=== PATIENT | female | born 1965 | race Caucasian/White ===

== ENCOUNTER 2020-09-01 14:50 | Outpatient (CLI) | payer BC, SELFPAY ==
--- NOTE | ~2020-09-01 | DEXA_ITS ---
Bone Density Report Name: Maria Fernanda Crawford Age: 54 Sex: Female Ethnicity: White Date of : 1965 Indication: postmenopausal; Referring Provider: Bushra Kern Study: Bone densitometry was performed. Exam Date: September 01, 2020 Accession number: [id number] Bone Density: Region BMD T-score Z-score Classification AP Spine (L1-L4) 0.914 -1.2 0.0 Osteopenia Femoral Neck (Left) 0.499 -3.2 -2.0 Osteoporosis Total Hip (Left) 0.649 -2.4 -1.6 Osteopenia Total Hip Bilateral Avg 0.658 -2.4 -1.6 Osteopenia Femoral Neck (Right) 0.531 -2.9 -1.7 Osteoporosis Total Hip (Right) 0.666 -2.3 -1.5 Osteopenia World Health Organization criteria for BMD impression classify patients as: Normal (T-score at or above -1.0), Osteopenia (T-score between -1.0 and -2.5), or Osteoporosis (T-score at or below -2.5). 10-year Fracture Risk: FRAX not reported because: Some T-score for Spine Total or Hip Total or Femoral Neck at or below -2.5 Clinical Information Provided by Patient: Has used the following medications: Vitamin D Patient maximum height was 65 Menopause Age: 48 No regular weight bearing exercise Onset of menses at age 12 Number of children 2 Impression: The patient has osteoporosis, based on the Left Femoral Neck T-score. Discussion: HIGH RISK OF FRACTURE. BONE DENSITY IS UNDESIRABLY LOW AT ONE OR MORE SKELETAL SITES, CONSISTENT WITH OSTEOPOROSIS. ALSO, BONE DENSITY IS LOWER THAN EXPECTED FOR AGE AND SEX AT ONE OR MORE SKELETAL SITES; RECOMMEND A DILIGENT SEARCH FOR SECONDARY CAUSES OF BONE LOSS. This patient's lowest T-score meets the World Health Organization's (WHO) criteria for osteoporosis at one or more sites (T-score -2.5 or below). In untreated patients, the risk of osteoporotic fracture increases approximately two-fold for each 1.0 SD decrease in T-score. Low bone density is not the only risk factor for fracture; also consider factors such as patient's age, frailty or poor health, risk of falling, risk of injury, previous osteoporotic fracture, family history of osteoporosis, cigarette smoking, low body weight, etc. Not everyone with low bone mineral density has osteoporosis; osteomalacia and other metabolic bone disorders should also be considered. Patients who have osteoporosis should be evaluated for specific diseases and conditions (secondary causes) that may cause or contribute to bone loss. The [place] [employer]ocrinologists (AACE) and National Osteoporosis Foundation (NOF) recommend pharmacologic intervention for all postmenopausal women whose T-score is in this range. Also, this patient's bone mineral density is below the range considered normal for healthy age-, sex-, and race-matched controls at least one site (Z-score -2.0 or below). This warrants careful evaluation for diseases and conditions th
== END 2020-09-01 14:51 | disposition home or self-care (01) ==
PROVIDERS: PCP Family Medicine; Visit Provider Family Medicine
DX: Z78.0 Asymptomatic menopausal state (principal); M81.0 Age-related osteoporosis without current pathological fracture; M85.852 Other specified disorders of bone density and structure, left thigh; M85.851 Other specified disorders of bone density and structure, right thigh
CPT/HCPCS: 77080

== ENCOUNTER 2020-12-04 09:16 | Outpatient (CLI) | payer BC, SELFPAY | END 2020-12-04 09:17 | disposition home or self-care (01) | LOC: ANHCOVIDVC 09:16 | PROVIDERS: PCP Family Medicine | DX: Z23 Encounter for immunization (principal) | CPT/HCPCS: 0001A; 91300 ==

== ENCOUNTER 2020-12-25 09:16 | Outpatient (CLI) | payer BC, SELFPAY | END 2020-12-25 09:17 | disposition home or self-care (01) | LOC: ANHCOVIDVC 09:17 | PROVIDERS: PCP Family Medicine | DX: Z23 Encounter for immunization (principal) | CPT/HCPCS: 0002A; 91300 ==

== ENCOUNTER 2021-02-22 15:42 | Outpatient (CLI) | payer BC, SELFPAY ==
--- NOTE | ~2021-02-22 | XR_ITS ---
EXAMINATION: XR knee LT 3V DATE: 02/22/2021 16:07 INDICATION: Left knee pain. TECHNIQUE: 3 views of left knee on 4 radiographs were obtained. COMPARISON: None. FINDINGS: Bone alignment is normal. No fracture. Joint spaces are well maintained. There is no knee j oint effusion. IMPRESSION: 1. Normal left knee. Reviewed, dictated and finalized at location A. IMPRESSION: 1. Normal left knee.
[2021-02-22 16:31] LABS: Basophils Percent Auto 0.3 % (0.2-1.2); Eosinophils Absolute Auto 0.1 K/mm3 (0-0.3); Eosinophils Percent Auto 2.9 % (0-4.4); Hematocrit 33.8 % (37.0-47.0); Hemoglobin 11.2 g/dL (12.0-15.0); Immature Granulocyte Absolute 0.01 K/mm3 (0.00-0.031); Immature Granulocyte Percent A 0.3 % (0-0.5); Lymphocytes Absolute Auto 0.49 K/mm3 (0.9-3.2); Lymphocytes Percent Auto 15.7 % (18.3-44.2); Mean Corpuscular HGB Conc 33.1 g/dl (32-36); Mean Corpuscular Hemoglobin 34.4 pg (26-34); Mean Corpuscular Volume 103.7 fl (80-100); Mean Platelet Volume 9.9 fl (7.4-10.4); Monocytes Absolute Auto 0.3 K/mm3 (0.1-0.6); Monocytes Percent Auto 10.2 % (2.6-8.5); Neutrophils Absolute Auto 2.2 K/mm3 (1.3-6.7); Neutrophils Percent Auto 70.6 % (45.5-73.1); Platelet Count Result 133 k/mm3 (150-375); Red Blood Count 3.26 M/mm3 (4.2-5.4); Red Cell Distribution Width 14.3 % (11.5-14.5); White Blood Count 3.1 K/mm3 (4.5-10.0)
[2021-02-22 16:39] LABS: Alanine Aminotransferase 29 U/L (4-35); Albumin Level 4.6 g/dL (3.5-5.1); Alkaline Phosphatase 122 U/L (38-126); Anion Gap 11 mmol/L (8-16); Aspartate Amino Transferase 61 U/L (14-36); Bilirubin,Total 0.4 mg/dL (0.2-1.3); Blood Urea Nitrogen 20 mg/dL (7-17); Calcium 10.3 mg/dL (8.4-10.2); Carbon Dioxide 23 mmol/L (22-30); Chloride 107 mmol/L (98-107); Estimated Glomerular Filt Rate 57; Glucose 99 mg/dL (65-105); Potassium 4.8 mmol/L (3.4-5.0); Sodium 141 mmol/L (137-145); Uric Acid 7.2 mg/dL (2.5-7.5)
== END 2021-02-22 15:43 | disposition home or self-care (01) ==
LOC: ANHIMG 15:44
PROVIDERS: PCP Family Medicine; Visit Provider Family Medicine
DX: Z00.00 Encounter for general adult medical examination without abnormal findings (principal); M25.562 Pain in left knee; M25.462 Effusion, left knee; D61.818 Other pancytopenia; I10 Essential (primary) hypertension
CPT/HCPCS: 36415; 73562; 80053; 84550; 85025

== ENCOUNTER 2021-03-09 08:23 | Outpatient (CLI) | payer BC, SELFPAY ==
--- NOTE | ~2021-03-09 | MR_ITS ---
EXAMINATION: MR knee LT wo con DATE: 03/09/2021 10:03 INDICATION: Left knee pain TECHNIQUE: Magnetic resonance imaging (MRI) of the left knee was performed without intravenous contra st. Sequences included coronal PD-weighted FSE, coronal PD-weighted FS FSE, sagittal T2-weighted FSE , sagittal PD-weighted FS FSE and axial PD weighted fat saturated FSE. COMPARISON: None. FINDINGS: Medial compartment: Medial meniscus is normal. There is some shallow chondral surface irregularity along the anterior blaire ghtbearing medial femoral condyle. Lateral compartment: Lateral meniscus is normal. Articular cartilage is normal. Patellofemoral compartment: Small region of deep chondral fissuring at the medial patellar facet with small focus of underlying s ubarticular cystic change. Remaining cartilage in the patellofemoral compartment appears normal. Ligaments and tendons: Anterior and posterior cruciate ligaments are normal. The medial collateral ligament and fibular tracie ateral ligament complex are normal. The extensor mechanism is normal. The visualized medial and later al hamstring tendons as well as the iliotibial band are normal. Fluid: Physiologic amount of fluid in the joint space. No loose osteochondral bodies identified. Osseous/other: There is marrow edema centered around a linear low signal intensity subarticular fracture line along the anterior margin of the medial tibial plateau. Bone marrow signal is otherwise normal with no othe r fractures, bone contusions or pathologic marrow replacing process. IMPRESSION: 1. Nondisplaced subarticular fracture line along the anterior aspect of the medial tibial plateau whi ch could be related to a discrete impaction injury or more gradually developing stress/insufficiency fracture. 2. Minimal osteoarthritis with small region of moderate grade chondromalacia along the anterior weigh tbearing medial femoral condyle and small focus of high-grade chondromalacia at the medial patellar f acet. Reviewed, dictated and finalized at location A. IMPRESSION: 1. Nondisplaced subarticular fracture line along the anterior aspect of the med ial tibial plateau which could be related to a discrete impaction injury or mor e gradually developing stress/insufficiency fracture. 2. Minimal osteoarthritis with small region of moderate grade chondromalacia al yuliana the anterior weightbearing medial femoral condyle and small focus of high-g rade chondromalacia at the medial patellar facet.
== END 2021-03-09 08:24 | disposition home or self-care (01) ==
PROVIDERS: PCP Family Medicine; Visit Provider Family Medicine
DX: M25.562 Pain in left knee (principal); M25.462 Effusion, left knee; S82.145A Nondisplaced bicondylar fracture of left tibia, initial encounter for closed fracture; M17.12 Unilateral primary osteoarthritis, left knee; M94.262 Chondromalacia, left knee
CPT/HCPCS: 73721

== ENCOUNTER 2021-03-23 08:22 | Outpatient (CLI) | payer BC, SELFPAY ==
--- NOTE | ~2021-03-23 | US_ITS ---
EXAMINATION: US abdomen complete DATE: 03/23/2021 09:25 INDICATION: Leukopenia TECHNIQUE: Multiple grayscale and Doppler ultrasound images of the abdomen were obtained. COMPARISON: MRI, 04/12/2019 FINDINGS: The head and body of the pancreas are normal. The pancreatic tail is obscured by bowel gas. The liver demonstrates increased echogenicity, heterogenous echotexture, and decreased through trans mission. No surface nodularity. Normal hepatopetal flow in the main portal vein. The gallbladder is n ormal with no abnormal wall thickening, pericholecystic fluid or stones. The normal common bile duct measures 4 mm. There was no sonographic [place] sign. The visualized portions of the aorta and inferio r vena cava are normal. The right kidney measures 9.2 x 5.2 x 5.7 cm. The left kidney measures 9.3 x 5.5 x 5.7 cm. The kidney s demonstrate normal parenchymal echogenicity. There is no hydronephrosis. The spleen is normal in ap pearance and measures 10.8 cm. IMPRESSION: 1. Diffuse hepatic steatosis. Reviewed, dictated and finalized at location A.
== END 2021-03-23 08:23 | disposition home or self-care (01) ==
LOC: ANHIMG 08:33
PROVIDERS: PCP Family Medicine; Visit Provider Internal Medicine Hematology & Oncology
DX: D72.819 Decreased white blood cell count, unspecified (principal); K76.0 Fatty (change of) liver, not elsewhere classified
CPT/HCPCS: 76700

== ENCOUNTER 2021-06-25 15:29 | Emergency (ER) | payer BC, SELFPAY ==
--- NOTE | ~2021-06-25 | CT_ITS ---
EXAMINATION: CT abdomen pelvis w con DATE: 06/25/2021 19:40 INDICATION: Nausea and vomiting for 3 days TECHNIQUE: Computed tomography (CT) of the abdomen and pelvis was performed with 100 cc Omnipaque 350 intravenous contrast. The dose-length product was 571.69 mGy-cm. Automated exposure control and iter ative reconstruction technique were employed. COMPARISON: CT dated 04/26/2019. FINDINGS: Lung bases are unremarkable. Heart size normal. No significant vascular abnormality. No lym phadenopathy. Fatty infiltration of the liver. Gallbladder is present. The spleen, pancreas, adrenal glands and kid neys are unremarkable. No hydronephrosis. Nonobstructive bowel gas pattern. Normal appendix. Colonic diverticula without evidence for diverticulitis. No free air or free fluid. No evidence for hernia. N o acute osseous abnormality. Mild osteoarthritis of the hips. IMPRESSION: 1. No acute abdominal abnormality. Reviewed, dictated and finalized at location A.
[2021-06-25 17:24] VITALS: BP 162/100; PULSE 114; RESP 18; TEMP 36.3; O2SAT 99
[2021-06-25 17:38] LABS: Basophils Percent Auto 0.2 % (0.2-1.2); Hemoglobin 12.4 g/dL (12.0-15.0); Immature Granulocyte Absolute 0.02 K/mm3 (0.00-0.031); Immature Granulocyte Percent A 0.3 % (0-0.5); Lymphocytes Absolute Auto 0.26 K/mm3 (0.9-3.2); Mean Corpuscular HGB Conc 33.5 g/dl (32-36); Mean Corpuscular Hemoglobin 34.3 pg (26-34); Mean Corpuscular Volume 102.5 fl (80-100); Mean Platelet Volume 10.2 fl (7.4-10.4); Monocytes Absolute Auto 0.3 K/mm3 (0.1-0.6); Monocytes Percent Auto 5.2 % (2.6-8.5); Neutrophils Absolute Auto 5.9 K/mm3 (1.3-6.7); Neutrophils Percent Auto 90.3 % (45.5-73.1); Platelet Count Result 93 k/mm3 (150-375); Red Blood Count 3.61 M/mm3 (4.2-5.4); Red Cell Distribution Width 13.9 % (11.5-14.5); White Blood Count 6.6 K/mm3 (4.5-10.0)
[2021-06-25 17:48] LABS: Alanine Aminotransferase 39 U/L (4-35); Albumin Level 5.3 g/dL (3.5-5.1); Alkaline Phosphatase 136 U/L (38-126); Anion Gap 15 mmol/L (8-16); Aspartate Amino Transferase 80 U/L (14-36); Bilirubin,Total 1.3 mg/dL (0.2-1.3); Blood Urea Nitrogen 23 mg/dL (7-17); Carbon Dioxide 22 mmol/L (22-30); Chloride 102 mmol/L (98-107); Estimated CRCL calculation 54 ml/min; Estimated Glomerular Filt Rate > 60; Glucose 145 mg/dL (65-110); Lipase 274 U/L (23-300); Potassium 4.5 mmol/L (3.4-5.0); Sodium 139 mmol/L (137-145)
--- NOTE | 2021-06-25 18:57 | ED.NAVMDI ---
HPI - Nausea/Vomiting/Diarrhea General Chief complaint: Nausea/Vomiting/Diarrhea Stated complaint: vomitingx 3 days Time Seen by Provider: 06/25/21 18:31 Source: patient Mode of arrival: ambulatory Limitations: no limitations History of Present Illness HPI Narrative: This is a 55 year old female that presents to the ER for nausea and vomiting present over the last couple of days. Associated with mid abdominal discomfort. Denies fever, diarrhea, hematochezia, or dysuria. Related Data Home Medications Medication Instructions Recorded Confirmed ascorbic acid (vitamin C) 500 mg 700 mg PO DAILY tablet 02/22/21 06/14/21 tablet,extended release cholecalciferol (vitamin D3) 50 50 mcg PO DAILY 02/22/21 06/14/21 mcg (2,000 unit) capsule olmesartan 20 mg tablet 10 mg PO DAILY tablet 06/14/21 06/14/21 sertraline 25 mg tablet 25 mg PO DAILY tablet 06/14/21 06/14/21 Allergies Allergy/AdvReac Type Severity Reaction Status Date / Time codeine Allergy Unknown Headache Verified 06/14/21 08:36 Penicillins Allergy Unknown Skin Verified 06/14/21 08:36 irritation Review of Systems Review of Systems: CONSTITUTIONAL: Denies fever GASTROINTESTINAL: Reports abdominal pain, nausea, vomiting. Denies diarrhea. GENITOURINARY: Denies dysuria All systems reviewed & are unremarkable except as noted in HPI and below PMFSH Past Medical History Medical History Anemia Arthritis Back injury Bronchitis Chills Dyslipidemia Environmental allergies Essential (primary) hypertension Fractures GERD without esophagitis High cholesterol History of pancreatitis 04/2019 - due to alcohol abuse Hypertension IBS (irritable bowel syndrome) Night sweats Osteoporosis Pancytopenia Pneumonia Vomiting Wears glasses Surgical History Surgical History H/O tubal ligation (~1995) S/P right rotator cuff repair (~2005) Family History Family History Father Diabetes mellitus Family history of kidney disease Mother Diabetes mellitus Family history of cardiovascular disease Cerebrovascular accident Social History Social History Smoking status: Never smoker Second hand tobacco smoke exposure: No Smoking end date: 08/28/13 Alcohol intake: former Substance use: never Substance use type: does not use Gender identity (if verbalized by the patient): Female Exam Narrative: GENERAL: Well-appearing, well-nourished, and in no acute distress. HEAD: Normocephalic, atraumatic. EYES: EOMI. CHEST: Clear to auscultation. No respiratory distress. No wheezes rales or rhonchi HEART: Regular rate and rhythm. No murmur heard. Normal peripheral pulses. ABDOMEN: Soft, nondistended, normal active bowel sounds. Mild tenderness to palpation throughout the abdomen, without guarding EXTREMITIES: Normal range of motion. No edema. SKIN: Warm, dry, no rash. NEURO: No focal deficits. Alert and oriented x3. PSYCH: Normal mood and affect Course Vital Signs Vital signs: Vital Signs Temperature 97.3 F L 06/25/21 17:24 Pulse Rate 114 H 06/25/21 17:24 Respiratory Rate 18 06/25/21 17:24 Blood Pressure 162/100 H 06/25/21 17:24 Pulse Oximetry 99 06/25/21 17:24 Temperature 97.3 F L 06/25/21 17:24 Pulse Rate 114 H 06/25/21 17:24 Respiratory Rate 18 06/25/21 17:24 Blood Pressure 162/100 H 06/25/21 17:24 Pulse Oximetry 99 06/25/21 17:24 MDM - Nausea/Vomiting/Diarrhea MDM Narrative Medical decision making narrative: Patient presents to the ER for nausea and vomiting present over the last coupe of days. She is afebrile and nontoxic appearing. Vitals are stable. CBC is without acute findings. Does show thrombocytopenia, which appears to be chronic for patient. Metabolic panel with mild transaminitis.
[2021-06-25] MEDS: SODIUM CHLORIDE 0.9% IV 1,000 ML 999 ML IV CONT ×2 (19:18→20:54)
[2021-06-25] MEDS: METOCLOPRAMIDE HCL INJ 10 MG/2 ML VIAL IV PUSH (19:20)
[2021-06-25] MEDS: diphenhydrAMINE HCl INJ 50 MG/ML VIAL 25 MG IV PUSH (19:21)
[2021-06-25 20:53] LABS: Add Urine Microscopic? YES; Appearance Urine Clear (Clear); Bacteria Urine Trace /hpf; Bilirubin Urine Negative (Negative); Blood Urine Negative (Negative); Color Urine Yellow (Yellow); Glucose Urine UA 1+ mg/dL (Negative); Ketones Urine 1+ mg/dL (Negative); Leukocyte Esterase Ur Negative LEU/UL (Negative); Mucus Urine Rare /lpf; Nitrate Urine Negative (Negative); Protein Urine 2+ mg/dL (Negative); Squamous Epithelial Cell Urine Few /hpf (Few); Urobilinogen Urine Negative mg/dL (<2.0); WBC Urine 0-3 /hpf
[2021-06-25 21:07] LABS: Specific Grav Ur 1.056 (1.001-1.035)
[2021-06-25] MEDS: ACETAMINOPHEN 325 MG TABLET 650 MG PO (22:01)
[2021-06-25 22:05] VITALS: BP 147/91; PULSE 100; RESP 16; O2SAT 97
== END 2021-06-25 22:52 | disposition home or self-care (01) ==
PROVIDERS: Emergency Provider Emergency Medicine; PCP Family Medicine
DX: R11.2 Nausea with vomiting, unspecified (principal); E78.5 Hyperlipidemia, unspecified; I10 Essential (primary) hypertension; K21.9 Gastro-esophageal reflux disease without esophagitis; K58.9 Irritable bowel syndrome, unspecified; M19.90 Unspecified osteoarthritis, unspecified site; M81.0 Age-related osteoporosis without current pathological fracture; Z87.01 Personal history of pneumonia (recurrent); Z86.2 Personal history of diseases of the blood and blood-forming organs and certain disorders involving the immune mechanism
CPT/HCPCS: 36415; 74177; 80053; 81001; 83690; 85025; 96361; 96374; 96375; 99284; A9270; J1200; J2765; J7030; Q9967

== ENCOUNTER 2021-12-12 10:51 | Inpatient (IN) | payer BC, SELFPAY ==
[2021-12-12] VITALS (11 sets, daily range): BP systolic 125–179; BP diastolic 72–112; PULSE 81–132; RESP 14–21; TEMP 36.4–37.1; O2SAT 92–100; BMI 24.5
--- NOTE | ~2021-12-12 | MR_ITS ---
EXAMINATION: MR brain/brain stem wo/w con DATE: 12/13/2021 11:14 INDICATION: Seizure. TECHNIQUE: Magnetic resonance imaging (MRI) of the brain and brainstem was performed without and with 13 mL MultiHance intravenous contrast. COMPARISON: Head CT 12/12/2021 FINDINGS: There is widespread increased T2-weighted signal intensity in the cerebrum and cerebellum a t the owens/white junction with a posterior predominance. There is increased T2-weighted signal intens ity in the sumi and left internal capsule. There is no intracranial hemorrhage or acute ischemic infa rct. There is no abnormal contrast enhancement. The orbits are normal. There are likely changes of oc ular lens replacement surgeries. The mastoid air cells are normal. IMPRESSION: 1. Widespread brain abnormalities, likely posterior reversible encephalopathy syndrome (PRES). Reviewed, dictated and finalized at location B. IMPRESSION: 1. Widespread brain abnormalities, likely posterior reversible encephalopathy s yndrome (PRES).
--- NOTE | ~2021-12-12 | CT_ITS ---
EXAMINATION: CT abdomen pelvis w con DATE: 12/12/2021 13:29 INDICATION: Abnormal liver function tests. TECHNIQUE: Computed tomography (CT) of the abdomen and pelvis was performed with 100 mL Omnipaque 350 intravenous contrast. Automated exposure control and iterative reconstruction technique were employe d. The dose-length product was 683.39 mGy-cm. COMPARISON: CT abdomen and pelvis 06/25/2021 FINDINGS: The visualized portions of the lung bases demonstrate mild atelectasis. No pleural effusion . The heart size is normal. No pericardial effusion. There is diffuse hepatic steatosis. The gallblad diogenes, spleen, pancreas, adrenal glands, and kidneys are normal. There is diverticulosis of the colon w ithout evidence of diverticulitis. There are no dilated loops of bowel. The appendix is normal. There are no pathologically enlarged lymph nodes. There is no free intraperitoneal fluid. There is thoraco lumbar spondylosis. There is a chronic compression fracture of T11. There is a burst fracture of T7 w ith 2/5 loss of height and retropulsion of bone 2 mm into central spinal canal, likely subacute. IMPRESSION: 1. Diffuse hepatic steatosis. Reviewed, dictated and finalized at location A.
--- NOTE | ~2021-12-12 | CT_ITS ---
EXAMINATION: CT brain wo con DATE: 12/12/2021 12:04 INDICATION: Seizure. TECHNIQUE: Computed tomography (CT) of the head was performed without intravenous contrast. The mA wa s adjusted according to patient size. Iterative reconstruction technique was employed. The dose-lengt h product was 983.67 mGy-cm. COMPARISON: Head CT 08/23/2019 FINDINGS: Motion artifact is noted. There is no intracranial hemorrhage, acute infarction, or abnorma l intracranial mass lesion. The ventricles are normal in size. The orbits are normal. There is mild m ucosal thickening in the ethmoid sinuses. The mastoid air cells are normal. IMPRESSION: 1. Normal brain. Reviewed, dictated and finalized at location A. IMPRESSION: 1. Normal brain.
--- NOTE | ~2021-12-12 | US_ITS ---
EXAMINATION: US abdomen limited DATE: 12/13/2021 09:08 INDICATION: Abnormal liver function tests. TECHNIQUE: Multiple grayscale and Doppler ultrasound images of the abdomen were obtained. COMPARISON: CT abdomen and pelvis 12/12/2021 FINDINGS: The visualized portions of the head and body of the pancreas are normal. There is diffuse h epatic steatosis. No liver surface nodularity. There is normal flow in main portal vein. The gallblad diogenes is normal in size. No gallstones or gallbladder wall thickening. There is no sonographic [place] s ign. The common duct is normal and measures 5 mm. IMPRESSION: 1. Diffuse hepatic steatosis. Reviewed, dictated and finalized at location B.
--- NOTE | ~2021-12-12 | MR_ITS ---
EXAMINATION: MR lumbar spine wo con DATE: 12/13/2021 15:17 INDICATION: Vertebral fracture. Back pain. TECHNIQUE: Magnetic resonance imaging (MRI) of the lumbar spine was performed without intravenous con trast. Sequences included sagittal T2-weighted FSE, sagittal T2-weighted FS FSE, sagittal T1-weighted FSE, and axial T2-weighted FSE. COMPARISON: CT abdomen and pelvis 12/12/2021 FINDINGS: Bone alignment is normal. There is a chronic compression fracture of T11 with 1/5 loss of h eight. Intervertebral disc heights are normal. The distal spinal cord signal intensity is normal. The conus medullaris is at L1. The following disc levels are specifically discussed: L1-L2: The disc does not extend beyond the endplate margin. There is mild right facet joint osteoarth ritis. There is no neural foraminal stenosis. There is no central canal stenosis. L2-L3: The disc is bulging with superimposed central extrusion with 9 mm inferior extension. There is mild bilateral facet joint osteoarthritis. There is mild left neural foraminal stenosis. There is mi ld central canal stenosis. L3-L4: The disc is bulging and has an annular fissure. There is mild bilateral facet joint osteoarthr itis. There is mild bilateral neural foraminal stenosis. There is mild central canal stenosis. L4-L5: The disc is mildly bulging. There is mild bilateral facet joint osteoarthritis. There is mild right neural foraminal stenosis. There is no central canal stenosis. L5-S1: The disc does not extend beyond the endplate margin. There is mild bilateral facet joint osteo arthritis. There is no neural foraminal stenosis. There is no central canal stenosis. IMPRESSION: 1. Mild lumbar spondylosis. Reviewed, dictated and finalized at location B. IMPRESSION: 1. Mild lumbar spondylosis.
--- NOTE | ~2021-12-12 | CT_ITS ---
EXAMINATION: CT cervical spine wo con DATE: 12/12/2021 12:04 INDICATION: Seizure. Transient alteration of awareness. TECHNIQUE: Computed tomography (CT) of the cervical spine was performed without intravenous contrast. Automated exposure control and iterative reconstruction technique were employed. The dose-length pro duct was 286.56 mGy-cm. COMPARISON: None FINDINGS: There is kyphosis of lower cervical spine. Vertebral body heights are normal. There is a be nign bone island in C6 spinous process. There is moderately decreased disc height at C4-C5 and C6-C7 and mildly decreased disc height at C5-C6. The following disc levels are specifically discussed: C2-C3: There is no uncovertebral joint osteoarthritis. There is mild right facet joint osteoarthritis . There is no neural foraminal stenosis. There is no central canal stenosis. C3-C4: There is mild right and moderate left uncovertebral joint osteoarthritis. There is mild right and severe left facet joint osteoarthritis. There is mild left neural foraminal stenosis. There is no central canal stenosis. C4-C5: There is severe bilateral uncovertebral joint osteoarthritis. There is mild right and severe l eft facet joint osteoarthritis. There is mild bilateral neural foraminal stenosis. There is mild cent ral canal stenosis. C5-C6: There is mild bilateral uncovertebral joint osteoarthritis. There is mild bilateral facet join t osteoarthritis. There is mild right neural foraminal stenosis. There is mild central canal stenosis . C6-C7: There is severe bilateral uncovertebral joint osteoarthritis. There is mild bilateral facet willy int osteoarthritis. There is mild bilateral neural foraminal stenosis. There is mild central canal st enosis. C7-T1: There is no uncovertebral joint osteoarthritis. There is moderate right and mild left facet willy int osteoarthritis. There is no neural foraminal stenosis. There is no central canal stenosis. IMPRESSION: 1. No fracture. 2. Moderate cervical spondylosis. Reviewed, dictated and finalized at location A.
--- NOTE | ~2021-12-12 | MR_ITS ---
EXAMINATION: MR thoracic spine wo con DATE: 12/13/2021 15:03 INDICATION: Vertebral fracture. Back pain. TECHNIQUE: Magnetic resonance imaging (MRI) of the thoracic spine was performed without intravenous c ontrast. Sagittal localizer T1-weighted FSE of the cervical spine was obtained. Thoracic spine sequen kashif included sagittal T2-weighted FSE, sagittal T1-weighted FSE, sagittal STIR FSE, and axial T2-weig hted FSE. COMPARISON: CT abdomen and pelvis 12/12/2021 FINDINGS: There is 10 degrees dextroscoliosis of thoracic spine. There are mild chronic compression f ractures of T4 and T11. There is a burst fracture of T6 with 2/5 loss of height, low signal fracture lines, and bone marrow edema. There is a burst fracture of T7 with 3/5 loss of height, low signal fra cture lines, bone marrow edema, and retropulsion of bone 2 mm into central spinal canal. Intervertebr al disc heights are normal. There is multilevel facet joint osteoarthritis, severe on the right from T2-T3 through T4-T5. On the right, there is mild neural foraminal stenosis from T2-T3 through T4-T5. The discs do not extend beyond the endplate margins. There is edema between the spinous processes at T5-T6, T6-T7, and T7-T8, consistent with sprains of the interspinous ligaments. There is mild central canal stenosis at T7. There is syringohydromyelia in thoracic spinal cord measuring up to [address] IMPRESSION: 1. Subacute burst fractures of T6 and T7. 2. Sprains of the interspinous ligaments from T5-T6 through T7-T8. 3. Mild thoracic spondylosis. 4. Thoracic dextroscoliosis. 5. 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 Reviewed, dictated and finalized at location B. IMPRESSION: 1. Subacute burst fractures of T6 and T7. 2. Sprains of the interspinous ligaments from T5-T6 through T7-T8. 3. Mild thoracic spondylosis. 4. Thoracic dextroscoliosis. 5. 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
--- NOTE | ~2021-12-12 | XR_ITS ---
EXAMINATION: XR chest 1V portable EXAM DATE: 12/13/2021 06:02 INDICATION: Aspiration. TECHNIQUE: Portable AP frontal chest x-ray was obtained. Comparison is made to prior examination from 04/03/2018. FINDINGS: The lungs are clear. There are no pleural effusions. Cardiac silhouette is prominent but magnified on this AP technique. There is no pneumothorax suspected. The bones and soft tissues are unremarkable. IMPRESSION: No acute cardiopulmonary findings. Reviewed, dictated and finalized at location A.
--- NOTE | 2021-12-12 11:02 | ECG_ITS ---
Measurements Intervals [place] Rate: 106 P: 60 TN: 133 QRS: 13 QRSD: 93 T: 65 QT: 359 QTc: 477 Interpretive Statements SINUS TACHYCARDIA NONSPECIFIC ST & T-WAVE ABNORMALITY ABNORMAL ECG NO PREVIOUS ECG AVAILABLE FOR COMPARISON Electronically Signed On 12-12-2021 11:25:04 CDT by Bennie Wade M.D.
--- NOTE | 2021-12-12 11:30 | PC.NURSE ---
per at bedside, pt has been under a lot of stress since her mom passed in May 2021. reports that he believes she drinks alcohol at night to help her sleep.
--- NOTE | 2021-12-12 11:32 | PC.NURSE ---
bedside report given to CONNOR Obrien. Camille RN
[2021-12-12] MEDS: SODIUM CHLORIDE 0.9% IV 1,000 ML 999 ML IV CONT ×2 (11:36→22:46)
[2021-12-12] MEDS: diazePAM INJ (*CRX) 10 MG/2 ML SYRINGE IV PUSH (11:36)
--- NOTE | 2021-12-12 11:38 | ED.SEIZURE ---
HPI - Seizure General Chief Complaint: Seizure Stated Complaint: seizure like needs Time Seen by Provider: 12/12/21 11:14 Source: patient, EMS and RN notes reviewed Mode of arrival: EMS Limitations: clinical condition History of Present Illness HPI Narrative: Patient is 56 years old white female came to the emergency room with her who is telling me that patient had seizure at 3 AM, morning, rigid all over, lasted for 20 to 25 seconds followed by confusion for 20 minutes. He denied that the patient have any history of seizure before. Another similar seizure happened at 6 AM and another 1 8:30 AM and another 1 in the ambulance prior to arrival to the emergency room and last 1 while I am examining the patient. Patient got stiff all over, tonic-clonic, foaming bloody sputum from the mouth lasted for 35 seconds. Patient had history of alcohol abuse over 2 months ago, is not sure if she is still drinking or not because he go to work and does not know what she is doing at home. Although she told him that she does not drink anymore. History of hypertension, hyperlipidemia, depression, does not smoke, uses marijuana occasionally. Related Data Home Medications Medication Instructions Recorded Confirmed ascorbic acid (vitamin C) 500 mg 700 mg PO DAILY tablet 02/22/21 10/04/21 tablet,extended release cholecalciferol (vitamin D3) 50 50 mcg PO DAILY 02/22/21 10/04/21 mcg (2,000 unit) capsule cholecalciferol (vitamin D3) 1,250 1,250 mcg PO WEEKLY cap 10/04/21 10/04/21 mcg (50,000 unit) capsule Allergies Allergy/AdvReac Type Severity Reaction Status Date / Time codeine Allergy Unknown Headache Verified 10/04/21 11:28 Penicillins Allergy Unknown Skin Verified 10/04/21 11:28 irritation Review of Systems Review of Systems: C ROS unobtainable: Yes unobtainable due to medical condition PMFSH Past Medical History Medical History Anemia Arthritis Back injury Bronchitis Chills Dyslipidemia Environmental allergies Essential (primary) hypertension Fractures GERD without esophagitis High cholesterol History of pancreatitis 04/2019 - due to alcohol abuse Hypertension IBS (irritable bowel syndrome) Night sweats Osteoporosis Pancytopenia Pneumonia Vomiting Wears glasses Surgical History Surgical History H/O tubal ligation (~1995) S/P right rotator cuff repair (~2005) Family History Family History Father Diabetes mellitus Family history of kidney disease Mother Diabetes mellitus Family history of cardiovascular disease Cerebrovascular accident Social History Social History Smoking status: Never smoker Second hand tobacco smoke exposure: No Smoking end date: 08/28/13 Alcohol intake: former Substance use: never Substance use type: does not use Gender identity (if verbalized by the patient): Female Exam Narrative: General appearance: Well-developed, well-nourished, confused, lethargic Skin: Normal color Head: Normocephalic, nontraumatic Eyes: Clear conjunctiva ENT: Oropharynx normal, ears normal, nose normal, positive tongue bite Neck: Supple, nontender Chest and respiratory: Airway patent, no respiratory distress, no accessory muscle use Heart: Tachycardia Abdomen: Soft, nontender, no organomegaly, quiet bowel sounds Vascular: Normal peripheral pulses, normal capillary refill. Musculoskeletal: Normal range of motion, nontender back Neurologic: Alert, confused Course Vital Signs Vital si
--- NOTE | 2021-12-12 11:41 | PC.NURSE ---
Patient taken to CT by senior quality control technician.
[2021-12-12 11:43] LABS: Basophils Percent Auto 0.3 % (0.2-1.2); Eosinophils Percent Auto 0.1 % (0-4.4); Hematocrit 43.7 % (37.0-47.0); Hemoglobin 14.5 g/dL (12.0-15.0); Immature Granulocyte Absolute 0.09 K/mm3 (0.00-0.031); Immature Granulocyte Percent A 1.2 % (0-0.5); Lymphocytes Percent Auto 5.1 % (18.3-44.2); Mean Corpuscular HGB Conc 33.2 g/dl (32-36); Mean Corpuscular Hemoglobin 37.1 pg (26-34); Mean Corpuscular Volume 111.8 fl (80-100); Mean Platelet Volume 10.3 fl (7.4-10.4); Monocytes Absolute Auto 0.8 K/mm3 (0.1-0.6); Monocytes Percent Auto 9.9 % (2.6-8.5); Neutrophils Absolute Auto 6.5 K/mm3 (1.3-6.7); Neutrophils Percent Auto 83.4 % (45.5-73.1); Nucleated Red Blood Cells Perc 0.5 % (0.0-0.2); Platelet Count Result 98 k/mm3 (150-375); Red Blood Count 3.91 M/mm3 (4.2-5.4); Red Cell Distribution Width 14.7 % (11.5-14.5); White Blood Count 7.8 K/mm3 (4.5-10.0)
[2021-12-12 11:55] LABS: INR 1.1; Partial Thromboplastin Time 25.9 SECONDS (22.3-36.8); Prothrombin Time 13.5 Seconds (11.1-14.7)
[2021-12-12 12:02] LABS: Alanine Aminotransferase 209 U/L (4-35); Albumin Level 5.8 g/dL (3.5-5.1); Alkaline Phosphatase 197 U/L (38-126); Anion Gap 31 mmol/L (8-16); Aspartate Amino Transferase 558 U/L (14-36); Bilirubin,Total 1.9 mg/dL (0.2-1.3); Blood Urea Nitrogen 11 mg/dL (7-17); Calcium 9.8 mg/dL (8.4-10.2); Carbon Dioxide 17 mmol/L (22-30); Chloride 90 mmol/L (98-107); Estimated CRCL calculation 54 ml/min; Estimated Glomerular Filt Rate > 60; Glucose 266 mg/dL (65-110); Lipase 438 U/L (23-300); Sodium 138 mmol/L (137-145)
[2021-12-12 12:06] LABS: Troponin I < 0.012 ng/mL (0.000-0.034)
[2021-12-12 12:14] LABS: Ethanol < 10 mg/dL (<10)
[2021-12-12] MEDS: levETIRAcetam 1000MG/NACL100ML 1,000 MG/100 ML BAG 400 MG IVPB (12:43)
[2021-12-12] MEDS: diazePAM INJ (*CRX) 10 MG/2 ML SYRINGE 5 MG IV PUSH (12:55)
[2021-12-12] MEDS: ONDANSETRON INJ 4 MG/2 ML VIAL IV PUSH ×2 (13:01→15:20)
[2021-12-12 13:14] LABS: Hemoglobin A1C 5.1 % (<5.7)
[2021-12-12] MEDS: SODIUM CHLORIDE 0.9% IV 1,000 ML 125 ML IV CONT ×2 (13:33→21:13)
[2021-12-12] MEDS: POTASSIUM CHLORIDE INJ 40 MEQ in SODIUM CHLORIDE 0.9% IV 500 ML 130 MEQ IVPB ×2 (13:33→23:32)
[2021-12-12 13:47] LABS: Amphetamine Screen Urine Negative (Negative); Barbiturate Screen Urine Negative (Negative); Benzodiazepines Screen Urine Positive (Negative); Cannabinoid Screen Urine Negative (Negative); Cocaine Screen Urine Negative (Negative); Methadone Screen Urine Negative (Negative); Opiate Screen Urine Negative (Negative); Phencyclidine Screen Urine Negative (Negative)
--- NOTE | 2021-12-12 15:32 | PC.NURSE ---
Patient report given to CONNOR De La Fuente. All questions answered at this time. ED certified veterinary technician to transport patient to her assigned inpatient room of 245.
--- NOTE | 2021-12-12 15:56 | ADMGEN ---
This patient, Maria Fernanda Crawford, was admitted to Medical Room 245-. Patient/family oriented to hospital policies and general routines including ID bracelet, bed and alarms, visiting hours, pain management, procedures, bathroom and other care routines, personal items, smoking policy, room service/diet, and visiting hours. Information on how to activate the Rapid Response Team has been discussed. Patient/Family are encouraged to report perceived risks to care and to ask questions if they do not understand what they are told or what they should do.
[2021-12-12 17:40] LABS: Troponin I 0.027 ng/mL (0.000-0.034)
--- NOTE | 2021-12-12 19:09 | PM.IMHP ---
H&P: HPI History of Present Illness Date/Time: 12/12/21 19:09 this is a 56-year-old female who presented to our emergency department with complaints seizure activity at 3:00 a.m.. Patient has a past medical history of anemia, arthritis, alcohol abuse back injury, bronchitis, dyslipidemia, hypertension, GERD, high cholesterol, hypertension, history of pancreatitis, irritable bowel syndrome and pancytopenia. A patient has occassional confusion and notes that she is here for N/v. she is a poor historian most information obtained from medical records. Vital signs 141/92, 97.8, 116, sodium 138, potassium 2.8, BUN 11, creatinine 0.90, glucose 266, hemoglobin A1c 5.1, total bili 1.9, AST 558, ALT 209, troponin the normal limits x2 lipase 438, toxicology positive for benzo, CT of the head and cervical spine no new findings CT of the abdomen hepatic steatosis. Patient being admitted for seizure activity, elevated liver enzymes hypokalemia. Patient's only complaint is she is having back pain. Denies any shortness of breath, visual disturbance, shortness of breath, chest pain or palpitation, nausea vomiting, dizziness or lightheadedness. Rapid response called on patient in 1900 due to seizure activity witnessed by nursing staff 1 mg Ativan given will start scheduled Ativan and Librium. Patient is back at baseline. Chief Complaint: Seizure activity Review of Systems Review of Systems: All systems reviewed & are unremarkable except as noted in HPI and below PMFSH Past Medical History Medical History Anemia Arthritis Back injury Bronchitis Chills Dyslipidemia Environmental allergies Essential (primary) hypertension Fractures GERD without esophagitis High cholesterol History of pancreatitis 04/2019 - due to alcohol abuse Hypertension IBS (irritable bowel syndrome) Night sweats Osteoporosis Pancytopenia Pneumonia Vomiting Wears glasses Surgical History Surgical History H/O tubal ligation (~1995) S/P right rotator cuff repair (~2005) Family History Family History Father Diabetes mellitus Family history of kidney disease Mother Diabetes mellitus Family history of cardiovascular disease Cerebrovascular accident Social History Social History Smoking packs per day: 1 Smoking cigarettes per day: 20.0 Years smoked: 15 Smoking pack-years: 15.00 Smoking status: Former smoker Second hand tobacco smoke exposure: No Alcohol intake: former Drinks per week: 3 Substance use: never Substance use type: does not use Other substance usage details: last drink 3 weeks ago Gender identity (if verbalized by the patient): Female Spiritual care concerns: No Meds Home Medications and Allergies Home Medications Medication Instructions Recorded Confirmed Type hydroxyzine HCl 25 mg tablet 25 mg PO QID PRN #120 tablet 06/15/20 12/12/21 Rx atorvastatin 40 mg tablet 40 mg PO QHS #90 tablet 01/27/21 12/12/21 Rx ascorbic acid (vitamin C) 500 mg 500 mg PO DAILY tablet 02/22/21 12/12/21 History tablet,extended release cholecalciferol (vitamin D3) 50 50 mcg PO DAILY 02/22/21 12/12/21 History mcg (2,000 unit) capsule sertraline 25 mg tablet 25 mg PO DAILY #90 tablet 09/13/21 12/12/21 Rx cholecalciferol (vitamin D3) 1,250 1,250 mcg PO WEEKLY cap 10/04/21 12/12/21 History mcg (50,000 unit) capsule metoprolol succinate 50 mg 50 mg PO DAILY #90 tablet 10/18/21 12/12/21 Rx tablet,extended release 24 hr Allergies Allergy/AdvReac Type Severity Reaction Status Date / Time codeine Allergy Unknown Headache Verified 12/12/21 16:37 Penicillins Allergy Unknown Skin Verified 12/12/21 16:37 irritation Vital Signs Vital Signs - 24 hr 12/12/21 10:53 12/12/21 12:16 12/12/21 13:01 Temperature 98.2 F
[2021-12-12 19:31] LABS: Glucose Point of Care 142 mg/dl (65-105)
[2021-12-12] MEDS: LORazepam INJ (*CRX) 2 MG/ML VIAL 1 MG IV PUSH (19:32)
[2021-12-12 20:21] LABS: Magnesium 1.8 mg/dL (1.6-2.3); Potassium 3.2 mmol/L (3.4-5.0)
[2021-12-12] MEDS: HYDROmorphone HCL INJ (*CRX) 1 MG/ML SYR IV PUSH (20:31)
[2021-12-12] MEDS: levETIRAcetam 250 MG TABLET PO (20:35)
--- NOTE | 2021-12-12 22:12 | PM.EVENT ---
Event Note Event Note Event Note: A rapid response had been called earlier in the evening because the patient was having seizure. At that time was under the impression that the patient had history of seizure disorder. Either find out the patient did not have a history of seizure disorder in actually with history of alcoholism. The patient is only oriented to self at the time of my evaluation but insists that she has not drank alcohol in 3 weeks. She has not had any recurrent seizures in several hours. Besides her disorientation she has no tremors, perceptible sweating or reports of anxiety or hallucinations. Nursing staff reported that her CIWA score at 8:00 p.m.. was 19. At the time of my evaluation at 10:00 p.m. was 4 for clouding of sensorium. I went and evaluated the patient and she is not in any distress. At this time I will increase the patient's Keppra to 500 mg b.i.d. for more appropriate adult dosing. I have requested nursing staff give patient 1 dose of IV thiamin 100 mg x 1 and continue acute 2 neuro checks until patient's sensorium improves. Will continue with Librium 25 mg q.6. If patient has recurrent seizures are significant worsening of her CIWA scores will transfer the patient to a floor with a higher level of care.
[2021-12-12 22:42] LABS: Anion Gap 13 mmol/L (8-16); Blood Urea Nitrogen 9 mg/dL (7-17); Calcium 8.4 mg/dL (8.4-10.2); Carbon Dioxide 25 mmol/L (22-30); Chloride 99 mmol/L (98-107); Estimated CRCL calculation 68 ml/min; Estimated Glomerular Filt Rate > 60; Glucose 144 mg/dL (65-110); Magnesium 1.8 mg/dL (1.6-2.3); Phosphorus 2.4 mg/dL (2.5-4.5); Sodium 137 mmol/L (137-145)
[2021-12-12] MEDS: THIAMINE HCL 200 MG/2 ML VIAL 100 MG IV PUSH (22:48)
--- NOTE | 2021-12-12 23:10 | PC.NURSE ---
Rapid response called at 1920 for seizure activity, pt recovered prior to ativan administration.
[2021-12-12 23:39] LABS: Appearance Urine Clear (Clear); Bilirubin Urine Negative (Negative); Blood Urine 3+ (Negative); Color Urine Yellow (Yellow); Glucose Urine UA Trace mg/dL (Negative); Ketones Urine 2+ mg/dL (Negative); Leukocyte Esterase Ur Negative LEU/UL (Negative); Nitrate Urine Negative (Negative); Protein Urine 3+ mg/dL (Negative); RBC Urine 21-50 /hpf (0-2); Specific Grav Ur 1.025 (1.001-1.035); Urobilinogen Urine 0.2 mg/dL (<2.0); WBC Urine 0-3 /hpf; pH Urine 6.5 (5.0-9.0)
[2021-12-12 23:52] LABS: Add Urine Microscopic? YES
[2021-12-13] VITALS (14 sets, daily range): BP systolic 102–157; BP diastolic 75–99; PULSE 62–96; RESP 14–22; TEMP 36.7–37; O2SAT 92–99
[2021-12-13 00:54] LABS: Glucose Point of Care 118 mg/dl (65-105)
[2021-12-13] MEDS: LORazepam INJ (*CRX) 2 MG/ML VIAL IV PUSH (00:57)
--- NOTE | 2021-12-13 01:34 | ADMGEN ---
This patient, Maria Fernanda Crawford, was admitted to Intensive Care Unit-3. Patient/family oriented to hospital policies and general routines including ID bracelet, bed and alarms, visiting hours, pain management, procedures, bathroom and other care routines, personal items, smoking policy, room service/diet, and visiting hours. Information on how to activate the Rapid Response Team has been discussed. Patient/Family are encouraged to report perceived risks to care and to ask questions if they do not understand what they are told or what they should do.
[2021-12-13] MEDS: dexmedeTOMIDine 400 MCG/100 ML 400 MCG/100 ML BAG IV CONT (02:26)
[2021-12-13 04:45] LABS: Basophils Percent Auto 0.5 % (0.2-1.2); Eosinophils Percent Auto 0.2 % (0-4.4); Hematocrit 36.8 % (37.0-47.0); Hemoglobin 12.6 g/dL (12.0-15.0); Immature Granulocyte Absolute 0.02 K/mm3 (0.00-0.031); Immature Granulocyte Percent A 0.5 % (0-0.5); Lymphocytes Absolute Auto 0.28 K/mm3 (0.9-3.2); Lymphocytes Percent Auto 6.9 % (18.3-44.2); Mean Corpuscular HGB Conc 34.2 g/dl (32-36); Mean Corpuscular Hemoglobin 37.1 pg (26-34); Mean Corpuscular Volume 108.2 fl (80-100); Mean Platelet Volume 11.7 fl (7.4-10.4); Monocytes Absolute Auto 0.8 K/mm3 (0.1-0.6); Monocytes Percent Auto 18.7 % (2.6-8.5); Neutrophils Percent Auto 73.2 % (45.5-73.1); Platelet Count Result 37 k/mm3 (150-375); White Blood Count 4.1 K/mm3 (4.5-10.0)
[2021-12-13 05:00] LABS: Alanine Aminotransferase 149 U/L (4-35); Albumin Level 3.8 g/dL (3.5-5.1); Alkaline Phosphatase 101 U/L (38-126); Anion Gap 11 mmol/L (8-16); Aspartate Amino Transferase 287 U/L (14-36); Bilirubin,Total 1.4 mg/dL (0.2-1.3); Blood Urea Nitrogen 9 mg/dL (7-17); Calcium 7.4 mg/dL (8.4-10.2); Carbon Dioxide 21 mmol/L (22-30); Chloride 103 mmol/L (98-107); Estimated CRCL calculation 78 ml/min; Estimated Glomerular Filt Rate > 60; Glucose 113 mg/dL (65-110); Potassium 3.6 mmol/L (3.4-5.0); Sodium 135 mmol/L (137-145)
[2021-12-13] MEDS: levETIRAcetam 500MG/NACL 100ML 500 MG/100 ML BAG 400 MG IVPB ×2 (08:00→20:53)
[2021-12-13] MEDS: PANTOPRAZOLE SODIUM IV 40 MG VIAL IV PUSH (08:02)
[2021-12-13] MEDS: POTASSIUM CHLORIDE 20 MEQ PACKET (FOR LIQUID) 40 MEQ PO (08:04)
[2021-12-13] MEDS: THIAMINE HCL 200 MG/2 ML VIAL 100 MG IV PUSH (08:05)
[2021-12-13] MEDS: SERTRALINE HCL 25 MG TABLET PO (08:05)
[2021-12-13] MEDS: FOLIC ACID 1 MG/0.2 ML INJ IV PUSH (09:16)
--- NOTE | 2021-12-13 10:20 | WPDNEURCNPN ---
Assessment and Plan Additional Plan Obtain the EEG and further recommendation accordingly particularly at this time the Keppra can be increased [id number] q.12 hours after the EEG is obtained. Consult date: 12/13/21 HPI: Maria Fernanda Crawford is a 56 year old female has been admitted to the hospital through the emergency room for the complaints of seizure-like activity around 3:00 a.m. patient does have ongoing history of multiple medical problems which include arthritis, alcohol abuse, back injury, bronchitis, dyslipidemia, hypertension, GERD, hypercholesterolemia, hypertension, pancreatitis history, irritable bowel syndrome, and pancytopenia, reportedly she was a poor historian at the time of initial evaluation her routine lab studies were normal except AST was 558 ALT to 0 9 lipase 438 and toxicology screen was positive for benzodiazepine cervical spine CT scan was negative CT of the abdomen revealed hepatic steatosis he was mainly admitted to the hospital for the complaints of seizure, she has ongoing history of being former smoker 15 years smoked and 3 drinks per week but never substance abuse outpatient medications included sertraline 25 mg daily hydroxyzine 25 mg q.i.d. p.r.n. in addition to other medications routine labs normal Review of Systems Review of Systems: All systems reviewed & are unremarkable except as noted in HPI and below PMFSH Past Medical History Medical History Anemia Arthritis Back injury Bronchitis Chills Dyslipidemia Environmental allergies Essential (primary) hypertension Fractures GERD without esophagitis High cholesterol History of pancreatitis 04/2019 - due to alcohol abuse Hypertension IBS (irritable bowel syndrome) Night sweats Osteoporosis Pancytopenia Pneumonia Vomiting Wears glasses Surgical History Surgical History H/O tubal ligation (~1995) S/P right rotator cuff repair (~2005) Family History Family History Father Diabetes mellitus Family history of kidney disease Mother Diabetes mellitus Family history of cardiovascular disease Cerebrovascular accident Social History Social History Smoking packs per day: 1 Smoking cigarettes per day: 20.0 Years smoked: 15 Smoking pack-years: 15.00 Smoking status: Former smoker Second hand tobacco smoke exposure: No Alcohol intake: former Drinks per week: 3 Substance use: never Substance use type: does not use Other substance usage details: last drink 3 weeks ago Gender identity (if verbalized by the patient): Female Spiritual care concerns: No Meds Home Medications and Allergies Home Medications Medication Instructions Recorded Confirmed Type hydroxyzine HCl 25 mg tablet 25 mg PO QID PRN #120 tablet 06/15/20 12/12/21 Rx atorvastatin 40 mg tablet 40 mg PO QHS #90 tablet 01/27/21 12/12/21 Rx ascorbic acid (vitamin C) 500 mg 500 mg PO DAILY tablet 02/22/21 12/12/21 History tablet,extended release cholecalciferol (vitamin D3) 50 50 mcg PO DAILY 02/22/21 12/12/21 History mcg (2,000 unit) capsule sertraline 25 mg tablet 25 mg PO DAILY #90 tablet 09/13/21 12/12/21 Rx cholecalciferol (vitamin D3) 1,250 1,250 mcg PO WEEKLY cap 10/04/21 12/12/21 History mcg (50,000 unit) capsule metoprolol succinate 50 mg 50 mg PO DAILY #90 tablet 10/18/21 12/12/21 Rx tablet,extended release 24 hr Allergies Allergy/AdvReac Type Severity Reaction Status Date / Time Penicillins Allergy Unknown Skin Verified 12/12/21 16:37 irritation codeine AdvReac Unknown Headache Verified 12/13/21 08:24 Vital Signs Vital Signs - 24 hr 12/12/21 10:53 12/12/21 12:16 12/12/21 13:01 Temperature 36.8 C Pulse Rate 100 123 H 126 H Pulse Rate [Bilateral Pedal (Dorsalis Pedis) Palpation] Pulse Rate [Monitor] Respirator
--- NOTE | 2021-12-13 10:45 | WPDCNINT ---
Assessment and Plan Assessment and plan (1) Seizure: Code(s): R56.9 - Unspecified convulsions Status: Acute Assessment and Plan: I suspect seizures are secondary to alcohol withdrawal Neurology consult EEG is ordered MRI has been done and report is pain Patient is afebrile, AO x2, shows no signs of meningismus or nuchal rigidity Check TSH Seizure precaution Continue Keppra P.r.n. Ativan (2) Alcohol abuse: Code(s): F10.10 - Alcohol abuse, uncomplicated Status: Acute Assessment and Plan: Patient has history of alcohol abuse. She claims that she has decrease the intake. The alcohol intake that she claims is not consistent with the the findings of hepatic steatosis, pancytopenia. Continue thiamine and folic acid Monitor for alcohol withdrawal I have pause the Precedex infusion Continue p.r.n. Ativan for potential withdrawal (3) GERD without esophagitis: Code(s): K21.9 - Gastro-esophageal reflux disease without esophagitis Status: Acute Assessment and Plan: PPI (4) Pancytopenia: Code(s): D61.818 - Other pancytopenia Status: Acute Assessment and Plan: On review of her chart patient's pancytopenia has been chronic. Even in 2019 when she was admitted with pancreatitis, her hematology numbers were similar Hold Lovenox Consult hematology Check anemia panel (5) Hepatic steatosis: Code(s): K76.0 - Fatty (change of) liver, not elsewhere classified Status: Acute Assessment and Plan: Likely secondary to alcoholic liver disease Monitor LFTs Check ammonia Right upper quadrant ultrasound ordered (6) Elevated liver enzymes: Code(s): R74.8 - Abnormal levels of other serum enzymes Status: Acute Assessment and Plan: See above (7) Depression: Code(s): F32.A - Depression, unspecified Status: Acute Assessment and Plan: Continue sertraline (8) Pancreatitis: Code(s): K85.90 - Acute pancreatitis without necrosis or infection, unspecified Status: Acute Assessment and Plan: Elevated lipase likely secondary to alcohol abuse Ultrasound CT does not show any gallstones or other possible etiology Patient now denies any nausea vomiting abdominal pain. No tenderness on abdominal exam Start clear liquid diet advanced as tolerated Monitor lipase level Check triglyceride levels Additional Plan DVT prophylaxis -SCDs Stress ulcer prophylaxis -PPI Nutrition -start clear liquid diet and advance as tolerated as patient is now asymptomatic Code Status - Full Code Patient's updated at bedside Manager Wound Consult Note Consult date: 12/13/21 HPI: Maria Fernanda Crawford is a 56 year old female with history of hypertension, dyslipidemia, anxiety, hepatic steatosis, pancytopenia, osteoporosis, arthritis, alcohol abuse, GERD, pancreatitis and hepatic steatosis who presented yesterday to ER with chief complaint of seizure. History was provided by patient's at that time. Was found to have elevated liver enzymes and lipase level. CT head was negative She had a seizure-like activity as witnessed by nursing staff on the floor. She was also suspected of having alcohol withdrawal and was transferred to ICU and was started on Precedex infusion. She also had episode of vomiting This morning when I spoke to the patient she denies any complaints. She is not sure why she in the hospital. Not aware of any episodes of seizures she does admit she has had seizures a year ago. She is currently not on any AEDs. She claims she only drinks once or twice a week and 1-2 drinks at a time. She does admit to drinking more in the past. 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 At this time, patient denies fever, chest pain, shortness of breath, cough, nausea vomiting, abdominal pain, diarrhea, headache or constipation. She states she is thirsty and would like to drink water. I
[2021-12-13 12:37] LABS: Basophils Percent Auto 0.2 % (0.2-1.2); Eosinophils Percent Auto 0.2 % (0-4.4); Hemoglobin 11.7 g/dL (12.0-15.0); Immature Granulocyte Absolute 0.03 K/mm3 (0.00-0.031); Immature Granulocyte Percent A 0.7 % (0-0.5); Immature Platelet Fraction Pct 5.8 % (0.9-11.2); Immature Reticulocyte Fraction 13.2 % (3.0-15.9); Lymphocytes Absolute Auto 0.26 K/mm3 (0.9-3.2); Mean Corpuscular HGB Conc 32.5 g/dl (32-36); Mean Corpuscular Hemoglobin 36.9 pg (26-34); Mean Corpuscular Volume 113.6 fl (80-100); Mean Platelet Volume 10.4 fl (7.4-10.4); Monocytes Absolute Auto 0.6 K/mm3 (0.1-0.6); Monocytes Percent Auto 14.2 % (2.6-8.5); Neutrophils Absolute Auto 3.4 K/mm3 (1.3-6.7); Neutrophils Percent Auto 78.7 % (45.5-73.1); Platelet Count Result 72 k/mm3 (150-375); Red Blood Count 3.17 M/mm3 (4.2-5.4); Red Cell Distribution Width 15.1 % (11.5-14.5); Reticulocyte Hemoglobin Conten 41.6 pg (28.2-35.7); Reticulocyte Percent 2.65 % (0.7-4.3); Reticulocytes Absolute 0.08 B/L (32.2-175.7); White Blood Count 4.3 K/mm3 (4.5-10.0)
[2021-12-13 12:40] LABS: Ammonia < 9 umol/L (9-30)
[2021-12-13 12:42] LABS: Rheumatoid Factor < 8.6 IU/ML (<12)
[2021-12-13 12:47] LABS: Iron 47 ug/dL (37-170)
[2021-12-13 12:56] LABS: CRP 4.4 mg/dL (<1.0); Lactate Dehydrogenase 1229 U/L (313-618); Triglycerides 51 mg/dL (<150)
[2021-12-13 12:57] LABS: Percent Iron Saturation 23 % (20-50)
--- NOTE | 2021-12-13 13:08 | PM.EVENT ---
Event Note Event Note Event Note: Patient's MRI review and shows findings consistent with PRES. Patient does not have any typical risk factors like being on immunosuppression, uncontrolled high blood pressure, end-stage renal disease. I went back and spoke to her and she is AO x3 now. No signs of nuchal rigidity or meningismus. Has normal speech and is able to carry conversation. Patient has no rash or purpura on exam This can explain patient's seizure. Ordered JESSENIA rheumatoid factor ESR CRP. EEG is pending. Will discuss with neurology regarding further testing. Continue Keppra She now states that she has not had any alcohol in last 1 week. She does admit to drinking at work while she was working but she has not been working for last 3 weeks. She states her back pain has been going on for months. She does have history of osteoporosis but does not take Fosamax. She is tender on her spine in thoracic area. She denies any loss of bowel or bladder control. Her muscle strength and sensation to touch is intact both feet. CT of abdomen pelvis showed thoracolumbar spondylosis with chronic fracture of T11 and burst fracture of T7 and retropulsion of bone 2 mm into central spinal canal. Will order p.r.nLudivina Caceres for pain and T/L spine MRI
[2021-12-13 13:15] LABS: Erythrocyte Sedimentation Rate 87 mm/hr (0-20)
[2021-12-13] MEDS: HYDROcodone/acetaminophen (*CRX) 10-325 MG TABLET 1 TAB PO ×3 (13:31→23:51)
[2021-12-13 14:06] LABS: Folic Acid 19.8 ng/mL (2.76->20)
[2021-12-13] MEDS: SODIUM CHLORIDE 0.9% IV 1,000 ML 125 ML IV CONT (16:56)
--- NOTE | 2021-12-13 16:56 | PM.IMPN ---
Progress Note: A&P Assessment and Plan (1) Seizure: Code(s): R56.9 - Unspecified convulsions Status: Acute (2) Alcohol abuse: Code(s): F10.10 - Alcohol abuse, uncomplicated Status: Acute (3) Thrombocytopenia: Code(s): D69.6 - Thrombocytopenia, unspecified Status: Acute (4) Pancytopenia: Code(s): D61.818 - Other pancytopenia Status: Acute (5) Elevated liver enzymes: Code(s): R74.8 - Abnormal levels of other serum enzymes Status: Acute Additional Plan 56-year-old female who presented to our emergency department with complaints seizure activity (1) Seizure: MRI and EEG dine Appreciate Neurology help c/w Keppra Placed on seizure precaution (2) Elevated liver enzymes: secondary to alcohol abuse Total bili 1.9, AST 558, ALT 209, alkaline phosphatase 197 will trend (3) GERD without esophagitis: Started pantoprazole (4) Thrombocytopenia: Secondary to alcohol abuse Will trend CBC in a.m. (5) Essential (primary) hypertension: Continue metoprolol 50 mg Will add hydralazine with parameters (6) Alcohol abuse: Started thiamin and folic acid Implemented CIWA Started p.r.n. Ativan with scheduled Librium On seizure precaution Referral to the care coordination 7)Code:Full 8)DVT ppx:SCD 9)Dispo:pending improvement Time Spent With Patient Time with patient: 15 - 25 minutes Subjective Date/time seen: 12/13/21 16:56 no acute events overnight, off precedex drip Review of Systems Review of Systems: All systems reviewed & are unremarkable except as noted in HPI and below Constitutional: Constitutional: Reports no additional constitutional complaints Eyes: Eyes: Reports no additional eye complaints ENT: Reports system reviewed and no additional complaints, except as documented Cardiovascular: Cardiovascular: Reports no additional cardiovascular complaints Respiratory: Respiratory: Reports no additional respiratory complaints Gastrointestinal: Gastrointestinal: Reports no additional gastrointestinal complaints Neurologic: Reports system reviewed and no additional complaints, except as documented Exam Narrative: General: Pleasant, no obvious distress noted, confusion HEENT: PERRLA, Mucous Membranes Moist and [place], Nares Patent, Sclera Clear Neck: JVD, Supple Pulmonary: Clear to Auscultation, Normal Air Movement Cardiovascular: No Murmurs, Gallops, or Rubs, Regular Rhythm, tachycardia Abdominal: Abdomen Soft, Non-Distended, Normal Bowel Sounds Extremities: Normal Pulses Integumentary: No Abnormalities Objective Data Vital Signs Vital Signs: Vital Signs - 24 hr 12/12/21 20:00 12/12/21 20:02 12/12/21 22:08 Temperature 98.7 F Pulse Rate 120 H 84 92 Pulse Rate [Bilateral Pedal (Dorsalis Pedis) Palpation] Pulse Rate [Monitor] 122 H Respiratory Rate 14 Blood Pressure 125/72 Pulse Oximetry 100 92 12/12/21 23:22 12/13/21 00:00 12/13/21 00:30 Temperature 97.6 F 98.6 F Pulse Rate 81 77 83 Pulse Rate [Bilateral Pedal (Dorsalis Pedis) Palpation] 84 Pulse Rate [Monitor] 84 Respiratory Rate 16 18 Blood Pressure 141/74 H 151/95 H Pulse Oximetry 96 93 12/13/21 00:43 12/13/21 02:00 12/13/21 02:26 Temperature Pulse Rate 83 96 96 Pulse Rate [Bilateral Pedal (Dorsalis Pedis) Palpation] Pulse Rate [Monitor] Respiratory Rate 16 22 H Blood Pressure 151/95 H 157/99 H Pulse Oximetry 93 12/13/21 04:00 12/13/21 06:00 12/13/21 08:00 Temperature 98.5 F 98.2 F Pulse Rate 70 66 64 Pulse Rate [Bilateral Pedal (Dorsalis Pedis) Palpation] Pulse Rate [Monitor] 70 64 Respiratory Rate 16 16 16 Blood Pressure 106/77 111/83 123/78 Pulse Oximetry 96 95 94 12/13/21 10:00 12/13/21 12:00 12/13/21 14:00 Temperature 98.5 F Pulse Rate 69 62 65 Pulse Rate [Bilateral Pedal (Dorsalis Pedis) Palpation] Pulse Rate [Monitor] 76 Respiratory Rate 18 14 18 Blood Pressure 102/75 121/78 128/84 Pul
--- NOTE | 2021-12-13 17:25 | PC.NURSE ---
This patient, Maria Fernanda Crawford, was transferred to [[facility] ] on 12/13/21 at 1638. Personal belongings sent with patient. Report given to [Haritha ]. Appropriate documentation sent with patient.
--- NOTE | 2021-12-13 19:21 | PC.NURSE ---
This patient, Maria Fernanda Crawford, was received from [[facility] ] on 12/13/21 at 1638. Patient/family oriented to unit policies and routines Patient in bed resting comfortably at this time with no complaints. Will continue to monitor patient.
[2021-12-14] VITALS (9 sets, daily range): BP systolic 119–137; BP diastolic 41–79; PULSE 75–100; RESP 14–16; TEMP 36.4–36.6; O2SAT 94–97
[2021-12-14] MEDS: SODIUM CHLORIDE 0.9% IV 1,000 ML 125 ML IV CONT ×3 (02:31→20:09)
[2021-12-14 05:38] LABS: Hematocrit 31.8 % (37.0-47.0); Hemoglobin 10.6 g/dL (12.0-15.0); Mean Corpuscular HGB Conc 33.3 g/dl (32-36); Mean Corpuscular Hemoglobin 37.2 pg (26-34); Mean Corpuscular Volume 111.6 fl (80-100); Mean Platelet Volume 10.3 fl (7.4-10.4); Platelet Count Result 60 k/mm3 (150-375); Red Blood Count 2.85 M/mm3 (4.2-5.4); Red Cell Distribution Width 14.6 % (11.5-14.5); White Blood Count 4.2 K/mm3 (4.5-10.0)
[2021-12-14 05:55] LABS: Alanine Aminotransferase 113 U/L (4-35); Albumin Level 3.2 g/dL (3.5-5.1); Alkaline Phosphatase 89 U/L (38-126); Anion Gap 6 mmol/L (8-16); Aspartate Amino Transferase 200 U/L (14-36); Blood Urea Nitrogen 13 mg/dL (7-17); Calcium 7.5 mg/dL (8.4-10.2); Carbon Dioxide 26 mmol/L (22-30); Chloride 99 mmol/L (98-107); Estimated CRCL calculation 91 ml/min; Estimated Glomerular Filt Rate > 60; Glucose 103 mg/dL (65-110); Lipase 358 U/L (23-300); Magnesium 1.3 mg/dL (1.6-2.3); Potassium 2.9 mmol/L (3.4-5.0); Sodium 131 mmol/L (137-145)
[2021-12-14 06:49] LABS: Potassium 2.8 mmol/L (3.4-5.0)
[2021-12-14] MEDS: HYDROcodone/acetaminophen (*CRX) 10-325 MG TABLET 1 TAB PO ×2 (07:36→11:46)
[2021-12-14] MEDS: levETIRAcetam 500MG/NACL 100ML 500 MG/100 ML BAG 400 MG IVPB ×2 (08:30→20:09)
[2021-12-14] MEDS: FOLIC ACID 1 MG/0.2 ML INJ IV PUSH (08:30)
[2021-12-14] MEDS: POTASSIUM CHLORIDE 20 MEQ PACKET (FOR LIQUID) 40 MEQ PO (08:31)
[2021-12-14] MEDS: THIAMINE HCL 200 MG/2 ML VIAL 100 MG IV PUSH (08:31)
[2021-12-14] MEDS: SERTRALINE HCL 25 MG TABLET PO (08:31)
[2021-12-14] MEDS: PANTOPRAZOLE SODIUM IV 40 MG VIAL IV PUSH (08:31)
--- NOTE | 2021-12-14 08:57 | PM.IMPN ---
Progress Note: A&P Assessment and Plan (1) Seizure: Code(s): R56.9 - Unspecified convulsions Status: Acute Assessment and Plan: I suspect seizures are secondary to alcohol withdrawal Neurology has been consult EEG is ordered MRI read as pres syndrome -continue supportive care and maintain appropriate blood pressure and monitor. Seizure precaution Continue Keppra P.r.n. Ativan (2) Alcohol abuse: Code(s): F10.10 - Alcohol abuse, uncomplicated Status: Acute Assessment and Plan: Patient has history of alcohol abuse. She claims that she has decrease the intake. The alcohol intake that she claims is not consistent with the the findings of hepatic steatosis, pancytopenia. That being said prior to recently she had significant alcohol intake which is likely the culprit. Monitor for withdrawal. (3) Thrombocytopenia: Code(s): D69.6 - Thrombocytopenia, unspecified Status: Acute (4) Pancytopenia: Code(s): D61.818 - Other pancytopenia Status: Acute Assessment and Plan: On review of her chart patient's pancytopenia has been chronic. Hematology consult. (5) Elevated liver enzymes: Code(s): R74.8 - Abnormal levels of other serum enzymes Status: Acute Assessment and Plan: See above (6) Essential (primary) hypertension: Code(s): I10 - Essential (primary) hypertension Status: Acute Assessment and Plan: Monitor Subjective Date/time seen: 12/14/21 08:57 Still complaining of some back pain. also complaining of some mild abdominal pain. Exam Narrative: General: Pleasant, no obvious distress noted, confusion HEENT: PERRLA, Mucous Membranes Moist and [employer], Nares Patent, Sclera Clear Neck: JVD, Supple Pulmonary: Clear to Auscultation, Normal Air Movement Cardiovascular: No Murmurs, Gallops, or Rubs, Regular Rhythm, tachycardia Abdominal: Abdomen Soft, Non-Distended, Normal Bowel Sounds Extremities: Normal Pulses Integumentary: No Abnormalities Objective Data Vital Signs Vital Signs: Vital Signs - 24 hr 12/13/21 10:00 12/13/21 12:00 12/13/21 14:00 Temperature 98.5 F Pulse Rate 69 62 65 Pulse Rate [Monitor] 76 Respiratory Rate 18 14 18 Blood Pressure 102/75 121/78 128/84 Pulse Oximetry 95 92 92 12/13/21 16:00 12/13/21 20:00 12/13/21 20:44 Temperature 98.0 F 98.3 F Pulse Rate 73 76 77 Pulse Rate [Monitor] 76 Respiratory Rate 19 16 Blood Pressure 121/84 114/78 Pulse Oximetry 94 99 12/14/21 00:00 12/14/21 04:00 12/14/21 05:44 Temperature 97.8 F Pulse Rate 78 79 75 Pulse Rate [Monitor] Respiratory Rate 16 Blood Pressure 127/79 Pulse Oximetry 97 Intake/Output Intake/Output: Intake & Output 12/11/21 12/12/21 12/13/21 12/14/21 23:59 23:59 23:59 23:59 Intake Total 2600 1810 1760 Output Total 80 775 550 Balance 2520 1035 1210 Meds/Results Medications: Active Medications Generic Name Dose Route Start Last Admin Trade Name Freq PRN Reason Stop Dose Admin Hydrocodone Bitart/Acetaminophen 1 tab 12/13/21 13:15 Hydrocodone/Acetaminophen (*Crx) 5-325 Mg Tablet PO Q4H PRN Pain Rated 4-6 Hydrocodone Bitart/Acetaminophen 1 tab 12/13/21 13:15 12/14/21 07:36 Hydrocodone/Acetaminophen (*Crx) 10-325 Mg Tablet PO 1 tab Q4H PRN Administration Pain Rated 7-10 Folic Acid 1 mg 12/13/21 09:00 12/14/21 08:30 Folic Acid 1 Mg/0.2 Ml Inj IV PUSH 1 mg QAM PARISH Administration Hydralazine HCl 10 mg 12/13/21 02:13 Hydralazine Hcl 20 Mg/Ml Vial IV PUSH Q4H PRN Blood Pressure - High Sodium Chloride 1,000 mls @ 125 mls/hr 12/12/21 12:30 12/14/21 08:40 Normal Saline Iv IV CONT Not Given .Q8H PARISH Levetiracetam 500 mg in 100 mls @ 400 mls/hr 12/13/21 09:00 12/14/21 08:30 Keppra Iv IVPB 400 mls/hr Q12HR PARISH Administration Lorazepam 2 mg 12/13/21 14:38 Lorazepam Inj (*Crx) 2 Mg/Ml Vial IV PUSH Q1H PRN
--- NOTE | 2021-12-14 09:27 | WPDNEUROLOGY ---
Neurology EEG Report General Information Date of Study: 12/13/21 TEST eeg DIAGNOSIS seizures CONDITION OF RECORDING drowsy and sleep EEG NUMBER [id number]
--- NOTE | 2021-12-14 09:38 | PM.CNOR ---
Assessment and Plan Assessment and plan (1) Compression fracture of thoracic spine, non-traumatic: Qualifiers: Encounter type: initial encounter Thoracic vertebra fracture level: T6 Qualified Code(s): M48.54XA - Collapsed vertebra, not elsewhere classified, thoracic region, initial encounter for fracture Code(s): M48.54XA - Collapsed vertebra, not elsewhere classified, thoracic region, initial encounter for fracture Status: Acute Assessment and Plan: New patient evaluation for chief complaint thoracic compression fracture. Patient admitted for seizure disorder. Workup including MRI of the cervical thoracic and lumbar spine shows subacute fracture of the T6 and T7 with some kyphosis and scoliosis. Cervical and lumbar spine show degenerative changes only. Patient without pain along the spine. No neurologic findings lower extremities. Condition reviewed with patient. May be subsequent to bone density problem. Discussed option for bracing. Patient declined. Discussed plan to start activity if cleared by Primary Service and Neurology to get out of bed. Activity as tolerated. Most likely would benefit from PT /OT. Full weight as tolerated lower extremities from orthopedic standpoint. Will need to monitor. If develops back pain or any neurologic deficit would recommend spine surgery evaluation. Otherwise may continue to observe for symptoms. Should have spine radiographs for follow-up next 1 to 2 months. History of Present Illness HPI Consult date: 12/14/21 Requesting physician: Johanny Green MD Consult reason: fracture (Thoracic compression fracture) Chief complaint: Seizure/elevated liver enzyme/hypokalemia Narrative: 56-year-old woman admitted through the emergency room for seizure activity 2 days ago. Upon workup was found to have compression fractures of the thoracic spine noted on MRI. Initially reported several months of back pain with no injury as noted in the chart. This morning does not remember any injury or having much in the way of any back problems. She does have some flank soreness after her seizure activity and falls 2 days ago. Denies any midline back pain at this time. Denies radiating pain to the legs. Denies numbness or tingling. patient known to orthopedic office for previous left knee pain. Review of Systems Constitutional: Constitutional: Denies fever(s) Eyes: Eyes: Denies blurry vision ENT: Reports Normal hearing present Cardiovascular: Cardiovascular: Denies chest pain and Denies dyspnea Respiratory: Respiratory: Denies dyspnea and Denies wheezing Gastrointestinal: Gastrointestinal: Denies abdominal pain Genitourinary: Genitourinary: Denies urinary urgency Musculoskeletal: Musculoskeletal: Reports as per HPI and Denies numbness Integumentary/Breasts: Skin/Breast: Denies changing lesions and Denies sores Neurologic: Reports Normal hearing present, Denies behavioral changes, Denies numbness, Reports convulsions and Reports seizure-like activity ( Two days ago) Psychiatric: Psychiatric: Denies behavioral changes and Denies hallucinations Endocrine: Endocrine: Denies heat intolerance Hematologic/Lymphatic: Hematologic/Lymphatic: Denies easy bleeding Allergic/Immunologic: Allergic/Immunologic: Denies wheezing PMFSH Past Medical History Medical History (Updated 12/14/21 @ 10:25 by Giovanny Agudelo MD) Anemia Arthritis Back injury Bronchitis Chills Compression fracture of thoracic spine, non-traumatic Dyslipidemia Environmental allergies Essential (primary) hypertension Fractures GERD without esophagitis High cholesterol History of pancreatitis 04/2019 - due to alcohol abuse Hypertension IBS (irritable bowel syndrome) Night sweats Osteoporosis Pancytopenia Pneumonia Vomiting Wears glasses Surgical History Surgical History H/O tubal ligation (~1995) S/P right rotator cuff repair (~200
--- NOTE | 2021-12-14 09:42 | P.NEURO_ITS ---
Neurology EEG Report General Information Date of Study: 12/13/21 TEST eeg DIAGNOSIS seizures CONDITION OF RECORDING awake and drowsy and sleep EEG NUMBER [id number] CLINICAL HISTORY patient's reported the patient had 3 seizures yesterday morning she became stiff unresponsive and bit her tongue history of excessive alcohol use. EEG DESCRIPTION Basic resting occipital frequency consists of low to medium voltage 11 to 13 hertz per 2nd alpha admixed with low-voltage 15 to 18 hertz per 2nd beta. Low- voltage beta activity seen diffusely admixed with waxing and waning posterior alpha rhythm. Bilateral symmetrical sleep activity seen during sleep with intermittent EKG artifact. Non paroxysmal. Nonfocal. Nonlateralizing. IMPRESSION No significant abnormalities noted.
[2021-12-14 09:53] LABS: Hematocrit 30.8 % (37.0-47.0); Hemoglobin 10.3 g/dL (12.0-15.0); Immature Platelet Fraction Pct 6.4 % (0.9-11.2); Mean Corpuscular HGB Conc 33.4 g/dl (32-36); Mean Corpuscular Hemoglobin 36.8 pg (26-34); Platelet Count Result 77 k/mm3 (150-375); Red Cell Distribution Width 14.6 % (11.5-14.5); White Blood Count 5.2 K/mm3 (4.5-10.0)
[2021-12-14 09:58] LABS: Alanine Aminotransferase 111 U/L (4-35); Albumin Level 3.3 g/dL (3.5-5.1); Alkaline Phosphatase 95 U/L (38-126); Anion Gap 3 mmol/L (8-16); Aspartate Amino Transferase 188 U/L (14-36); Blood Urea Nitrogen 13 mg/dL (7-17); Calcium 7.8 mg/dL (8.4-10.2); Carbon Dioxide 26 mmol/L (22-30); Chloride 99 mmol/L (98-107); Estimated CRCL calculation 91 ml/min; Estimated Glomerular Filt Rate > 60; Glucose 149 mg/dL (65-110); Lipase 337 U/L (23-300); Potassium 3.2 mmol/L (3.4-5.0); Sodium 128 mmol/L (137-145)
[2021-12-14] MEDS: MAGNESIUM SULF 2 GM/WATER 50ML 2 GM/50 ML BAG IVPB (10:51)
--- NOTE | 2021-12-14 11:32 | WPDNEUROPN ---
Subjective Date/time seen: 12/14/21 11:32 56 years old admitted to the hospital through the emergency room with history of multiple medical problems including arthritis alcohol abuse back injury bronchitis dyslipidemia hypertension GERD Hypercholesteremia pancreatic Dewitt history irritable bowel syndrome and pancytopenia evaluation up until now documented 1. Mild lumbar spondylosis without any major disc herniation but only mild central canal stenosis at the level of L3-4 L2-3 obviously at this stage for no surgical intervention 2. Burst fracture of T6 and T7 of subacute in nature along with sprains of the interspinous ligament and mild thoracic spondylosis and dextroscoliosis but in addition 1mm diameters syringomyelia of thoracic spinal cord 3. 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 Hepatic steatosis on ultrasound of abdomen 5. Anemia, with MCV of 1 1 0 6. Hyponatremia hypokalemia which needs to be recheck 7. Protein urea Samantha 8. Positive benzodiazepine toxic screen number 9 negative rheumatoid factor. Her EEG is normal. Patient is being treated for the seizure as well as supplements with thiamine and folic acid. Objective Data Vital Signs Vital Signs: Vital Signs - 24 hr 12/13/21 12:00 12/13/21 14:00 12/13/21 16:00 Temperature 36.9 C 36.7 C Pulse Rate 62 65 73 Pulse Rate [Monitor] 76 76 Respiratory Rate 14 18 19 Blood Pressure 121/78 128/84 121/84 Pulse Oximetry 92 92 94 12/13/21 20:00 12/13/21 20:44 12/14/21 00:00 Temperature 36.8 C Pulse Rate 76 77 78 Pulse Rate [Monitor] Respiratory Rate 16 Blood Pressure 114/78 Pulse Oximetry 99 12/14/21 04:00 12/14/21 05:44 12/14/21 08:00 Temperature 36.6 C Pulse Rate 79 75 90 Pulse Rate [Monitor] Respiratory Rate 16 Blood Pressure 127/79 Pulse Oximetry 97 Intake/Output Intake/Output: Intake & Output 12/11/21 12/12/21 12/13/21 12/14/21 23:59 23:59 23:59 23:59 Intake Total 2600 1810 2860 Output Total 80 775 550 Balance 2520 1035 2310 Meds/Results Medications: Active Medications Generic Name Dose Route Start Last Admin Trade Name Freq PRN Reason Stop Dose Admin Hydrocodone Bitart/Acetaminophen 1 tab 12/13/21 13:15 Hydrocodone/Acetaminophen (*Crx) 5-325 Mg Tablet PO Q4H PRN Pain Rated 4-6 Hydrocodone Bitart/Acetaminophen 1 tab 12/13/21 13:15 12/14/21 07:36 Hydrocodone/Acetaminophen (*Crx) 10-325 Mg Tablet PO 1 tab Q4H PRN Administration Pain Rated 7-10 Folic Acid 1 mg 12/13/21 09:00 12/14/21 08:30 Folic Acid 1 Mg/0.2 Ml Inj IV PUSH 1 mg QAM PARISH Administration Hydralazine HCl 10 mg 12/13/21 02:13 Hydralazine Hcl 20 Mg/Ml Vial IV PUSH Q4H PRN Blood Pressure - High Sodium Chloride 1,000 mls @ 125 mls/hr 12/12/21 12:30 12/14/21 10:50 Normal Saline Iv IV CONT 125 mls/hr .Q8H PARISH Administration Levetiracetam 500 mg in 100 mls @ 400 mls/hr 12/13/21 09:00 12/14/21 08:45 Keppra Iv IVPB Infused Q12HR PARISH Infusion Magnesium Sulfate 2 gm in 50 mls @ 50 mls/hr 12/14/21 11:00 12/14/21 10:51 Magnesium Sulf 2 Gm/Water 50ml IVPB 12/14/21 11:59 50 mls/hr ONCE ONE Administration Lorazepam 2 mg 12/13/21 14:38 Lorazepam Inj (*Crx) 2 Mg/Ml Vial IV PUSH Q1H PRN Seizure Activity Ondansetron HCl 4 mg 12/12/21 12:26 12/12/21 13:01 Ondansetron Inj 4 Mg/2 Ml Vial IV PUSH 4 mg Q4H PRN Administration Nausea Pantoprazole Sodium 40 mg 12/13/21 09:00 12/14/21 08:31 Pantoprazole Sodium Iv 40 Mg Vial IV PUSH 40 mg QAM PARISH Administration Potassium Chloride 40 meq 12/13/21 09:00 12/14/21 08:31 Potassium Chloride 20 Meq Packet (For Liquid) PO 40 meq DAILY PARISH Administration Sertraline HCl 25 mg 12/13/21 09:00 12/14/21 08:31 Sertraline Hcl 25 Mg Tablet PO 25 mg DAILY PARISH Administration Thiamine HCl 100 mg 12/13/21 09:00 12/14/21 08:31 Thiamine Hcl 200 Mg/2 Ml Via
--- NOTE | 2021-12-14 12:42 | PDONCCN ---
HPI - Date of Consult Date/Time: 12/14/21 12:42 Requesting Physician: Neil Maurer MD Primary Care Provider: Aurora Kern MD - Consult Narrative Reason for consult: Pancytopenia Narrative: Maria Fernanda Crawford is a 56 year old female with history of pancytopenia and has been seen last summer for same reason came into hospital with seizure activity notice at 3:00 a.m. the morning at home. Patient has a history of hypertension, hyperlipidemia and alcohol abuse. She also has a history of irritable bowel syndrome and pancreatitis. Labs showed WBC count [place] 4.1 [place] [address] and hemoglobin of 12.6. According the patient she now brings occasionally. She has a history of heavy drinking in the past. She denies any bleeding and bruising. Her platelet count has been slowly improving now up to 77,000. She was started on Keppra for seizure. CT abdomen and pelvis showed diffuse hepatic steatosis with normal spleen size. Brain MRI showed widespread abnormalities. Review of Systems - Review of Systems All systems reviewed & are unremarkable except as noted in HPI and bel - Neurologic Reports system reviewed and no additional complaints, except as documented, Reports hearing normal, Reports convulsions, Reports seizure-like activity ( Two days ago), Denies behavioral changes, Denies confusion, Denies numbness, Denies sensory deficit [facility] Medical History: Medical History (Last Updated 12/14/21 @ 10:25 by Giovanny Agudelo MD) Anemia Arthritis Back injury Bronchitis Chills Compression fracture of thoracic spine, non-traumatic Dyslipidemia Environmental allergies Essential (primary) hypertension Fractures GERD without esophagitis High cholesterol History of pancreatitis 04/2019 - due to alcohol abuse Hypertension IBS (irritable bowel syndrome) Night sweats Osteoporosis Pancytopenia Pneumonia Vomiting Wears glasses Surgical History: Surgical History (Last Reviewed 12/14/21 @ 10:20 by Giovanny Agudelo MD) H/O tubal ligation Onset Date: ~1995 S/P right rotator cuff repair Onset Date: ~2005 Family History: Family History (Last Reviewed 12/14/21 @ 10:20 by Giovanny Agudelo MD) Father Diabetes mellitus Family history of kidney disease Mother Diabetes mellitus Family history of cardiovascular disease Cerebrovascular accident - Social History Social History: Social History (Last Reviewed 12/14/21 @ 10:20 by Giovanny Agudelo MD) Gender Identity: Gender identity (if verbalized by the patient): Female Alcohol Use: Alcohol intake: former Drinks per week: 3 Substance Use: Substance use: never Substance use type: does not use Other substance usage details: last drink 3 weeks ago Others: Spiritual care concerns: No Smoking Status: Smoking status: Former smoker Second hand tobacco smoke exposure: No Smoking Pack-years: Smoking packs per day: 1 Smoking cigarettes per day: 20.0 Years smoked: 15 Smoking pack-years: 15.00 Meds Home Medications Medication Instructions Recorded Confirmed Type hydroxyzine HCl 25 mg tablet 25 mg PO QID PRN #120 tablet 06/15/20 12/12/21 Rx atorvastatin 40 mg tablet 40 mg PO QHS #90 tablet 01/27/21 12/12/21 Rx ascorbic acid (vitamin C) 500 mg 500 mg PO DAILY tablet 02/22/21 12/12/21 History tablet,extended release cholecalciferol (vitamin D3) 50 50 mcg PO DAILY 02/22/21 12/12/21 History mcg (2,000 unit) capsule sertraline 25 mg tablet 25 mg PO DAILY #90 tablet 09/13/21 12/12/21 Rx cholecalciferol (vitamin D3) 1,250 1,250 mcg PO WEEKLY cap 10/04/21 12/12/21 History mcg (50,000 unit) capsule metoprolol succinate 50 mg 50 mg PO DAILY #90 tablet 10/18/21 12/12/21 Rx tablet,extended release 24 hr Allergies Allergy/AdvReac Type Severity Reaction Status Date / Time Penicillins Allergy Unknown Skin Verified 12/12/21 16:37 irritation codeine AdvR
[2021-12-14] MEDS: HYDROcodone/acetaminophen (*CRX) 5-325 MG TABLET 1 TAB PO ×2 (16:46→20:54)
[2021-12-15] VITALS (10 sets, daily range): BP systolic 137–160; BP diastolic 41–88; PULSE 75–105; RESP 14–18; TEMP 36.4–36.9; O2SAT 94–96
[2021-12-15] MEDS: HYDROcodone/acetaminophen (*CRX) 10-325 MG TABLET 1 TAB PO ×5 (03:01→20:54)
[2021-12-15] MEDS: SODIUM CHLORIDE 0.9% IV 1,000 ML 125 ML IV CONT ×2 (04:22→12:43)
[2021-12-15 04:52] LABS: Hematocrit 29.8 % (37.0-47.0); Hemoglobin 10.1 g/dL (12.0-15.0); Immature Platelet Fraction Pct 5.4 % (0.9-11.2); Mean Corpuscular HGB Conc 33.9 g/dl (32-36); Mean Corpuscular Hemoglobin 37.3 pg (26-34); Mean Platelet Volume 10.5 fl (7.4-10.4); Platelet Count Result 79 k/mm3 (150-375); Red Blood Count 2.71 M/mm3 (4.2-5.4); Red Cell Distribution Width 14.5 % (11.5-14.5); White Blood Count 3.2 K/mm3 (4.5-10.0)
[2021-12-15 05:03] LABS: Potassium 3.1 mmol/L (3.4-5.0)
[2021-12-15 05:07] LABS: Alanine Aminotransferase 96 U/L (4-35); Alkaline Phosphatase 93 U/L (38-126); Anion Gap 3 mmol/L (8-16); Aspartate Amino Transferase 154 U/L (14-36); Bilirubin,Total 0.7 mg/dL (0.2-1.3); Blood Urea Nitrogen 7 mg/dL (7-17); Calcium 7.9 mg/dL (8.4-10.2); Carbon Dioxide 28 mmol/L (22-30); Chloride 103 mmol/L (98-107); Estimated CRCL calculation 107 ml/min; Estimated Glomerular Filt Rate > 60; Glucose 119 mg/dL (65-110); Lipase 263 U/L (23-300); Magnesium 1.4 mg/dL (1.6-2.3); Phosphorus 1.6 mg/dL (2.5-4.5); Sodium 134 mmol/L (137-145)
[2021-12-15] MEDS: POTASSIUM CHLORIDE 20 MEQ PACKET (FOR LIQUID) 40 MEQ PO (08:41)
[2021-12-15] MEDS: SERTRALINE HCL 25 MG TABLET PO (08:41)
[2021-12-15] MEDS: PANTOPRAZOLE SODIUM IV 40 MG VIAL IV PUSH (08:41)
[2021-12-15] MEDS: THIAMINE HCL 200 MG/2 ML VIAL 100 MG IV PUSH (08:42)
[2021-12-15] MEDS: levETIRAcetam 500MG/NACL 100ML 500 MG/100 ML BAG 400 MG IVPB ×2 (08:45→20:02)
[2021-12-15] MEDS: FOLIC ACID 1 MG/0.2 ML INJ IV PUSH (08:45)
--- NOTE | 2021-12-15 09:08 | PM.IMPN ---
Progress Note: A&P Assessment and Plan (1) Seizure: Code(s): R56.9 - Unspecified convulsions Status: Acute Assessment and Plan: Probably related seizures are secondary to alcohol withdrawal Neurology has been consult EEG is ordered MRI read as pres syndrome -continue supportive care and maintain appropriate blood pressure and monitor. Seizure precaution Continue Keppra P.r.n. Ativan (2) Alcohol abuse: Code(s): F10.10 - Alcohol abuse, uncomplicated Status: Acute Assessment and Plan: Patient has history of alcohol abuse. She claims that she has decrease the intake. The alcohol intake that she claims is not consistent with the the findings of hepatic steatosis, pancytopenia. That being said prior to recently she had significant alcohol intake which is likely the culprit. Monitor for withdrawal. (3) Thrombocytopenia: Code(s): D69.6 - Thrombocytopenia, unspecified Status: Acute Assessment and Plan: Most likely related to alcohol abuse follow-up with Heme-Onc as outpatient (4) Pancytopenia: Code(s): D61.818 - Other pancytopenia Status: Acute Assessment and Plan: On review of her chart patient's pancytopenia has been chronic. Hematology consult. (5) Elevated liver enzymes: Code(s): R74.8 - Abnormal levels of other serum enzymes Status: Acute Assessment and Plan: Probably related to chronic alcoholic (6) Essential (primary) hypertension: Code(s): I10 - Essential (primary) hypertension Status: Acute Assessment and Plan: Monitor (7) Electrolyte imbalance: Code(s): E87.8 - Other disorders of electrolyte and fluid balance, not elsewhere classified Status: Acute Assessment and Plan: Acute hypokalemia hypomagnesemia hypocalcemia replace Additional Plan GERD without esophagitis: Started pantoprazole Subjective Date/time seen: 12/15/21 09:08 Interval history: Patient presented to the hospital with confusional state and seizure was found to have abnormal LFT abnormal lipase critical care neurology was consulted patient was found to have seizure secondary to alcohol withdrawal abnormal LFT probably related to fatty liver alcohol disease and acute pancreatitis Patient feels better today Patient denies fever headache chest pain shortness of breath I am seeing the patient for abdominal pain has improved Exam Narrative: Alert Chest no wheeze crackles Abdomen generalized tenderness no rebound no guarding CVS S1 + S2 Lower extremity edema Objective Data Vital Signs Vital Signs: Vital Signs - 24 hr 12/14/21 12:00 12/14/21 14:12 12/14/21 16:00 Temperature 97.6 F Pulse Rate 100 75 100 Pulse Rate [Bilateral Pedal (Dorsalis Pedis) Palpation] Pulse Rate [Monitor] 76 100 Respiratory Rate 14 Blood Pressure 119/79 Pulse Oximetry 97 12/14/21 19:40 12/14/21 20:00 12/15/21 00:00 Temperature 97.8 F Pulse Rate 89 82 90 Pulse Rate [Bilateral Pedal (Dorsalis Pedis) Palpation] 84 84 Pulse Rate [Monitor] 100 100 Respiratory Rate 16 16 Blood Pressure 137/41 L 137/41 L 137/41 L Pulse Oximetry 94 94 12/15/21 03:18 12/15/21 03:40 12/15/21 04:00 Temperature 98.1 F Pulse Rate 83 80 Pulse Rate [Bilateral Pedal (Dorsalis Pedis) Palpation] 84 Pulse Rate [Monitor] 100 Respiratory Rate 18 Blood Pressure 137/41 L 160/84 H Pulse Oximetry 96 Intake/Output Intake/Output: Intake & Output 12/12/21 12/13/21 12/14/21 12/15/21 23:59 23:59 23:59 23:59 Intake Total 2600 1810 5230 2140 Output Total 80 775 2075 2900 Balance 2520 1035 3156 -526 Meds/Results Medications: Active Medications Generic Name Dose Route Start Last Admin Trade Name Freq PRN Reason Stop Dose Admin Hydrocodone Bitart/Acetaminophen 1 tab 12/13/21 13:15 12/14/21 20:54 Hydrocodone/Acetaminophen (*Crx) 5-325 Mg Tablet PO 1 tab Q4H PRN Administration Pain Rated 4-6
--- NOTE | 2021-12-15 10:20 | PCOTNOTE ---
Spoke with Dr. Salazar, patient is to be seen and cleared for out of bed activity prior to OT evaluation. Will follow.
[2021-12-15] MEDS: MAGNESIUM SULF 2 GM/WATER 50ML 2 GM/50 ML BAG IVPB (10:45)
--- NOTE | 2021-12-15 11:29 | PCOTNOTE ---
Per Dr. Salazar, patient will need a back brace for all out of bed activities at this time. Will complete OT evaluation when patient has back brace. Will follow, RN aware.
--- NOTE | 2021-12-15 11:38 | PM.PNORT ---
Progress Note: A&P Assessment and Plan (1) Compression fracture of thoracic spine, non-traumatic: Qualifiers: Encounter type: subsequent encounter Thoracic vertebra fracture level: T6 Fracture healing: with routine healing Qualified Code(s): M48.54XD - Collapsed vertebra, not elsewhere classified, thoracic region, subsequent encounter for fracture with routine healing Code(s): M48.54XA - Collapsed vertebra, not elsewhere classified, thoracic region, initial encounter for fracture Status: Acute Assessment and Plan: thoracic lumbar sacral orthosis ordered. To be used when up to add spinal support to thoracic spine and pain control. May remove while in bed and resting. Subjective Subjective Date/Time Seen: 12/15/21 11:38 Objective Data Vital Signs Vital Signs: Vital Signs - 24 hr 12/14/21 12:00 12/14/21 14:12 12/14/21 16:00 Temperature 97.6 F Pulse Rate 100 75 100 Pulse Rate [Bilateral Pedal (Dorsalis Pedis) Palpation] Pulse Rate [Monitor] 76 100 Respiratory Rate 14 Blood Pressure 119/79 Pulse Oximetry 97 12/14/21 19:40 12/14/21 20:00 12/15/21 00:00 Temperature 97.8 F Pulse Rate 89 82 90 Pulse Rate [Bilateral Pedal (Dorsalis Pedis) Palpation] 84 84 Pulse Rate [Monitor] 100 100 Respiratory Rate 16 16 Blood Pressure 137/41 L 137/41 L 137/41 L Pulse Oximetry 94 94 12/15/21 03:18 12/15/21 03:40 12/15/21 04:00 Temperature 98.1 F Pulse Rate 83 80 Pulse Rate [Bilateral Pedal (Dorsalis Pedis) Palpation] 84 Pulse Rate [Monitor] 100 Respiratory Rate 18 Blood Pressure 137/41 L 160/84 H Pulse Oximetry 96 12/15/21 08:00 Temperature Pulse Rate 88 Pulse Rate [Bilateral Pedal (Dorsalis Pedis) Palpation] Pulse Rate [Monitor] Respiratory Rate Blood Pressure Pulse Oximetry Intake/Output Intake/Output: Intake & Output 12/12/21 12/13/21 12/14/21 12/15/21 23:59 23:59 23:59 23:59 Intake Total 2600 1810 5230 2360 Output Total 80 775 2075 2900 Balance 2520 1035 1465 -685 Meds/Results Medications: Active Medications Generic Name Dose Route Start Last Admin Trade Name Freq PRN Reason Stop Dose Admin Hydrocodone Bitart/Acetaminophen 1 tab 12/13/21 13:15 12/14/21 20:54 Hydrocodone/Acetaminophen (*Crx) 5-325 Mg Tablet PO 1 tab Q4H PRN Administration Pain Rated 4-6 Hydrocodone Bitart/Acetaminophen 1 tab 12/13/21 13:15 12/15/21 08:45 Hydrocodone/Acetaminophen (*Crx) 10-325 Mg Tablet PO 1 tab Q4H PRN Administration Pain Rated 7-10 Calcium Citrate 1 tablet 12/15/21 13:00 Calcium Citrate 315 Mg/Vitamin D 250 Units Tab PO 12/17/21 09:01 TID PARISH Folic Acid 1 mg 12/13/21 09:00 12/15/21 08:45 Folic Acid 1 Mg/0.2 Ml Inj IV PUSH 1 mg QAM PARISH Administration Hydralazine HCl 10 mg 12/13/21 02:13 Hydralazine Hcl 20 Mg/Ml Vial IV PUSH Q4H PRN Blood Pressure - High Sodium Chloride 1,000 mls @ 125 mls/hr 12/12/21 12:30 12/15/21 04:22 Normal Saline Iv IV CONT 125 mls/hr .Q8H PARISH Administration Levetiracetam 500 mg in 100 mls @ 400 mls/hr 12/13/21 09:00 12/15/21 09:00 Keppra Iv IVPB Infused Q12HR PARISH Infusion Lorazepam 2 mg 12/13/21 14:38 Lorazepam Inj (*Crx) 2 Mg/Ml Vial IV PUSH Q1H PRN Seizure Activity Ondansetron HCl 4 mg 12/12/21 12:26 12/12/21 13:01 Ondansetron Inj 4 Mg/2 Ml Vial IV PUSH 4 mg Q4H PRN Administration Nausea Pantoprazole Sodium 40 mg 12/13/21 09:00 12/15/21 08:41 Pantoprazole Sodium Iv 40 Mg Vial IV PUSH 40 mg QAM PARISH Administration Potassium Chloride 40 meq 12/13/21 09:00 12/15/21 08:41 Potassium Chloride 20 Meq Packet (For Liquid) PO 40 meq DAILY PARISH Administration Potassium Chloride 40 meq 12/15/21 13:00 Potassium Chloride 20 Meq Tablet PO 12/15/21 17:01 Q4HR PARISH Sertraline HCl 25 mg 12/13/21 09:00 12/15/21 08:41 Sertraline Hcl 25 Mg Tablet PO 25 mg DAILY PARISH
--- NOTE | 2021-12-15 11:54 | PCPTNOTE ---
Per Dr. Salazar, patient will need a back brace for all out of bed activities at this time. Will complete PT evaluation when patient has back brace. Will follow, RN aware.
--- NOTE | 2021-12-15 12:18 | WPDNEUROPN ---
Progress Note: A&P Additional Plan 1. Thoracic brace 2. Physical therapy as tolerated 3. Other treatment continuous Time Spent With Patient Time with patient: 15 - 25 minutes Subjective Date/time seen: 12/15/21 12:18 56 years old admitted to the hospital through the emergency room with history of multiple medical problems including arthritis, alcohol abuse, back injury, bronchitis, dyslipidemia, hypertension, GERD, hypercholesterolemia, and pancreatitis by history. Patient has been found to have burst fracture of T6 and T7 of subacute in nature along with sprains of the interspinous ligament and mild thoracic spondylosis and dextroscoliosis as well in addition to 1mm diameter syringomyelia thoracic spinal cord she can be put on the and thoracic brace started on the physical therapy slowly her repeat neurological examination today reveals her to have normal mental status normal speech cranial examination is normal motor examination in the upper extremities revealed no evidence of drift to 1 side or other side motor exam is in lower extremities is normal as well and deep tendon reflexes are 1 to2+ at the knees and ankle plantars are definitely downgoing there is no evidence of gross sensory or cerebellar deficit otherwise Objective Data Vital Signs Vital Signs: Vital Signs - 24 hr 12/14/21 14:12 12/14/21 16:00 12/14/21 19:40 Temperature 36.4 C 36.6 C Pulse Rate 75 100 89 Pulse Rate [Bilateral Pedal (Dorsalis Pedis) Palpation] Pulse Rate [Monitor] 100 Respiratory Rate 14 16 Blood Pressure 119/79 137/41 L Pulse Oximetry 97 94 12/14/21 20:00 12/15/21 00:00 12/15/21 03:18 Temperature Pulse Rate 82 90 Pulse Rate [Bilateral Pedal (Dorsalis Pedis) Palpation] 84 84 84 Pulse Rate [Monitor] 100 100 100 Respiratory Rate 16 Blood Pressure 137/41 L 137/41 L 137/41 L Pulse Oximetry 94 12/15/21 03:40 12/15/21 04:00 12/15/21 08:00 Temperature 36.7 C Pulse Rate 83 80 88 Pulse Rate [Bilateral Pedal (Dorsalis Pedis) Palpation] Pulse Rate [Monitor] Respiratory Rate 18 Blood Pressure 160/84 H Pulse Oximetry 96 Intake/Output Intake/Output: Intake & Output 12/12/21 12/13/21 12/14/21 12/15/21 23:59 23:59 23:59 23:59 Intake Total 2600 1810 5230 2360 Output Total 80 515 2075 2900 Balance 2520 1035 6851 -627 Meds/Results Medications: Active Medications Generic Name Dose Route Start Last Admin Trade Name Freq PRN Reason Stop Dose Admin Hydrocodone Bitart/Acetaminophen 1 tab 12/13/21 13:15 12/14/21 20:54 Hydrocodone/Acetaminophen (*Crx) 5-325 Mg Tablet PO 1 tab Q4H PRN Administration Pain Rated 4-6 Hydrocodone Bitart/Acetaminophen 1 tab 12/13/21 13:15 12/15/21 08:45 Hydrocodone/Acetaminophen (*Crx) 10-325 Mg Tablet PO 1 tab Q4H PRN Administration Pain Rated 7-10 Calcium Citrate 1 tablet 12/15/21 13:00 Calcium Citrate 315 Mg/Vitamin D 250 Units Tab PO 12/17/21 09:01 TID PARISH Folic Acid 1 mg 12/13/21 09:00 12/15/21 08:45 Folic Acid 1 Mg/0.2 Ml Inj IV PUSH 1 mg QAM PARISH Administration Hydralazine HCl 10 mg 12/13/21 02:13 Hydralazine Hcl 20 Mg/Ml Vial IV PUSH Q4H PRN Blood Pressure - High Sodium Chloride 1,000 mls @ 125 mls/hr 12/12/21 12:30 12/15/21 04:22 Normal Saline Iv IV CONT 125 mls/hr .Q8H PARISH Administration Levetiracetam 500 mg in 100 mls @ 400 mls/hr 12/13/21 09:00 12/15/21 09:00 Keppra Iv IVPB Infused Q12HR PARISH Infusion Lorazepam 2 mg 12/13/21 14:38 Lorazepam Inj (*Crx) 2 Mg/Ml Vial IV PUSH Q1H PRN Seizure Activity Ondansetron HCl 4 mg 12/12/21 12:26 12/12/21 13:01 Ondansetron Inj 4 Mg/2 Ml Vial IV PUSH 4 mg Q4H PRN Administration Nausea Pantoprazole Sodium 40 mg 12/13/21 09:00 12/15/21 08:41 Pantoprazole Sodium Iv 40 Mg Vial IV PUSH 40 mg QAM PARISH Administration Potassium Chloride 40 meq 12/13/21 09:00 12/15/21 08:41 Potassium Chloride 20 Meq Pa
[2021-12-15] MEDS: POTASSIUM CHLORIDE 20 MEQ TABLET 40 MEQ PO ×2 (12:38→16:55)
[2021-12-16] VITALS (11 sets, daily range): BP systolic 128–156; BP diastolic 74–91; PULSE 68–91; RESP 14–20; TEMP 36.4–36.6; O2SAT 95–98
[2021-12-16] MEDS: HYDROcodone/acetaminophen (*CRX) 10-325 MG TABLET 1 TAB PO ×3 (02:11→18:05)
[2021-12-16 05:35] LABS: Hematocrit 33.3 % (37.0-47.0); Immature Platelet Fraction Pct 5.7 % (0.9-11.2); Mean Corpuscular Hemoglobin 36.8 pg (26-34); Mean Corpuscular Volume 111.4 fl (80-100); Mean Platelet Volume 10.3 fl (7.4-10.4); Platelet Count Result 106 k/mm3 (150-375); Red Blood Count 2.99 M/mm3 (4.2-5.4); Red Cell Distribution Width 14.6 % (11.5-14.5); White Blood Count 3.8 K/mm3 (4.5-10.0)
[2021-12-16 05:52] LABS: Alanine Aminotransferase 98 U/L (4-35); Albumin Level 3.5 g/dL (3.5-5.1); Alkaline Phosphatase 105 U/L (38-126); Anion Gap 4 mmol/L (8-16); Aspartate Amino Transferase 143 U/L (14-36); Bilirubin,Total 0.8 mg/dL (0.2-1.3); Blood Urea Nitrogen 7 mg/dL (7-17); Calcium 9.3 mg/dL (8.4-10.2); Carbon Dioxide 32 mmol/L (22-30); Chloride 99 mmol/L (98-107); Estimated CRCL calculation 88 ml/min; Estimated Glomerular Filt Rate > 60; Glucose 103 mg/dL (65-110); Magnesium 1.6 mg/dL (1.6-2.3); Potassium 3.7 mmol/L (3.4-5.0); Sodium 135 mmol/L (137-145)
[2021-12-16 05:53] LABS: Lipase 263 U/L (23-300)
[2021-12-16] MEDS: PANTOPRAZOLE SODIUM IV 40 MG VIAL IV PUSH (08:23)
[2021-12-16] MEDS: levETIRAcetam 500MG/NACL 100ML 500 MG/100 ML BAG 400 MG IVPB (08:24)
[2021-12-16] MEDS: POTASSIUM CHLORIDE 20 MEQ PACKET (FOR LIQUID) 40 MEQ PO (08:26)
[2021-12-16] MEDS: SERTRALINE HCL 25 MG TABLET PO (08:26)
--- NOTE | 2021-12-16 08:44 | ECG_ITS ---
Measurements Intervals [place] Rate: 64 P: 24 DC: 128 QRS: 1 QRSD: 85 T: 13 QT: 403 QTc: 418 Interpretive Statements SINUS RHYTHM NORMAL ECG COMPARED TO ECG 12/12/2021 11:01:34 ST ABNORMALITIES NO LONGER APPRECIATED AND HEART RATE HAS DECREASED Electronically Signed On 12-16-2021 16:54:02 CDT by Beny Waite M.D.
--- NOTE | 2021-12-16 08:52 | PM.IMPN ---
Progress Note: A&P Assessment and Plan (1) Seizure: Code(s): R56.9 - Unspecified convulsions Status: Acute Assessment and Plan: Probably related seizures are secondary to alcohol withdrawal Neurology has been consult EEG MRI read as press syndrome -continue supportive care and maintain appropriate blood pressure and monitor. Seizure precaution Continue Keppra P.r.n. Ativan (2) Alcohol abuse: Code(s): F10.10 - Alcohol abuse, uncomplicated Status: Acute Assessment and Plan: Patient has history of alcohol abuse. She claims that she has decrease the intake. The alcohol intake that she claims is not consistent with the the findings of hepatic steatosis, pancytopenia. That being said prior to recently she had significant alcohol intake which is likely the culprit. Monitor for withdrawal. Started Librium Anticipate discharge once withdrawal symptom improved in 1-2 days (3) Thrombocytopenia: Code(s): D69.6 - Thrombocytopenia, unspecified Status: Acute Assessment and Plan: Most likely related to alcohol abuse follow-up with Heme-Onc as outpatient (4) Pancytopenia: Code(s): D61.818 - Other pancytopenia Status: Acute Assessment and Plan: On review of her chart patient's pancytopenia has been chronic. Hematology consult. Follow-up as outpatient (5) Elevated liver enzymes: Code(s): R74.8 - Abnormal levels of other serum enzymes Status: Acute Assessment and Plan: Probably related to chronic alcoholic counseling (6) Essential (primary) hypertension: Code(s): I10 - Essential (primary) hypertension Status: Acute Assessment and Plan: Monitor (7) Electrolyte imbalance: Code(s): E87.8 - Other disorders of electrolyte and fluid balance, not elsewhere classified Status: Acute Assessment and Plan: Acute hypokalemia hypomagnesemia hypocalcemia replace (8) Compression fracture of thoracic spine, non-traumatic: Qualifiers: Encounter type: subsequent encounter Thoracic vertebra fracture level: T6 Fracture healing: with routine healing Qualified Code(s): M48.54XD - Collapsed vertebra, not elsewhere classified, thoracic region, subsequent encounter for fracture with routine healing Code(s): M48.54XA - Collapsed vertebra, not elsewhere classified, thoracic region, initial encounter for fracture Status: Acute Assessment and Plan: Orthopedic consult Spine support was ordered per Orthopedic to be used with activity can be taken off when patient is in bed (9) Syringomyelia: Code(s): G95.0 - Syringomyelia and syringobulbia Status: Acute Assessment and Plan: Follow-up with neurology as outpatient (10) Acute chest pain: Code(s): R07.9 - Chest pain, unspecified Status: Acute Assessment and Plan: Patient has acute chest pain to the left side worsening with movement will get ECG and troponin to complete workup most likely musculoskeletal will give Flexeril Subjective Date/time seen: 12/16/21 08:52 Interval history: Patient presented to the hospital with confusional state and seizure was found to have abnormal LFT abnormal lipase critical care neurology was consulted patient was found to have seizure secondary to alcohol withdrawal abnormal LFT probably related to fatty liver alcohol disease and acute pancreatitis Patient feels better today withdrawal symptom has improved Discussed with the nurse Started oral Librium Orthopedic surgery recommendation appreciated regarding spine fracture Patient denies fever headache chest pain shortness of breath I am seeing the patient for abdominal pain has improved Exam Narrative: Alert Chest no wheeze crackles Abdomen generalized tenderness no rebound no guarding CVS S1 + S2 Lower extremity edema Objective Data Vital Signs Vital Signs: Vital Signs - 24 hr 12/15/21 12:00 12/15/21 14:10 12/15/21 1
[2021-12-16] MEDS: CYCLOBENZAPRINE HCL 5 MG TABLET PO ×2 (09:08→21:47)
--- NOTE | 2021-12-16 09:23 | PM.PNORT ---
Progress Note: A&P Assessment and Plan (1) Compression fracture of thoracic spine, non-traumatic: Qualifiers: Encounter type: subsequent encounter Thoracic vertebra fracture level: T6 Fracture healing: with routine healing Qualified Code(s): M48.54XD - Collapsed vertebra, not elsewhere classified, thoracic region, subsequent encounter for fracture with routine healing Code(s): M48.54XA - Collapsed vertebra, not elsewhere classified, thoracic region, initial encounter for fracture Status: Acute Assessment and Plan: TLSO with ambulation for spinal support to thoracic spine and pain control. May remove while in bed and resting. Pain control. Will arrange outpatient follow up. Subjective Subjective Date/Time Seen: 12/16/21 09:23 Interval history: Tolerated brace well with PT/OT yesterday. No new concerns. Pain controlled. Review of Systems Constitutional: Constitutional: Denies fever(s) Eyes: Eyes: Denies blurry vision ENT: Reports Normal hearing present Cardiovascular: Cardiovascular: Denies chest pain and Denies dyspnea Respiratory: Respiratory: Denies dyspnea and Denies wheezing Gastrointestinal: Gastrointestinal: Denies abdominal pain Genitourinary: Genitourinary: Denies urinary urgency Musculoskeletal: Musculoskeletal: Reports as per HPI and Denies numbness Integumentary/Breasts: Skin/Breast: Denies changing lesions and Denies sores Neurologic: Reports Normal hearing present, Denies behavioral changes, Denies numbness, Reports convulsions and Reports seizure-like activity ( Two days ago) Psychiatric: Psychiatric: Denies behavioral changes and Denies hallucinations Endocrine: Endocrine: Denies heat intolerance Hematologic/Lymphatic: Hematologic/Lymphatic: Denies easy bleeding Allergic/Immunologic: Allergic/Immunologic: Denies wheezing Exam Const: General: healthy appearing; No in distress or confusion Orientation/consciousness: oriented to person, oriented to place, oriented to time and No confusion HENMT: Head: normal to inspection, normocephalic and atraumatic Eyes: Conjunctivae: conjunctivae normal Sclera: sclerae normal Neck: Neck: supple and nontender Resp: Effort & Inspection: normal respiratory effort and no audible wheezes Cardio: Rate: regular rate Rhythm: regular rhythm Back/Spine/Pelvis: Back: No back tenderness Cervical Spine: No pain with cervical ROM, No cervical spasm, No Cervical spine tenderness and No step off deformity Thoracic/Lumbar Spine: thoracic and lumbar spine normal to inspection, kyphosis, No paraspinal muscle tenderness, No thoracic spinal tenderness, No lumbar spinal tenderness and No straight leg raise positive Pelvis: no pain with anterior-posterior compression Skin: General skin exam: no rashes or lesions noted Neuro: General: oriented to person, oriented to place, oriented to time and No confusion Motor exam (neuro): 5/5 motor strength present throughout Sensory Exam: normal sensation; No Sensory deficit (Neuro) Plantar Reflex Responses: downgoing: bilateral Extrem: Right upper extremity: normal to inspection Left upper extremity: normal to inspection Left lower extremity: hip/thigh Details: no tenderness and no swelling, knee Details: tenderness ( medial joint line), swelling ( moderate medial joint line and anterior) Location: of the pre-patellar area, abnormal ROM ( active knee extension -10 degrees, flexion 100?. Passive -5 to 110?) Details: pain with passive ROM Details: with extension and with flexion, Len's Test Details: negative laterally and positive medially and crepitus ( patellofemoral and knee joint with active motion) Location: at the knee and foot Details: vascular exam Details: dorsalis pedis pulse present and normal capillary refill, tendon exam active flexion normal and active extension normal and motor-sensory exam light-touch normal Psych: Affect: normal affect Objective Data Vital Signs Vital Sig
[2021-12-16 09:33] LABS: Troponin I < 0.012 ng/mL (0.000-0.034)
[2021-12-16] MEDS: FOLIC ACID 1 MG/0.2 ML INJ IV PUSH (11:01)
[2021-12-16] MEDS: THIAMINE HCL 200 MG/2 ML VIAL 100 MG IV PUSH (11:01)
[2021-12-16] MEDS: HYDROcodone/acetaminophen (*CRX) 5-325 MG TABLET 1 TAB PO (11:13)
[2021-12-16 12:00] LABS: Troponin I < 0.012 ng/mL (0.000-0.034)
[2021-12-16] MEDS: chlordiazePOXIDE (*CRX) 5 MG CAPSULE 15 MG PO ×2 (13:46→21:47)
--- NOTE | 2021-12-16 13:57 | PC.NURSE ---
On 12/16/21, the student, [Krunal Brantley, Shannen Curiel], provided care and completed [facility] documentation on this patient. I have reviewed the student's documentation and agree with the findings.
[2021-12-16 15:09] LABS: Troponin I < 0.012 ng/mL (0.000-0.034)
[2021-12-16 21:29] LABS: Haptoglobin 40 mg/dL (43-212)
[2021-12-16] MEDS: levETIRAcetam 500 MG TABLET PO (21:47)
[2021-12-17] VITALS (9 sets, daily range): BP systolic 110–143; BP diastolic 75–84; PULSE 67–115; RESP 16–20; TEMP 36.3–36.7; O2SAT 95–97
[2021-12-17 05:53] LABS: Hematocrit 34.3 % (37.0-47.0); Hemoglobin 11.4 g/dL (12.0-15.0); Immature Platelet Fraction Pct 6.4 % (0.9-11.2); Mean Corpuscular HGB Conc 33.2 g/dl (32-36); Mean Corpuscular Hemoglobin 36.8 pg (26-34); Mean Corpuscular Volume 110.6 fl (80-100); Mean Platelet Volume 10.3 fl (7.4-10.4); Platelet Count Result 130 k/mm3 (150-375); Red Cell Distribution Width 14.8 % (11.5-14.5); White Blood Count 3.9 K/mm3 (4.5-10.0)
[2021-12-17] MEDS: CYCLOBENZAPRINE HCL 5 MG TABLET PO ×3 (06:05→21:17)
[2021-12-17 06:06] LABS: Alanine Aminotransferase 88 U/L (4-35); Albumin Level 3.5 g/dL (3.5-5.1); Alkaline Phosphatase 106 U/L (38-126); Anion Gap -1 mmol/L (8-16); Aspartate Amino Transferase 116 U/L (14-36); Bilirubin,Total 0.6 mg/dL (0.2-1.3); Blood Urea Nitrogen 12 mg/dL (7-17); Calcium 10.2 mg/dL (8.4-10.2); Carbon Dioxide 36 mmol/L (22-30); Chloride 98 mmol/L (98-107); Estimated CRCL calculation 77 ml/min; Estimated Glomerular Filt Rate > 60; Glucose 112 mg/dL (65-110); Magnesium 1.4 mg/dL (1.6-2.3); Phosphorus 2.7 mg/dL (2.5-4.5); Potassium 4.7 mmol/L (3.4-5.0); Sodium 133 mmol/L (137-145)
[2021-12-17] MEDS: chlordiazePOXIDE (*CRX) 5 MG CAPSULE 15 MG PO ×3 (06:06→21:17)
[2021-12-17] MEDS: SERTRALINE HCL 25 MG TABLET PO (08:10)
[2021-12-17] MEDS: PANTOPRAZOLE SODIUM IV 40 MG VIAL IV PUSH (08:10)
[2021-12-17] MEDS: POTASSIUM CHLORIDE 20 MEQ PACKET (FOR LIQUID) 40 MEQ PO (08:10)
[2021-12-17] MEDS: levETIRAcetam 500 MG TABLET PO ×2 (08:10→21:17)
[2021-12-17] MEDS: THIAMINE HCL 200 MG/2 ML VIAL 100 MG IV PUSH (08:10)
[2021-12-17] MEDS: FOLIC ACID 1 MG/0.2 ML INJ IV PUSH (08:22)
[2021-12-17] MEDS: HYDROcodone/acetaminophen (*CRX) 10-325 MG TABLET 1 TAB PO ×4 (08:24→23:32)
--- NOTE | 2021-12-17 10:30 | WPDNEUROPN ---
Progress Note: A&P Additional Plan seizures with normal EEG 2 compression fracture of thoracic spine with brace and physical therapy. Treatment continues Subjective Date/time seen: 12/17/21 10:30 56 years old admitted through the emergency room for multiple medical problems including arthritis, alcohol abuse, back, bronchitis, dyslipidemia, hypertension, I per cholesterolemia, GERD, and history of pancreatitis in the past during the hospitalization she has been found to have burst fracture of T6 and T7 of subacute in nature along with sprains of the interspinous ligaments and mild thoracic spondylosis and dextroscoliosis in addition to 1mm diameter syringomyelia of thoracic spinal cord, she was started on the back brace, physical therapy, has already been seen by orthopedic physician Dr. [place]ton and has been using TLS old for ambulation or spinal support to thoracic spine and pain control, remains awake alert cooperative in no obvious acute distress with no change in the neurological finding and treatment is being continued as such Review of Systems Review of Systems: All systems reviewed & are unremarkable except as noted in HPI and below Objective Data Vital Signs Vital Signs: Vital Signs - 24 hr 12/16/21 12:00 12/16/21 12:30 12/16/21 16:00 Temperature 36.6 C Pulse Rate 89 91 86 Pulse Rate [Bilateral Pedal (Dorsalis Pedis) Palpation] Pulse Rate [Monitor] Respiratory Rate 14 Blood Pressure 128/74 Pulse Oximetry 97 12/16/21 20:00 12/16/21 20:21 12/16/21 21:02 Temperature 36.6 C Pulse Rate 84 74 Pulse Rate [Bilateral Pedal (Dorsalis Pedis) Palpation] Pulse Rate [Monitor] Respiratory Rate 20 Blood Pressure 132/87 Pulse Oximetry 95 96 12/17/21 00:00 12/17/21 04:00 12/17/21 04:24 Temperature 36.7 C Pulse Rate 81 67 70 Pulse Rate [Bilateral Pedal (Dorsalis Pedis) Palpation] 80 Pulse Rate [Monitor] 81 81 Respiratory Rate 20 Blood Pressure 131/76 Pulse Oximetry 95 12/17/21 08:00 Temperature Pulse Rate 68 Pulse Rate [Bilateral Pedal (Dorsalis Pedis) Palpation] Pulse Rate [Monitor] Respiratory Rate Blood Pressure Pulse Oximetry Intake/Output Intake/Output: Intake & Output 12/14/21 12/15/21 12/16/21 12/17/21 23:59 23:59 23:59 23:59 Intake Total 1683 2970 1300 340 Output Total 1160 8976 6942 Balance 1673 -295 -7013 684 Meds/Results Medications: Active Medications Generic Name Dose Route Start Last Admin Trade Name Freq PRN Reason Stop Dose Admin Hydrocodone Bitart/Acetaminophen 1 tab 12/13/21 13:15 12/16/21 11:13 Hydrocodone/Acetaminophen (*Crx) 5-325 Mg Tablet PO 1 tab Q4H PRN Administration Pain Rated 4-6 Hydrocodone Bitart/Acetaminophen 1 tab 12/13/21 13:15 12/17/21 08:24 Hydrocodone/Acetaminophen (*Crx) 10-325 Mg Tablet PO 1 tab Q4H PRN Administration Pain Rated 7-10 Chlordiazepoxide HCl 15 mg 12/16/21 14:00 12/17/21 06:06 Chlordiazepoxide (*Crx) 5 Mg Capsule PO 15 mg Q8HR PARISH Administration Cyclobenzaprine HCl 5 mg 12/16/21 14:00 12/17/21 06:05 Cyclobenzaprine Hcl 5 Mg Tablet PO 5 mg Q8HR APRISH Administration Folic Acid 1 mg 12/13/21 09:00 12/17/21 08:22 Folic Acid 1 Mg/0.2 Ml Inj IV PUSH 1 mg QAM PARISH Administration Hydralazine HCl 10 mg 12/13/21 02:13 Hydralazine Hcl 20 Mg/Ml Vial IV PUSH Q4H PRN Blood Pressure - High Levetiracetam 500 mg 12/16/21 21:00 12/17/21 08:10 Levetiracetam 500 Mg Tablet PO 500 mg Q12HR PARISH Administration Lorazepam 2 mg 12/13/21 14:38 Lorazepam Inj (*Crx) 2 Mg/Ml Vial IV PUSH Q1H PRN Seizure Activity Ondansetron HCl 4 mg 12/12/21 12:26 12/12/21 13:01 Ondansetron Inj 4 Mg/2 Ml Vial IV PUSH 4 mg Q4H PRN Administration Nausea Pantoprazole Sodium 40 mg 12/13/21 09:00 12/17/21 08:10 Pantoprazole Sodium Iv 40 Mg Vial IV PUSH 40 mg QAM PARISH Administration Potassium Chloride 40 meq
--- NOTE | 2021-12-17 16:06 | PM.IMPN ---
Progress Note: A&P Assessment and Plan (1) Seizure: Code(s): R56.9 - Unspecified convulsions Status: Acute Assessment and Plan: Probably related seizures are secondary to alcohol withdrawal Neurology has been consult EEG MRI read as press syndrome -continue supportive care and maintain appropriate blood pressure and monitor. Seizure precaution Continue Keppra P.r.n. Ativan 12/17/2021 interval history: today patient states the pain is controlled while sleeping however with any movement pain gets worse she does use her brace which does help, is able to ambulate and able to do her ADLs, Wll add gabapentin 100mg TID this may help with pain, patient remains clinically stable will continue PT OT patient will benefit consulting spine surgeon for possible kyphoplasty, will continue to monitor may discharge the patient on Monday (2) Alcohol abuse: Code(s): F10.10 - Alcohol abuse, uncomplicated Status: Acute Assessment and Plan: Patient has history of alcohol abuse. She claims that she has decrease the intake. The alcohol intake that she claims is not consistent with the the findings of hepatic steatosis, pancytopenia. That being said prior to recently she had significant alcohol intake which is likely the culprit. Monitor for withdrawal. Started Librium Anticipate discharge once withdrawal symptom improved in 1-2 days (3) Thrombocytopenia: Code(s): D69.6 - Thrombocytopenia, unspecified Status: Acute Assessment and Plan: Most likely related to alcohol abuse follow-up with Heme-Onc as outpatient (4) Pancytopenia: Code(s): D61.818 - Other pancytopenia Status: Acute Assessment and Plan: On review of her chart patient's pancytopenia has been chronic. Hematology consult. Follow-up as outpatient (5) Elevated liver enzymes: Code(s): R74.8 - Abnormal levels of other serum enzymes Status: Acute Assessment and Plan: Probably related to chronic alcoholic counseling (6) Essential (primary) hypertension: Code(s): I10 - Essential (primary) hypertension Status: Acute Assessment and Plan: Monitor (7) Electrolyte imbalance: Code(s): E87.8 - Other disorders of electrolyte and fluid balance, not elsewhere classified Status: Acute Assessment and Plan: Acute hypokalemia hypomagnesemia hypocalcemia replace (8) Compression fracture of thoracic spine, non-traumatic: Qualifiers: Encounter type: subsequent encounter Fracture healing: with routine healing Thoracic vertebra fracture level: T6 Qualified Code(s): M48.54XD - Collapsed vertebra, not elsewhere classified, thoracic region, subsequent encounter for fracture with routine healing Code(s): M48.54XA - Collapsed vertebra, not elsewhere classified, thoracic region, initial encounter for fracture Status: Acute Assessment and Plan: Orthopedic consult Spine support was ordered per Orthopedic to be used with activity can be taken off when patient is in bed (9) Syringomyelia: Code(s): G95.0 - Syringomyelia and syringobulbia Status: Acute Assessment and Plan: Follow-up with neurology as outpatient (10) Acute chest pain: Code(s): R07.9 - Chest pain, unspecified Status: Acute Assessment and Plan: Patient has acute chest pain to the left side worsening with movement will get ECG and troponin to complete workup most likely musculoskeletal will give Flexeril Additional Plan GERD without esophagitis: Started pantoprazole Subjective Date/time seen: 12/17/21 16:06 12/17/2021 interval history: today patient states the pain is controlled while sleeping however with any movement pain gets worse she does use her brace which does help, is able to ambulate and able to do her ADLs, Wll add gabapentin 100mg TID this may help with pain, patient remains clinically stable will continue PT OT patient arthur
[2021-12-17] MEDS: GABAPENTIN 100 MG CAPSULE PO (16:38)
[2021-12-17] MEDS: polyethylene glycoL 3350 17 GM POWD.PACK PO (16:39)
[2021-12-17] MEDS: DOCUSATE SODIUM 100 MG CAPSULE PO (21:17)
[2021-12-18] VITALS (11 sets, daily range): BP systolic 105–112; BP diastolic 70–74; PULSE 80–96; RESP 12–16; TEMP 36.1–36.6; O2SAT 93–96
[2021-12-18] MEDS: chlordiazePOXIDE (*CRX) 5 MG CAPSULE 15 MG PO ×3 (05:58→20:16)
[2021-12-18] MEDS: CYCLOBENZAPRINE HCL 5 MG TABLET PO ×3 (05:58→20:12)
[2021-12-18] MEDS: HYDROcodone/acetaminophen (*CRX) 5-325 MG TABLET 1 TAB PO ×2 (06:43→20:16)
[2021-12-18 07:32] LABS: Alanine Aminotransferase 83 U/L (4-35); Albumin Level 3.8 g/dL (3.5-5.1); Alkaline Phosphatase 113 U/L (38-126); Anion Gap 4 mmol/L (8-16); Aspartate Amino Transferase 97 U/L (14-36); Bilirubin,Total 0.6 mg/dL (0.2-1.3); Blood Urea Nitrogen 20 mg/dL (7-17); Calcium 10.2 mg/dL (8.4-10.2); Carbon Dioxide 34 mmol/L (22-30); Chloride 96 mmol/L (98-107); Estimated CRCL calculation 69 ml/min; Estimated Glomerular Filt Rate > 60; Glucose 111 mg/dL (65-110); Magnesium 1.4 mg/dL (1.6-2.3); Potassium 4.3 mmol/L (3.4-5.0); Sodium 134 mmol/L (137-145)
[2021-12-18 07:42] LABS: Hematocrit 36.3 % (37.0-47.0); Hemoglobin 11.7 g/dL (12.0-15.0); Mean Corpuscular HGB Conc 32.2 g/dl (32-36); Mean Corpuscular Hemoglobin 36.8 pg (26-34); Mean Corpuscular Volume 114.2 fl (80-100); Mean Platelet Volume 10.7 fl (7.4-10.4); Platelet Count Result 160 k/mm3 (150-375); Red Blood Count 3.18 M/mm3 (4.2-5.4); Red Cell Distribution Width 14.9 % (11.5-14.5); White Blood Count 3.5 K/mm3 (4.5-10.0)
[2021-12-18] MEDS: MAGNESIUM SULF 4 GM/WATER100ML 4 GM/100 ML BAG IVPB (08:38)
[2021-12-18] MEDS: POTASSIUM CHLORIDE 20 MEQ PACKET (FOR LIQUID) 40 MEQ PO (08:38)
[2021-12-18] MEDS: polyethylene glycoL 3350 17 GM POWD.PACK PO (08:38)
[2021-12-18] MEDS: levETIRAcetam 500 MG TABLET PO ×2 (08:39→20:11)
[2021-12-18] MEDS: DOCUSATE SODIUM 100 MG CAPSULE PO ×2 (08:39→20:11)
[2021-12-18] MEDS: GABAPENTIN 100 MG CAPSULE PO ×3 (08:39→16:40)
[2021-12-18] MEDS: THIAMINE HCL 200 MG/2 ML VIAL 100 MG IV PUSH (08:39)
[2021-12-18] MEDS: SERTRALINE HCL 25 MG TABLET PO (08:39)
[2021-12-18] MEDS: PANTOPRAZOLE SODIUM IV 40 MG VIAL IV PUSH (08:39)
[2021-12-18] MEDS: FOLIC ACID 1 MG/0.2 ML INJ IV PUSH (08:59)
[2021-12-18] MEDS: DIPHENHYDRAMINE 1%/ZINC 0.1% CREAM 30 GM TUBE 1 APPLIC TOPICAL (11:26)
--- NOTE | 2021-12-18 12:07 | WPDNEUROPN ---
Progress Note: A&P Additional Plan discussed with her to continue the management as such and has to be careful at home as well her is a good support treatment continued as such Subjective Date/time seen: 12/18/21 12:07 1. Seizure disorder with no recurrence in the hospital 2. Compression fracture of thoracic spine Yohana traumatic in nature receiving the physical therapy with support 3. Syringomyelia Review of Systems Review of Systems: All systems reviewed & are unremarkable except as noted in HPI and below Exam Narrative: continues to be awake alert cooperative in no obvious acute distress, his speech nor dysphasic no dysarthric not dysphonic, able to ambulate with the physical therapy complains of no significant pain and discomfort, the cranial nerve examination is normal, motor examination of the upper and lower extremities revealed no motor deficit, deep tendon reflexes in upper and lower extremities are symmetrical and 1 to2+ and also unchanged from the previous evaluations, and plantar responses are downgoing, there is no evidence of cerebellar deficit, heart regular lungs clear abdomen is soft Objective Data Vital Signs Vital Signs: Vital Signs - 24 hr 12/17/21 14:32 12/17/21 16:00 12/17/21 20:00 Temperature 36.3 C L Pulse Rate 78 88 111 H Pulse Rate [Bilateral Pedal (Dorsalis Pedis) Palpation] Pulse Rate [Monitor] Respiratory Rate 16 Blood Pressure 143/84 H Pulse Oximetry 96 12/17/21 20:03 12/18/21 00:00 12/18/21 02:53 Temperature 36.3 C L Pulse Rate 115 H 85 Pulse Rate [Bilateral Pedal (Dorsalis Pedis) Palpation] Pulse Rate [Monitor] Respiratory Rate 18 Blood Pressure 110/75 Pulse Oximetry 97 96 12/18/21 03:59 12/18/21 04:00 12/18/21 08:00 Temperature 36.1 C L Pulse Rate 90 89 80 Pulse Rate [Bilateral Pedal (Dorsalis Pedis) Palpation] Pulse Rate [Monitor] Respiratory Rate 16 Blood Pressure 112/71 Pulse Oximetry 94 12/18/21 08:45 Temperature Pulse Rate Pulse Rate [Bilateral Pedal (Dorsalis Pedis) Palpation] 84 Pulse Rate [Monitor] 80 Respiratory Rate Blood Pressure Pulse Oximetry Intake/Output Intake/Output: Intake & Output 12/15/21 12/16/21 12/17/21 12/18/21 23:59 23:59 23:59 23:59 Intake Total 5770 1300 1410 630 Output Total 6674 3000 Balance -880 -1700 1410 630 Meds/Results Medications: Active Medications Generic Name Dose Route Start Last Admin Trade Name Freq PRN Reason Stop Dose Admin Hydrocodone Bitart/Acetaminophen 1 tab 12/13/21 13:15 12/18/21 06:43 Hydrocodone/Acetaminophen (*Crx) 5-325 Mg Tablet PO 1 tab Q4H PRN Administration Pain Rated 4-6 Hydrocodone Bitart/Acetaminophen 1 tab 12/13/21 13:15 12/17/21 23:32 Hydrocodone/Acetaminophen (*Crx) 10-325 Mg Tablet PO 1 tab Q4H PRN Administration Pain Rated 7-10 Chlordiazepoxide HCl 15 mg 12/16/21 14:00 12/18/21 05:58 Chlordiazepoxide (*Crx) 5 Mg Capsule PO 15 mg Q8HR PARISH Administration Cyclobenzaprine HCl 5 mg 12/16/21 14:00 12/18/21 05:58 Cyclobenzaprine Hcl 5 Mg Tablet PO 5 mg Q8HR PARISH Administration Docusate Sodium 100 mg 12/17/21 21:00 12/18/21 08:39 Docusate Sodium 100 Mg Capsule PO 100 mg Q12HR PARISH Administration Folic Acid 1 mg 12/13/21 09:00 12/18/21 08:59 Folic Acid 1 Mg/0.2 Ml Inj IV PUSH 1 mg QAM PARISH Administration Gabapentin 100 mg 12/17/21 17:00 12/18/21 08:39 Gabapentin 100 Mg Capsule PO 100 mg TID PARISH Administration Hydralazine HCl 10 mg 12/13/21 02:13 Hydralazine Hcl 20 Mg/Ml Vial IV PUSH Q4H PRN Blood Pressure - High Levetiracetam 500 mg 12/16/21 21:00 12/18/21 08:39 Levetiracetam 500 Mg Tablet PO 500 mg Q12HR PARISH Administration Lorazepam 2 mg 12/13/21 14:38 Lorazepam Inj (*Crx) 2 Mg/Ml Vial IV PUSH Q1H PRN Seizure Activity Ondansetron HCl 4 mg 12/12/21 12:26 12/12/21 13:01 Ondansetron Inj 4 Mg/2 Ml
[2021-12-18 12:53] LABS: Magnesium 2.9 mg/dL (1.6-2.3)
--- NOTE | 2021-12-18 15:23 | PM.IMPN ---
Progress Note: A&P Assessment and Plan (1) Seizure: Code(s): R56.9 - Unspecified convulsions Status: Acute Assessment and Plan: Probably related seizures are secondary to alcohol withdrawal Neurology has been consult EEG MRI read as press syndrome -continue supportive care and maintain appropriate blood pressure and monitor. Seizure precaution Continue Keppra P.r.n. Ativan 12/17/2021 interval history: today patient states the pain is controlled while sleeping however with any movement pain gets worse she does use her brace which does help, is able to ambulate and able to do her ADLs, Wll add gabapentin 100mg TID this may help with pain, patient remains clinically stable will continue PT OT patient will benefit consulting spine surgeon for possible kyphoplasty, will continue to monitor may discharge the patient on Monday. 12/18/2021 interval history: today patient states the pain is controlled while sleeping however with any movement pain gets worse she does use her brace which does help, is able to ambulate and able to do her ADLs, added gabapentin 100mg TID today patient states is some improvement in her pain, patient with history of alcohol abuse on CIIL protocol low-dose Librium, patient magnesium is low will supplement and monitor, patient remains clinically stable will continue PT OT patient will benefit consulting spine surgeon for possible kyphoplasty, will continue to monitor may discharge the patient on Monday (2) Alcohol abuse: Code(s): F10.10 - Alcohol abuse, uncomplicated Status: Acute Assessment and Plan: Patient has history of alcohol abuse. She claims that she has decrease the intake. The alcohol intake that she claims is not consistent with the the findings of hepatic steatosis, pancytopenia. That being said prior to recently she had significant alcohol intake which is likely the culprit. Monitor for withdrawal. Started Librium Anticipate discharge once withdrawal symptom improved in 1-2 days (3) Thrombocytopenia: Code(s): D69.6 - Thrombocytopenia, unspecified Status: Acute Assessment and Plan: Most likely related to alcohol abuse follow-up with Heme-Onc as outpatient (4) Pancytopenia: Code(s): D61.818 - Other pancytopenia Status: Acute Assessment and Plan: On review of her chart patient's pancytopenia has been chronic. Hematology consult. Follow-up as outpatient (5) Elevated liver enzymes: Code(s): R74.8 - Abnormal levels of other serum enzymes Status: Acute Assessment and Plan: Probably related to chronic alcoholic counseling (6) Essential (primary) hypertension: Code(s): I10 - Essential (primary) hypertension Status: Acute Assessment and Plan: Monitor (7) Electrolyte imbalance: Code(s): E87.8 - Other disorders of electrolyte and fluid balance, not elsewhere classified Status: Acute Assessment and Plan: Acute hypokalemia hypomagnesemia hypocalcemia replace (8) Compression fracture of thoracic spine, non-traumatic: Qualifiers: Encounter type: subsequent encounter Thoracic vertebra fracture level: T6 Fracture healing: with routine healing Qualified Code(s): M48.54XD - Collapsed vertebra, not elsewhere classified, thoracic region, subsequent encounter for fracture with routine healing Code(s): M48.54XA - Collapsed vertebra, not elsewhere classified, thoracic region, initial encounter for fracture Status: Acute Assessment and Plan: Orthopedic consult Spine support was ordered per Orthopedic to be used with activity can be taken off when patient is in bed (9) Syringomyelia: Code(s): G95.0 - Syringomyelia and syringobulbia Status: Acute Assessment and Plan: Follow-up with neurology as outpatient (10) Acute chest pain: Code(s): R07.9 - Chest pain, unspecified Status: Acute Assessment and Plan: Mary
[2021-12-18] MEDS: HYDROcodone/acetaminophen (*CRX) 10-325 MG TABLET 1 TAB PO (16:40)
[2021-12-19] VITALS (10 sets, daily range): BP systolic 98–122; BP diastolic 69–89; PULSE 81–107; RESP 14–18; TEMP 36.7–37.1; O2SAT 91–97
[2021-12-19] MEDS: HYDROcodone/acetaminophen (*CRX) 10-325 MG TABLET 1 TAB PO ×3 (00:49→17:19)
[2021-12-19] MEDS: CYCLOBENZAPRINE HCL 5 MG TABLET PO ×3 (06:31→20:33)
[2021-12-19] MEDS: chlordiazePOXIDE (*CRX) 5 MG CAPSULE 15 MG PO ×3 (06:31→20:31)
[2021-12-19] MEDS: levETIRAcetam 500 MG TABLET PO ×2 (08:34→20:32)
[2021-12-19] MEDS: POTASSIUM CHLORIDE 20 MEQ PACKET (FOR LIQUID) 40 MEQ PO (08:35)
[2021-12-19] MEDS: GABAPENTIN 100 MG CAPSULE PO ×3 (08:35→16:56)
[2021-12-19] MEDS: THIAMINE HCL 200 MG/2 ML VIAL 100 MG IV PUSH (08:35)
[2021-12-19] MEDS: SERTRALINE HCL 25 MG TABLET PO (08:35)
[2021-12-19] MEDS: PANTOPRAZOLE SODIUM IV 40 MG VIAL IV PUSH (08:36)
[2021-12-19] MEDS: polyethylene glycoL 3350 17 GM POWD.PACK PO (08:36)
[2021-12-19] MEDS: DOCUSATE SODIUM 100 MG CAPSULE PO ×2 (08:36→20:31)
[2021-12-19] MEDS: FOLIC ACID 1 MG/0.2 ML INJ IV PUSH (08:40)
[2021-12-19] MEDS: DIPHENHYDRAMINE 1%/ZINC 0.1% CREAM 30 GM TUBE 1 APPLIC TOPICAL (08:50)
[2021-12-19 09:58] LABS: Hematocrit 31.8 % (37.0-47.0); Hemoglobin 10.5 g/dL (12.0-15.0); Mean Corpuscular Hemoglobin 36.8 pg (26-34); Mean Corpuscular Volume 111.6 fl (80-100); Platelet Count Result 160 k/mm3 (150-375); Red Blood Count 2.85 M/mm3 (4.2-5.4); Red Cell Distribution Width 14.6 % (11.5-14.5)
[2021-12-19 10:09] LABS: Anion Gap 3 mmol/L (8-16); Blood Urea Nitrogen 23 mg/dL (7-17); Calcium 9.2 mg/dL (8.4-10.2); Carbon Dioxide 31 mmol/L (22-30); Chloride 97 mmol/L (98-107); Estimated CRCL calculation 63 ml/min; Estimated Glomerular Filt Rate > 60; Glucose 92 mg/dL (65-110); Magnesium 1.8 mg/dL (1.6-2.3); Potassium 4.5 mmol/L (3.4-5.0); Sodium 131 mmol/L (137-145)
--- NOTE | 2021-12-19 16:45 | PM.IMPN ---
Progress Note: A&P Assessment and Plan (1) Seizure: Code(s): R56.9 - Unspecified convulsions Status: Acute Assessment and Plan: Probably related seizures are secondary to alcohol withdrawal Neurology has been consult EEG MRI read as press syndrome -continue supportive care and maintain appropriate blood pressure and monitor. Seizure precaution Continue Keppra P.r.n. Ativan 12/17/2021 interval history: today patient states the pain is controlled while sleeping however with any movement pain gets worse she does use her brace which does help, is able to ambulate and able to do her ADLs, Wll add gabapentin 100mg TID this may help with pain, patient remains clinically stable will continue PT OT patient will benefit consulting spine surgeon for possible kyphoplasty, will continue to monitor may discharge the patient on Monday. 12/18/2021 interval history: today patient states the pain is controlled while sleeping however with any movement pain gets worse she does use her brace which does help, is able to ambulate and able to do her ADLs, added gabapentin 100mg TID today patient states is some improvement in her pain, patient with history of alcohol abuse on [facility] protocol low-dose Librium, patient magnesium is low will supplement and monitor, patient remains clinically stable will continue PT OT patient will benefit consulting spine surgeon for possible kyphoplasty, will continue to monitor may discharge the patient on Monday. 12/19/2021 interval history: today patient states the pain is controlled while sleeping and currently sitting in the chair and able to tolerate, however with any movement pain gets worse she does use her brace which does help, is able to ambulate and able to do her ADLs, on 12/18 added gabapentin 100mg TID today patient states is some improvement in her pain, patient with history of alcohol abuse on CIIL protocol low-dose Librium, patient magnesium is low will supplement and monitor, patient remains clinically stable will continue PT OT patient will benefit consulting spine surgeon for possible kyphoplasty, will continue to monitor may discharge the patient on Monday (2) Alcohol abuse: Code(s): F10.10 - Alcohol abuse, uncomplicated Status: Acute Assessment and Plan: Patient has history of alcohol abuse. She claims that she has decrease the intake. The alcohol intake that she claims is not consistent with the the findings of hepatic steatosis, pancytopenia. That being said prior to recently she had significant alcohol intake which is likely the culprit. Monitor for withdrawal. Started Librium Anticipate discharge once withdrawal symptom improved in 1-2 days (3) Thrombocytopenia: Code(s): D69.6 - Thrombocytopenia, unspecified Status: Acute Assessment and Plan: Most likely related to alcohol abuse follow-up with Heme-Onc as outpatient (4) Pancytopenia: Code(s): D61.818 - Other pancytopenia Status: Acute Assessment and Plan: On review of her chart patient's pancytopenia has been chronic. Hematology consult. Follow-up as outpatient (5) Elevated liver enzymes: Code(s): R74.8 - Abnormal levels of other serum enzymes Status: Acute Assessment and Plan: Probably related to chronic alcoholic counseling (6) Essential (primary) hypertension: Code(s): I10 - Essential (primary) hypertension Status: Acute Assessment and Plan: Monitor (7) Electrolyte imbalance: Code(s): E87.8 - Other disorders of electrolyte and fluid balance, not elsewhere classified Status: Acute Assessment and Plan: Acute hypokalemia hypomagnesemia hypocalcemia replace (8) Compression fracture of thoracic spine, non-traumatic: Qualifiers: Encounter type: subsequent encounter Thoracic vertebra fracture level: T6 Fracture healing: with routine healing Qualified Code(s): M48.54XD - Collapsed vertebra, not el
[2021-12-19] MEDS: HYDROcodone/acetaminophen (*CRX) 5-325 MG TABLET 1 TAB PO (22:24)
[2021-12-20] VITALS: PULSE 84
[2021-12-20] MEDS: HYDROcodone/acetaminophen (*CRX) 5-325 MG TABLET 1 TAB PO (02:30)
[2021-12-20 04:00] VITALS: PULSE 99
[2021-12-20 04:21] VITALS: BP 100/74; PULSE 73; RESP 16; TEMP 35.7; O2SAT 94
[2021-12-20] MEDS: chlordiazePOXIDE (*CRX) 5 MG CAPSULE 15 MG PO (05:53)
[2021-12-20] MEDS: CYCLOBENZAPRINE HCL 5 MG TABLET PO (05:57)
[2021-12-20 06:02] LABS: Anion Gap 7 mmol/L (8-16); Blood Urea Nitrogen 21 mg/dL (7-17); Calcium 9.1 mg/dL (8.4-10.2); Carbon Dioxide 27 mmol/L (22-30); Chloride 98 mmol/L (98-107); Estimated CRCL calculation 80 ml/min; Estimated Glomerular Filt Rate > 60; Glucose 107 mg/dL (65-110); Magnesium 1.6 mg/dL (1.6-2.3); Potassium 3.8 mmol/L (3.4-5.0); Sodium 132 mmol/L (137-145)
[2021-12-20 08:00] VITALS: PULSE 93
[2021-12-20] MEDS: HYDROcodone/acetaminophen (*CRX) 10-325 MG TABLET 1 TAB PO (08:29)
[2021-12-20] MEDS: THIAMINE HCL 200 MG/2 ML VIAL 100 MG IV PUSH (08:30)
[2021-12-20] MEDS: SERTRALINE HCL 25 MG TABLET PO (08:30)
[2021-12-20] MEDS: levETIRAcetam 500 MG TABLET PO (08:30)
[2021-12-20] MEDS: GABAPENTIN 100 MG CAPSULE PO (08:30)
[2021-12-20] MEDS: DOCUSATE SODIUM 100 MG CAPSULE PO (08:30)
[2021-12-20] MEDS: POTASSIUM CHLORIDE 20 MEQ PACKET (FOR LIQUID) 40 MEQ PO (08:31)
[2021-12-20] MEDS: polyethylene glycoL 3350 17 GM POWD.PACK PO (08:31)
[2021-12-20] MEDS: PANTOPRAZOLE SODIUM IV 40 MG VIAL IV PUSH (08:31)
[2021-12-20] MEDS: MAGNESIUM OXIDE 400 MG TABLET PO (08:40)
[2021-12-20] MEDS: FOLIC ACID 1 MG/0.2 ML INJ IV PUSH (08:40)
--- NOTE | 2021-12-20 10:36 | PM.DS ---
DS: Admitting Diagnosis Discharge Date 12/20/2021 Admitting Diagnosis Seizure-like activity DS: Discharge Diagnosis Discharge Diagnosis (1) Seizure: Code(s): R56.9 - Unspecified convulsions Status: Acute Assessment and Plan: Probably related seizures are secondary to alcohol withdrawal Neurology has been consult EEG MRI read as press syndrome -continue supportive care and maintain appropriate blood pressure and monitor. Seizure precaution Continue Keppra P.r.n. Ativan 12/17/2021 interval history: today patient states the pain is controlled while sleeping however with any movement pain gets worse she does use her brace which does help, is able to ambulate and able to do her ADLs, Wll add gabapentin 100mg TID this may help with pain, patient remains clinically stable will continue PT OT patient will benefit consulting spine surgeon for possible kyphoplasty, will continue to monitor may discharge the patient on Monday. 12/18/2021 interval history: today patient states the pain is controlled while sleeping however with any movement pain gets worse she does use her brace which does help, is able to ambulate and able to do her ADLs, added gabapentin 100mg TID today patient states is some improvement in her pain, patient with history of alcohol abuse on CIMT protocol low-dose Librium, patient magnesium is low will supplement and monitor, patient remains clinically stable will continue PT OT patient will benefit consulting spine surgeon for possible kyphoplasty, will continue to monitor may discharge the patient on Monday. 12/19/2021 interval history: today patient states the pain is controlled while sleeping and currently sitting in the chair and able to tolerate, however with any movement pain gets worse she does use her brace which does help, is able to ambulate and able to do her ADLs, on 12/18 added gabapentin 100mg TID today patient states is some improvement in her pain, patient with history of alcohol abuse on CIWA protocol low-dose Librium, patient magnesium is low will supplement and monitor, patient remains clinically stable will continue PT OT patient will benefit consulting spine surgeon for possible kyphoplasty, will continue to monitor may discharge the patient on Monday (2) Alcohol abuse: Code(s): F10.10 - Alcohol abuse, uncomplicated Status: Acute Assessment and Plan: Patient has history of alcohol abuse. She claims that she has decrease the intake. The alcohol intake that she claims is not consistent with the the findings of hepatic steatosis, pancytopenia. That being said prior to recently she had significant alcohol intake which is likely the culprit. Monitor for withdrawal. Started Librium Anticipate discharge once withdrawal symptom improved in 1-2 days (3) Thrombocytopenia: Code(s): D69.6 - Thrombocytopenia, unspecified Status: Acute Assessment and Plan: Most likely related to alcohol abuse follow-up with Heme-Onc as outpatient (4) Pancytopenia: Code(s): D61.818 - Other pancytopenia Status: Acute Assessment and Plan: On review of her chart patient's pancytopenia has been chronic. Hematology consult. Follow-up as outpatient (5) Elevated liver enzymes: Code(s): R74.8 - Abnormal levels of other serum enzymes Status: Acute Assessment and Plan: Probably related to chronic alcoholic counseling (6) Essential (primary) hypertension: Code(s): I10 - Essential (primary) hypertension Status: Acute Assessment and Plan: Monitor (7) Electrolyte imbalance: Code(s): E87.8 - Other disorders of electrolyte and fluid balance, not elsewhere classified Status: Acute Assessment and Plan: Acute hypokalemia hypomagnesemia hypocalcemia replace (8) Compression fracture of thoracic spine, non-traumatic: Qualifiers: Encounter type: subsequent encounter Thoracic vertebra fracture lev
--- NOTE | 2021-12-20 11:27 | PCNWS ---
Weekly nutritional screen. Patient is tolerating current diet with adequate intake. No weight loss reported. No nutritional needs at this time.
--- NOTE | 2021-12-20 11:40 | PCCCNOTE ---
On 12/20/21, the student, [Arleen Law ], provided care and completed [facility] documentation on this patient. I have reviewed the student's documentation and agree with the findings.
--- NOTE | 2021-12-20 12:08 | PCNSR ---
On 12/20/21, the student,Denise Prasad, provided care and completed [facility] documentation on this patient. I have reviewed the student's documentation and agree with the findings.
== END 2021-12-20 11:28 | disposition home or self-care (01) | DRG 896 ==
LOC: ANHED 12:38 → ANH2MED 15:01 → ANHICU 12-13 00:06 → ANH2MED 12-13 16:38
PROVIDERS: Chiropractor; Internal Medicine; Nurse Practitioner; Admitting Provider Family Medicine; Emergency Provider Emergency Medicine; PCP Family Medicine; Visit Provider Family Medicine
DX: F10.139 Alcohol abuse with withdrawal, unspecified (principal); I67.83 Posterior reversible encephalopathy syndrome; K85.20 Alcohol induced acute pancreatitis without necrosis or infection; D61.818 Other pancytopenia; G95.0 Syringomyelia and syringobulbia; D69.6 Thrombocytopenia, unspecified; R56.9 Unspecified convulsions; I10 Essential (primary) hypertension; K76.0 Fatty (change of) liver, not elsewhere classified; E87.8 Other disorders of electrolyte and fluid balance, not elsewhere classified; R74.8 Abnormal levels of other serum enzymes; K70.9 Alcoholic liver disease, unspecified; E87.6 Hypokalemia; K21.9 Gastro-esophageal reflux disease without esophagitis; E78.5 Hyperlipidemia, unspecified; F41.9 Anxiety disorder, unspecified; M81.0 Age-related osteoporosis without current pathological fracture; R11.10 Vomiting, unspecified; Z83.3 Family history of diabetes mellitus; Z87.891 Personal history of nicotine dependence; Z82.3 Family history of stroke; M48.54XD Collapsed vertebra, not elsewhere classified, thoracic region, subsequent encounter for fracture with routine healing; R07.89 Other chest pain; Z79.899 Other long term (current) drug therapy
CPT/HCPCS: 36415; 70450; 70553; 71045; 72125; 72146; 72148; 74177; 76705; 80048; 80053; 80307; 81001; 82140; 82607; 82728; 82746; 82948; 83010; 83036; 83540; 83550; 83605; 83615; 83690; 83735; 84100; 84132; 84443; 84478; 84484; 85025; 85027; 85046; 85055; 85610; 85652; 85730; 86140; 86430; 88304; 93005; 95816; 96374; 97110; 97116; 97161; 97165; 97530; 97535; 99285; A9270; A9577; C9113; J1170; J1650; J1953; J2060; J2405; J3360; J3411; J3475; J3480; J7030; J7040; Q9967

== ENCOUNTER 2022-02-14 13:31 | Outpatient (CLI) | payer BC, SELFPAY ==
[2022-02-14 14:20] LABS: Basophils Percent Auto 0.6 % (0.2-1.2); Eosinophils Absolute Auto 0.3 K/mm3 (0-0.3); Eosinophils Percent Auto 5.5 % (0-4.4); Hematocrit 31.7 % (37.0-47.0); Hemoglobin 10.3 g/dL (12.0-15.0); Immature Granulocyte Absolute 0.01 K/mm3 (0.00-0.031); Immature Granulocyte Percent A 0.2 % (0-0.5); Lymphocytes Absolute Auto 1.29 K/mm3 (0.9-3.2); Lymphocytes Percent Auto 26.3 % (18.3-44.2); Mean Corpuscular HGB Conc 32.5 g/dl (32-36); Mean Corpuscular Hemoglobin 33.4 pg (26-34); Mean Corpuscular Volume 102.9 fl (80-100); Mean Platelet Volume 9.9 fl (7.4-10.4); Monocytes Absolute Auto 0.6 K/mm3 (0.1-0.6); Monocytes Percent Auto 11.4 % (2.6-8.5); Neutrophils Absolute Auto 2.7 K/mm3 (1.3-6.7); Platelet Count Result 212 k/mm3 (150-375); Red Blood Count 3.08 M/mm3 (4.2-5.4); Red Cell Distribution Width 13.1 % (11.5-14.5); White Blood Count 4.9 K/mm3 (4.5-10.0)
[2022-02-14 14:31] LABS: Alanine Aminotransferase 16 U/L (6-35); Albumin Level 4.4 g/dL (3.5-5.1); Alkaline Phosphatase 95 U/L (38-126); Anion Gap 6 mmol/L (8-16); Aspartate Amino Transferase 27 U/L (14-36); Bilirubin,Total 0.3 mg/dL (0.2-1.3); Blood Urea Nitrogen 13 mg/dL (7-17); Calcium 9.7 mg/dL (8.4-10.2); Carbon Dioxide 26 mmol/L (22-30); Chloride 107 mmol/L (98-107); Estimated Glomerular Filt Rate 57; Glucose 132 mg/dL (65-110); Potassium 3.5 mmol/L (3.4-5.0); Sodium 139 mmol/L (137-145)
[2022-02-14 14:41] LABS: Iron 70 ug/dL (37-170)
[2022-02-14 14:51] LABS: Percent Iron Saturation 21 % (20-50)
[2022-02-14 15:36] LABS: Folic Acid 14.2 ng/mL (2.76->20)
== END 2022-02-14 13:32 | disposition home or self-care (01) ==
PROVIDERS: PCP Family Medicine; Visit Provider Internal Medicine Hematology & Oncology
DX: D64.9 Anemia, unspecified (principal)
CPT/HCPCS: 36415; 80053; 82607; 82728; 82746; 83540; 83550; 85025

== ENCOUNTER 2022-06-27 09:55 | Outpatient (CLI) | payer BC, SELFPAY ==
[2022-06-27 19:14] LABS: Vitamin D 25 Hydroxy 47.1 ng/mL
[2022-06-27 19:26] LABS: Alanine Aminotransferase 30 U/L (6-35); Albumin Level 4.7 g/dL (3.5-5.1); Alkaline Phosphatase 75 U/L (38-126); Anion Gap 15 mmol/L (8-16); Aspartate Amino Transferase 31 U/L (14-36); Bilirubin,Total 0.6 mg/dL (0.2-1.3); Blood Urea Nitrogen 18 mg/dL (7-17); Calcium 9.4 mg/dL (8.4-10.2); Carbon Dioxide 25 mmol/L (22-30); Chloride 102 mmol/L (98-107); Cholesterol 223 mg/dL (0-200); Estimated Glomerular Filt Rate 57; Glucose 101 mg/dL (65-110); HDL Direct 106 mg/dL; Potassium 4.4 mmol/L (3.4-5.0); Sodium 142 mmol/L (137-145); Triglycerides 69 mg/dL (<150)
[2022-06-27 19:37] LABS: LDL Cholesterol Direct 70 mg/dL
== END 2022-06-27 09:56 | disposition home or self-care (01) ==
LOC: ANHGOSHLAB 09:58
PROVIDERS: PCP Family Medicine; Visit Provider Family Medicine
DX: E55.9 Vitamin D deficiency, unspecified (principal); E78.5 Hyperlipidemia, unspecified; F41.9 Anxiety disorder, unspecified; I10 Essential (primary) hypertension; D69.6 Thrombocytopenia, unspecified
CPT/HCPCS: 36415; 80053; 80061; 82306; 84443

== ENCOUNTER 2022-08-16 12:47 | Outpatient (CLI) | payer BC, SELFPAY ==
[2022-08-16 17:42] LABS: Basophils Percent Auto 0.7 % (0.2-1.2); Eosinophils Absolute Auto 0.1 K/mm3 (0-0.3); Eosinophils Percent Auto 2.6 % (0-4.4); Hematocrit 34.4 % (37.0-47.0); Hemoglobin 11.2 g/dL (12.0-15.0); Immature Granulocyte Absolute 0.01 K/mm3 (0.00-0.031); Immature Granulocyte Percent A 0.2 % (0-0.5); Lymphocytes Absolute Auto 1.31 K/mm3 (0.9-3.2); Lymphocytes Percent Auto 30.5 % (18.3-44.2); Mean Corpuscular HGB Conc 32.6 g/dl (32-36); Mean Corpuscular Hemoglobin 31.4 pg (26-34); Mean Corpuscular Volume 96.4 fl (80-100); Mean Platelet Volume 10.2 fl (7.4-10.4); Monocytes Absolute Auto 0.6 K/mm3 (0.1-0.6); Neutrophils Absolute Auto 2.2 K/mm3 (1.3-6.7); Platelet Count Result 197 k/mm3 (150-375); Red Blood Count 3.57 M/mm3 (4.2-5.4); Red Cell Distribution Width 12.9 % (11.5-14.5); White Blood Count 4.3 K/mm3 (4.5-10.0)
[2022-08-16 18:27] LABS: Alanine Aminotransferase 25 U/L (6-35); Albumin Level 4.5 g/dL (3.5-5.1); Alkaline Phosphatase 64 U/L (38-126); Anion Gap 6 mmol/L (8-16); Aspartate Amino Transferase 51 U/L (14-36); Bilirubin,Total 0.5 mg/dL (0.2-1.3); Blood Urea Nitrogen 18 mg/dL (7-17); Calcium 9.3 mg/dL (8.4-10.2); Carbon Dioxide 29 mmol/L (22-30); Chloride 104 mmol/L (98-107); Estimated Glomerular Filt Rate 57; Glucose 89 mg/dL (65-110); Sodium 139 mmol/L (137-145)
[2022-08-16 20:36] LABS: Iron 83 ug/dL (37-170)
[2022-08-16 21:01] LABS: Percent Iron Saturation 23 % (20-50)
[2022-08-16 21:56] LABS: Folic Acid 4.3 ng/mL (2.76->20)
== END 2022-08-16 12:48 | disposition home or self-care (01) ==
LOC: ANHGOSHLAB 12:49
PROVIDERS: PCP Family Medicine; Referring Provider Internal Medicine Hematology & Oncology; Visit Provider Family Medicine
DX: D64.9 Anemia, unspecified (principal); I10 Essential (primary) hypertension; Z79.899 Other long term (current) drug therapy
CPT/HCPCS: 36415; 80053; 82607; 82728; 82746; 83540; 83550; 85025

== ENCOUNTER 2022-08-22 09:33 | Outpatient (CLI) | payer BC, SELFPAY ==
--- NOTE | ~2022-08-22 | MR_ITS ---
MRI of the cervical spine Clinical History: Neck pain Technique: Axial T2-weighted and gradient images, and sagittal T1-weighted, T2-weighted, and T2 fat-s at images were acquired. Findings: No fracture identified. Probable minimal grade 1 anterolisthesis of C4 over C5. No focal laura ne marrow signal abnormality seen. At C2-C3, there is no disc bulge or herniation. No spinal canal stenosis or neural foraminal narrowin g. At C3-C4, there is no disc bulge or herniation. No spinal canal stenosis or neural foraminal narrowin g. At C4-C5, there is no disc bulge or herniation. No spinal canal stenosis or neural foraminal narrowin g. At C5-C6, there is mild disc osteophyte complex which minimally compresses the thecal sac. No daria s ilda cord compression. No definite neural foraminal narrowing. At C6-C7, there is mild disc osteophyte complex, which minimally flattens the ventral cord on the rig ht side. Bilateral neural foramina are preserved. No abnormal signal seen in the spinal cord. Paravertebral soft tissues are unremarkable. Impression: Disc osteophyte complex at C6-C7, which minimally flattens the right side of the ventral cord. Small disc osteophyte complex at C5-C6, without daria cord compression. Reviewed, dictated and finalized at [facility]. [facility] PROFESSIONAL Impression: Disc osteophyte complex at C6-C7, which minimally flattens the right side of th e ventral cord. Small disc osteophyte complex at C5-C6, without daria cord compression.
== END 2022-08-22 09:34 | disposition home or self-care (01) ==
PROVIDERS: PCP Family Medicine; Visit Provider Neurological Surgery
DX: M54.2 Cervicalgia (principal)
CPT/HCPCS: 72141

== ENCOUNTER 2022-08-27 09:32 | Outpatient (CLI) | payer BC, SELFPAY ==
--- NOTE | ~2022-08-27 | MM_ITS ---
EXAMINATION: MM screening saman BI w angela HISTORY: Screening mammogram TECHNIQUE: Craniocaudal and mediolateral oblique 3-D tomosynthesis images were obtained and synthetic 2-D images were generated. CAD analysis was submitted and interpreted. COMPARISON: 05/30/2019 bilateral screening mammogram BREAST PARENCHYMAL COMPOSITION: The breasts are heterogeneously dense, which may obscure small masses . FINDINGS: There is no evidence of suspicious mass, calcification, or architectural distortion to sugg est malignancy in either breast. There has been no suspicious interval change. IMPRESSION: 1. No mammographic evidence of malignancy. 2. Recommend routine screening mammography in one year. BI-RADS Category 1: Negative Reviewed, dictated and finalized at location A. [employer]
== END 2022-08-27 09:33 | disposition home or self-care (01) ==
PROVIDERS: PCP Family Medicine; Visit Provider Family Medicine
DX: Z12.31 Encounter for screening mammogram for malignant neoplasm of breast (principal)
CPT/HCPCS: 77063; 77067

== ENCOUNTER 2022-11-07 12:49 | Outpatient (CLI) | payer BC, SELFPAY | END 2022-11-07 12:50 | disposition home or self-care (01) | LOC: ANHAUDASC 12:51 | PROVIDERS: PCP Family Medicine; Visit Provider Otolaryngology | DX: H91.22 Sudden idiopathic hearing loss, left ear (principal) | CPT/HCPCS: 92557; 92567 ==

== ENCOUNTER 2022-12-14 10:03 | Outpatient (CLI) | payer BC, SELFPAY | END 2022-12-14 10:04 | disposition home or self-care (01) | LOC: ANHAUDIO 10:04 | PROVIDERS: PCP Family Medicine; Visit Provider Otolaryngology | DX: H91.22 Sudden idiopathic hearing loss, left ear (principal) | CPT/HCPCS: 92557; 92567 ==

== ENCOUNTER 2023-03-17 09:45 | Outpatient (CLI) | payer BC, SELFPAY ==
[2023-03-17 18:46] LABS: Basophils Percent Auto 0.8 % (0.2-1.2); Eosinophils Absolute Auto 0.1 K/mm3 (0-0.3); Eosinophils Percent Auto 2.2 % (0-4.4); Hematocrit 36.1 % (37.0-47.0); Hemoglobin 11.6 g/dL (12.0-15.0); Immature Granulocyte Absolute 0.01 K/mm3 (0.00-0.031); Immature Granulocyte Percent A 0.3 % (0-0.5); Lymphocytes Absolute Auto 1.01 K/mm3 (0.9-3.2); Lymphocytes Percent Auto 27.4 % (18.3-44.2); Mean Corpuscular HGB Conc 32.1 g/dl (32-36); Mean Corpuscular Volume 102.6 fl (80-100); Mean Platelet Volume 10.5 fl (7.4-10.4); Monocytes Absolute Auto 0.6 K/mm3 (0.1-0.6); Monocytes Percent Auto 15.7 % (2.6-8.5); Neutrophils Percent Auto 53.6 % (45.5-73.1); Platelet Count Result 176 k/mm3 (150-375); Red Blood Count 3.52 M/mm3 (4.2-5.4); Red Cell Distribution Width 13.4 % (11.5-14.5); White Blood Count 3.7 K/mm3 (4.5-10.0)
[2023-03-17 20:01] LABS: Iron 91 ug/dL (37-170)
[2023-03-17 20:10] LABS: Percent Iron Saturation 26 % (20-50)
[2023-03-17 20:38] LABS: Alanine Aminotransferase 24 U/L (6-35); Albumin Level 4.4 g/dL (3.5-5.1); Alkaline Phosphatase 65 U/L (38-126); Anion Gap 5 mmol/L (8-16); Aspartate Amino Transferase 32 U/L (14-36); Bilirubin,Total 0.4 mg/dL (0.2-1.3); Blood Urea Nitrogen 18 mg/dL (7-17); Calcium 9.7 mg/dL (8.4-10.2); Carbon Dioxide 30 mmol/L (22-30); Chloride 102 mmol/L (98-107); Estimated Glomerular Filt Rate 57; Glucose 89 mg/dL (65-110); Sodium 137 mmol/L (137-145)
[2023-03-17 21:42] LABS: Folic Acid 15.4 ng/mL (2.76->20)
== END 2023-03-17 09:46 | disposition home or self-care (01) ==
PROVIDERS: PCP Family Medicine; Visit Provider Internal Medicine Hematology & Oncology
DX: D61.818 Other pancytopenia (principal); I10 Essential (primary) hypertension; K76.0 Fatty (change of) liver, not elsewhere classified; E78.5 Hyperlipidemia, unspecified
CPT/HCPCS: 36415; 80053; 82607; 82728; 82746; 83540; 83550; 85025

== ENCOUNTER 2023-04-26 13:40 | Outpatient (CLI) | payer BC, SELFPAY ==
--- NOTE | ~2023-04-26 | DEXA_ITS ---
Bone Density Report Name: CHARITY LOZANO Age: 57 Sex: Female Ethnicity: White Date of : 1965 Indication: osteopenia; monitoring treatment; parental hip fracture; prior fracture; postmenopausal Referring Provider: RADHA REYNOLDS Study: Bone densitometry was performed. Exam Date: April 26, 2023 Accession number: [id number] Bone Density: Region BMD T-score Z-score Classification AP Spine(L1-L4) 0.968 -0.7 0.7 Normal Femoral Neck (Left) 0.492 -3.2 -2.0 Osteoporosis Total Hip (Left) 0.679 -2.2 -1.2 Osteopenia Femoral Neck (Right) 0.528 -2.9 -1.6 Osteoporosis Total Hip (Right) 0.683 -2.1 -1.2 Osteopenia Total Hip Mean 0.681 -2.2 -1.2 Osteopenia World Health Organization criteria for BMD impression classify patients as: Normal (T-score at or above -1.0), Osteopenia (T-score between -1.0 and -2.5), or Osteoporosis (T-score at or below -2.5). 10-year Fracture Risk: FRAX not reported because: Some T-score for Spine Total or Hip Total or Femoral Neck at or below -2.5 Prior hip or vertebral fracture Treated for osteoporosis Previous Exams: Region Exam Age BMD T-score BMD Change BMD Change Date g/cm2 vs Baseline vs Previous AP Spine (L1-L4) 04/26/2023 57 0.968 -0.7 0.054 (5.9%)* 0.054 (5.9%)* 09/01/2020 54 0.914 -1.2 Total Hip(Left) 04/26/2023 57 0.679 -2.2 0.030 (4.6%)* 0.030 (4.6%)* 09/01/2020 54 0.649 -2.4 Total Hip(Right) 04/26/2023 57 0.683 -2.1 0.016 (2.5%) 0.016 (2.5%) 09/01/2020 54 0.666 -2.3 *Denotes significance at 95% confidence level, LSC for AP Spine = 0.022 g/cm2, LSC for Total Hip = 0.027 g/cm2 Clinical Information Provided by Patient: Have had a previous hip or vertebral fracture Has had a low trauma fracture Parent has had a hip fracture Is being treated for osteoporosis Has used the following medications: Prolia (i.e. denosumab), Calcium Patient maximum height was 65 Menopause Age: 48 Does not regularly consume dairy products Onset of menses at age 13 Number of children 2 Impression: The patient has established osteoporosis, based on the Left Femoral Neck T-score and the existence of a prior fracture. The patient has risk factors, including: parental hip fracture, previous fracture. No significant bone loss was observed. Discussion: PATIENT UNDER TREATMENT WITH NO SIGNIFICANT BMD LOSS SINCE LAST EXAM. In an untreated patient, BMD typically declines with age. A lack of dec
== END 2023-04-26 13:41 | disposition home or self-care (01) ==
LOC: ANHIMG 13:42
PROVIDERS: PCP Family Medicine; Visit Provider Family Medicine
DX: M81.0 Age-related osteoporosis without current pathological fracture (principal); Z78.0 Asymptomatic menopausal state
CPT/HCPCS: 77080

== ENCOUNTER 2023-05-17 15:32 | Inpatient (IN) | payer BC, SELFPAY ==
--- NOTE | ~2023-05-17 | US_ITS ---
US abdomen limited DATE: 05/17/2023 18:47 INDICATION: Abdominal pain, nausea TECHNIQUE: Real-time imaging of liver, pancreas, gallbladder COMPARISON: December 13, 2021 Limited abdominal ultrasound examination FINDINGS: No gallstones or gallbladder wall thickening or pericholecystic fluid collection. Negative sonographic Olmstead's sign. The common bile duct measures 3.3 mm, normal. No hepatic space-occupying mass lesion. Normal hepatopedal portal venous flow direction. There is hep atic steatosis. No pancreatic mass lesion is detected. No pancreatic duct dilatation. IMPRESSION: Hepatic steatosis Negative gallbladder Reviewed, dictated and finalized at [facility]. Reviewed, dictated and finalized at [facility].
--- NOTE | ~2023-05-17 | CT_ITS ---
EXAMINATION: CT abdomen pelvis w con DATE: 05/17/2023 19:59 INDICATION: Epigastric abdominal pain and vomiting for 4 days. Elevated serum lipase. TECHNIQUE: Computed tomography (CT) of the abdomen and pelvis was performed with 100 CC Omnipaque 350 intravenous contrast. Automated exposure control and iterative reconstruction technique were employe d. Exam dose: 421.21 mGy-cm total exam DLP. COMPARISON: 05/17/2023 Limited abdominal ultrasound examination 12/12/2021 CT abdomen pelvis FINDINGS: The lung bases are clear of infiltrate or consolidation. Normal heart size. No pericardial or pleural effusion. There is prominent diffuse hepatic steatosis. No hepatic, splenic space-occupying mass lesion or sple nomegaly. No bile duct or pancreatic duct dilatation. The gallbladder wall thickening or pericholecys tic fluid or fat stranding. No pancreatic mass lesion, calcification or pancreatic duct dilatation. No peripancreatic fat strandi ng or fluid or thickening of the pararenal fascia. Normal morphology of the adrenal glands. No renal mass lesion or urinary tract calculus or hydroureteronephrosis is detected. The urinary blad diogenes, uterus and adnexal areas are unremarkable. Normal appendix. No bowel obstruction, bowel wall thickening, pneumatosis or intraperitoneal free air . Mild diverticulosis of left colon; no CT evidence of diverticulitis. Chronic loss of height and mild anterior wedging of T11. No suspicious osteolytic or osteoblastic lesions. IMPRESSION: Normal appendix Diverticulosis of left colon; no CT evidence of diverticulitis Hepatic steatosis No CT evidence of pancreatitis; negative CT examination does not exclude acute uncomplicated pancreat itis. Reviewed, dictated and finalized at [facility]. Reviewed, dictated and finalized at [facility]. IMPRESSION: Normal appendix Diverticulosis of left colon; no CT evidence of diverticulitis Hepatic steatosis No CT evidence of pancreatitis; negative CT examination does not exclude acute uncomplicated pancreatitis.
[2023-05-17 16:29] VITALS: BP 134/96; PULSE 130; RESP 18; TEMP 36.4; O2SAT 98
[2023-05-17 17:03] LABS: Basophils Percent Auto 0.3 % (0.2-1.2); Eosinophils Percent Auto 0.3 % (0-4.4); Hematocrit 39.6 % (37.0-47.0); Hemoglobin 13.6 g/dL (12.0-15.0); Immature Granulocyte Absolute 0.01 K/mm3 (0.00-0.031); Immature Granulocyte Percent A 0.3 % (0-0.5); Immature Platelet Fraction Pct 3.9 % (0.9-11.2); Lymphocytes Absolute Auto 0.27 K/mm3 (0.9-3.2); Lymphocytes Percent Auto 8.2 % (18.3-44.2); Mean Corpuscular HGB Conc 34.3 g/dl (32-36); Mean Corpuscular Hemoglobin 33.6 pg (26-34); Mean Corpuscular Volume 97.8 fl (80-100); Mean Platelet Volume 9.9 fl (7.4-10.4); Monocytes Absolute Auto 0.4 K/mm3 (0.1-0.6); Monocytes Percent Auto 11.2 % (2.6-8.5); Neutrophils Absolute Auto 2.6 K/mm3 (1.3-6.7); Neutrophils Percent Auto 79.7 % (45.5-73.1); Nucleated Red Blood Cells Perc 0.6 % (0.0-0.2); Platelet Count Result 110 k/mm3 (150-375); Red Blood Count 4.05 M/mm3 (4.2-5.4); Red Cell Distribution Width 14.7 % (11.5-14.5); White Blood Count 3.3 K/mm3 (4.5-10.0)
[2023-05-17 17:12] LABS: Alanine Aminotransferase 158 U/L (6-35); Albumin Level 4.9 g/dL (3.5-5.1); Alkaline Phosphatase 131 U/L (38-126); Anion Gap 14 mmol/L (8-16); Aspartate Amino Transferase 413 U/L (14-36); Bilirubin,Total 2.6 mg/dL (0.2-1.3); Blood Urea Nitrogen 16 mg/dL (7-17); Calcium 9.5 mg/dL (8.4-10.2); Carbon Dioxide 27 mmol/L (22-30); Chloride 91 mmol/L (98-107); Estimated CRCL calculation 59 ml/min; Estimated Glomerular Filt Rate > 60; Glucose 104 mg/dL (65-110); Lipase 1028 U/L (23-300); Potassium 3.6 mmol/L (3.4-5.0); Sodium 132 mmol/L (137-145)
--- NOTE | 2023-05-17 17:58 | ED.NAVMDI ---
HPI - Nausea/Vomiting/Diarrhea General Chief complaint: Nausea/Vomiting/Diarrhea <Linnette Molina PA-C - Last Filed: 05/17/23 22:51> Stated complaint: vomiting x 4 days <Linnette Molina PA-C - Last Filed: 05/17/23 22:51> Time Seen by Provider: 05/17/23 17:51 <Linnette Molina PA-C - Last Filed: 05/17/23 22:51> Source: patient <Linnette Molina PA-C - Last Filed: 05/17/23 22:51> Mode of arrival: ambulatory <BELLA Serrato Last Filed: 05/17/23 22:51> Limitations: no limitations <Linnette Molina PA-C - Last Filed: 05/17/23 22:51> History of Present Illness HPI Narrative: This is a 57 year old female that presents to the ER for nausea and vomiting. Ongoing over the last 5 days. Reports associated mid abdominal pain. Reports history of alcohol abuse, but reports she has been trying to cut down. Reports her last week was over a week ago. Denies fevers, diarrhea, or dysuria. <Linnette Molina PA-C - Last Filed: 05/17/23 22:51> Related Data Home medications: Home Medications Medication Instructions Recorded Confirmed ascorbic acid (vitamin C) 500 mg 500 mg PO DAILY 02/22/21 05/17/23 tablet,extended release cholecalciferol (vitamin D3) 50 50 mcg PO DAILY 02/22/21 05/17/23 mcg (2,000 unit) capsule calcium 100 mg capsule 100 mg PO DAILY 05/17/23 05/17/23 ferrous sulfate 325 mg (65 mg 325 mg PO DAILY 05/17/23 05/17/23 iron) tablet sertraline 25 mg tablet 25 mg PO QAM 05/17/23 05/17/23 vitamin B complex 1 tablet PO DAILY 05/17/23 05/17/23 <Linnette Molina PA-C - Last Filed: 05/17/23 22:51> Allergies/Adverse reactions: Allergies Allergy/AdvReac Type Severity Reaction Status Date / Time Penicillins Allergy Unknown Skin Verified 04/04/23 09:38 irritation prednisone Allergy Rash Verified 04/04/23 09:38 codeine AdvReac Unknown Headache Verified 04/04/23 09:38 <Linnette Molina PA-C - Last Filed: 05/17/23 22:51> Review of Systems Review of Systems: CONSTITUTIONAL: Denies fever GASTROINTESTINAL: Reports abdominal pain, nausea, vomiting. Denies diarrhea. GENITOURINARY: Denies dysuria <Linnette Molina PA-C - Last Filed: 05/17/23 22:51> All systems reviewed & are unremarkable except as noted in HPI and below <Linnette Molina PA-C - Last Filed: 05/17/23 22:51> [facility] Past Medical History Medical History: Medical History Anemia Back injury Compression fracture of thoracic spine, non-traumatic (~11/2021) Dyslipidemia Environmental allergies Essential (primary) hypertension GERD without esophagitis History of pancreatitis (~04/2019) 04/2019 - due to alcohol abuse IBS (irritable bowel syndrome) Night sweats Osteoporosis Pancytopenia Pneumonia Seizure (~11/2021) due to alcohol abuse Subacromial impingement of right shoulder Vertigo Vitamin D deficiency Vomiting Wears glasses <Linnette Molina PA-C - Last Filed: 05/17/23 22:51> Surgical History Surgical History: Surgical History H/O tubal ligation (~1995) History of cataract surgery S/P right rotator cuff repair (~2005) Left shoulder 2014 Dr. Clark Right shoulder 2007 Dr. Clark <Linnette Molina PA-C - Last Filed: 05/17/23 22:51> Family History Family History: Family History (Updated 05/17/23 @ 22:26 by Rhiannon Quiñones RN) Father Family history of kidney disease Diabetes mellitus Hypertension Mother Family history of cardiovascular disease Diabetes mellitus Cerebrovascular accident HLD (hyperlipidemia) Hypertension Neuropathy Other Heart disease Sloan cell cancer <Linnette Molina PA-C - Last Filed: 05/17/23 22:51> Social History Social History: Social History Social History: Caffeine-mild Smoking packs per day: 0.5 Smoking cigarettes per day: 10.0 Years smoke
[2023-05-17] MEDS: SODIUM CHLORIDE 0.9% IV 1,000 ML 999 ML IV CONT ×2 (18:06→21:09)
[2023-05-17] MEDS: ONDANSETRON INJ 4 MG/2 ML VIAL IV PUSH (18:06)
[2023-05-17 18:07] VITALS: BP 171/100; PULSE 74; RESP 15; O2SAT 96
[2023-05-17] MEDS: PANTOPRAZOLE SODIUM IV 40 MG VIAL IV PUSH (18:07)
[2023-05-17 18:13] LABS: Ethanol < 10 mg/dL (<10)
[2023-05-17 19:04] VITALS: BP 140/94; PULSE 75; RESP 18; O2SAT 98
[2023-05-17 19:51] LABS: Appearance Urine Clear (Clear); Bacteria Urine 1+ /hpf; Bilirubin Urine Negative (Negative); Blood Urine 1+ (Negative); Color Urine Yellow (Yellow); Glucose Urine UA Negative (Negative); Ketones Urine 2+ mg/dL (Negative); Leukocyte Esterase Ur Negative LEU/UL (Negative); Nitrate Urine Negative (Negative); Non Pathogenic Casts 0-2; Protein Urine 2+ mg/dL (Negative); Specific Grav Ur 1.013 (1.001-1.035); Squamous Epithelial Cell Urine None seen /hpf (Few); WBC Urine 0-5 /hpf
[2023-05-17 19:56] LABS: Add Urine Microscopic? YES
[2023-05-17] MEDS: diphenhydrAMINE HCl INJ 50 MG/ML VIAL 25 MG IV PUSH (21:09)
[2023-05-17] MEDS: METOCLOPRAMIDE HCL INJ 10 MG/2 ML VIAL IV PUSH (21:09)
[2023-05-17 21:25] LABS: INR 1.1; Prothrombin Time 14.4 Seconds (11.1-14.7)
[2023-05-17 21:26] LABS: Partial Thromboplastin Time 24.8 SECONDS (22.3-36.8)
[2023-05-17 21:48] VITALS: BP 146/86; PULSE 86; RESP 16; O2SAT 98
[2023-05-17] MEDS: SODIUM CHLORIDE 0.9% IV 1,000 ML 125 ML IV CONT (22:10)
[2023-05-17 22:20] VITALS: BP 142/83; PULSE 72; RESP 14; TEMP 35.9; O2SAT 97
--- NOTE | 2023-05-17 22:24 | ADMGEN ---
This patient, Maria Fernanda Crawford, was admitted to Medical Room 344-01. Patient/family oriented to hospital policies and general routines including ID bracelet, bed and alarms, visiting hours, pain management, procedures, bathroom and other care routines, personal items, smoking policy, room service/diet, and visiting hours. Information on how to activate the Rapid Response Team has been discussed. Patient/Family are encouraged to report perceived risks to care and to ask questions if they do not understand what they are told or what they should do.
--- NOTE | 2023-05-17 23:10 | PM.IMHP ---
H&P: HPI History of Present Illness Date/Time: 05/17/23 23:10 Chief Complaint: Patient brought to the ER for evaluation by her with complaints of nausea and vomiting Narrative: Our patient is a very pleasant 57 years old white female with history of chronic alcohol abuse who is complaining of nausea and vomiting for 5 days which is getting progressively worse. She is also complaining of mid abdominal pain radiating to her back. Patient was brought to the ER for evaluation, workup was done which showed findings consistent with acute pancreatitis. She is being admitted for medical management and optimization. Review of Systems Review of Systems: complains of nausea and vomiting and abdominal pain. denies any chest pain, palpitation, fever rigor chills or loss of consciousness PMFSH Past Medical History Medical History Anemia Back injury Compression fracture of thoracic spine, non-traumatic (~11/2021) Dyslipidemia Environmental allergies Essential (primary) hypertension GERD without esophagitis History of pancreatitis (~04/2019) 04/2019 - due to alcohol abuse IBS (irritable bowel syndrome) Night sweats Osteoporosis Pancytopenia Pneumonia Seizure (~11/2021) due to alcohol abuse Subacromial impingement of right shoulder Vertigo Vitamin D deficiency Vomiting Wears glasses Surgical History Surgical History H/O tubal ligation (~1995) History of cataract surgery S/P right rotator cuff repair (~2005) Left shoulder 2014 Dr. Clark Right shoulder 2007 Dr. Clark Family History Family History Father Family history of kidney disease Diabetes mellitus Hypertension Mother Family history of cardiovascular disease Diabetes mellitus Cerebrovascular accident HLD (hyperlipidemia) Hypertension Neuropathy Other Heart disease Sloan cell cancer Social History Social History Social History: Caffeine-mild Smoking packs per day: 0.5 Smoking cigarettes per day: 10.0 Years smoked: 15 Smoking pack-years: 7.50 Smoking status: Former smoker Tobacco type: cigarettes Second hand tobacco smoke exposure: No Additional smoking assessment comments: Quit smoking 09/2003 Alcohol intake: current Drinks per week: 2 Substance use: never Substance use type: does not use Other substance usage details: last drink 3 weeks ago Lack of Transportation: No Lack of Food: Never True Current Housing: I Have Housing Concerned About Future Housing: No Difficulty Paying Gas/Electric Bills: No Difficulty Paying for Meds: No Currently Unemployed: No Education: Don't Know Difficulty w/ Childcare or Family Care: No Living arrangements: with family Occupation/Education: unemployed Additional occupation/education comments: [employer] at [employer] Gender identity (if verbalized by the patient): Female Spiritual care concerns: No Meds Home Medications and Allergies Home Medications Medication Instructions Recorded Confirmed Type ascorbic acid (vitamin C) 500 mg 500 mg PO DAILY 02/22/21 05/17/23 History tablet,extended release cholecalciferol (vitamin D3) 50 50 mcg PO DAILY 02/22/21 05/17/23 History mcg (2,000 unit) capsule hydroxyzine HCl 25 mg tablet 25 mg PO QID PRN itching #120 tabs 02/10/22 05/17/23 Rx cyclobenzaprine 10 mg tablet 10 mg PO TID PRN muscle spasm #30 01/09/23 05/17/23 Rx tabs atorvastatin 40 mg tablet 40 mg PO QHS #90 tabs 03/09/23 05/17/23 Rx metoprolol succinate 25 mg 25 mg PO DAILY #90 tabs 03/09/23 05/17/23 Rx tablet,extended release 24 hr pantoprazole 20 mg tablet,delayed 20 mg PO QAM #90 tabs 03/09/23 05/17/23 Rx release denosumab 60 mg/mL subcutaneous 60 mg subcut [id number] #1 mL 04/10/23 05/17/23 Rx syringe (Prolia) calcium 100 m
[2023-05-18] VITALS (7 sets, daily range): BP systolic 133–155; BP diastolic 79–92; PULSE 63–85; RESP 12–18; TEMP 35.9–37; O2SAT 96–99; BMI 24.1
[2023-05-18] MEDS: MORPHINE SULFATE (*CRX) 2 MG/ML INJ IV PUSH (02:33)
[2023-05-18 05:55] LABS: Basophils Percent Auto 0.4 % (0.2-1.2); Eosinophils Absolute Auto 0.1 K/mm3 (0-0.3); Hematocrit 33.8 % (37.0-47.0); Hemoglobin 11.5 g/dL (12.0-15.0); Immature Granulocyte Absolute 0.01 K/mm3 (0.00-0.031); Immature Granulocyte Percent A 0.4 % (0-0.5); Immature Platelet Fraction Pct 3.8 % (0.9-11.2); Lymphocytes Absolute Auto 0.45 K/mm3 (0.9-3.2); Lymphocytes Percent Auto 17.8 % (18.3-44.2); Mean Corpuscular Hemoglobin 33.8 pg (26-34); Mean Corpuscular Volume 99.4 fl (80-100); Monocytes Absolute Auto 0.4 K/mm3 (0.1-0.6); Monocytes Percent Auto 14.6 % (2.6-8.5); Neutrophils Absolute Auto 1.6 K/mm3 (1.3-6.7); Neutrophils Percent Auto 64.8 % (45.5-73.1); Platelet Count Result 84 k/mm3 (150-375); Red Cell Distribution Width 15.1 % (11.5-14.5); White Blood Count 2.5 K/mm3 (4.5-10.0)
[2023-05-18 06:20] LABS: Alanine Aminotransferase 123 U/L (6-35); Alkaline Phosphatase 99 U/L (38-126); Anion Gap 11 mmol/L (8-16); Aspartate Amino Transferase 284 U/L (14-36); Bilirubin,Total 1.6 mg/dL (0.2-1.3); Blood Urea Nitrogen 10 mg/dL (7-17); Calcium 7.9 mg/dL (8.4-10.2); Carbon Dioxide 27 mmol/L (22-30); Chloride 95 mmol/L (98-107); Estimated CRCL calculation 59 ml/min; Estimated Glomerular Filt Rate > 60; Glucose 82 mg/dL (65-110); Lipase 1081 U/L (23-300); Magnesium 1.4 mg/dL (1.6-2.3); Potassium 2.9 mmol/L (3.4-5.0); Sodium 133 mmol/L (137-145)
[2023-05-18] MEDS: SODIUM CHLORIDE 0.9% IV 1,000 ML 125 ML IV CONT ×2 (06:41→18:47)
[2023-05-18] MEDS: FERROUS SULFATE 325 MG TABLET DR BY MOUTH (09:01)
[2023-05-18] MEDS: PANTOPRAZOLE SOD SESQUIHYDRATE 20 MG TAB PO (09:01)
[2023-05-18] MEDS: CHOLECALCIFEROL 1,000 UNITS TABLET 2000 UNITS PO (09:01)
[2023-05-18] MEDS: VITAMIN B COMPLEX CAPSULE 1 CAP PO (09:01)
[2023-05-18] MEDS: ASCORBIC ACID 500 MG TABLET PO (09:01)
[2023-05-18] MEDS: METOPROLOL SUCCINATE EXT REL 25 MG TABCR PO (09:01)
[2023-05-18] MEDS: ACETAMINOPHEN 325 MG TABLET 650 MG PO ×2 (09:03→19:55)
[2023-05-18] MEDS: CALCIUM CARBONATE (OSCAL) 250 MG TABLET PO (09:04)
[2023-05-18] MEDS: SERTRALINE HCL 25 MG TABLET PO (09:05)
--- NOTE | 2023-05-18 10:39 | PM.IMPN ---
Progress Note: A&P Assessment and Plan (1) Acute pancreatitis: Qualifiers: Acute pancreatitis complication: no infection or necrosis Pancreatitis type: unspecified pancreatitis type Qualified Code(s): K85.90 - Acute pancreatitis without necrosis or infection, unspecified Code(s): K85.90 - Acute pancreatitis without necrosis or infection, unspecified Status: Acute Assessment and Plan: improving with NPO status and IV fluids. Will initiate clear liquid diet advanced as tolerated. Target discharge tomorrow. (2) Alcohol abuse: Code(s): F10.10 - Alcohol abuse, uncomplicated Status: Acute Assessment and Plan: see 1. (3) GERD without esophagitis: Code(s): K21.9 - Gastro-esophageal reflux disease without esophagitis Status: Acute Assessment and Plan: Continue PPI (4) Essential (primary) hypertension: Code(s): I10 - Essential (primary) hypertension Status: Acute Assessment and Plan: stable, blood pressure reviewed on 05/18 Plan advanced diet as tolerated continue IV fluids for now Time Spent With Patient Time with patient: 25 - 35 minutes Subjective Date/time seen: 05/18/23 10:39 Interval history: Patient reports that she is feeling better. She notes that she is alcoholic and gets worse when she drinks vodka. She has had pancreatitis in the past. She felt this was a minor episode. She denies withdrawal symptoms and is able to go a few days without alcohol without experiencing withdrawal. patient reports mild headache that is improving with Tylenol, she denies any nausea vomiting or abdominal pain at this time. Review of Systems Review of Systems: All systems reviewed & are unremarkable except as noted in HPI and below Exam Narrative: General physical exam: patient lying in bed during my examination, appears tired and fatigued, communicating well Head/eyes: Atraumatic, EOMI, PERRLA ENT: Moist mucous membranes, nasal passages clear Neck: Supple, full range of motion, trachea midline CVS: S1 + S2, regular rate and rhythm, no murmurs Respiratory: Bilaterally clear to auscultation, symmetric chest expansion, no distress Abdomen: Soft, nontender nondistended, bowel sounds positive, no organomegaly Extremities: No clubbing, no cyanosis, no edema, no calf tenderness Musculoskeletal: Moves all, adequate range of motion, no muscle spasms Skin: Warm, dry, no jaundice, no cyanosis Neurological: Awake, alert, oriented x 3, cranial nerves II-XII intact, no focal neurological deficits Psychiatric: Normal mood, normal affect Objective Data Vital Signs Vital Signs: Vital Signs - 24 hr 05/17/23 16:29 05/17/23 18:07 05/17/23 19:04 Temperature 36.4 C L Pulse Rate 130 H 74 75 Respiratory Rate 18 15 18 Blood Pressure 134/96 H 171/100 H 140/94 H Pulse Oximetry 98 96 98 Oxygen Delivery Room Air 05/17/23 21:48 05/17/23 22:20 05/18/23 00:00 Temperature 35.9 C L 35.9 C L Pulse Rate 86 72 67 Respiratory Rate 16 14 12 Blood Pressure 146/86 H 142/83 H 135/79 Pulse Oximetry 98 97 98 Oxygen Delivery 05/18/23 00:00 05/18/23 04:00 05/18/23 04:00 Temperature 36.2 C L Pulse Rate 85 70 64 Respiratory Rate 16 Blood Pressure 137/85 Pulse Oximetry 96 Oxygen Delivery 05/18/23 09:01 Temperature Pulse Rate 65 Respiratory Rate Blood Pressure Pulse Oximetry Oxygen Delivery Intake/Output Intake/Output: Intake & Output 05/15/23 05/16/23 05/17/23 05/18/23 23:59 23:59 23:59 23:59 Intake Total 1000 1000 Output Total 300 Balance 1000 700 Meds/Results Medications: Active Medications Generic Name Dose Route Start Last Admin Trade Name Freq PRN Reason Stop Dose Admin Acetaminophen 650 mg 05/18/23 02:19 05/18/23 09:03 Acetaminophen 325 Mg Tablet PO 650 mg Q4H PRN Administration Mild Pain (1-3) or Fever Al Hydrox/Mg Hydrox/Simethicone 30 ml 05/18/23 02:19
[2023-05-18 13:10] LABS: Lipase 1138 U/L (23-300)
[2023-05-18] MEDS: ATORVASTATIN 40 MG TABLET PO (19:57)
[2023-05-19] VITALS (9 sets, daily range): BP systolic 130–141; BP diastolic 77–89; PULSE 57–84; RESP 16–18; TEMP 36.2–37.2; O2SAT 94–99
[2023-05-19] MEDS: SODIUM CHLORIDE 0.9% IV 1,000 ML 125 ML IV CONT ×2 (02:39→17:00)
[2023-05-19 06:18] LABS: Basophils Percent Auto 0.3 % (0.2-1.2); Eosinophils Absolute Auto 0.1 K/mm3 (0-0.3); Eosinophils Percent Auto 3.2 % (0-4.4); Hematocrit 32.3 % (37.0-47.0); Hemoglobin 11.2 g/dL (12.0-15.0); Immature Granulocyte Absolute 0.02 K/mm3 (0.00-0.031); Immature Granulocyte Percent A 0.6 % (0-0.5); Immature Platelet Fraction Pct 4.5 % (0.9-11.2); Lymphocytes Absolute Auto 0.61 K/mm3 (0.9-3.2); Lymphocytes Percent Auto 19.4 % (18.3-44.2); Mean Corpuscular HGB Conc 34.7 g/dl (32-36); Mean Corpuscular Hemoglobin 34.1 pg (26-34); Mean Corpuscular Volume 98.5 fl (80-100); Mean Platelet Volume 9.8 fl (7.4-10.4); Monocytes Absolute Auto 0.4 K/mm3 (0.1-0.6); Monocytes Percent Auto 13.7 % (2.6-8.5); Neutrophils Percent Auto 62.8 % (45.5-73.1); Platelet Count Result 80 k/mm3 (150-375); Red Blood Count 3.28 M/mm3 (4.2-5.4); Red Cell Distribution Width 14.6 % (11.5-14.5); White Blood Count 3.1 K/mm3 (4.5-10.0)
[2023-05-19 06:29] LABS: Alanine Aminotransferase 97 U/L (6-35); Albumin Level 3.7 g/dL (3.5-5.1); Alkaline Phosphatase 91 U/L (38-126); Anion Gap 8 mmol/L (8-16); Aspartate Amino Transferase 190 U/L (14-36); Bilirubin,Total 1.4 mg/dL (0.2-1.3); Blood Urea Nitrogen 9 mg/dL (7-17); Carbon Dioxide 26 mmol/L (22-30); Chloride 98 mmol/L (98-107); Estimated CRCL calculation 67 ml/min; Estimated Glomerular Filt Rate > 60; Glucose 82 mg/dL (65-110); Potassium 2.6 mmol/L (3.4-5.0); Sodium 132 mmol/L (137-145)
[2023-05-19] MEDS: POTASSIUM CHLORIDE INJ 40 MEQ in SODIUM CHLORIDE 0.9% IV 500 ML 130 MEQ IVPB (06:49)
[2023-05-19] MEDS: ASCORBIC ACID 500 MG TABLET PO (08:46)
[2023-05-19] MEDS: CALCIUM CARBONATE (OSCAL) 250 MG TABLET PO (08:46)
[2023-05-19] MEDS: FERROUS SULFATE 325 MG TABLET DR BY MOUTH (08:46)
[2023-05-19] MEDS: CHOLECALCIFEROL 1,000 UNITS TABLET 2000 UNITS PO (08:46)
[2023-05-19] MEDS: METOPROLOL SUCCINATE EXT REL 25 MG TABCR PO (08:46)
[2023-05-19] MEDS: PANTOPRAZOLE SOD SESQUIHYDRATE 20 MG TAB PO (08:46)
[2023-05-19] MEDS: SERTRALINE HCL 25 MG TABLET PO (08:46)
[2023-05-19] MEDS: VITAMIN B COMPLEX CAPSULE 1 CAP PO (08:46)
[2023-05-19 11:12] LABS: Lipase 1389 U/L (23-300)
[2023-05-19] MEDS: MAGNESIUM SULF 4 GM/WATER100ML 4 GM/100 ML BAG IVPB (11:56)
--- NOTE | 2023-05-19 12:00 | PM.IMPN ---
Progress Note: A&P Assessment and Plan (1) Acute pancreatitis: Qualifiers: Acute pancreatitis complication: no infection or necrosis Pancreatitis type: unspecified pancreatitis type Qualified Code(s): K85.90 - Acute pancreatitis without necrosis or infection, unspecified Code(s): K85.90 - Acute pancreatitis without necrosis or infection, unspecified Status: Acute Assessment and Plan: Lipase is trending up currently 1389 was 1081 upon arrival advance diet as tolerated (2) Alcohol abuse: Code(s): F10.10 - Alcohol abuse, uncomplicated Status: Acute Assessment and Plan: see 1. (3) GERD without esophagitis: Code(s): K21.9 - Gastro-esophageal reflux disease without esophagitis Status: Acute Assessment and Plan: Continue PPI (4) Essential (primary) hypertension: Code(s): I10 - Essential (primary) hypertension Status: Acute Assessment and Plan: stable, blood pressure reviewed on 05/18 BP is currently 138/86 Plan advanced diet as tolerated continue IV fluids for now Time Spent With Patient Time: 48 minutes Time with patient: Greater than 35 minutes Subjective Date/time seen: 05/19/23 1200 Interval history: Patient seems to be doing better today. She did have some mild pain and cramping however no chest pain shortness a breath or vomiting. She did have some nausea. Potassium was 2.6 again today. Will replace accordingly. If potassium is stable patient is stable taking p.o. intake she should be able to discharge tomorrow Review of Systems Review of Systems: All systems reviewed & are unremarkable except as noted in HPI and below Exam Narrative: General: well-nourished, well-appearing 57-year-old female, sitting up in bed, comfortable, NARD Neuro: awake, alert and oriented x4, speech clear, no focal neuro deficits noted HEENMT: normocephalic, atraumatic, EOMI, sclerae anicteric, moist oral mucosa Respiratory: Clear to auscultation bilaterally without crackles, rhonchi or wheezes, nonlabored breathing Cardio: regular rate, regular rhythm with S1-S2 Abdomen: nondistended, normoactive bowel sounds, soft, nontender to palpation Extremities: no edema, erythema, or tenderness to palpation, DP pulses 2+ bilaterally Skin: no rashes or lesions, warm and dry Psych: appropriate mood and affect, judgment and insight intact Objective Data Vital Signs Vital Signs: Vital Signs - 24 hr 05/18/23 16:00 05/18/23 16:00 05/18/23 20:00 Temperature 98.2 F 98.6 F Pulse Rate 70 73 63 Respiratory Rate 18 16 Blood Pressure 145/79 H 155/92 H Pulse Oximetry 98 99 Oxygen Delivery 05/18/23 20:00 05/18/23 20:00 05/19/23 00:00 Temperature Pulse Rate 63 65 62 Respiratory Rate 16 Blood Pressure Pulse Oximetry 99 Oxygen Delivery Room Air 05/19/23 00:00 05/19/23 04:54 05/19/23 04:00 Temperature 97.9 F 98.4 F Pulse Rate 84 73 57 L Respiratory Rate 18 16 Blood Pressure 141/89 H 132/81 Pulse Oximetry 97 97 Oxygen Delivery 05/19/23 08:00 05/19/23 08:46 05/19/23 08:46 Temperature 97.7 F Pulse Rate 60 60 Respiratory Rate 18 Blood Pressure 132/77 Pulse Oximetry 98 Oxygen Delivery Room Air 05/19/23 08:00 05/19/23 12:00 05/19/23 12:00 Temperature 97.1 F L Pulse Rate 68 70 69 Respiratory Rate 18 Blood Pressure 138/86 Pulse Oximetry 99 Oxygen Delivery Intake/Output Intake/Output: Intake & Output 05/16/23 05/17/23 05/18/23 05/19/23 23:59 23:59 23:59 23:59 Intake Total 1000 2600 2300 Output Total 300 1100 Balance 1000 2300 1200 Meds/Results Medications: Active Medications Generic Name Dose Route Start Last Admin Trade Name Jen PRN Reason Stop Dose Admin Acetaminophen 650 mg 05/18/23 02:19 05/18/23 19:55 Acetaminophen 325 Mg Tablet PO 650 mg Q4H PRN Administration Mild Pain (1-3) or Fever Al Hy
[2023-05-19] MEDS: POTASSIUM CHLORIDE 20 MEQ PACKET (FOR LIQUID) 80 MEQ PO (12:41)
[2023-05-19] MEDS: ATORVASTATIN 40 MG TABLET PO (20:04)
[2023-05-20] VITALS: BP 117/78; PULSE 59; PULSE 65; RESP 18; TEMP 36.6; O2SAT 95
[2023-05-20] MEDS: SODIUM CHLORIDE 0.9% IV 1,000 ML 125 ML IV CONT ×2 (01:02→09:15)
[2023-05-20 04:00] VITALS: PULSE 55
[2023-05-20 04:50] VITALS: BP 148/79; PULSE 80; RESP 18; TEMP 36.6; O2SAT 94
[2023-05-20 05:17] LABS: Alanine Aminotransferase 79 U/L (6-35); Albumin Level 3.5 g/dL (3.5-5.1); Alkaline Phosphatase 83 U/L (38-126); Anion Gap 4 mmol/L (8-16); Aspartate Amino Transferase 118 U/L (14-36); Blood Urea Nitrogen 9 mg/dL (7-17); Calcium 7.9 mg/dL (8.4-10.2); Carbon Dioxide 25 mmol/L (22-30); Chloride 105 mmol/L (98-107); Estimated CRCL calculation 67 ml/min; Estimated Glomerular Filt Rate > 60; Glucose 98 mg/dL (65-110); Potassium 3.4 mmol/L (3.4-5.0); Sodium 134 mmol/L (137-145)
[2023-05-20 05:20] LABS: Basophils Percent Auto 0.4 % (0.2-1.2); Eosinophils Absolute Auto 0.1 K/mm3 (0-0.3); Eosinophils Percent Auto 2.9 % (0-4.4); Hematocrit 32.1 % (37.0-47.0); Hemoglobin 10.9 g/dL (12.0-15.0); Immature Granulocyte Absolute 0.01 K/mm3 (0.00-0.031); Immature Granulocyte Percent A 0.4 % (0-0.5); Immature Platelet Fraction Pct 4.3 % (0.9-11.2); Lymphocytes Absolute Auto 0.64 K/mm3 (0.9-3.2); Lymphocytes Percent Auto 26.3 % (18.3-44.2); Mean Corpuscular Hemoglobin 34.3 pg (26-34); Mean Corpuscular Volume 100.9 fl (80-100); Monocytes Absolute Auto 0.4 K/mm3 (0.1-0.6); Monocytes Percent Auto 15.6 % (2.6-8.5); Neutrophils Absolute Auto 1.3 K/mm3 (1.3-6.7); Neutrophils Percent Auto 54.4 % (45.5-73.1); Platelet Count Result 74 k/mm3 (150-375); Red Blood Count 3.18 M/mm3 (4.2-5.4); Red Cell Distribution Width 15.2 % (11.5-14.5); White Blood Count 2.4 K/mm3 (4.5-10.0)
[2023-05-20 07:54] VITALS: BP 138/86; PULSE 69
[2023-05-20] MEDS: SERTRALINE HCL 25 MG TABLET PO (07:54)
[2023-05-20] MEDS: PANTOPRAZOLE SOD SESQUIHYDRATE 20 MG TAB PO (07:54)
[2023-05-20] MEDS: ASCORBIC ACID 500 MG TABLET PO (07:54)
[2023-05-20] MEDS: CHOLECALCIFEROL 1,000 UNITS TABLET 2000 UNITS PO (07:54)
[2023-05-20] MEDS: METOPROLOL SUCCINATE EXT REL 25 MG TABCR PO (07:54)
[2023-05-20] MEDS: CALCIUM CARBONATE (OSCAL) 250 MG TABLET PO (07:54)
[2023-05-20] MEDS: VITAMIN B COMPLEX CAPSULE 1 CAP PO (07:54)
[2023-05-20] MEDS: FERROUS SULFATE 325 MG TABLET DR BY MOUTH (07:54)
[2023-05-20 08:00] VITALS: PULSE 55
--- NOTE | 2023-05-20 09:40 | PM.DS ---
DS: Admitting Diagnosis Discharge Date 05/20/2023 Admitting Diagnosis Acute Pancreatitis Alcohol abuse Essential hypertension DS: Discharge Diagnosis Discharge Diagnosis (1) Acute pancreatitis: Qualifiers: Acute pancreatitis complication: no infection or necrosis Pancreatitis type: unspecified pancreatitis type Qualified Code(s): K85.90 - Acute pancreatitis without necrosis or infection, unspecified Code(s): K85.90 - Acute pancreatitis without necrosis or infection, unspecified Status: Acute Assessment and Plan: Lipase is trending up currently 1389 was 1081 upon arrival advance diet as tolerated (2) Alcohol abuse: Code(s): F10.10 - Alcohol abuse, uncomplicated Status: Acute Assessment and Plan: see 1. (3) Essential hypertension: Code(s): I10 - Essential (primary) hypertension Status: Acute Plan advanced diet as tolerated continue IV fluids for now DS: Summary Hospital Course Reason for hospitalization: Abdominal pain Hospital Course: 57 years old white female with history of chronic alcohol abuse who is complaining of nausea and vomiting? for 5 days which is getting progressively worse. ? She is also complaining of mid abdominal pain radiating to her back.? Patient was brought to the ER for evaluation, workup was done which showed findings consistent with acute pancreatitis. She is being admitted for medical management and optimization. Patient was given fluids and medications. Patient improved with treatment. Today Patient is feeling better. Discharge home in stable condition. Repeat cbc and cmp out patient next week. Status at Discharge Cognitive/behavioral status at discharge: Stable Time Spent with Patient Time attestation: Total time spent providing and/or coordinating discharge services: Exam Narrative: General: well-nourished, well-appearing 57-year-old female, sitting up in bed, comfortable, NARD Neuro: awake, alert and oriented x4, speech clear, no focal neuro deficits noted HEENMT: normocephalic, atraumatic, EOMI, sclerae anicteric, moist oral mucosa Respiratory: Clear to auscultation bilaterally without crackles, rhonchi or wheezes, nonlabored breathing Cardio: regular rate, regular rhythm with S1-S2 Abdomen: nondistended, normoactive bowel sounds, soft, nontender to palpation Extremities: no edema, erythema, or tenderness to palpation, DP pulses 2+ bilaterally Skin: no rashes or lesions, warm and dry Psych: appropriate mood and affect, judgment and insight intact DS: Data Data Completed and Pending Labs on day of discharge: Labs from last 24 hours 05/20/23 05/19/23 04:56 06:03 WBC 2.4 L RBC 3.18 L Hgb 10.9 L Hct 32.1 L MCV 100.9 H MCH 34.3 H MCHC 34.0 RDW 15.2 H Plt Count 74 L MPV 10.0 Immature Gran % (Auto) 0.4 Neut % (Auto) 54.4 Lymph % (Auto) 26.3 [place] % (Auto) 15.6 H Eos % (Auto) 2.9 Baso % (Auto) 0.4 Lymph # (Auto) 0.64 L [place] # (Auto) 0.4 Eos # (Auto) 0.1 Baso # (Auto) 0.0 Abs Immat Gran (auto) 0.01 Absolute Neuts (auto) 1.3 Absolute Nucleated RBC 0.0 Nucleated RBC % 0.0 % Immature Plt Fraction 4.3 Sodium 134 L Potassium 3.4 Chloride 105 Carbon Dioxide 25 Anion Gap 4 L BUN 9 Creatinine 0.70 Estim Creat Clear Calc 67 Estimated GFR > 60 Glucose 98 Calcium 7.9 L Total Bilirubin 1.0 AST 118 H ALT 79 H Alkaline Phosphatase 83 Total Protein 6.0 L Albumin 3.5 Lipase 1389 H Discharge Plan Discharge Attending physician on discharge: Liborio Blount Consulting providers: Linnette Molina Discharging Clinician: Liborio Blount Patient Disposition: Home, Self-Care Activity: as tolerated Diet: as tolerated Patient Instructions: Antibiotic Form Stand Alone Forms: General Discharge Information Follow-up/Referrals: Bushra Kern MD [Primary Care Provider] - Discharg
[2023-05-20] MEDS: POTASSIUM CHLORIDE 20 MEQ PACKET (FOR LIQUID) 40 MEQ PO (10:21)
== END 2023-05-20 10:55 | disposition home or self-care (01) | DRG 440 ==
LOC: ANHED 18:11 → ANH3MED 21:48
PROVIDERS: Emergency Medicine; Nurse Practitioner; Admitting Provider Family Medicine; Emergency Provider Physician Assistant; PCP Family Medicine; Visit Provider Internal Medicine
DX: K85.90 Acute pancreatitis without necrosis or infection, unspecified (principal); F10.10 Alcohol abuse, uncomplicated; D64.9 Anemia, unspecified; E78.5 Hyperlipidemia, unspecified; F41.9 Anxiety disorder, unspecified; I10 Essential (primary) hypertension; K21.9 Gastro-esophageal reflux disease without esophagitis; K58.9 Irritable bowel syndrome, unspecified; K76.0 Fatty (change of) liver, not elsewhere classified; M81.0 Age-related osteoporosis without current pathological fracture; E55.9 Vitamin D deficiency, unspecified; Z98.49 Cataract extraction status, unspecified eye; Z87.891 Personal history of nicotine dependence
CPT/HCPCS: 36415; 74177; 76705; 80053; 80307; 81001; 83690; 83735; 84100; 85025; 85055; 85610; 85730; 96361; 96365; 96366; 96367; 96374; 96375; 99285; A9270; C9113; G0378; J1200; J2270; J2405; J2765; J3475; J3480; J7030; J7040; Q9967

== ENCOUNTER 2023-06-27 09:13 | Outpatient (CLI) | payer BC, SELFPAY ==
[2023-06-27 19:02] LABS: LDL Cholesterol Direct 93 mg/dL
[2023-06-27 19:14] LABS: Alanine Aminotransferase 19 U/L (6-35); Albumin Level 4.8 g/dL (3.5-5.1); Alkaline Phosphatase 85 U/L (38-126); Anion Gap 7 mmol/L (8-16); Aspartate Amino Transferase 32 U/L (14-36); Bilirubin,Total 0.7 mg/dL (0.2-1.3); Blood Urea Nitrogen 16 mg/dL (7-17); Calcium 10.1 mg/dL (8.4-10.2); Carbon Dioxide 28 mmol/L (22-30); Chloride 103 mmol/L (98-107); Cholesterol 271 mg/dL (0-200); Estimated Glomerular Filt Rate > 60; Glucose 103 mg/dL (65-110); Sodium 138 mmol/L (137-145); Triglycerides 86 mg/dL (<150)
[2023-06-27 22:20] LABS: HDL Direct 156 mg/dL
== END 2023-06-27 09:14 | disposition home or self-care (01) ==
LOC: ANHGOSHLAB 09:14
PROVIDERS: PCP Family Medicine; Visit Provider Family Medicine
DX: E55.9 Vitamin D deficiency, unspecified (principal); Z91.09 Other allergy status, other than to drugs and biological substances; K76.0 Fatty (change of) liver, not elsewhere classified; H91.22 Sudden idiopathic hearing loss, left ear; F41.9 Anxiety disorder, unspecified; E78.5 Hyperlipidemia, unspecified; I10 Essential (primary) hypertension
CPT/HCPCS: 36415; 80053; 80061; 82306; 84443

== ENCOUNTER 2023-07-25 18:27 | Emergency (ER) | payer BC, SELFPAY ==
[2023-07-25 18:26] VITALS: BP 141/95; PULSE 100; RESP 16; O2SAT 100
[2023-07-25 18:58] VITALS: BP 131/71; PULSE 94; RESP 16; O2SAT 100
--- NOTE | 2023-07-25 19:28 | ED.NAVMDI ---
HPI - Nausea/Vomiting/Diarrhea General Chief complaint: Nausea/Vomiting/Diarrhea Stated complaint: vomiting Time Seen by Provider: 07/25/23 19:20 History of Present Illness HPI Narrative: Pt presents with vomiting and nausea. Pt has vomited numerous times today and now is having muscle cramps and dry heaves. Pt has had some loose stools. Pt denies abdominal pain or fever. Related Data Home Medications Medication Instructions Recorded Confirmed ascorbic acid (vitamin C) 500 mg 500 mg PO DAILY 02/22/21 07/18/23 tablet,extended release cholecalciferol (vitamin D3) 50 50 mcg PO DAILY 02/22/21 07/18/23 mcg (2,000 unit) capsule calcium 100 mg capsule 100 mg PO DAILY 05/17/23 07/18/23 ferrous sulfate 325 mg (65 mg 325 mg PO DAILY 05/17/23 07/18/23 iron) tablet vitamin B complex 1 tablet PO DAILY 05/17/23 07/18/23 cetirizine 10 mg tablet (Zyrtec) 10 mg PO DAILY PRN 06/27/23 07/18/23 Allergies Allergy/AdvReac Type Severity Reaction Status Date / Time Penicillins Allergy Unknown Skin Verified 07/18/23 09:40 irritation prednisone Allergy Rash Verified 07/18/23 09:40 codeine AdvReac Unknown Headache Verified 07/18/23 09:40 Review of Systems Review of Systems: All systems reviewed & are unremarkable except as noted in HPI and below PMFSH Past Medical History Medical History Alcohol abuse Anemia Compression fracture of thoracic spine, non-traumatic (~11/2021) Dyslipidemia Environmental allergies Essential (primary) hypertension GERD without esophagitis History of pancreatitis (~04/2019) 04/2023, 04/2019 - due to alcohol abuse IBS (irritable bowel syndrome) Night sweats Osteoporosis Pancytopenia Pneumonia Seizure (~11/2021) due to alcohol abuse Subacromial impingement of right shoulder Thoracic compression fracture (~11/2021) Vitamin D deficiency Wears glasses Surgical History Surgical History H/O tubal ligation (~1995) History of cataract surgery S/P right rotator cuff repair (~2005) Left shoulder 2014 Dr. Eduardo Right shoulder 2007 Dr. Clark Family History Family History Father Family history of kidney disease Diabetes mellitus Hypertension Mother Family history of cardiovascular disease Diabetes mellitus Cerebrovascular accident HLD (hyperlipidemia) Hypertension Neuropathy Other Heart disease Sloan cell cancer Social History Social History Social History: Caffeine-mild Smoking packs per day: 0.5 Smoking cigarettes per day: 10.0 Years smoked: 15 Smoking pack-years: 7.50 Smoking status: Former smoker Tobacco type: cigarettes Second hand tobacco smoke exposure: No Smoking end date: 09/28/13 Additional smoking assessment comments: Quit smoking 09/2003 Alcohol intake: current Drinks per week: 2 Substance use: never Substance use type: does not use Other substance usage details: last drink 3 weeks ago Lack of Transportation: No Lack of Food: Never True Current Housing: I Have Housing Concerned About Future Housing: No Difficulty Paying Gas/Electric Bills: No Difficulty Paying for Meds: No Currently Unemployed: No Education: Don't Know Difficulty w/ Childcare or Family Care: No Living arrangements: with family Occupation/Education: unemployed 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
[2023-07-25] MEDS: SODIUM CHLORIDE 0.9% IV 1,000 ML 999 ML IV CONT (19:40)
[2023-07-25] MEDS: PROCHLORPERAZINE EDISYLATE 10 MG/2 ML VIAL IV PUSH (19:40)
[2023-07-25 19:50] LABS: Basophils Percent Auto 0.3 % (0.2-1.2); Hematocrit 42.5 % (37.0-47.0); Hemoglobin 13.9 g/dL (12.0-15.0); Immature Granulocyte Absolute 0.05 K/mm3 (0.00-0.031); Immature Granulocyte Percent A 0.5 % (0-0.5); Lymphocytes Absolute Auto 0.54 K/mm3 (0.9-3.2); Lymphocytes Percent Auto 4.9 % (18.3-44.2); Mean Corpuscular HGB Conc 32.7 g/dl (32-36); Mean Corpuscular Hemoglobin 33.5 pg (26-34); Mean Corpuscular Volume 102.4 fl (80-100); Mean Platelet Volume 9.9 fl (7.4-10.4); Monocytes Percent Auto 8.7 % (2.6-8.5); Neutrophils Absolute Auto 9.4 K/mm3 (1.3-6.7); Neutrophils Percent Auto 85.6 % (45.5-73.1); Nucleated Red Blood Cells Perc 0.3 % (0.0-0.2); Platelet Count Result 157 k/mm3 (150-375); Red Blood Count 4.15 M/mm3 (4.2-5.4); White Blood Count 10.9 K/mm3 (4.5-10.0)
[2023-07-25 20:03] LABS: Alanine Aminotransferase 33 U/L (6-35); Albumin Level 5.4 g/dL (3.5-5.1); Alkaline Phosphatase 130 U/L (38-126); Anion Gap 21 mmol/L (8-16); Aspartate Amino Transferase 52 U/L (14-36); Blood Urea Nitrogen 24 mg/dL (7-17); Calcium 9.6 mg/dL (8.4-10.2); Carbon Dioxide 20 mmol/L (22-30); Chloride 96 mmol/L (98-107); Estimated CRCL calculation 59 ml/min; Estimated Glomerular Filt Rate > 60; Glucose 209 mg/dL (65-110); Lipase 141 U/L (23-300); Potassium 3.9 mmol/L (3.4-5.0); Sodium 137 mmol/L (137-145)
[2023-07-25 20:17] LABS: Platelet Estimate Adequate (Adequate)
[2023-07-25 20:18] LABS: Anisocytosis 1+ (NORMAL); Basophilic Stippling 1+ (NORMAL); Schistocytes Rare (NORMAL)
[2023-07-25 20:45] LABS: Appearance Urine Cloudy (Clear); Bacteria Urine None Seen /hpf; Bilirubin Urine Negative (Negative); Blood Urine 2+ (Negative); Color Urine Yellow (Yellow); Glucose Urine UA 2+ mg/dL (Negative); Ketones Urine 4+ mg/dL (Negative); Leukocyte Esterase Ur Negative LEU/UL (Negative); Nitrate Urine Negative (Negative); Protein Urine 4+ mg/dL (Negative); RBC Urine 0-2 /hpf (0-2); Specific Grav Ur 1.029 (1.001-1.035); Squamous Epithelial Cell Urine Occasional /hpf (Few); Urobilinogen Urine 0.2 mg/dL (<2.0); WBC Urine 0-5 /hpf
[2023-07-25 20:46] LABS: Add Urine Microscopic? YES
[2023-07-25 21:43] LABS: Alveolar/Arterial O2 Gradient 29.9 mmHg; Base Excess ABG -3.8 mEq/l (+/-2.0); Fractional Inspired Oxygen 21 %; HCO3 ABG 19.3 mEq/l (22.0-26.0); Oxygen Content ABG 17.1 %vol (16.0-22.0); Oxygen Saturation ABG 96.8 % (95.0-100.0); Oxyhemoglobin 94.8 % THb (90.0-100.0); PCO2 ABG 29.3 mmHg (35.0-45.0); PO2 ABG 84.7 mmHg (80.0-100.0); PO2 FiO2 Ratio Arterial Blood 4.03 %; Total Hemoglobin 12.8 g/dL (12.0-18.0); pH ABG 7.436 (7.350-7.450)
[2023-07-25 21:44] LABS: Modified Allen's Test Pass; Site Drawn RIGHT RADIAL
[2023-07-25 21:56] VITALS: BP 148/85; PULSE 89; RESP 17; O2SAT 95
[2023-07-25 21:59] LABS: Beta-Hydroxybutyrate/Acetoacetate 2.41 mmol/L (0.02-0.27)
== END 2023-07-25 22:12 | disposition home or self-care (01) ==
PROVIDERS: Emergency Provider Emergency Medicine; PCP Family Medicine
DX: K52.9 Noninfective gastroenteritis and colitis, unspecified (principal); R94.5 Abnormal results of liver function studies; D64.9 Anemia, unspecified; I10 Essential (primary) hypertension; K21.9 Gastro-esophageal reflux disease without esophagitis
CPT/HCPCS: 36415; 36600; 80053; 81001; 82010; 82805; 83690; 85025; 96361; 96374; 99284; J0780; J7030

== ENCOUNTER → 2023-09-21 13:42 | Outpatient (CLI) | payer OTHER, SELFPAY ==
--- NOTE | ~2023-09-21 | XR_ITS ---
EXAMINATION: XR ribs LT 2V w CXR 2V DATE: 09/21/2023 14:11 INDICATION: Cough, unspecified. Left chest pain. TECHNIQUE: Frontal and lateral views of the chest and 2 views on 3 radiographs of the left ribs were obtained. COMPARISON: Chest single view 12/13/2021, thoracic spine radiographs 02/15/2022 FINDINGS: CHEST TWO VIEWS: There is no pneumonia, pleural effusion, or pneumothorax. The heart size is normal. There are multiple chronic vertebral body fractures. LEFT RIBS: There is no rib fracture. IMPRESSION: 1. No rib fracture. Reviewed, dictated and finalized at [facility]. MIC ETCHING PROCESSOR IMPRESSION: 1. No rib fracture.
== END ==
PROVIDERS: PCP Family Medicine; Visit Provider Family Medicine
DX: R07.89 Other chest pain (principal); R05.9 Cough, unspecified
CPT/HCPCS: 71046; 71100

== ENCOUNTER 2023-12-23 15:01 | Observation (INO) | payer OTHER, SELFPAY ==
[2023-12-23] VITALS (32 sets, daily range): BP systolic 97–189; BP diastolic 57–169; PULSE 79–115; RESP 14–31; TEMP 36.2–36.3; O2SAT 93–100; BMI 25.2
--- NOTE | ~2023-12-23 | CT_ITS ---
EXAMINATION: CT abdomen pelvis w con DATE: 12/23/2023 16:08 INDICATION: abdominal pain, history of pancreatitis TECHNIQUE: Computed tomography (CT) of the abdomen and pelvis was performed with 100 mL Omnipaque-350 intravenous contrast. Automated exposure control and iterative reconstruction technique were employe d. The dose-length product was 522.71 mGy-cm. COMPARISON: 05/17/2023. FINDINGS: Lower thorax: Mild coronary artery calcification. Liver: Diffuse fatty infiltration. Biliary/Gallbladder: Gallbladder is normal. No bile duct dilation. Pancreas: Mild atrophy. Spleen: Normal. Adrenals:No mass. Kidneys: No suspicious mass, obstructing stone, or hydronephrosis. GI tract: No small or large bowel dilation. Normal appendix. Diverticulosis without diverticulitis. M ild diffuse colonic wall edema. Mesentery/Peritoneum: No ascites, mass, or free air. Retroperitoneum: No mass. Pelvis: Pelvic organs are within normal limits. Soft Tissues: Soft tissues and body wall unremarkable. Bones: No acute osseous finding. IMPRESSION: Hepatic steatosis. Mild diffuse colonic wall edema may represent colitis in the appropriate clinical context. Reviewed, dictated and finalized at location K. IMPRESSION: Hepatic steatosis. Mild diffuse colonic wall edema may represent colitis in the appropriate clinic al context.
--- NOTE | 2023-12-23 15:14 | ECG_ITS ---
SEE SCANNED COPY FOR CONFIRMED REPORT MTDD
--- NOTE | 2023-12-23 15:14 | ED.ALCOHOL ---
HPI - Alcohol General Chief Complaint: Alcohol Stated Complaint: N/V Time Seen by Provider: 12/23/23 15:09 Source: patient, family and EMS Mode of arrival: EMS Limitations: no limitations History of Present Illness HPI narrative: patient is 4 years old white female came from home by ambulance complaining of vomiting at least 8 times since rib builder with lower abdominal pain bilaterally. Patient drinks alcohol daily, usually start in the morning, could not drink today because of the vomiting, last drink was last night, patient reported been bingeing over the last few weeks. Denies any history of abdominal surgery Related Data Home Medications Medication Instructions Recorded Confirmed ascorbic acid (vitamin C) 500 mg 500 mg PO DAILY 02/22/21 09/21/23 tablet,extended release cholecalciferol (vitamin D3) 50 50 mcg PO DAILY 02/22/21 09/21/23 mcg (2,000 unit) capsule calcium 100 mg capsule 100 mg PO DAILY 05/17/23 09/21/23 ferrous sulfate 325 mg (65 mg 325 mg PO DAILY 05/17/23 09/21/23 iron) tablet vitamin B complex 1 tablet PO DAILY 05/17/23 09/21/23 cetirizine 10 mg tablet (Zyrtec) 10 mg PO DAILY PRN 06/27/23 09/21/23 Allergies Allergy/AdvReac Type Severity Reaction Status Date / Time Penicillins Allergy Unknown Skin Verified 12/23/23 15:33 irritation prednisone Allergy Rash Verified 12/23/23 15:33 codeine AdvReac Unknown Headache Verified 12/23/23 15:33 PMFSH Past Medical History Medical History Alcohol abuse Anemia Compression fracture of thoracic spine, non-traumatic (~11/2021) Dyslipidemia Environmental allergies Essential (primary) hypertension GERD without esophagitis History of pancreatitis (~04/2019) 04/2023, 04/2019 - due to alcohol abuse IBS (irritable bowel syndrome) Night sweats Osteoporosis Pancytopenia Pneumonia Seizure (~11/2021) due to alcohol abuse Subacromial impingement of right shoulder Thoracic compression fracture (~11/2021) Vitamin D deficiency Wears glasses Surgical History Surgical History H/O tubal ligation (~1995) History of cataract surgery S/P right rotator cuff repair (~2005) Left shoulder 2015 Dr. Clark Right shoulder 2008 Dr. Clark Family History Family History Father Family history of kidney disease Diabetes mellitus Hypertension Mother Family history of cardiovascular disease Diabetes mellitus Cerebrovascular accident HLD (hyperlipidemia) Hypertension Neuropathy Other Heart disease Sloan cell cancer Social History Social History Social History: Caffeine-mild Smoking packs per day: 0.5 Smoking cigarettes per day: 10.0 Years smoked: 15 Smoking pack-years: 7.50 Smoking status: Former smoker Tobacco type: cigarettes Second hand tobacco smoke exposure: No Smoking end date: 09/28/13 Additional smoking assessment comments: Quit smoking 09/2003 Alcohol intake: current Drinks per week: 2 Substance use: never Substance use type: does not use Other substance usage details: last drink 3 weeks ago Lack of Transportation: No Lack of Food: Never True Current Housing: I Have Housing Concerned About Future Housing: No Difficulty Paying Gas/Electric Bills: No Difficulty Paying for Meds: No Currently Unemployed: No Education: Don't Know Difficulty w/ Childcare or Family Care: No Living arrangements: with family Occupation/Education: unemployed Additional occupation/education comments: [employer] Gender identity (if verbalized by the patient): Female Spiritual care concerns: No Course Vital Signs Vital signs: Vital Signs Respiratory Rate 24 H 12/23/23 15:06 Blood Pressure 169/109 H 12/23/23 15:06 Pulse Oximetry 97 12/23/23 15:06 Oxygen
[2023-12-23] MEDS: SODIUM CHLORIDE 0.9% IV 2,000 ML 999 ML IV CONT (15:26)
[2023-12-23] MEDS: ONDANSETRON INJ 4 MG/2 ML VIAL 8 MG IV PUSH (15:29)
[2023-12-23 15:32] LABS: Basophils Percent Auto 0.4 % (0.2-1.2); Hemoglobin 13.7 g/dL (12.0-15.0); Immature Granulocyte Absolute 0.01 K/mm3 (0.00-0.031); Immature Granulocyte Percent A 0.4 % (0-0.5); Immature Platelet Fraction Pct 3.2 % (0.9-11.2); Lymphocytes Absolute Auto 0.27 K/mm3 (0.9-3.2); Lymphocytes Percent Auto 12.1 % (18.3-44.2); Mean Corpuscular HGB Conc 34.3 g/dl (32-36); Mean Corpuscular Hemoglobin 33.7 pg (26-34); Mean Corpuscular Volume 98.3 fl (80-100); Mean Platelet Volume 9.5 fl (7.4-10.4); Monocytes Absolute Auto 0.2 K/mm3 (0.1-0.6); Monocytes Percent Auto 7.6 % (2.6-8.5); Neutrophils Absolute Auto 1.8 K/mm3 (1.3-6.7); Neutrophils Percent Auto 79.5 % (45.5-73.1); Platelet Count Result 98 k/mm3 (150-375); Red Blood Count 4.07 M/mm3 (4.2-5.4); Red Cell Distribution Width 15.5 % (11.5-14.5); White Blood Count 2.2 K/mm3 (4.5-10.0)
[2023-12-23 15:39] LABS: Alanine Aminotransferase 57 U/L (6-35); Albumin Level 5.2 g/dL (3.5-5.1); Alkaline Phosphatase 93 U/L (38-126); Anion Gap 17 mmol/L (4-12); Aspartate Amino Transferase 116 U/L (14-36); Bilirubin,Total 1.7 mg/dL (0.2-1.3); Blood Urea Nitrogen 4 mg/dL (7-17); Calcium 9.2 mg/dL (8.4-10.2); Carbon Dioxide 19 mmol/L (22-30); Chloride 100 mmol/L (98-107); Estimated CRCL calculation 76 ml/min; Estimated Glomerular Filt Rate > 60; Glucose 159 mg/dL (65-110); Lipase 141 U/L (23-300); Potassium 3.4 mmol/L (3.4-5.0); Sodium 136 mmol/L (137-145)
[2023-12-23 15:40] LABS: Ethanol < 10 mg/dL (<10)
[2023-12-23 15:46] LABS: INR 0.9; Prothrombin Time 12.6 Seconds (11.1-14.7)
[2023-12-23 15:51] LABS: Platelet Estimate Decreased (Adequate); Schistocytes None Seen
--- NOTE | 2023-12-23 16:57 | PC.NURSE ---
ED staff called from [place] that patient was seizing. EDP Dr. David ramos for orders, made aware. MD Dr. Hernandez VORB for 2mg ativan IVP stat. Dr. Hernandez at bedside. 2mg ativan pushed IV 1658. Pt suctioned, placed on non-rebreather [address] Gomez made aware.
[2023-12-23] MEDS: LORazepam INJ (*CRX) 2 MG/ML VIAL IV PUSH (17:03)
[2023-12-23 17:20] LABS: Appearance Urine Clear (Clear); Bacteria Urine None Seen /hpf; Bilirubin Urine Negative (Negative); Blood Urine Negative (Negative); Color Urine Yellow (Yellow); Glucose Urine UA Trace mg/dL (Negative); Ketones Urine Trace mg/dL (Negative); Leukocyte Esterase Ur Negative LEU/UL (Negative); Nitrate Urine Negative (Negative); Non Pathogenic Casts 0-2; Protein Urine 1+ mg/dL (Negative); RBC Urine 0-2 /hpf (0-2); Specific Grav Ur 1.017 (1.001-1.035); Squamous Epithelial Cell Urine None Seen /hpf (Few); Urobilinogen Urine 0.2 mg/dL (<2.0); WBC Urine 0-5 /hpf (0-3); pH Urine 7.5 (5.0-9.0)
[2023-12-23 17:25] LABS: Add Urine Microscopic? YES
--- NOTE | 2023-12-23 18:25 | PC.NURSE ---
Called pharm at this time for medication missing.
--- NOTE | 2023-12-23 18:32 | PM.IMHP ---
H&P: HPI History of Present Illness Date/Time: 12/23/23 20:15 Chief Complaint: Abdominal pain, vomiting, weakness. Narrative: This is a 58-year-old female with history of alcohol abuse, alcohol withdrawal seizures, pancreatitis, hypertension, hyperlipidemia, gastroesophageal reflux disease, and anemia who presented to the emergency department via EMS for evaluation of abdominal pain, vomiting, and weakness. The patient provides the following history. She woke up this morning feeling on well with diffuse, cramping abdominal pain associated with nausea, at least 8 episodes of non bilious and nonbloody emesis, and several episodes of diarrhea. She has become increasingly weak throughout the day and she came in for evaluation. While in the emergency department she had approximately 1 minute long seizure and with further questioning she mentions that she has a history of alcohol abuse including withdrawal seizures and that her last drink was sometime yesterday. On exam she has a good size bruise on her abdomen and she tells me that she tripped over her dog's bed last night and fell forward onto the ground; she denies syncope and seizure as a cause of that fall. She received 2 mg IV lorazepam in the ED and she has been without withdrawal symptoms since that time. At the time my evaluation her main complaint is that of ongoing abdominal cramping and diarrhea. She denies recent travel, sick contacts, and antibiotic use. She has not noticed any blood or mucus in the stool. She also denies hallucinations, fever, chills, sweats, cold and flu symptoms, chest pain, pleuritic pain, cough, hematemesis, and dysuria. In the ED: Her blood pressures have been elevated since arrival and she is tachycardic following a brief alcohol withdrawal seizure. Labs were significant for a WBC count of 2.2, hemoglobin 13.7, platelet 98, sodium 136, carbon dioxide 19, BUN 4, creatinine 0.60, glucose 159, total bilirubin 1.7, AST 116, ALT 57, alkaline phosphatase 93, albumin 5.2, total protein 8.0, lipase 141. CT of the abdomen and pelvis showed mild diffuse colonic wall edema which may represent colitis and hepatic steatosis. In addition to Ativan she was also given a banana bag and IV thiamine and she is being admitted in this setting. Review of Systems Review of Systems: 12 systems were reviewed and are negative except for as per HPI. [facility] Past Medical History Medical History (Updated 12/23/23 @ 18:42 by Tara Araujo PA-C) Alcohol abuse Anemia Compression fracture of thoracic spine, non-traumatic (11/2021) Dyslipidemia Environmental allergies Essential (primary) hypertension GERD without esophagitis History of pancreatitis 04/2023, 04/2019 - due to alcohol abuse Osteoporosis Pancytopenia Pneumonia Seizure (11/2021) due to alcohol abuse Thoracic compression fracture (11/2021) Vitamin D deficiency Wears glasses Surgical History Surgical History (Updated 12/23/23 @ 18:36 by Tara Araujo PA-C) History of cataract surgery History of repair of rotator cuff Left shoulder 2015 Right shoulder 2018 History of tubal ligation (1995) Family History Family History Father Family history of kidney disease Diabetes mellitus Hypertension Mother Family history of cardiovascular disease Diabetes mellitus Cerebrovascular accident HLD (hyperlipidemia) Hypertension Neuropathy Other Heart disease [place] cell cancer Social History Social History (Updated 12/23/23 @ 22:57 by Tara Araujo PA-C) Social History: Surrogate medical decision maker: Sukhi Crawford, spouse. Code status: Full code. Smoking packs per day: 0.5 Smoking cigarettes per day: 10.0 Years smoked: 15 Smoking pack-years: 7.50 Smoking status: Former smoker Tobacco type: cigarettes Second hand tobacco smoke exposure: No Smoking end date: 09/28/13 Additional smoking assessment comments: Quit
--- NOTE | 2023-12-23 21:21 | ADMGEN ---
This patient, Maria Fernanda Crawford, was admitted to IMU Room 206-02. Patient/family oriented to hospital policies and general routines including ID bracelet, bed and alarms, visiting hours, pain management, procedures, bathroom and other care routines, personal items, smoking policy, room service/diet, and visiting hours. Information on how to activate the Rapid Response Team has been discussed. Patient/Family are encouraged to report perceived risks to care and to ask questions if they do not understand what they are told or what they should do.
[2023-12-23] MEDS: chlordiazePOXIDE (*CRX) 25 MG CAPSULE PO (22:10)
[2023-12-23] MEDS: ATORVASTATIN 40 MG TABLET PO (23:24)
[2023-12-23] MEDS: metroNIDAZOLE 500 MG/ISO 100ML 500 MG/100 ML BAG 100 MG IVPB (23:38)
[2023-12-24] VITALS (12 sets, daily range): BP systolic 119–145; BP diastolic 75–81; PULSE 69–97; RESP 15–18; TEMP 36.5–37.1; O2SAT 96–99
[2023-12-24 00:28] LABS: Glucose Point of Care 100 mg/dl (65-105)
[2023-12-24 05:03] LABS: Hematocrit 33.5 % (37.0-47.0); Hemoglobin 11.3 g/dL (12.0-15.0); Immature Platelet Fraction Pct 3.9 % (0.9-11.2); Mean Corpuscular HGB Conc 33.7 g/dl (32-36); Mean Corpuscular Hemoglobin 33.5 pg (26-34); Mean Corpuscular Volume 99.4 fl (80-100); Mean Platelet Volume 9.7 fl (7.4-10.4); Platelet Count Result 71 k/mm3 (150-375); Red Blood Count 3.37 M/mm3 (4.2-5.4); Red Cell Distribution Width 15.8 % (11.5-14.5)
[2023-12-24] MEDS: metroNIDAZOLE 500 MG/ISO 100ML 500 MG/100 ML BAG 100 MG IVPB ×3 (05:03→21:18)
[2023-12-24] MEDS: chlordiazePOXIDE (*CRX) 25 MG CAPSULE PO ×3 (05:04→21:18)
[2023-12-24 05:08] LABS: Prothrombin Time 13.8 Seconds (11.1-14.7)
[2023-12-24 05:16] LABS: Alanine Aminotransferase 50 U/L (6-35); Albumin Level 4.3 g/dL (3.5-5.1); Alkaline Phosphatase 73 U/L (38-126); Anion Gap 9 mmol/L (4-12); Aspartate Amino Transferase 81 U/L (14-36); Bilirubin,Total 1.2 mg/dL (0.2-1.3); Blood Urea Nitrogen 5 mg/dL (7-17); Calcium 7.7 mg/dL (8.4-10.2); Carbon Dioxide 24 mmol/L (22-30); Chloride 99 mmol/L (98-107); Estimated CRCL calculation 76 ml/min; Estimated Glomerular Filt Rate > 60; Glucose 88 mg/dL (65-110); Magnesium 1.5 mg/dL (1.6-2.3); Potassium 2.7 mmol/L (3.4-5.0); Sodium 132 mmol/L (137-145)
[2023-12-24] MEDS: POTASSIUM CHLORIDE 20 MEQ PACKET (FOR LIQUID) 40 MEQ PO ×2 (05:45→17:55)
[2023-12-24] MEDS: POTASSIUM CHLORIDE INJ 40 MEQ in SODIUM CHLORIDE 0.9% IV 500 ML 125 MEQ IVPB (05:45)
[2023-12-24] MEDS: MAGNESIUM SULF 4 GM/WATER100ML 4 GM/100 ML BAG IVPB (05:49)
[2023-12-24] MEDS: ASCORBIC ACID 500 MG TABLET PO (08:38)
[2023-12-24] MEDS: THIAMINE HCL 200 MG/2 ML VIAL 100 MG IV PUSH (08:38)
[2023-12-24] MEDS: SERTRALINE HCL 50 MG TABLET PO (08:38)
[2023-12-24] MEDS: ACETAMINOPHEN 325 MG TABLET 650 MG PO (08:38)
[2023-12-24] MEDS: THERAPEUTIC MULTIVITAMINS/MINERALS TAB (*BKC) 1 TABLET PO (08:38)
[2023-12-24] MEDS: METOPROLOL SUCCINATE EXT REL 25 MG TABCR PO (08:38)
[2023-12-24] MEDS: PANTOPRAZOLE SODIUM IV 40 MG VIAL IV PUSH (08:38)
[2023-12-24] MEDS: FERROUS SULFATE 325 MG TABLET DR PO (08:38)
[2023-12-24] MEDS: VITAMIN B COMPLEX CAPSULE 1 CAP PO (08:38)
[2023-12-24] MEDS: FOLIC ACID 1 MG/0.2 ML INJ IV PUSH (08:39)
[2023-12-24 09:37] LABS: Toxigenic C. Diff NEGATIVE (NEGATIVE)
--- NOTE | 2023-12-24 11:42 | PM.IMPN ---
Progress Note: A&P Assessment and Plan (1) Alcohol withdrawal seizure: Code(s): F10.939 - Alcohol use, unspecified with withdrawal, unspecified; R56.9 - Unspecified convulsions Status: Acute Assessment and Plan: The patient presented to the emergency department for evaluation of abdominal pain, vomiting, and weakness and had an alcohol withdrawal seizure in the ED. She was started on scheduled Librium. Continue seizure and fall precautions. Increase activity. (2) Alcohol abuse: Code(s): F10.10 - Alcohol abuse, uncomplicated Status: Acute Assessment and Plan: Patient has a history of alcoholism and had an alcohol withdrawal seizure in the ED Thiamine and folate have been started. She is on schedule Librium. She was educated about the benefits of abstaining from alcohol use Care coordination to provide information regarding alcohol rehab (3) Colitis: Code(s): K52.9 - Noninfective gastroenteritis and colitis, unspecified Status: Acute Assessment and Plan: The patient presented with abdominal pain, vomiting, and weakness CT of the abdomen and pelvis shows mild diffuse colonic wall edema consider colitis. She was started on Rocephin and Flagyl. Will monitor clinically. Advance diet as tolerated (4) Pancytopenia: Code(s): D61.818 - Other pancytopenia Status: Acute Assessment and Plan: The patient has chronic pancytopenia for which she is followed by Dr. Ortiz. CT scan shows normal spleen. Levels are low probably related to toxic effects of alcohol. Follow. (5) Transaminitis: Code(s): R74.01 - Elevation of levels of liver transaminase levels Status: Acute Assessment and Plan: AST and ALT are chronically elevated. Probably higher this admission due to alcohol abuse. Levels are trending downward. Lipitor was continued but she is tolerating Continue to follow (6) Essential (primary) hypertension: Code(s): I10 - Essential (primary) hypertension Status: Acute Assessment and Plan: Patient's blood pressure was reviewed on 12/23 Blood pressure remains well controlled. Will continue to follow Plan DVT prophylaxis -SCDs Code status -full Subjective Date/time seen: 12/24/23 11:42 Interval history: 58yo female with alcohol abuse, alcohol withdrawal seizures, pancreatitis, hypertension, hyperlipidemia, gastroesophageal reflux disease, and anemia who presented to the emergency department via EMS for evaluation of abdominal pain, vomiting, and weakness.? Patient states that she came to emergency room because she could not move her legs was having nausea, vomiting, abdominal pain and possibly seizures. No back pain. She is able to move her legs in the bed. Abdominal pain is better. Exam Narrative: AF 98.7 123/75 69 18 99% ra Gen - NARD Chest -bibasilar crackles. CV - RRR S1/S2. Telemetry showing no significant dysrhythmias Abd - Soft, NT/ND, Positive BS Ext - No pedal edema. Normal range of motion at the hips knees and ankles. 2+ DP pulses bilaterally. Neuro - Alert and oriented. Nonfocal exam. No focal weakness in the lower extremities Psych - Nml mood and affect Skin - Warm and dry Objective Data Vital Signs Vital Signs: Vital Signs - 24 hr 12/23/23 15:06 12/23/23 15:06 12/23/23 15:07 Temperature Pulse Rate 87 Pulse Rate [Monitor] Respiratory Rate 24 H 14 Blood Pressure 169/109 H 169/109 H Pulse Oximetry 97 99 99 Oxygen Delivery Room Air Oxygen Flow Rate 12/23/23 15:16 12/23/23 15:17 12/23/23 15:31 Temperature 97.4 F L Pulse Rate 93 89 80 Pulse Rate [Monitor] Respiratory Rate 22 H 20 19 Blood Pressure 154/105 H 163/97 H Pulse Oximetry 100 100 98 Oxygen Delivery Oxygen Flow Rate 12/23/23 15:32 12/23/23 15:46 12/23/23 17:10 Temperature Pulse Rate 90 79 Pulse Rate [Monitor] Respiratory Rate 25 H 21 H B
[2023-12-24 11:56] LABS: Glucose Point of Care 160 mg/dl (65-105)
[2023-12-24 13:16] LABS: Anion Gap 10 mmol/L (4-12); Blood Urea Nitrogen 4 mg/dL (7-17); Calcium 8.3 mg/dL (8.4-10.2); Carbon Dioxide 21 mmol/L (22-30); Chloride 102 mmol/L (98-107); Estimated CRCL calculation 76 ml/min; Estimated Glomerular Filt Rate > 60; Glucose 139 mg/dL (65-110); Magnesium 2.5 mg/dL (1.6-2.3); Potassium 3.2 mmol/L (3.4-5.0); Sodium 133 mmol/L (137-145)
[2023-12-24] MEDS: ATORVASTATIN 40 MG TABLET PO (21:18)
[2023-12-25] VITALS: BP 121/73; PULSE 90; RESP 17; TEMP 36.6; O2SAT 94
[2023-12-25 01:26] LABS: Glucose Point of Care 93 mg/dl (65-105)
[2023-12-25 04:00] VITALS: BP 133/83; PULSE 71; PULSE 88; RESP 17; TEMP 36.6; O2SAT 99
[2023-12-25] MEDS: metroNIDAZOLE 500 MG/ISO 100ML 500 MG/100 ML BAG 100 MG IVPB (05:44)
[2023-12-25] MEDS: chlordiazePOXIDE (*CRX) 25 MG CAPSULE PO (05:44)
[2023-12-25 06:52] LABS: Basophils Percent Auto 0.5 % (0.2-1.2); Eosinophils Absolute Auto 0.1 K/mm3 (0-0.3); Eosinophils Percent Auto 2.8 % (0-4.4); Hematocrit 33.3 % (37.0-47.0); Immature Platelet Fraction Pct 5.6 % (0.9-11.2); Lymphocytes Absolute Auto 0.43 K/mm3 (0.9-3.2); Mean Corpuscular Hemoglobin 33.8 pg (26-34); Mean Corpuscular Volume 102.5 fl (80-100); Mean Platelet Volume 9.9 fl (7.4-10.4); Monocytes Absolute Auto 0.2 K/mm3 (0.1-0.6); Monocytes Percent Auto 11.2 % (2.6-8.5); Neutrophils Absolute Auto 1.4 K/mm3 (1.3-6.7); Neutrophils Percent Auto 65.5 % (45.5-73.1); Platelet Count Result 73 k/mm3 (150-375); Red Blood Count 3.25 M/mm3 (4.2-5.4); Red Cell Distribution Width 15.9 % (11.5-14.5); White Blood Count 2.2 K/mm3 (4.5-10.0)
[2023-12-25 07:03] LABS: Alanine Aminotransferase 36 U/L (6-35); Alkaline Phosphatase 75 U/L (38-126); Anion Gap 5 mmol/L (4-12); Aspartate Amino Transferase 59 U/L (14-36); Blood Urea Nitrogen 4 mg/dL (7-17); Calcium 8.2 mg/dL (8.4-10.2); Carbon Dioxide 25 mmol/L (22-30); Chloride 105 mmol/L (98-107); Estimated CRCL calculation 66 ml/min; Estimated Glomerular Filt Rate > 60; Glucose 101 mg/dL (65-110); Magnesium 1.9 mg/dL (1.6-2.3); Phosphorus 1.6 mg/dL (2.5-4.5); Potassium 3.4 mmol/L (3.4-5.0); Sodium 135 mmol/L (137-145)
[2023-12-25] MEDS: ASCORBIC ACID 500 MG TABLET PO (08:59)
[2023-12-25] MEDS: CIPROFLOXACIN 500 MG TAB PO (08:59)
[2023-12-25] MEDS: MAGNESIUM SULF 1 GM/D5W 100 ML 1 GM/100 ML BAG IVPB (08:59)
[2023-12-25] MEDS: FERROUS SULFATE 325 MG TABLET DR PO (08:59)
[2023-12-25] MEDS: THERAPEUTIC MULTIVITAMINS/MINERALS TAB (*BKC) 1 TABLET PO (08:59)
[2023-12-25] MEDS: THIAMINE HCL 100 MG TABLET PO (08:59)
[2023-12-25] MEDS: POTASSIUM/PHOSPHORUS/SODIUM 1.5 GM PACKET 1 PACKET PO ×2 (09:00→12:29)
[2023-12-25] MEDS: METOPROLOL SUCCINATE EXT REL 25 MG TABCR PO (09:00)
[2023-12-25] MEDS: PANTOPRAZOLE 40 MG TABLET PO (09:00)
[2023-12-25] MEDS: POTASSIUM CHLORIDE 20 MEQ PACKET (FOR LIQUID) 40 MEQ PO (09:00)
[2023-12-25] MEDS: VITAMIN B COMPLEX CAPSULE 1 CAP PO (09:00)
[2023-12-25] MEDS: SERTRALINE HCL 50 MG TABLET PO (09:00)
[2023-12-25 11:56] LABS: Glucose Point of Care 107 mg/dl (65-105)
[2023-12-25] MEDS: FOLIC ACID 1 MG/0.2 ML INJ IV PUSH (12:30)
--- NOTE | 2023-12-25 12:30 | PM.DS ---
DS: Admitting Diagnosis Discharge Date 12/25/23 Admitting Diagnosis Abdominal pain, vomiting, weakness DS: Discharge Diagnosis Discharge Diagnosis (1) Alcohol withdrawal seizure: Code(s): F10.939 - Alcohol use, unspecified with withdrawal, unspecified; R56.9 - Unspecified convulsions Status: Acute (2) Alcohol abuse: Code(s): F10.10 - Alcohol abuse, uncomplicated Status: Acute (3) Colitis: Code(s): K52.9 - Noninfective gastroenteritis and colitis, unspecified Status: Acute (4) Pancytopenia: Code(s): D61.818 - Other pancytopenia Status: Acute (5) Transaminitis: Code(s): R74.01 - Elevation of levels of liver transaminase levels Status: Acute (6) Essential (primary) hypertension: Code(s): I10 - Essential (primary) hypertension Status: Acute DS: Summary Hospital Course Reason for hospitalization: 58yo female with alcohol abuse, alcohol withdrawal seizures, pancreatitis, hypertension, hyperlipidemia, gastroesophageal reflux disease, and anemia who presented to the emergency department via EMS for evaluation of abdominal pain, vomiting, and weakness.? Please see H&P for details. Hospital Course: The patient presented to the emergency department for evaluation of abdominal pain, vomiting, and weakness and had an alcohol withdrawal seizure while in the ED. Alcohol level<10. She was started on scheduled Librium. Seizure and fall precautions. Patient has a history of alcoholism and was started on thiamine and folate. She was educated about the benefits of abstaining from alcohol use. Care coordination provided information regarding alcohol rehab. The patient presented with abdominal pain, vomiting, and weakness. CT of the abdomen and pelvis shows mild diffuse colonic wall edema consider colitis. WBC was 2200 (ANC 1760). She was started on Rocephin and Flagyl. WBC remained stable. She does have chronic pancytopenia for which she is followed by Dr. Ortiz. CT scan shows normal spleen.? Platelet count was low but stable. EKG normal. Stool culture pending. CDiff PCR negative. UA not consistent with UTI. Lipase normal. AST and ALT are chronically elevated.? Probably higher this admission due to alcohol abuse.? Levels were trending downward on repeat. She was having diarrhea but eating normally. She feels well and feels ready and eager for discharge. She overall did well and was able to be discharged home on 4/29/24. Status at Discharge Cognitive/behavioral status at discharge: stable Time Spent with Patient Time attestation: Total time spent providing and/or coordinating discharge services: 36 minutes Time spent: Greater than 30 minutes Exam Narrative: AF 97.8 133/83 88 17 99% ra Gen - NARD Chest - CTA bilaterally. nml RR CV - RRR S1/S2 Abd - Soft, NT/ND, Positive BS Ext - No pedal edema. Neuro - Alert and appropriate Psych - Nml mood and affect Skin - Warm and dry DS: Data Data Completed and Pending Labs on day of discharge: Labs from last 24 hours 12/25/23 12/25/23 12/25/23 11:49 06:22 01:22 WBC 2.2 L RBC 3.25 L Hgb 11.0 L Hct 33.3 L MCV 102.5 H MCH 33.8 MCHC 33.0 RDW 15.9 H Plt Count 73 L MPV 9.9 Immature Gran % (Auto) 0.0 Neut % (Auto) 65.5 Lymph % (Auto) 20.0 [place] % (Auto) 11.2 H Eos % (Auto) 2.8 Baso % (Auto) 0.5 Lymph # (Auto) 0.43 L [place] # (Auto) 0.2 Eos # (Auto) 0.1 Baso # (Auto) 0.0 Abs Immat Gran (auto) 0.00 Absolute Neuts (auto) 1.4 Absolute Nucleated RBC 0.000 Nucleated RBC % 0.0 % Immature Plt Fraction 5.6 Sodium 135 L Potassium 3.4 Chloride 105 Carbon Dioxide 25 Anion Gap 5 BUN 4 L Creatinine 0.70 Estim Creat Clear Calc 66 Estimated GFR > 60 Glucose 101 POC Capillary Glucose 107 H 93 Calcium 8.2 L Phosphorus 1.6 L Magnesium 1.9 Total Bilirubin 1.0 AST 59 H ALT
--- NOTE | 2023-12-27 08:56 | PC.NURSE ---
Stool cx, Giardia and Crypto are all negatie. Dr. Davi oseguera.
== END 2023-12-25 13:50 | disposition home or self-care (01) ==
LOC: ANHED 17:42 → ANHIMU 18:21 → ANH3MEDSUR 12-24 18:18
PROVIDERS: Internal Medicine; Physician Assistant; Admitting Provider Internal Medicine; Emergency Provider Emergency Medicine; PCP Family Medicine; Visit Provider Internal Medicine
DX: K52.9 Noninfective gastroenteritis and colitis, unspecified (principal); F10.139 Alcohol abuse with withdrawal, unspecified; G40.89 Other seizures; D61.818 Other pancytopenia; R74.01 Elevation of levels of liver transaminase levels; D64.9 Anemia, unspecified; E55.9 Vitamin D deficiency, unspecified; M81.0 Age-related osteoporosis without current pathological fracture; K21.9 Gastro-esophageal reflux disease without esophagitis; I10 Essential (primary) hypertension; E78.5 Hyperlipidemia, unspecified; Z87.891 Personal history of nicotine dependence; Z79.899 Other long term (current) drug therapy
CPT/HCPCS: 36415; 74177; 80048; 80053; 80307; 81001; 82948; 83690; 83735; 84100; 85025; 85027; 85055; 85610; 87045; 87269; 87272; 87427; 87449; 87493; 93005; 96361; 96365; 96366; 96367; 96374; 96375; 96376; 99285; A9270; C9113; G0378; J0696; J1836; J2060; J2405; J3411; J3475; J3480; J7030; J7040; Q9967

== ENCOUNTER 2023-12-29 08:48 | Outpatient (CLI) | payer OTHER, SELFPAY ==
[2023-12-29 20:15] LABS: Hematocrit 37.9 % (37.0-47.0); Hemoglobin 12.1 g/dL (12.0-15.0); Mean Corpuscular HGB Conc 31.9 g/dl (32-36); Mean Corpuscular Hemoglobin 34.1 pg (26-34); Mean Corpuscular Volume 106.8 fl (80-100); Mean Platelet Volume 10.7 fl (7.4-10.4); Platelet Count Result 124 k/mm3 (150-375); Red Blood Count 3.55 M/mm3 (4.2-5.4); Red Cell Distribution Width 16.3 % (11.5-14.5); White Blood Count 2.5 K/mm3 (4.5-10.0)
[2023-12-29 20:36] LABS: LDL Cholesterol Direct 52 mg/dL
[2023-12-29 20:38] LABS: Alanine Aminotransferase 72 U/L (6-35); Albumin Level 4.4 g/dL (3.5-5.1); Alkaline Phosphatase 57 U/L (38-126); Anion Gap 8 mmol/L (4-12); Aspartate Amino Transferase 131 U/L (14-36); Bilirubin,Total 0.7 mg/dL (0.2-1.3); Blood Urea Nitrogen 9 mg/dL (7-17); Calcium 10.1 mg/dL (8.4-10.2); Carbon Dioxide 25 mmol/L (22-30); Chloride 104 mmol/L (98-107); Cholesterol 245 mg/dL (0-200); Estimated Glomerular Filt Rate 57; Glucose 98 mg/dL (65-110); Potassium 3.9 mmol/L (3.4-5.0); Sodium 137 mmol/L (137-145); Triglycerides 52 mg/dL (<150)
[2023-12-29 20:42] LABS: Vitamin D 25 Hydroxy 67.3 ng/mL
[2023-12-29 21:45] LABS: HDL Direct 163 mg/dL
== END 2023-12-29 08:49 | disposition home or self-care (01) ==
LOC: ANHGOSHLAB 08:49
PROVIDERS: PCP Family Medicine; Visit Provider Nurse Practitioner
DX: Z00.00 Encounter for general adult medical examination without abnormal findings (principal); E55.9 Vitamin D deficiency, unspecified
CPT/HCPCS: 36415; 80053; 80061; 82306; 84443; 85027

== ENCOUNTER 2024-01-18 13:25 | Outpatient (CLI) | payer OTHER, SELFPAY ==
--- NOTE | ~2024-01-18 | MM_ITS ---
EXAMINATION: MM screening saman BI w angela HISTORY: Screening TECHNIQUE: Craniocaudal and mediolateral oblique 3-D tomosynthesis images were obtained and synthetic 2-D images were generated. CAD analysis was submitted and interpreted. COMPARISON: Comparison to multiple prior studies sequentially, with oldest reviewed study dated 10/2018. BREAST PARENCHYMAL COMPOSITION: Not dense: There are scattered areas of fibroglandular density. FINDINGS: There is no evidence of suspicious mass, calcification, or architectural distortion to sugg est malignancy in either breast. There has been no suspicious interval change. IMPRESSION: 1. No mammographic evidence of malignancy. 2. Recommend routine screening mammography in one year. BI-RADS Category 1: Negative Reviewed, dictated and finalized at location A.
== END 2024-01-18 13:26 | disposition home or self-care (01) ==
PROVIDERS: PCP Family Medicine; Visit Provider Family Medicine
DX: Z12.31 Encounter for screening mammogram for malignant neoplasm of breast (principal)
CPT/HCPCS: 77063; 77067; 96372; J0897

== ENCOUNTER 2024-04-05 16:47 | Observation (INO) | payer OTHER, SELFPAY ==
[2024-04-05] VITALS (27 sets, daily range): BP systolic 113–142; BP diastolic 75–102; PULSE 71–103; RESP 11–34; TEMP 37.1–37.2; O2SAT 97–100; BMI 25.8
--- NOTE | ~2024-04-05 | US_ITS ---
EXAMINATION: US abdomen limited DATE: 04/07/2024 09:54 INDICATION: Abnormal liver function tests. TECHNIQUE: Multiple grayscale and Doppler ultrasound images of the abdomen were obtained. COMPARISON: CT abdomen and pelvis 12/23/2023 FINDINGS: The visualized portions of the head and body of the pancreas are normal. There is diffuse h epatic steatosis. There is normal flow in main portal vein. The gallbladder is normal in size. No gal lstones or gallbladder wall thickening. There is no sonographic Olmstead's sign. The common duct is nor mal and measures 3 mm. IMPRESSION: 1. Diffuse hepatic steatosis. Reviewed, dictated and finalized at location E.
--- NOTE | ~2024-04-05 | XR_ITS ---
XR chest 1V portable Ordering provider: Dutch Andino MD History: 58 years Female with . chest pain . Comparison: September 21, 2023 FINDINGS: MEDIASTINUM: The cardiac silhouette is not enlarged. LUNGS: No infiltrates, effusions or pneumothorax. OTHER: No free air under the diaphragm. Degenerative spine with mild dextroscoliosis. IMPRESSION: No acute cardiopulmonary pathology. Reviewed, dictated and finalized at location A.
--- NOTE | 2024-04-05 16:53 | ECG_ITS ---
Test Date: 2024-04-05 17:09:24 Measurements Intervals [place] Rate: 77 P: 34 CA: 120 QRS: 22 QRSD: 90 T: 42 QT: 534 QTc: 606 Interpretive Statements SINUS RHYTHM PROLONGED QT INTERVAL No previous ECG available for comparison Electronically Signed On 04-07-2024 13:20:38 CDT by Gianfranco Rodrigues M.D.
--- NOTE | 2024-04-05 17:19 | PC.NURSE ---
pt reports drinking a pint or more a day
[2024-04-05 17:23] LABS: Basophils Percent Auto 0.2 % (0.2-1.2); Hematocrit 37.1 % (37.0-47.0); Hemoglobin 13.3 g/dL (12.0-15.0); Immature Granulocyte Absolute 0.02 K/mm3 (0.00-0.031); Immature Granulocyte Percent A 0.5 % (0-0.5); Lymphocytes Absolute Auto 0.36 K/mm3 (0.9-3.2); Lymphocytes Percent Auto 8.5 % (18.3-44.2); Mean Corpuscular HGB Conc 35.8 g/dl (32-36); Mean Corpuscular Hemoglobin 32.9 pg (26-34); Mean Corpuscular Volume 91.8 fl (80-100); Mean Platelet Volume 9.4 fl (7.4-10.4); Monocytes Absolute Auto 0.3 K/mm3 (0.1-0.6); Monocytes Percent Auto 7.3 % (2.6-8.5); Neutrophils Absolute Auto 3.5 K/mm3 (1.3-6.7); Neutrophils Percent Auto 83.5 % (45.5-73.1); Platelet Count Result 112 k/mm3 (150-375); Red Blood Count 4.04 M/mm3 (4.2-5.4); Red Cell Distribution Width 12.9 % (11.5-14.5); White Blood Count 4.2 K/mm3 (4.5-10.0)
[2024-04-05 17:36] LABS: Partial Thromboplastin Time 23.3 Seconds (22.3-36.8)
[2024-04-05] MEDS: THIAMINE HCL 200 MG/2 ML VIAL 300 MG IV PUSH (17:42)
[2024-04-05] MEDS: DEXTROSE 5%/LACTATED RINGERS 1,000 ML 1000 ML IV CONT (17:42)
[2024-04-05 17:43] LABS: Alanine Aminotransferase 93 U/L (6-35); Albumin Level 4.9 g/dL (3.5-5.1); Alkaline Phosphatase 103 U/L (38-126); Anion Gap 22 mmol/L (4-12); Aspartate Amino Transferase 195 U/L (14-36); Bilirubin,Total 1.6 mg/dL (0.2-1.3); Blood Urea Nitrogen 12 mg/dL (7-17); Calcium 7.8 mg/dL (8.4-10.2); Carbon Dioxide 20 mmol/L (22-30); Chloride 87 mmol/L (98-107); Estimated CRCL calculation 66 ml/min; Estimated Glomerular Filt Rate > 60; Glucose 132 mg/dL (65-110); Lipase 208 U/L (23-300); Magnesium 1.6 mg/dL (1.6-2.3); Potassium 2.9 mmol/L (3.4-5.0); Sodium 129 mmol/L (137-145)
[2024-04-05 17:54] LABS: Troponin I 0.014 ng/mL (0.000-0.034)
[2024-04-05] MEDS: THERAPEUTIC MULTIVITAMINS/MINERALS TAB (*BKC) 1 TABLET PO (18:12)
[2024-04-05] MEDS: PHENobarbitaL sodium (*CRX) 130 MG/ML VIAL 650 MG IV PUSH (18:12)
[2024-04-05] MEDS: FOLIC ACID 0.4 MG TABLET PO (18:12)
[2024-04-05] MEDS: MAGNESIUM SULF 4 GM/WATER100ML 4 GM/100 ML BAG IVPB (18:34)
[2024-04-05 19:09] LABS: Ethanol < 10 mg/dL (<10)
[2024-04-05] MEDS: POTASSIUM CHLORIDE 20 MEQ PACKET (FOR LIQUID) 40 MEQ PO (19:40)
[2024-04-05] MEDS: POTASSIUM CHLORIDE INJ 40 MEQ in SODIUM CHLORIDE 0.9% IV 500 ML 130 MEQ IVPB (19:40)
--- NOTE | 2024-04-05 20:26 | ED.CHESTPAIN ---
HPI - Chest Pain General Chief Complaint: Chest Pain Stated Complaint: left side CP, ETOH withdrawal Time Seen by Provider: 04/05/24 17:00 History of Present Illness HPI narrative: This is a 58-year-old female with a past medical history significant for alcohol abuse. She has had alcohol withdrawal in the past. She states that she is about 24 hours out from her last alcoholic intake. She feels like she is having diffuse tremors in both arms and legs as well as anxiety, nauseousness with retching sensation. She is exhibiting some chest discomfort as 5/10 intensity and in the center of her chest more so on the left side. Pain does not radiate anywhere. Pain is not constant sensation not associated with a difficulty breathing, headache, back pain, abdominal pain. She states she has had pain like this whenever she gets into withdrawals. She states that she has previously gone through recovery program but is not presently enrolled or seeking attention to that. She states she has had some decreased p.o. intake from the nauseousness. Denies any fever, chills. No injuries or trauma. Related Data Home Medications Medication Instructions Recorded Confirmed ascorbic acid (vitamin C) 500 mg 500 mg PO DAILY 02/22/21 04/05/24 tablet,extended release calcium 100 mg capsule 100 mg PO DAILY 05/17/23 04/05/24 ferrous sulfate 325 mg (65 mg 325 mg PO DAILY 05/17/23 04/05/24 iron) tablet vitamin B complex 1 tablet PO DAILY 05/17/23 04/05/24 cetirizine 10 mg tablet (Zyrtec) 10 mg PO PRN PRN Allergy Symptoms 06/27/23 04/05/24 Allergies Allergy/AdvReac Type Severity Reaction Status Date / Time Penicillins Allergy Unknown Skin Verified 04/05/24 17:18 irritation prednisone Allergy Rash Verified 04/05/24 17:18 bacitracin AdvReac Mild Swelling Verified 04/05/24 17:18 [From Neosporin ([id number])] neomycin AdvReac Mild Swelling Verified 04/05/24 17:18 [From Neosporin ([id number])] polymyxin B AdvReac Mild Swelling Verified 04/05/24 17:18 [From Neosporin ([id number])] codeine AdvReac Unknown Headache Verified 04/05/24 17:18 Review of Systems Review of Systems: As reviewed above in the HPI [facility] Past Medical History Medical History Alcohol abuse Anemia Compression fracture of thoracic spine, non-traumatic (11/2021) Dyslipidemia Environmental allergies Essential (primary) hypertension GERD without esophagitis History of pancreatitis 04/2023, 04/2019 - due to alcohol abuse Osteoporosis Pancytopenia Pneumonia Seizure (11/2021) due to alcohol abuse Thoracic compression fracture (11/2021) Vitamin D deficiency Wears glasses Surgical History Surgical History History of cataract surgery History of repair of rotator cuff Left shoulder 2014 Right shoulder 2018 History of tubal ligation (1995) Family History Family History Father Family history of kidney disease Diabetes mellitus Hypertension Mother Family history of cardiovascular disease Diabetes mellitus Cerebrovascular accident HLD (hyperlipidemia) Hypertension Neuropathy Other Heart disease [place] cell cancer Social History Social History Social History: Surrogate medical decision maker: Sukhi Crawford, spouse. Code status: Full code. Smoking packs per day: 1 Smoking cigarettes per day: 20.0 Years smoked: 15 Smoking pack-years: 15.00 Smoking status: Former smoker Tobacco type: cigarettes Second hand tobacco smoke exposure: No Smoking end date: 08/28/13 Additional smoking assessment comments: Quit smoking 09/2003 Alcohol intake: current Drinks per week: 56 Alcohol use details: Patient reports that she currently drinks 5 alcoholic bevera
[2024-04-05 20:31] LABS: Anion Gap 12 mmol/L (4-12); Blood Urea Nitrogen 10 mg/dL (7-17); Calcium 7.5 mg/dL (8.4-10.2); Carbon Dioxide 29 mmol/L (22-30); Chloride 87 mmol/L (98-107); Estimated CRCL calculation 76 ml/min; Estimated Glomerular Filt Rate > 60; Glucose 182 mg/dL (65-110); Potassium 2.8 mmol/L (3.4-5.0); Sodium 128 mmol/L (137-145)
[2024-04-05 20:41] LABS: Troponin I 0.018 ng/mL (0.000-0.034)
--- NOTE | 2024-04-05 20:58 | PM.IMHP ---
H&P: HPI History of Present Illness Date/Time: 04/05/24 20:58 Chief Complaint: n/v Narrative: This is a 58-year-old female with past medical history significant for alcohol dependence, presents to the emergency room with nausea vomiting and tremors. Patient has been drinking a pt of vodka daily. Denies any fevers, rigors, chills, cough, sputum production. Preliminary workup was significant for sodium 128 potassium 2.8 chloride 80. Patient has been placed in observation. XR chest 1V portable Ordering provider: Dutch Andino MD History: 58 years Female with . chest pain . Comparison: September 21, 2023 FINDINGS: MEDIASTINUM: The cardiac silhouette is not enlarged. LUNGS: No infiltrates, effusions or pneumothorax. OTHER: No free air under the diaphragm. Degenerative spine with mild dextroscoliosis. IMPRESSION: No acute cardiopulmonary pathology.XR chest 1V portable Review of Systems Review of Systems: n/v/tremors PMFSH Past Medical History Medical History Alcohol abuse Anemia Compression fracture of thoracic spine, non-traumatic (11/2021) Dyslipidemia Environmental allergies Essential (primary) hypertension GERD without esophagitis History of pancreatitis 04/2023, 04/2019 - due to alcohol abuse Osteoporosis Pancytopenia Pneumonia Seizure (11/2021) due to alcohol abuse Thoracic compression fracture (11/2021) Vitamin D deficiency Wears glasses Surgical History Surgical History History of cataract surgery History of repair of rotator cuff Left shoulder 2014 Right shoulder 2018 History of tubal ligation (1995) Family History Family History Father Family history of kidney disease Diabetes mellitus Hypertension Mother Family history of cardiovascular disease Diabetes mellitus Cerebrovascular accident HLD (hyperlipidemia) Hypertension Neuropathy Other Heart disease Lovejoy cell cancer Social History Social History Social History: Surrogate medical decision maker: Sukhi Ty, spouse. Code status: Full code. Smoking packs per day: 1 Smoking cigarettes per day: 20.0 Years smoked: 15 Smoking pack-years: 15.00 Smoking status: Former smoker Tobacco type: cigarettes Second hand tobacco smoke exposure: No Smoking end date: 08/28/13 Additional smoking assessment comments: Quit smoking 09/2003 Alcohol intake: current Drinks per week: 56 Alcohol use details: Patient reports that she currently drinks 5 alcoholic beverages a day. Substance use: current Substance use type: marijuana Other substance usage details: last drink 3 weeks ago Do You Feel Safe in your Home?: Yes Lack of Transportation: No Lack of Food: Never True Current Housing: I Have Housing Concerned About Future Housing: No Difficulty Paying Gas/Electric Bills: No Difficulty Paying for Meds: No Currently Unemployed: No Education: Associate Degree Difficulty w/ Childcare or Family Care: No Living arrangements: with family Occupation/Education: unemployed Spiritual care concerns: No Meds Home Medications and Allergies Home Medications Medication Instructions Recorded Confirmed Type ascorbic acid (vitamin C) 500 mg 500 mg PO DAILY 02/22/21 04/05/24 History tablet,extended release denosumab 60 mg/mL subcutaneous 60 mg subcut [id number] #1 mL 04/10/23 04/05/24 Rx syringe (Prolia) calcium 100 mg capsule 100 mg PO DAILY 05/17/23 04/05/24 History ferrous sulfate 325 mg (65 mg 325 mg PO DAILY 05/17/23 04/05/24 History iron) tablet vitamin B complex 1 tablet PO DAILY 05/17/23 04/05/24 History cetirizine 10 mg tablet (Zyrtec) 10 mg PO PRN PRN Allergy Symptoms 06/27/23 04/05/24 History
[2024-04-05] MEDS: ONDANSETRON INJ 4 MG/2 ML VIAL IV PUSH (22:12)
--- NOTE | 2024-04-05 22:38 | ADMGEN ---
This patient, Maria Fernanda Crawford, was admitted to [facility] Surg Room 304-02. Patient/family oriented to hospital policies and general routines including ID bracelet, bed and alarms, visiting hours, pain management, procedures, bathroom and other care routines, personal items, smoking policy, room service/diet, and visiting hours. Information on how to activate the Rapid Response Team has been discussed. Patient/Family are encouraged to report perceived risks to care and to ask questions if they do not understand what they are told or what they should do.
[2024-04-05 23:45] LABS: Troponin I 0.018 ng/mL (0.000-0.034)
[2024-04-06] VITALS (10 sets, daily range): BP systolic 93–146; BP diastolic 60–81; PULSE 67–90; RESP 14–20; TEMP 36.1–37.1; O2SAT 95–100
[2024-04-06 00:10] LABS: Glucose Point of Care 101 mg/dl (65-105)
[2024-04-06 06:21] LABS: Basophils Percent Auto 0.3 % (0.2-1.2); Eosinophils Absolute Auto 0.1 K/mm3 (0-0.3); Eosinophils Percent Auto 2.3 % (0-4.4); Hematocrit 35.8 % (37.0-47.0); Hemoglobin 12.1 g/dL (12.0-15.0); Immature Granulocyte Absolute 0.01 K/mm3 (0.00-0.031); Immature Granulocyte Percent A 0.3 % (0-0.5); Immature Platelet Fraction Pct 4.3 % (0.9-11.2); Lymphocytes Absolute Auto 0.44 K/mm3 (0.9-3.2); Lymphocytes Percent Auto 14.3 % (18.3-44.2); Mean Corpuscular HGB Conc 33.8 g/dl (32-36); Mean Corpuscular Hemoglobin 31.8 pg (26-34); Mean Corpuscular Volume 94.2 fl (80-100); Mean Platelet Volume 9.8 fl (7.4-10.4); Monocytes Absolute Auto 0.3 K/mm3 (0.1-0.6); Monocytes Percent Auto 9.1 % (2.6-8.5); Neutrophils Absolute Auto 2.3 K/mm3 (1.3-6.7); Neutrophils Percent Auto 73.7 % (45.5-73.1); Platelet Count Result 85 k/mm3 (150-375); Red Cell Distribution Width 13.1 % (11.5-14.5); White Blood Count 3.1 K/mm3 (4.5-10.0)
[2024-04-06 06:28] LABS: Anion Gap 11 mmol/L (4-12); Blood Urea Nitrogen 8 mg/dL (7-17); Carbon Dioxide 29 mmol/L (22-30); Chloride 89 mmol/L (98-107); Estimated CRCL calculation 66 ml/min; Estimated Glomerular Filt Rate > 60; Glucose 107 mg/dL (65-110); Magnesium 2.3 mg/dL (1.6-2.3); Phosphorus 1.2 mg/dL (2.5-4.5); Potassium 3.2 mmol/L (3.4-5.0); Sodium 129 mmol/L (137-145)
[2024-04-06 06:30] LABS: INR 1.1
[2024-04-06] MEDS: chlordiazePOXIDE (*CRX) 25 MG CAPSULE 50 MG PO ×4 (06:54→23:39)
[2024-04-06] MEDS: TRIMETHOBENZAMIDE HCL 200 MG/2 ML VIAL IM (06:54)
[2024-04-06] MEDS: DEXTROSE 5%/0.45% SOD CHL 1,000 ML 125 ML IV CONT ×2 (06:55→20:14)
[2024-04-06] MEDS: METOPROLOL SUCCINATE EXT REL 25 MG TABCR PO (08:12)
[2024-04-06] MEDS: PANTOPRAZOLE SOD SESQUIHYDRATE 20 MG TAB PO (08:12)
[2024-04-06] MEDS: FERROUS SULFATE 325 MG TABLET DR BY MOUTH (08:12)
[2024-04-06] MEDS: POTASSIUM CHLORIDE 20 MEQ ER TABLET 40 MEQ PO (08:12)
[2024-04-06] MEDS: POTASSIUM PHOS,M-BASIC-D-BASIC 20 MMOL in SODIUM CHLORIDE 0.9% IV 250 ML 64.17 MMOL IVPB (08:22)
[2024-04-06] MEDS: THIAMINE HCL INJ 300 MG in SODIUM CHLORIDE 0.9% IV 100 ML 206 MG IVPB (09:24)
[2024-04-06 10:09] LABS: Bilirubin,Total 1.3 mg/dL (0.2-1.3)
--- NOTE | 2024-04-06 10:55 | P.PNIM_ITS ---
Progress Note: A&P Assessment and Plan (1) Alcohol withdrawal: Code(s): F10.939 - Alcohol use, unspecified with withdrawal, unspecified Status: Acute Assessment and Plan: 04/06/24: * Patient received phenobarbital while in the ED * Continue CIWA protocol * Continue neuro checks * Continue thiamine and folic acid * Continue nausea control (2) Acute hypokalemia: Code(s): E87.6 - Hypokalemia Status: Acute Assessment and Plan: 04/06/24: * Likely secondary to alcoholism and dehydration from nausea and vomiting * Potassium initially 2.8 now to 3.2 * Phosphorus 1.2 * 20 mmol of K-Phos given * 40 mEq of potassium given * Continue to trend (3) Hyponatremia: Code(s): E87.1 - Hypo-osmolality and hyponatremia Status: Acute Assessment and Plan: 04/06/24: * Likely secondary to alcohol abuse and dehydration * Sodium 129 * Continue to trend (4) Hepatic steatosis: Code(s): K76.0 - Fatty (change of) liver, not elsewhere classified Status: Acute Assessment and Plan: 04/06/24: * Likely due to alcohol abuse * Initial bilirubin 1.6, now down to 1.3 * AST 195, ALT 93 * Will obtain hepatitis panel and ultrasound of abdomen limited (5) Transaminitis: Code(s): R74.01 - Elevation of levels of liver transaminase levels Status: Acute Assessment and Plan: see above (6) Pancytopenia: Code(s): D61.818 - Other pancytopenia Status: Acute Assessment and Plan: 04/06/24: * White blood cell count 3.1, RBC 3.8, platelet count 85 * Likely secondary to alcoholism with alcoholic liver disease * Hepatitis panel and ultrasound of abdomen, limited ordered for today * Will check folate levels, lactate dehydrogenase, TSH pending pending * Vitamin B12 996 * Liver enzymes show an AST of 195, ALT 93 initially * Total bili 1.6 now down to 1.3 (7) GERD without esophagitis: Code(s): K21.9 - Gastro-esophageal reflux disease without esophagitis Status: Acute Assessment and Plan: 04/06/24: * Will start Protonix Time Spent With Patient Time with patient: 25 - 35 minutes Subjective Date/time seen: 04/06/24 10:55 Interval history: Interval history: This is a 58-year-old female who presented to the [facility] 04/05/2024 with complaints of left-sided chest pain and alcohol withdrawal. She stated that her last alcohol intake was 24 hours prior to admission. Workup in the hospital included a chest x-ray which was negative. Initial labs showed a white blood cell count of 4.2, RBC 4.04, platelet count 112, sodium 129, potassium 2.9, chloride 87, bicarb 20, total bili 1.6, AST 195, ALT 93, troponin 0.014> 0.018, lipase 208, vitamin B12 996. Patient was given 4 g of Mag, IV fluids, phenobarbital, folic acid, potassium while in the ED. 04/06/24: Patient states that she has went through alcohol withdrawal before and has had seizures in the past. She denies any hallucinations, or tremors. Patient denies any fever, chills, diarrhea, abdominal pain, chest pain, shortness a breath. She reports mild headache and 1 episode of nausea and vomiting this morning. Review of Systems Review of Systems: All systems reviewed & are unremarkable except as noted in HPI and below Constitutional: Constitutional: Reports as per HPI and Reports no additional constitutional complaints Eyes: Eyes: Reports as per HPI and Reports no additional eye complaints ENT: Reports system reviewed and no additional complaints, except as documented and Repor
--- NOTE | 2024-04-06 10:55 | PM.IMPN ---
Progress Note: A&P Assessment and Plan (1) Alcohol withdrawal: Code(s): F10.939 - Alcohol use, unspecified with withdrawal, unspecified Status: Acute Assessment and Plan: 04/06/24: Patient received phenobarbital while in the ED Continue CIWA protocol Continue neuro checks Continue thiamine and folic acid Continue nausea control (2) Acute hypokalemia: Code(s): E87.6 - Hypokalemia Status: Acute Assessment and Plan: 04/06/24: Likely secondary to alcoholism and dehydration from nausea and vomiting Potassium initially 2.8 now to 3.2 Phosphorus 1.2 20 mmol of K-Phos given 40 mEq of potassium given Continue to trend (3) Hyponatremia: Code(s): E87.1 - Hypo-osmolality and hyponatremia Status: Acute Assessment and Plan: 04/06/24: Likely secondary to alcohol abuse and dehydration Sodium 129 Continue to trend (4) Hepatic steatosis: Code(s): K76.0 - Fatty (change of) liver, not elsewhere classified Status: Acute Assessment and Plan: 04/06/24: Likely due to alcohol abuse Initial bilirubin 1.6, now down to 1.3 AST 195, ALT 93 Will obtain hepatitis panel and ultrasound of abdomen limited (5) Transaminitis: Code(s): R74.01 - Elevation of levels of liver transaminase levels Status: Acute Assessment and Plan: see above (6) Pancytopenia: Code(s): D61.818 - Other pancytopenia Status: Acute Assessment and Plan: 04/06/24: White blood cell count 3.1, RBC 3.8, platelet count 85 Likely secondary to alcoholism with alcoholic liver disease Hepatitis panel and ultrasound of abdomen, limited ordered for today Will check folate levels, lactate dehydrogenase, TSH pending pending Vitamin B12 996 Liver enzymes show an AST of 195, ALT 93 initially Total bili 1.6 now down to 1.3 (7) GERD without esophagitis: Code(s): K21.9 - Gastro-esophageal reflux disease without esophagitis Status: Acute Assessment and Plan: 04/06/24: Will start Protonix Time Spent With Patient Time with patient: 25 - 35 minutes Subjective Date/time seen: 04/06/24 10:55 Interval history: Interval history: This is a 58-year-old female who presented to the Heart 04/05/2024 with complaints of left-sided chest pain and alcohol withdrawal. She stated that her last alcohol intake was 24 hours prior to admission. Workup in the hospital included a chest x-ray which was negative. Initial labs showed a white blood cell count of 4.2, RBC 4.04, platelet count 112, sodium 129, potassium 2.9, chloride 87, bicarb 20, total bili 1.6, AST 195, ALT 93, troponin 0.014> 0.018, lipase 208, vitamin B12 996. Patient was given 4 g of Mag, IV fluids, phenobarbital, folic acid, potassium while in the ED. 04/06/24: Patient states that she has went through alcohol withdrawal before and has had seizures in the past. She denies any hallucinations, or tremors. Patient denies any fever, chills, diarrhea, abdominal pain, chest pain, shortness a breath. She reports mild headache and 1 episode of nausea and vomiting this morning. Review of Systems Review of Systems: All systems reviewed & are unremarkable except as noted in HPI and below Constitutional: Constitutional: Reports as per HPI and Reports no additional constitutional complaints Eyes: Eyes: Reports as per HPI and Reports no additional eye complaints ENT: Reports system reviewed and no additional complaints, except as documented and Reports as per HPI Cardiovascular: Cardiovascular: Reports as per HPI and Reports no additional cardiovascular complaints Respiratory: Respiratory: Reports as per HPI and Reports no additional respiratory complaints Gastrointestinal: Gastrointestinal: Reports as per HPI and Reports no additional gastrointestinal complaints Genitourinary: Genitourinary: Reports no additional female genitourinary complaints and Reports as per HPI Musculoskeletal: Musculo
[2024-04-06 12:04] LABS: Lactate Dehydrogenase 298 U/L (120-246)
[2024-04-06 12:42] LABS: Glucose Point of Care 137 mg/dl (65-105)
[2024-04-06] MEDS: ATORVASTATIN 40 MG TABLET PO (20:14)
[2024-04-06 23:56] LABS: Glucose Point of Care 106 mg/dl (65-105)
[2024-04-07] VITALS (8 sets, daily range): BP systolic 88–116; BP diastolic 45–74; PULSE 67–93; RESP 16–18; TEMP 35.3–36.9; O2SAT 95–100
[2024-04-07] MEDS: DEXTROSE 5%/0.45% SOD CHL 1,000 ML 125 ML IV CONT (05:50)
[2024-04-07] MEDS: chlordiazePOXIDE (*CRX) 25 MG CAPSULE 50 MG PO ×4 (05:50→23:00)
[2024-04-07 06:13] LABS: Eosinophils Absolute Auto 0.1 K/mm3 (0-0.3); Eosinophils Percent Auto 3.8 % (0-4.4); Hematocrit 34.7 % (37.0-47.0); Hemoglobin 11.9 g/dL (12.0-15.0); Immature Granulocyte Absolute 0.01 K/mm3 (0.00-0.031); Immature Granulocyte Percent A 0.4 % (0-0.5); Immature Platelet Fraction Pct 5.1 % (0.9-11.2); Lymphocytes Absolute Auto 0.76 K/mm3 (0.9-3.2); Lymphocytes Percent Auto 31.9 % (18.3-44.2); Mean Corpuscular HGB Conc 34.3 g/dl (32-36); Mean Corpuscular Volume 96.1 fl (80-100); Mean Platelet Volume 10.4 fl (7.4-10.4); Monocytes Absolute Auto 0.2 K/mm3 (0.1-0.6); Monocytes Percent Auto 9.7 % (2.6-8.5); Neutrophils Absolute Auto 1.3 K/mm3 (1.3-6.7); Neutrophils Percent Auto 54.2 % (45.5-73.1); Platelet Count Result 71 k/mm3 (150-375); Red Blood Count 3.61 M/mm3 (4.2-5.4); Red Cell Distribution Width 13.1 % (11.5-14.5); White Blood Count 2.4 K/mm3 (4.5-10.0)
[2024-04-07 06:15] LABS: Glucose Point of Care 131 mg/dl (65-105)
[2024-04-07 06:45] LABS: Alanine Aminotransferase 63 U/L (6-35); Albumin Level 3.7 g/dL (3.5-5.1); Alkaline Phosphatase 72 U/L (38-126); Anion Gap 9 mmol/L (4-12); Aspartate Amino Transferase 89 U/L (14-36); Bilirubin,Total 0.8 mg/dL (0.2-1.3); Blood Urea Nitrogen 5 mg/dL (7-17); Calcium 6.7 mg/dL (8.4-10.2); Carbon Dioxide 28 mmol/L (22-30); Chloride 96 mmol/L (98-107); Estimated CRCL calculation 66 ml/min; Estimated Glomerular Filt Rate > 60; Glucose 121 mg/dL (65-110); Potassium 2.8 mmol/L (3.4-5.0); Sodium 133 mmol/L (137-145)
--- NOTE | 2024-04-07 07:41 | P.PNIM_ITS ---
Progress Note: A&P Assessment and Plan (1) Alcohol withdrawal: Code(s): F10.939 - Alcohol use, unspecified with withdrawal, unspecified Status: Acute Assessment and Plan: 04/06/24: * Patient received phenobarbital while in the ED * Continue CIWA protocol * Continue neuro checks * Continue thiamine and folic acid * Continue nausea control 04/07/24: * Continue CIWA protocol (2) Acute hypokalemia: Code(s): E87.6 - Hypokalemia Status: Acute Assessment and Plan: 04/06/24: * Likely secondary to alcoholism and dehydration from nausea and vomiting * Potassium initially 2.8 now to 3.2 * Phosphorus 1.2 * 20 mmol of K-Phos given * 40 mEq of potassium given * Continue to trend 04/07/24: * Potassium today is 2.8 * Will give 40 mEq of potassium IV and 40 mEq of potassium oral * Magnesium 2.0 * Continue to trend * Continue telemetry monitoring * Concise a lean lock IV once taking p.o. (3) Hyponatremia: Code(s): E87.1 - Hypo-osmolality and hyponatremia Status: Acute Assessment and Plan: 04/06/24: * Likely secondary to alcohol abuse and dehydration * Sodium 129 * Continue to trend 04/07/24: * Sodium 133 today * Continue to trend (4) Hepatic steatosis: Code(s): K76.0 - Fatty (change of) liver, not elsewhere classified Status: Acute Assessment and Plan: 04/06/24: * Likely due to alcohol abuse * Initial bilirubin 1.6, now down to 1.3 * AST 195, ALT 93 * Will obtain hepatitis panel and ultrasound of abdomen limited 04/07/24: * Total bilirubin 0.8 * AST 89, ALT 63 * Hepatic panel negative * Ultrasound of abdomen showing diffuse hepatic steatosis (5) Transaminitis: Code(s): R74.01 - Elevation of levels of liver transaminase levels Status: Acute Assessment and Plan: see above (6) Pancytopenia: Code(s): D61.818 - Other pancytopenia Status: Acute Assessment and Plan: 04/06/24: * White blood cell count 3.1, RBC 3.8, platelet count 85 * Likely secondary to alcoholism with alcoholic liver disease * Hepatitis panel and ultrasound of abdomen, limited ordered for today * Will check folate levels, lactate dehydrogenase, TSH pending pending * Vitamin B12 996 * Liver enzymes show an AST of 195, ALT 93 initially * Total bili 1.6 now down to 1.3 04/07/24: * White blood cell count 2.4, RBC 3.61, platelet count 71 * Will get Hematology/Oncology consult today (7) GERD without esophagitis: Code(s): K21.9 - Gastro-esophageal reflux disease without esophagitis Status: Acute Assessment and Plan: 04/06/24: * Will start Protonix 04/07/24: * No change to current treatment plan Time Spent With Patient Time with patient: 15 - 25 minutes Subjective Date/time seen: 04/07/24 07:41 Interval history: Interval history: This is a 58-year-old female who presented to the Heart 04/05/2024 with complaints of left-sided chest pain and alcohol withdrawal. She stated that her last alcohol intake was 24 hours prior to admission. Workup in the hospital included a chest x-ray which was negative. Initial labs showed a white blood cell count of 4.2, RBC 4.04, platelet count 112, sodium 129, potassium 2.9, chloride 87, bicarb 20, total bili 1.6, AST 195, ALT 93, troponin 0.014> 0.018, lipase 208, vitamin B12 996. Patient was given 4 g of Mag, IV fluids, phenobarbital, folic acid, potassium while in the ED. Ultrasound of abdomen showed diffuse hepatic steatosis. 04/06/24: Patient sta
--- NOTE | 2024-04-07 07:41 | PM.IMPN ---
Progress Note: A&P Assessment and Plan (1) Alcohol withdrawal: Code(s): F10.939 - Alcohol use, unspecified with withdrawal, unspecified Status: Acute Assessment and Plan: 04/06/24: Patient received phenobarbital while in the ED Continue CIWA protocol Continue neuro checks Continue thiamine and folic acid Continue nausea control 04/07/24: Continue CIWA protocol (2) Acute hypokalemia: Code(s): E87.6 - Hypokalemia Status: Acute Assessment and Plan: 04/06/24: Likely secondary to alcoholism and dehydration from nausea and vomiting Potassium initially 2.8 now to 3.2 Phosphorus 1.2 20 mmol of K-Phos given 40 mEq of potassium given Continue to trend 04/07/24: Potassium today is 2.8 Will give 40 mEq of potassium IV and 40 mEq of potassium oral Magnesium 2.0 Continue to trend Continue telemetry monitoring Concise a lean lock IV once taking p.o. (3) Hyponatremia: Code(s): E87.1 - Hypo-osmolality and hyponatremia Status: Acute Assessment and Plan: 04/06/24: Likely secondary to alcohol abuse and dehydration Sodium 129 Continue to trend 04/07/24: Sodium 133 today Continue to trend (4) Hepatic steatosis: Code(s): K76.0 - Fatty (change of) liver, not elsewhere classified Status: Acute Assessment and Plan: 04/06/24: Likely due to alcohol abuse Initial bilirubin 1.6, now down to 1.3 AST 195, ALT 93 Will obtain hepatitis panel and ultrasound of abdomen limited 04/07/24: Total bilirubin 0.8 AST 89, ALT 63 Hepatic panel negative Ultrasound of abdomen showing diffuse hepatic steatosis (5) Transaminitis: Code(s): R74.01 - Elevation of levels of liver transaminase levels Status: Acute Assessment and Plan: see above (6) Pancytopenia: Code(s): D61.818 - Other pancytopenia Status: Acute Assessment and Plan: 04/06/24: White blood cell count 3.1, RBC 3.8, platelet count 85 Likely secondary to alcoholism with alcoholic liver disease Hepatitis panel and ultrasound of abdomen, limited ordered for today Will check folate levels, lactate dehydrogenase, TSH pending pending Vitamin B12 996 Liver enzymes show an AST of 195, ALT 93 initially Total bili 1.6 now down to 1.3 04/07/24: White blood cell count 2.4, RBC 3.61, platelet count 71 Will get Hematology/Oncology consult today (7) GERD without esophagitis: Code(s): K21.9 - Gastro-esophageal reflux disease without esophagitis Status: Acute Assessment and Plan: 04/06/24: Will start Protonix 04/07/24: No change to current treatment plan Time Spent With Patient Time with patient: 15 - 25 minutes Subjective Date/time seen: 04/07/24 07:41 Interval history: Interval history: This is a 58-year-old female who presented to the Heart 04/05/2024 with complaints of left-sided chest pain and alcohol withdrawal. She stated that her last alcohol intake was 24 hours prior to admission. Workup in the hospital included a chest x-ray which was negative. Initial labs showed a white blood cell count of 4.2, RBC 4.04, platelet count 112, sodium 129, potassium 2.9, chloride 87, bicarb 20, total bili 1.6, AST 195, ALT 93, troponin 0.014> 0.018, lipase 208, vitamin B12 996. Patient was given 4 g of Mag, IV fluids, phenobarbital, folic acid, potassium while in the ED. Ultrasound of abdomen showed diffuse hepatic steatosis. 04/06/24: Patient states that she has went through alcohol withdrawal before and has had seizures in the past. She denies any hallucinations, or tremors. Patient denies any fever, chills, diarrhea, abdominal pain, chest pain, shortness a breath. She reports mild headache and 1 episode of nausea and vomiting this morning. 04/07/24: Patient denies any nausea or vomiting overnight. She states she is feeling much better today. She is going to try and advance her diet today. Labs reviewed. Review of Systems Review
[2024-04-07] MEDS: POTASSIUM CHLORIDE INJ 40 MEQ in SODIUM CHLORIDE 0.9% IV 500 ML 130 MEQ IVPB (08:13)
[2024-04-07 08:38] LABS: Hepatitis B Surface Antigen Negative (Negative)
[2024-04-07 08:43] LABS: HAV RESULT Negative (Negative); Hepatitis B Core IgM Result Negative (Negative)
[2024-04-07 08:55] LABS: Hepatitis C Virus Antibody Negative (Negative)
[2024-04-07] MEDS: POTASSIUM CHLORIDE 20 MEQ ER TABLET 40 MEQ PO (10:03)
[2024-04-07] MEDS: FERROUS SULFATE 325 MG TABLET DR BY MOUTH (10:04)
[2024-04-07] MEDS: PANTOPRAZOLE 40 MG TABLET PO (10:04)
[2024-04-07] MEDS: METOPROLOL SUCCINATE EXT REL 25 MG TABCR PO (10:04)
[2024-04-07 12:06] LABS: Glucose Point of Care 99 mg/dl (65-105)
[2024-04-07] MEDS: THIAMINE HCL INJ 300 MG in SODIUM CHLORIDE 0.9% IV 100 ML 206 MG IVPB (12:19)
[2024-04-07] MEDS: THIAMINE HCL 200 MG/2 ML VIAL 400 MG (12:20)
[2024-04-07] MEDS: LOPERAMIDE HCL 2 MG CAPSULE PO (21:39)
[2024-04-07] MEDS: ATORVASTATIN 40 MG TABLET PO (21:40)
[2024-04-07 23:48] LABS: Glucose Point of Care 145 mg/dl (65-105)
[2024-04-08] VITALS (11 sets, daily range): BP systolic 84–123; BP diastolic 60–76; PULSE 64–89; RESP 18–20; TEMP 35.6–36.5; O2SAT 94–100
--- NOTE | 2024-04-08 00:58 | PC.NURSE ---
Spoke with Dr. Gibbs at this time r/t BP. Patient's BP 84/60 at one hour recheck. New order received for NS 250 ml IV bolus.
[2024-04-08] MEDS: SODIUM CHLORIDE 0.9% IV 250 ML IV CONT (01:40)
--- NOTE | 2024-04-08 03:47 | PC.NURSE ---
Spoke with Dr. Gibbs about patient's low BP and increased confusion and lethargy after getting librium. Dr. Gibbs says to hold next dose of librium and re-evaluate.
--- NOTE | 2024-04-08 04:29 | PC.NURSE ---
This nurse precepted Teresa Grajeda RN License Pending. I agree with her assessment and charting.
[2024-04-08 06:31] LABS: Basophils Percent Auto 0.4 % (0.2-1.2); Eosinophils Absolute Auto 0.1 K/mm3 (0-0.3); Hematocrit 32.3 % (37.0-47.0); Hemoglobin 10.9 g/dL (12.0-15.0); Immature Granulocyte Absolute 0.01 K/mm3 (0.00-0.031); Immature Granulocyte Percent A 0.4 % (0-0.5); Immature Platelet Fraction Pct 4.7 % (0.9-11.2); Lymphocytes Absolute Auto 0.65 K/mm3 (0.9-3.2); Lymphocytes Percent Auto 28.6 % (18.3-44.2); Mean Corpuscular HGB Conc 33.7 g/dl (32-36); Mean Corpuscular Hemoglobin 33.1 pg (26-34); Mean Corpuscular Volume 98.2 fl (80-100); Mean Platelet Volume 10.5 fl (7.4-10.4); Monocytes Absolute Auto 0.3 K/mm3 (0.1-0.6); Neutrophils Absolute Auto 1.3 K/mm3 (1.3-6.7); Neutrophils Percent Auto 55.6 % (45.5-73.1); Platelet Count Result 73 k/mm3 (150-375); Red Blood Count 3.29 M/mm3 (4.2-5.4); Red Cell Distribution Width 13.2 % (11.5-14.5); White Blood Count 2.3 K/mm3 (4.5-10.0)
[2024-04-08 06:36] LABS: Glucose Point of Care 82 mg/dl (65-105)
[2024-04-08 06:43] LABS: Alanine Aminotransferase 48 U/L (6-35); Albumin Level 3.3 g/dL (3.5-5.1); Alkaline Phosphatase 66 U/L (38-126); Anion Gap 6 mmol/L (4-12); Aspartate Amino Transferase 55 U/L (14-36); Bilirubin,Total 0.4 mg/dL (0.2-1.3); Blood Urea Nitrogen 5 mg/dL (7-17); Carbon Dioxide 25 mmol/L (22-30); Chloride 103 mmol/L (98-107); Estimated CRCL calculation 66 ml/min; Estimated Glomerular Filt Rate > 60; Glucose 91 mg/dL (65-110); Potassium 3.3 mmol/L (3.4-5.0); Sodium 134 mmol/L (137-145)
[2024-04-08 07:28] LABS: Toxigenic C. Diff POSITIVE (NEGATIVE)
[2024-04-08] MEDS: DEXTROSE 5%/0.45% SOD CHL 1,000 ML 125 ML IV CONT ×2 (08:43)
[2024-04-08] MEDS: METOPROLOL SUCCINATE EXT REL 25 MG TABCR PO (08:44)
[2024-04-08] MEDS: FERROUS SULFATE 325 MG TABLET DR BY MOUTH (08:44)
[2024-04-08] MEDS: FIDAXOMICIN 200 MG TABLET PO ×2 (08:44→21:23)
[2024-04-08] MEDS: PANTOPRAZOLE 40 MG TABLET PO (08:44)
[2024-04-08] MEDS: POTASSIUM CHLORIDE 20 MEQ ER TABLET 40 MEQ PO ×2 (08:45→13:04)
[2024-04-08] MEDS: THIAMINE HCL INJ 300 MG in SODIUM CHLORIDE 0.9% IV 100 ML 206 MG IVPB (10:09)
[2024-04-08] MEDS: chlordiazePOXIDE (*CRX) 25 MG CAPSULE 50 MG PO ×2 (13:04→17:04)
--- NOTE | 2024-04-08 16:27 | P.PNIM_ITS ---
Progress Note: A&P Assessment and Plan (1) Alcohol withdrawal: Code(s): F10.939 - Alcohol use, unspecified with withdrawal, unspecified Status: Acute Assessment and Plan: 04/06/24: * Patient received phenobarbital while in the ED * Continue CIWA protocol * Continue neuro checks * Continue thiamine and folic acid * Continue nausea control 04/07/24: * Continue CIWA protocol 04/08/24: * Patient denies any withdrawal symptoms. (2) C. difficile colitis: Code(s): A04.72 - Enterocolitis due to Clostridium difficile, not specified as recurrent Status: Acute Assessment and Plan: 04/08/24: * C diff positive * Started on Difacid * Monitor electrolytes (3) Acute hypokalemia: Code(s): E87.6 - Hypokalemia Status: Acute Assessment and Plan: 04/06/24: * Likely secondary to alcoholism and dehydration from nausea and vomiting * Potassium initially 2.8 now to 3.2 * Phosphorus 1.2 * 20 mmol of K-Phos given * 40 mEq of potassium given * Continue to trend 04/07/24: * Potassium today is 2.8 * Will give 40 mEq of potassium IV and 40 mEq of potassium oral * Magnesium 2.0 * Continue to trend * Continue telemetry monitoring * Concise a lean lock IV once taking p.o. 04/08/24: * K+ 3.3 -Potassium replaced, 80 meq today * Likely loss is due to ongoing diarrhea * C-diff positive. (4) Hyponatremia: Code(s): E87.1 - Hypo-osmolality and hyponatremia Status: Acute Assessment and Plan: 04/06/24: * Likely secondary to alcohol abuse and dehydration * Sodium 129 * Continue to trend 04/07/24: * Sodium 133 today * Continue to trend 04/08/24: * Na+ 134 * Continue to trend (5) Hepatic steatosis: Code(s): K76.0 - Fatty (change of) liver, not elsewhere classified Status: Acute Assessment and Plan: 04/06/24: * Likely due to alcohol abuse * Initial bilirubin 1.6, now down to 1.3 * AST 195, ALT 93 * Will obtain hepatitis panel and ultrasound of abdomen limited 04/07/24: * Total bilirubin 0.8 * AST 89, ALT 63 * Hepatic panel negative * Ultrasound of abdomen showing diffuse hepatic steatosis 04/08/24: * Liver enzymes continue to trend downward * Resolving (6) Transaminitis: Code(s): R74.01 - Elevation of levels of liver transaminase levels Status: Acute Assessment and Plan: see above (7) Pancytopenia: Code(s): D61.818 - Other pancytopenia Status: Acute Assessment and Plan: 04/06/24: * White blood cell count 3.1, RBC 3.8, platelet count 85 * Likely secondary to alcoholism with alcoholic liver disease * Hepatitis panel and ultrasound of abdomen, limited ordered for today * Will check folate levels, lactate dehydrogenase, TSH pending pending * Vitamin B12 996 * Liver enzymes show an AST of 195, ALT 93 initially * Total bili 1.6 now down to 1.3 04/07/24: * White blood cell count 2.4, RBC 3.61, platelet count 71 * Will get Hematology/Oncology consult today 04/08/24: * Still awaiting Hematology/Oncology input * WBC 2.3, RBC 3.29, Platelet 73 today (8) GERD without esophagitis: Code(s): K21.9 - Gastro-esophageal reflux disease without esophagitis Status: Acute Assessment and Plan: 04/06/24: * Will start Protonix 04/07/24: * No change to current treatment plan Time Spent With Patient Time with patient: 25 - 35 minutes Subjective Date/time seen: 04/08/24 16:27 In
--- NOTE | 2024-04-08 16:27 | PM.IMPN ---
Progress Note: A&P Assessment and Plan (1) Alcohol withdrawal: Code(s): F10.939 - Alcohol use, unspecified with withdrawal, unspecified Status: Acute Assessment and Plan: 04/06/24: Patient received phenobarbital while in the ED Continue CIWA protocol Continue neuro checks Continue thiamine and folic acid Continue nausea control 04/07/24: Continue CIWA protocol 04/08/24: Patient denies any withdrawal symptoms. (2) C. difficile colitis: Code(s): A04.72 - Enterocolitis due to Clostridium difficile, not specified as recurrent Status: Acute Assessment and Plan: 04/08/24: C diff positive Started on Difacid Monitor electrolytes (3) Acute hypokalemia: Code(s): E87.6 - Hypokalemia Status: Acute Assessment and Plan: 04/06/24: Likely secondary to alcoholism and dehydration from nausea and vomiting Potassium initially 2.8 now to 3.2 Phosphorus 1.2 20 mmol of K-Phos given 40 mEq of potassium given Continue to trend 04/07/24: Potassium today is 2.8 Will give 40 mEq of potassium IV and 40 mEq of potassium oral Magnesium 2.0 Continue to trend Continue telemetry monitoring Concise a lean lock IV once taking p.o. 04/08/24: K+ 3.3 -Potassium replaced, 80 meq today Likely loss is due to ongoing diarrhea C-diff positive. (4) Hyponatremia: Code(s): E87.1 - Hypo-osmolality and hyponatremia Status: Acute Assessment and Plan: 04/06/24: Likely secondary to alcohol abuse and dehydration Sodium 129 Continue to trend 04/07/24: Sodium 133 today Continue to trend 04/08/24: Na+ 134 Continue to trend (5) Hepatic steatosis: Code(s): K76.0 - Fatty (change of) liver, not elsewhere classified Status: Acute Assessment and Plan: 04/06/24: Likely due to alcohol abuse Initial bilirubin 1.6, now down to 1.3 AST 195, ALT 93 Will obtain hepatitis panel and ultrasound of abdomen limited 04/07/24: Total bilirubin 0.8 AST 89, ALT 63 Hepatic panel negative Ultrasound of abdomen showing diffuse hepatic steatosis 04/08/24: Liver enzymes continue to trend downward Resolving (6) Transaminitis: Code(s): R74.01 - Elevation of levels of liver transaminase levels Status: Acute Assessment and Plan: see above (7) Pancytopenia: Code(s): D61.818 - Other pancytopenia Status: Acute Assessment and Plan: 04/06/24: White blood cell count 3.1, RBC 3.8, platelet count 85 Likely secondary to alcoholism with alcoholic liver disease Hepatitis panel and ultrasound of abdomen, limited ordered for today Will check folate levels, lactate dehydrogenase, TSH pending pending Vitamin B12 996 Liver enzymes show an AST of 195, ALT 93 initially Total bili 1.6 now down to 1.3 04/07/24: White blood cell count 2.4, RBC 3.61, platelet count 71 Will get Hematology/Oncology consult today 04/08/24: Still awaiting Hematology/Oncology input WBC 2.3, RBC 3.29, Platelet 73 today (8) GERD without esophagitis: Code(s): K21.9 - Gastro-esophageal reflux disease without esophagitis Status: Acute Assessment and Plan: 04/06/24: Will start Protonix 04/07/24: No change to current treatment plan Time Spent With Patient Time with patient: 25 - 35 minutes Subjective Date/time seen: 04/08/24 16:27 Interval history: Interval history: This is a 58-year-old female who [facility] with complaints of left-sided chest pain and alcohol withdrawal. She stated that her last alcohol intake was 24 hours prior to admission. Workup in the hospital included a chest x-ray which was negative. Initial labs showed a white blood cell count of 4.2, RBC 4.04, platelet count 112, sodium 129, potassium 2.9, chloride 87, bicarb 20, total bili 1.6, AST 195, ALT 93, troponin 0.014> 0.018, lipase 208, vitamin B12 996. Patient was given 4 g of Mag, IV fluids, phenobarbital, fol
[2024-04-08 18:11] LABS: Glucose Point of Care 130 mg/dl (65-105)
--- NOTE | 2024-04-08 18:43 | PDONCCN ---
HPI - Date of Consult Date/Time: 04/08/24 18:43 Requesting Physician: Isatu Wayne APRN Primary Care Provider: Aurora Kern MD - Consult Narrative Reason for consult: Pancytopenia Narrative: Maria Fernanda Crawford is a 58 year old female with history of alcohol abuse, dyslipidemia, GERD, pancreatitis, seizure disorder due to alcohol abuse and compression fracture came into the hospital with nausea vomiting and tremors. She has been drinking 3 4 pt of vodka every day. Denies any fevers and chills. Denies any cough and shortness of breath. Labs showed WBC count of 2.3 with hemoglobin [place] 10[place] [address]. Creatinine was normal at 0.7. AST and ALT both were elevated. Abdominal ultrasound showed diffuse hepatic steatosis. She was diagnosed with C diff colitis as well. Review of Systems - Review of Systems All systems reviewed & are unremarkable except as noted in HPI and bel - Neurologic Reports system reviewed and no additional complaints, except as documented PMF Medical History: Medical History (Last Reviewed 04/05/24 @ 20:32 by Dutch Andino MD) Alcohol abuse Anemia Compression fracture of thoracic spine, non-traumatic Onset Date: 11/2021 Dyslipidemia Environmental allergies Essential (primary) hypertension GERD without esophagitis History of pancreatitis 04/2023, 04/2019 - due to alcohol abuse Osteoporosis Pancytopenia Pneumonia Seizure Onset Date: 11/2021 due to alcohol abuse Thoracic compression fracture Onset Date: 11/2021 Vitamin D deficiency Wears glasses Surgical History: Surgical History (Last Reviewed 04/05/24 @ 20:32 by Dutch Andino MD) History of cataract surgery History of repair of rotator cuff Left shoulder 2015 Right shoulder 2018 History of tubal ligation Onset Date: 1995 Family History: Family History (Last Reviewed 04/05/24 @ 20:32 by Dutch Andino MD) Father Family history of kidney disease Diabetes mellitus Hypertension Mother Family history of cardiovascular disease Diabetes mellitus Cerebrovascular accident HLD (hyperlipidemia) Hypertension Neuropathy Other Heart disease Sloan cell cancer - Social History Social History: Social History (Last Reviewed 04/05/24 @ 20:32 by Dutch Andino MD) Alcohol Use: Alcohol intake: current Drinks per week: 56 Alcohol use details: Patient reports that she currently drinks 5 alcoholic beverages a day. Substance Use: Substance use: current Substance use type: marijuana Other substance usage details: last drink 3 weeks ago Others: Spiritual care concerns: No Living Arrangements: Living arrangements: with family Oppucation/Education: Occupation/Education: unemployed Smoking Status: Smoking status: Former smoker Tobacco type: cigarettes Second hand tobacco smoke exposure: No Smoking end date: 08/28/13 Smoking Pack-years: Smoking packs per day: 1 Smoking cigarettes per day: 20.0 Years smoked: 15 Smoking pack-years: 7.50 Comments: Additional smoking assessment comments: Quit smoking 09/2003 Social Determinants of Health: Do You Feel Safe in your Home?: Yes Has the Lack of Transportation Kept You From Medical Appointments or From Getting Medications?: No Within the Past 12 Months, Were You Worried Whether Your Food Would Run Out Before You Got Money to Buy More?: Never True What is Your Housing Situation Today?: I Have Housing Are You Worried That in the Next 2 Months, You May Not Have Your Own Housing to Live In?: No Do You Have Trouble Paying Your Heating Or Electricity Bill?: No Do You Have Trouble Paying For Medicines?: No Are You Currently Unemployed and Looking for Work?: No Highest Level of Education Completed: Associate Degree Do You Have Trouble With Childcare or the Care of a Family Member?: No
[2024-04-08] MEDS: ATORVASTATIN 40 MG TABLET PO (21:23)
[2024-04-08 21:38] LABS: Iron 60 ug/dL (37-170)
[2024-04-08 21:47] LABS: Percent Iron Saturation 28 % (20-50)
[2024-04-08 23:53] LABS: Glucose Point of Care 100 mg/dl (65-105)
[2024-04-09] VITALS: PULSE 71
[2024-04-09 04:00] VITALS: BP 106/69; PULSE 64; RESP 16; TEMP 36.1; O2SAT 100
[2024-04-09 06:07] VITALS: BP 113/72; PULSE 65; RESP 20; TEMP 35.9; O2SAT 98
[2024-04-09 07:12] LABS: Basophils Percent Auto 0.5 % (0.2-1.2); Eosinophils Percent Auto 1.6 % (0-4.4); Hematocrit 32.2 % (37.0-47.0); Hemoglobin 10.7 g/dL (12.0-15.0); Immature Granulocyte Absolute 0.01 K/mm3 (0.00-0.031); Immature Granulocyte Percent A 0.5 % (0-0.5); Immature Platelet Fraction Pct 4.6 % (0.9-11.2); Lymphocytes Absolute Auto 0.61 K/mm3 (0.9-3.2); Lymphocytes Percent Auto 32.1 % (18.3-44.2); Mean Corpuscular HGB Conc 33.2 g/dl (32-36); Mean Corpuscular Hemoglobin 32.6 pg (26-34); Mean Corpuscular Volume 98.2 fl (80-100); Mean Platelet Volume 10.2 fl (7.4-10.4); Monocytes Absolute Auto 0.3 K/mm3 (0.1-0.6); Monocytes Percent Auto 14.7 % (2.6-8.5); Neutrophils Percent Auto 50.6 % (45.5-73.1); Platelet Count Result 82 k/mm3 (150-375); Red Blood Count 3.28 M/mm3 (4.2-5.4); Red Cell Distribution Width 13.5 % (11.5-14.5)
[2024-04-09 07:23] LABS: Alanine Aminotransferase 44 U/L (6-35); Albumin Level 3.3 g/dL (3.5-5.1); Alkaline Phosphatase 66 U/L (38-126); Anion Gap 7 mmol/L (4-12); Aspartate Amino Transferase 44 U/L (14-36); Bilirubin,Total 0.4 mg/dL (0.2-1.3); Blood Urea Nitrogen 5 mg/dL (7-17); Calcium 8.1 mg/dL (8.4-10.2); Carbon Dioxide 24 mmol/L (22-30); Chloride 104 mmol/L (98-107); Estimated CRCL calculation 76 ml/min; Estimated Glomerular Filt Rate > 60; Glucose 98 mg/dL (65-110); Potassium 4.1 mmol/L (3.4-5.0); Sodium 135 mmol/L (137-145)
[2024-04-09 07:53] VITALS: BP 117/68; PULSE 69; RESP 18; TEMP 35.6; O2SAT 100
[2024-04-09 08:00] VITALS: PULSE 66
[2024-04-09 08:46] VITALS: PULSE 74
[2024-04-09] MEDS: THIAMINE HCL 100 MG TABLET PO (08:46)
[2024-04-09] MEDS: PANTOPRAZOLE 40 MG TABLET PO (08:46)
[2024-04-09] MEDS: FERROUS SULFATE 325 MG TABLET DR BY MOUTH (08:46)
[2024-04-09] MEDS: FIDAXOMICIN 200 MG TABLET PO (08:46)
[2024-04-09] MEDS: METOPROLOL SUCCINATE EXT REL 25 MG TABCR PO (08:46)
[2024-04-09 09:27] LABS: White Blood Count 1.9 K/mm3 (4.5-10.0)
--- NOTE | 2024-04-09 10:36 | PM.DS ---
DS: Admitting Diagnosis Discharge Date 04/09/24 Admitting Diagnosis Alcohol withdrawal Acute hypokalemia Hyponatremia Hepatic steatosis GERD DS: Discharge Diagnosis Discharge Diagnosis (1) Alcohol withdrawal: Code(s): F10.939 - Alcohol use, unspecified with withdrawal, unspecified Status: Acute (2) Acute hypokalemia: Code(s): E87.6 - Hypokalemia Status: Acute (3) Hyponatremia: Code(s): E87.1 - Hypo-osmolality and hyponatremia Status: Acute (4) Hepatic steatosis: Code(s): K76.0 - Fatty (change of) liver, not elsewhere classified Status: Acute (5) GERD without esophagitis: Code(s): K21.9 - Gastro-esophageal reflux disease without esophagitis Status: Acute DS: Summary Hospital Course Reason for hospitalization: Alcohol withdrawal Acute hypokalemia Hyponatremia Hepatic steatosis GERD Hospital Course: This is a 58-year-old female who presented to [facility] with complaints of left-sided chest pain and alcohol withdrawal. She stated that her last alcohol intake was 24 hours prior to admission. Workup in the hospital included a chest x-ray which was negative. Initial labs showed a white blood cell count of 4.2, RBC 4.04, platelet count 112, sodium 129, potassium 2.9, chloride 87, bicarb 20, total bili 1.6, AST 195, ALT 93, troponin 0.014> 0.018, lipase 208, vitamin B12 996. Patient was given 4 g of Mag, IV fluids, phenobarbital, folic acid, potassium while in the ED. Ultrasound of abdomen showed diffuse hepatic steatosis. Hematology/ Oncology was consulted for the pancytopenia may feel that this is related to alcohol abuse complicated with liver disease. She will need to follow up outpatient with Hematology Oncology in 2 weeks for continued workup of her pancytopenia. White blood cell count down to 1.9 today absolute neutrophils 1.0. Patient was given a one time dose of 300 mcg of Zarxio for her neutropenia. She was also found to be C diff positive and was started on Dificid. She is stable for discharge at this time. She will need follow-up with her primary care physician in 1 week. Final diagnosis: C diff colitis, hypokalemia, hepatic steatosis Status at Discharge Cognitive/behavioral status at discharge: Alert oriented x3 Functional status at discharge: independent ambulation Overall status at discharge: patient is progressing back to baseline Time Spent with Patient Time attestation: Total time spent providing and/or coordinating discharge services: Time spent: Greater than 30 minutes Exam Narrative: General: In no acute distress Cardiac: Normal S1 and S2. No murmur, gallops or friction rubs, peripheral pulses intact. Respiratory: Lungs clear to auscultation, no adventitious lung sounds, currently on room air Gastrointestinal: soft, non-distended, non-tender, normoactive bowel sounds. Reports diarrhea : voiding without difficulty. Neuro: Alert and oriented x4 DS: Data Data Completed and Pending Completed studies during hospitalization: Abdomen ultrasound Chest x-ray Pending studies at discharge: None Labs on day of discharge: Labs from last 24 hours 04/09/24 04/08/24 04/08/24 06:55 23:49 20:26 WBC 1.9 L* RBC 3.28 L Hgb 10.7 L Hct 32.2 L MCV 98.2 MCH 32.6 MCHC 33.2 RDW 13.5 Plt Count 82 L MPV 10.2 Immature Gran % (Auto) 0.5 Neut % (Auto) 50.6 Lymph % (Auto) 32.1 [place] % (Auto) 14.7 H Eos % (Auto) 1.6 Baso % (Auto) 0.5 Lymph # (Auto) 0.61 L [place] # (Auto) 0.3 Eos # (Auto) 0.0 Baso # (Auto) 0.0 Abs Immat Gran (auto) 0.01 Absolute Neuts (auto) 1.0 L Absolute Nucleated RBC 0.000 Nucleated RBC % 0.0 % Immature Plt Fraction 4.6 Sodium 135 L Potassium 4.1 Chloride 104 Carbon Dioxide 24 Anion Gap 7 BUN 5 L Creatinine 0.60 L Estim Creat Clear Calc 76 Estimated GFR > 60 Glucose 98 POC Capillary Glucose 100 Ca
[2024-04-09] MEDS: FILGRASTIM-SNDZ 300 MCG/0.5 ML SYRINGE SUB-Q (11:42)
[2024-04-09 14:33] LABS: Red Blood Cell Folate 646 ng/mL RBC (>280)
== END 2024-04-09 12:00 | disposition home or self-care (01) ==
LOC: ANHED 17:31 → ANH3MEDSUR 04-06 07:13
PROVIDERS: Internal Medicine Hematology & Oncology; Nurse Practitioner; Admitting Provider Internal Medicine; Emergency Provider Student in an Organized Health Care Education/Training Program; PCP Family Medicine; Visit Provider Nurse Practitioner Acute Care
DX: F10.939 Alcohol use, unspecified with withdrawal, unspecified (principal); A04.72 Enterocolitis due to Clostridium difficile, not specified as recurrent; R07.9 Chest pain, unspecified; E87.6 Hypokalemia; E87.1 Hypo-osmolality and hyponatremia; R74.01 Elevation of levels of liver transaminase levels; D61.818 Other pancytopenia; I10 Essential (primary) hypertension; M81.0 Age-related osteoporosis without current pathological fracture; E55.9 Vitamin D deficiency, unspecified; D64.9 Anemia, unspecified; K76.0 Fatty (change of) liver, not elsewhere classified; E78.5 Hyperlipidemia, unspecified; K21.9 Gastro-esophageal reflux disease without esophagitis; F12.90 Cannabis use, unspecified, uncomplicated; Z87.891 Personal history of nicotine dependence; Z79.899 Other long term (current) drug therapy
CPT/HCPCS: 36415; 71045; 76705; 80048; 80053; 80074; 80307; 82247; 82607; 82728; 82747; 82948; 83540; 83550; 83615; 83690; 83735; 84100; 84132; 84443; 84484; 85025; 85055; 85610; 85730; 87493; 93005; 96360; 96361; 96365; 96366; 96372; 96374; 96375; 99285; A9270; G0378; J2405; J2560; J3250; J3411; J3475; J3480; J7040; J7050; J7121; Q5101

== ENCOUNTER 2024-04-24 09:28 | Outpatient (CLI) | payer OTHER, SELFPAY ==
--- NOTE | ~2024-04-24 | MR_ITS ---
MRI of the cervical spine Clinical History: Cervicalgia Technique: Axial T2-weighted and gradient images, and sagittal T1-weighted, T2-weighted, and STIR magdalena ges were acquired. Following intravenous administration of 14 cc MultiHance gadolinium, T1-weighted f at-sat imaging was performed in the axial and sagittal planes. Findings: No acute fracture seen. There is reversal of the normal cervical lordosis. No suspicious laura ne marrow signal abnormality seen. At C2-C3, there is no disc bulge or herniation. No spinal canal stenosis, cord compression, or neural foraminal narrowing. At C3-C4, there is minimal disc osteophyte convex. There is mild left facet arthropathy. No central c anal stenosis, cord compression, or neural foraminal narrowing. At C4-C5, there is moderate degenerative disc narrowing with minimal disc osteophyte convex. No spina l canal stenosis, cord compression, or definite neural foraminal narrowing. At C5-C6, there is moderate degenerative disc narrowing. There is mild disc osteophyte complex with m ild canal stenosis but no daria cord compression. There is right neural foraminal narrowing. Probable minimal left neural foraminal narrowing. At C6-C7, there is moderate degenerative disc narrowing. There is disc ossify complex, with mild to m oderate canal stenosis but no daria cord compression. There is probable mild bilateral neural foramin al narrowing. No abnormal signal seen in the spinal cord. No abnormal postcontrast enhancement. Paravertebral soft tissues are unremarkable. Impression: [id number] degenerative spondylosis, especially at C5-C6 and C6-C7. Please see details above. Reversal of the normal cervical lordosis. Reviewed, dictated and finalized at [facility]. Impression: [id number] degenerative spondylosis, especially at C5-C6 and C6-C7. Shannon noonan see details above. Reversal of the normal cervical lordosis.
--- NOTE | ~2024-04-24 | MR_ITS ---
MRI of the thoracic spine Clinical History: Collapsed vertebra Technique: Axial T2-weighted and gradient images, and sagittal T1-weighted, T2-weighted, and STIR magdalena ges were acquired. Following intravenous administration of 14 cc MultiHance gadolinium, T1-weighted f at-sat imaging was performed in the axial and sagittal planes. Findings: There are moderate to severe chronic compression fractures of T6 and T7. 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 Mild chronic compression deformity versus Schmorl's node of T11. No bone marrow edema or other suspicious marrow signal abnormality seen currently. No subluxation eviden t. No significant disc bulge or herniation identified at any thoracic level. No spinal canal stenosis or cord compression identified. Neural foramina are preserved in the thoracic spine. There are scattere d mild to moderate degenerative disc changes in the thoracic spine. No abnormal signal seen in the spinal cord. Paravertebral soft tissues are unremarkable. No abnormal postcontrast enhancement identified. Impression: Chronic compression fractures, as detailed above, most severe at T6 and T7. No acute fracture or suspicious marrow signal abnormality. Reviewed, dictated and finalized at [facility]. Impression: Chronic compression fractures, as detailed above, most severe at T6 and T7. No acute fracture or suspicious marrow signal abnormality.
== END 2024-04-24 09:29 ==
LOC: MICIMG 09:30
PROVIDERS: PCP Neurological Surgery; Visit Provider Nurse Practitioner
DX: M47.892 Other spondylosis, cervical region (principal); M48.54XD Collapsed vertebra, not elsewhere classified, thoracic region, subsequent encounter for fracture with routine healing
CPT/HCPCS: 72156; 72157; A9577

== ENCOUNTER 2024-06-21 07:43 | Inpatient (IN) | payer OTHER, SELFPAY ==
[2024-06-21] VITALS (17 sets, daily range): BP systolic 126–170; BP diastolic 78–102; PULSE 98–133; RESP 15–25; TEMP 36.4–37.4; O2SAT 97–100; BMI 25.9
--- NOTE | ~2024-06-21 | CT_ITS ---
EXAMINATION: CT brain wo con DATE: 06/21/2024 14:37 INDICATION: Seizure. TECHNIQUE: Computed tomography (CT) of the head was performed without intravenous contrast. The mA wa s adjusted according to patient size. Iterative reconstruction technique was employed. The dose-lengt h product was 605.33 mGy-cm. COMPARISON: Head CT 12/12/2021 FINDINGS: There is no intracranial hemorrhage, acute infarction, or abnormal intracranial mass lesion . The ventricles are normal in size. There are likely changes of ocular lens replacement surgeries. T here is mild mucosal thickening in the paranasal sinuses. There are small bilateral mastoid effusions . IMPRESSION: 1. Normal brain. Reviewed, dictated and finalized at location A. IMPRESSION: 1. Normal brain.
[2024-06-21] MEDS: ONDANSETRON INJ 4 MG/2 ML VIAL IV PUSH ×2 (09:12→15:39)
--- NOTE | 2024-06-21 10:07 | ED_ITS ---
HPI - Seizure General Chief Complaint: Seizure Stated Complaint: seizure Time Seen by Provider: 06/21/24 08:31 Source: patient, family () and EMS Mode of arrival: EMS History of Present Illness HPI Narrative: Patient presents after report of a seizure, witnessed by . It is suspected that this represents alcohol withdrawal as this has occurred before in the setting of alcohol withdrawal. He states she was laying on the couch when she suddenly clenched her face and demonstrated stiff shaking movements, particularly of her upper extremities. Patient lost consciousness and does not recall this. Denies tongue trauma though states she did have some blood on her tooth initially. Patient was incontinent of bladder during the event. Possibly bowel also (?). Patient states she has been having diarrhea. Patient complaining of nausea. Patient has a history of alcohol abuse with some periods of sobriety for a few months with relapse. No prior rehab, inpatient or outpatient. She had been sober this time for approximately 8-9 weeks and then started drinking again. Has consumed three fifths in the past 3 weeks, approximately 1 per week. Last drink 2 days ago (Monday). Patient states her hands were swollen recently, making it difficult to remove her ring. Seizure History: Yes (12/12/21 and 12/22/21 When withdrawing from alcohol) Related Data Home Medications Medication Instructions Recorded Confirmed ascorbic acid (vitamin C) 500 mg 500 mg PO DAILY 02/22/21 04/05/24 tablet,extended release calcium 100 mg capsule 100 mg PO DAILY 05/17/23 04/05/24 ferrous sulfate 325 mg (65 mg 325 mg PO DAILY 05/17/23 04/05/24 iron) tablet vitamin B complex 1 tablet PO DAILY 05/17/23 04/05/24 cetirizine 10 mg tablet (Zyrtec) 10 mg PO PRN PRN Allergy Symptoms 06/27/23 04/05/24 Allergies Allergy/AdvReac Type Severity Reaction Status Date / Time Penicillins Allergy Unknown Skin Verified 06/21/24 07:55 irritation prednisone Allergy Rash Verified 06/21/24 07:55 bacitracin AdvReac Mild Swelling Verified 06/21/24 07:55 [From Neosporin ([id number])] neomycin AdvReac Mild Swelling Verified 06/21/24 07:55 [From Neosporin ([id number])] polymyxin B AdvReac Mild Swelling Verified 06/21/24 07:55 [From Neosporin ([id number])] codeine AdvReac Unknown Headache Verified 06/21/24 07:55 PMFSH Past Medical History Medical History (Updated 06/21/24 @ 19:14 by Isatu Wayne APRN) Alcohol abuse Anemia Compression fracture of thoracic spine, non-traumatic (11/2021) Dyslipidemia Environmental allergies Essential (primary) hypertension GERD without esophagitis History of pancreatitis 04/2023, 04/2019 - due to alcohol abuse Osteoporosis Pancytopenia Pneumonia Seizure (11/2021) due to alcohol abuse Thoracic compression fracture (11/2021) Vitamin D deficiency Wears glasses Surgical History Surgical History History of cataract surgery History of repair of rotator cuff Left shoulder 2014 Right shoulder 2018 History of tubal ligation (1995) Family History Family History Father Family history of kidney disease Diabetes mellitus Hypertension Mother Family history of cardiovascular disease Diabetes mellitus Cerebrovascular accident HLD (hyperlipidemia) Hypertension Neuropathy Other Alcoholism Other Heart disease Sloan cell cancer Social History Social History Social History: Surrogate medical decision maker: Sukhi Crawford, spouse. Code status: Full code. Smoking packs per day: 1 Smoking cigarettes per day: 20.0 Years smoked: 15 Smoking pack-years: 15.00 Smoking status: Former smoker Tobacco type: cigarettes Second hand tobacco smoke exposure: No Smoking end date: 08/28/13 Additional smoking assessment comments: Quit smoking 09/2003 Alcohol intake: current Drinks per week: 56 Alcohol use details: Patient reports that she currently drinks 5 alcoholic beverages a day. Substance use: current Substance use type: marijuana Other substance usage details: last drink 3 weeks ago Do You Feel Safe in your Home?: Yes Lack of Transportation: No Lack of Food: Never True Current Housing: I Have Housing Concerned About Future Housing: No Difficulty Paying Gas/Electric Bills: No Difficulty Paying for Meds: No Currently Unemployed: No Education: Associate Degree Difficulty w/ Childcare or Family Care: No Living arrangements: with family Occupation/Education: unemployed Spiritual care concerns: No Exam Narrative: GENERAL: well-nourished, and in no acute distress. HEAD: Normocephalic, atraumatic. EYES: Non injected, non icteric ENT: Nares clear, no rhinorrhea or epistaxis. Tongue protrudes midline without fasciculation. Tacky mucous membranes. No tongue trauma noted. NECK: Supple. CHEST: Speaking in full sentences. No respiratory distress. HEART: Tachycardic rate and rhythm. . ABDOMEN: Soft, nondistended. EXTREMITIES: Normal range of motion. No lower extremity edema. Tremulous at fingers with bilateral arms extended. SKIN: Warm, dry, no rash. NEURO: No focal deficits. Alert and oriented x3. Able to answer most questions though sometimes not answering the question asked directly. No abnormal movements appreciated. PSYCH: Normal mood and affect. Course Vital Signs Vital signs: Vital Signs Temperature 97.6 F 06/21/24 07:43 Pulse Rate 133 H 06/21/24 07:43 Respiratory Rate 25 H 06/21/24 07:43 Blood Pressure 142/78 H 06/21/24 07:43 Pulse Oximetry 98 06/21/24 07:43 Oxygen Delivery Room Air 06/21/24 07:43 Temperature 97.7 F 06/21/24 15:02 Pulse Rate 98 06/21/24 21:45 Respiratory Rate 16 06/21/24 21:45 Blood Pressure 137/85 06/21/24 21:45 Pulse Oximetry 99 06/21/24 21:45 Oxygen Delivery Room Air 06/21/24 11:21 MDM - Seizure MDM Narrative Medical decision making narrative: Patient presents after a witnessed seizure. History of alcohol withdrawal seizure. Had a period of sobriety 8-9 weeks but started drinking 3 weeks ago, heavily, approximately 1 fifth per week. Last drink 2 days ago (Monday). Incontinent of urine during event followed by postictal period and confusion when initially brought by EMS but with improvement at the time of my exam. In the ED she is afebrile with VS notable for tachypnea, tachycardia. Patient does have tachycardia and is concerned she is dehydrated. Her mucous membranes do appear tacky and for this and the tachycardia will administer 1 L I V fluids and ondansetron. Patien's CIWA score is 20 or greater per RN. Phenobarb ordered at 260mg. Upon reassessment she states she is still somewhat nauseated. COmpazine ordered. Repeat CIWA score is 15. CIWA protocol initiated so that p.r.n. medications are available. Also ordered daily thiamine and first dose today. Discussed patient with ironer machine hospitalist ANGELA Lunsford who requests further in vestigation/improvement of electrolyte abnormalities as well as EKG and head CT prior to admission as patient may require ICU level care. Bicarb gtt as well as 2 pushes ordered prior to repeat lab assessment. Improving metabolic deranagements. Discussed again with ironer machine hospitalist ANGELA Lunsford. She reports discussing patient with paint roller cover machine setter Dr Fine who recommended IMU placement. I concur. Gerdae nt has been stable without recurrence of seizures while in the ED. Differential Diagnosis Differential diagnosis: Likely intractable seizure disorder, focal seizure, generalized seizure, new onset seizure and other (alcohol withdrawal seizure; seizure secondary to electrolyte abnormalities (e.g. hypoaNa)) Lab Data Attestation: I reviewed the patient's lab results. Lab results narrative: Leukocytosis 06/21/24 11:21 06/21/24 11:21 Labs: Lab Results 06/21/24 06/21/24 06/21/24 Range/Units 11:20 11:21 11:24 WBC 12.1 H (4.5-10.0) K/mm3 RBC 4.16 L (4.2-5.4) M/mm3 Hgb 13.6 (12.0-15.0) g/dL Hct 42.1 (37.0-47.0) % MCV 101.2 H (80-100) fl MCH 32.7 (26-34) pg MCHC 32.3 (32-36) g/dl RDW 13.0 (11.5-14.5) % Plt Count 152 D (150-375) k/mm3 MPV 9.9 (7.4-10.4) fl Immature Gran % (Auto) 0.9 H (0-0.5) % Neut % (Auto) 74.4 H (45.5-73.1) % Lymph % (Auto) 16.9 L (18.3-44.2) % [place] % (Auto) 7.3 (2.6-8.5) % Eos % (Auto) 0.2 (0-4.4) % Baso % (Auto) 0.3 (0.2-1.2) % Lymph # (Auto) 2.04 (0.9-3.2) K/mm3 [place] # (Auto) 0.9 H (0.1-0.6) K/mm3 Eos # (Auto) 0.0 (0-0.3) K/mm3 Baso # (Auto) 0.0 (0.0-0.1) K/mm3 Abs Immat Gran (auto) 0.11 H (0.00-0.031) K/mm3 Absolute Neuts (auto) 9.0 H (1.3-6.7) K/mm3 Absolute Nucleated RBC 0.020 H (0.0-0.012) K/mm3 Nucleated RBC % 0.2 (0.0-0.2) % Sodium 140 (137-145) mmol/L Potassium 3.6 (3.4-5.0) mmol/L Chloride 97 L (98-107) mmol/L Carbon Dioxide < 5 L (22-30) mmol/L Anion Gap (4-12) mmol/L BUN 15 D (7-17) mg/dL Creatinine 1.20 H (0.7-1.0) mg/dL Estim Creat Clear Calc 42 ml/min Estimated GFR 46 L (59 - ) Glucose 136 H (65-110) mg/dL Hemoglobin A1c 5.4 (<5.7) % Calcium 8.9 (8.4-10.2) mg/dL Magnesium 2.3 (1.6-2.3) mg/dL Iron 224 H (37-170) ug/dL TIBC 175 L (261-462) ug/dL % Saturation 128 H (20-50) % Ferritin 207.00 (11.1-264) ng/mL Total Bilirubin 1.2 (0.2-1.3) mg/dL AST 155 H (14-36) U/L ALT 65 H (6-35) U/L Alkaline Phosphatase 140 H (38-126) U/L Total Protein 9.0 H (6.3-8.2) g/dL Albumin 5.6 H (3.5-5.1) g/dL Vitamin B12 716.0 (239-931) pg/mL Folate 18.5 (2.76->20) ng/mL TSH 0.827 (0.465-4.680) uIU/mL Urine Color (Yellow) Urine Appearance (Clear) Urine pH (5.0-9.0) Ur Specific [place] (1.001-1.035) Urine Protein (Negative) mg/dL Urine Glucose (UA) (Negative) mg/dL Urine Ketones (Negative) mg/dL Ur Blood (Man) (Negative) Urine Nitrate (Negative) Urine Bilirubin (Negative) Urine Urobilinogen (<2.0) mg/dL Leukocyte Esterase Rfl (Negative) DELIA/UL Urine RBC (0-2) /hpf Urine WBC (0-3) /hpf Ur Squamous Epith Cells (Few) /hpf Urine Bacteria /hpf Urine Casts Urine Opiates Screen (Negative) Urine Methadone Screen (Negative) Ur Barbiturates Screen (Negative) Ur Phencyclidine Scrn (Negative) Ur Amphetamine Screen (Negative) U Benzodiazepines Scrn (Negative) Urine Cocaine Screen (Negative) U Cannabinoids Screen (Negative) Ethyl Alcohol 48 (<10) mg/dL 06/21/24 Range/Units 15:59 WBC (4.5-10.0) K/mm3 RBC (4.2-5.4) M/mm3 Hgb (12.0-15.0) g/dL Hct (37.0-47.0) % MCV (80-100) fl MCH (26-34) pg MCHC (32-36) g/dl RDW (11.5-14.5) % Plt Count (150-375) k/mm3 MPV (7.4-10.4) fl Immature Gran % (Auto) (0-0.5) % Neut % (Auto) (45.5-73.1) % Lymph % (Auto) (18.3-44.2) % [place] % (Auto) (2.6-8.5) % Eos % (Auto) (0-4.4) % Baso % (Auto) (0.2-1.2) % Lymph # (Auto) (0.9-3.2) K/mm3 [place] # (Auto) (0.1-0.6) K/mm3 Eos # (Auto) (0-0.3) K/mm3 Baso # (Auto) (0.0-0.1) K/mm3 Abs Immat Gran (auto) (0.00-0.031) K/mm3 Absolute Neuts (auto) (1.3-6.7) K/mm3 Absolute Nucleated RBC (0.0-0.012) K/mm3 Nucleated RBC % (0.0-0.2) % Sodium (137-145) mmol/L Potassium (3.4-5.0) mmol/L Chloride (98-107) mmol/L Carbon Dioxide (22-30) mmol/L Anion Gap (4-12) mmol/L BUN (7-17) mg/dL Creatinine (0.7-1.0) mg/dL Estim Creat Clear Calc ml/min Estimated GFR (59 - ) Glucose (65-110) mg/dL Hemoglobin A1c (<5.7) % Calcium (8.4-10.2) mg/dL Magnesium (1.6-2.3) mg/dL Iron (37-170) ug/dL TIBC (261-462) ug/dL % Saturation (20-50) % Ferritin (11.1-264) ng/mL Total Bilirubin (0.2-1.3) mg/dL AST (14-36) U/L ALT (6-35) U/L Alkaline Phosphatase (38-126) U/L Total Protein (6.3-8.2) g/dL Albumin (3.5-5.1) g/dL Vitamin B12 (239-931) pg/mL Folate (2.76->20) ng/mL TSH (0.465-4.680) uIU/mL Urine Color Yellow (Yellow) Urine Appearance Clear (Clear) Urine pH 5.5 (5.0-9.0) Ur Specific [place] 1.012 (1.001-1.035) Urine Protein 2+ H (Negative) mg/dL Urine Glucose (UA) Negative (Negative) mg/dL Urine Ketones 4+ H (Negative) mg/dL Ur Blood (Man) 2+ H (Negative) Urine Nitrate Negative (Negative) Urine Bilirubin Negative (Negative) Urine Urobilinogen 0.2 (<2.0) mg/dL Leukocyte Esterase Rfl Trace H (Negative) DELIA/UL Urine RBC 6-10 H (0-2) /hpf Urine WBC 0-5 (0-3) /hpf Ur Squamous Epith Cells Occasional (Few) /hpf Urine Bacteria Rare /hpf Urine Casts 0-2 Urine Opiates Screen Negative (Negative) Urine Methadone Screen Negative (Negative) Ur Barbiturates Screen Positive A (Negative) Ur Phencyclidine Scrn Negative (Negative) Ur Amphetamine Screen Negative (Negative) U Benzodiazepines Scrn Negative (Negative) Urine Cocaine Screen Negative (Negative) U Cannabinoids Screen Positive A (Negative) Ethyl Alcohol (<10) mg/dL ABG Data ABG results: 06/21/24 06/21/24 06/21/24 13:45 15:59 17:31 VBG pH 7.198 L* 6.952 L* 7.303 VBG pCO2 25.0 L* 24.0 L* 29.7 L* VBG pO2 55.5 H 72.9 H 36.9 VBG HCO3 9.5 L 5.2 L 14.4 L O2 Delivery Device Room air Room air Room air O2 Liters/Min Not Reportable Not Reportable Not Reportable FiO2 21 21 Imaging Data Radiologist's impression: Impressions Head CT 06/21/24 14:47 IMPRESSION: 1. Normal brain. ECG Data EKG #1: Attestation: I personally reviewed and interpreted this ECG as follows: ECG completion date: 06/21/24 ECG completion time: 14:23 Interpretation: sinus tachycardia at a rate of 103 beats per minute. NC interval 116. QRS 86. QT/ QTC 344/404. Good R-wave progression across the precordial leads. No T- wave inversions. Discharge Plan Discharge Clinical Impression: Alcohol withdrawal seizure, Leukocytosis, ABUNDIO (acute kidney injury), Transaminitis Patient Disposition: Still a Patient Condition: Serious
[2024-06-21] MEDS: SODIUM CHLORIDE 0.9% IV 1,000 ML 999 ML IV CONT ×2 (11:15→16:30)
[2024-06-21] MEDS: PROCHLORPERAZINE EDISYLATE 10 MG/2 ML VIAL 5 MG IV PUSH (11:15)
[2024-06-21 11:31] LABS: Basophils Percent Auto 0.3 % (0.2-1.2); Eosinophils Percent Auto 0.2 % (0-4.4); Hematocrit 42.1 % (37.0-47.0); Hemoglobin 13.6 g/dL (12.0-15.0); Immature Granulocyte Absolute 0.11 K/mm3 (0.00-0.031); Immature Granulocyte Percent A 0.9 % (0-0.5); Lymphocytes Absolute Auto 2.04 K/mm3 (0.9-3.2); Lymphocytes Percent Auto 16.9 % (18.3-44.2); Mean Corpuscular HGB Conc 32.3 g/dl (32-36); Mean Corpuscular Hemoglobin 32.7 pg (26-34); Mean Corpuscular Volume 101.2 fl (80-100); Mean Platelet Volume 9.9 fl (7.4-10.4); Monocytes Absolute Auto 0.9 K/mm3 (0.1-0.6); Monocytes Percent Auto 7.3 % (2.6-8.5); Neutrophils Percent Auto 74.4 % (45.5-73.1); Nucleated Red Blood Cells Perc 0.2 % (0.0-0.2); Platelet Count Result 152 k/mm3 (150-375); Red Blood Count 4.16 M/mm3 (4.2-5.4); White Blood Count 12.1 K/mm3 (4.5-10.0)
--- NOTE | 2024-06-21 11:43 | PC.NURSE ---
Md Sosa notified of CIWA of 20.
[2024-06-21 11:50] LABS: Ethanol 48 mg/dL (<10)
[2024-06-21 11:53] LABS: Alanine Aminotransferase 65 U/L (6-35); Albumin Level 5.6 g/dL (3.5-5.1); Alkaline Phosphatase 140 U/L (38-126); Aspartate Amino Transferase 155 U/L (14-36); Bilirubin,Total 1.2 mg/dL (0.2-1.3); Blood Urea Nitrogen 15 mg/dL (7-17); Calcium 8.9 mg/dL (8.4-10.2); Carbon Dioxide < 5 mmol/L (22-30); Chloride 97 mmol/L (98-107); Estimated CRCL calculation 42 ml/min; Estimated Glomerular Filt Rate 46; Glucose 136 mg/dL (65-110); Magnesium 2.3 mg/dL (1.6-2.3); Potassium 3.6 mmol/L (3.4-5.0); Sodium 140 mmol/L (137-145)
[2024-06-21] MEDS: PHENobarbitaL sodium (*CRX) 130 MG/ML VIAL 260 MG IV PUSH (12:59)
[2024-06-21 13:59] LABS: Fractional Inspired Oxygen 21 %; HCO3 VBG 9.5 mEq/l (24.0-30.0); PO2 VBG 55.5 mmHg (35.0-45.0)
[2024-06-21 14:00] LABS: pH VBG 7.198 (7.300-7.400)
[2024-06-21 14:01] LABS: Device ROOM AIR
--- NOTE | 2024-06-21 14:08 | ECG_ITS ---
Test Date: 2024-06-21 14:23:35 Measurements Intervals Latty Rate: 103 P: 59 PA: 116 QRS: 15 QRSD: 86 T: 47 QT: 344 QTc: 452 Interpretive Statements SINUS TACHYCARDIA WITH SHORT PA INTERVAL ABNORMAL ECG Compared to ECG 04/05/2024 17:09:24 Short PA interval now present Sinus rhythm no longer present Prolonged QT interval no longer present Electronically Signed On 06-22-2024 13:04:45 CDT by Bennie Wade M.D.
[2024-06-21] MEDS: SODIUM BICARBONATE 8.4% 100 MEQ in DEXTROSE 5% 1,000 ML 1,000 ML 50 MEQ IV CONT (14:44)
[2024-06-21] MEDS: KETOROLAC 15 MG/ML VIAL (*BKC) IV PUSH (15:07)
[2024-06-21] MEDS: SODIUM BICARBONATE 8.4% 50 MEQ/50 ML SYRINGE IV PUSH ×2 (15:38)
[2024-06-21] MEDS: THIAMINE HCL 200 MG/2 ML VIAL 100 MG IV PUSH (15:38)
[2024-06-21] MEDS: LORazepam INJ (*CRX) 2 MG/ML VIAL IV PUSH (15:38)
[2024-06-21] MEDS: chlordiazePOXIDE (*CRX) 25 MG CAPSULE PO (15:39)
[2024-06-21 16:09] LABS: Add Urine Microscopic? YES; Appearance Urine Clear (Clear); Bacteria Urine Rare /hpf; Bilirubin Urine Negative (Negative); Blood Urine 2+ (Negative); Color Urine Yellow (Yellow); Glucose Urine UA Negative (Negative); Ketones Urine 4+ mg/dL (Negative); Leukocyte Esterase Ur Trace LEU/UL (Negative); Nitrate Urine Negative (Negative); Non Pathogenic Casts 0-2; Protein Urine 2+ mg/dL (Negative); Specific Grav Ur 1.012 (1.001-1.035); Squamous Epithelial Cell Urine Occasional /hpf (Few); Urobilinogen Urine 0.2 mg/dL (<2.0); WBC Urine 0-5 /hpf (0-3); pH Urine 5.5 (5.0-9.0)
[2024-06-21 16:38] LABS: Amphetamine Screen Urine Negative (Negative); Barbiturate Screen Urine Positive (Negative); Benzodiazepines Screen Urine Negative (Negative); Cannabinoid Screen Urine Positive (Negative); Cocaine Screen Urine Negative (Negative); Methadone Screen Urine Negative (Negative); Opiate Screen Urine Negative (Negative); Phencyclidine Screen Urine Negative (Negative)
[2024-06-21 17:25] LABS: pH VBG 6.952 (7.300-7.400)
[2024-06-21 17:26] LABS: Device ROOM AIR; HCO3 VBG 5.2 mEq/l (24.0-30.0); PO2 VBG 72.9 mmHg (35.0-45.0)
[2024-06-21 17:33] LABS: Fractional Inspired Oxygen 21 %; HCO3 VBG 14.4 mEq/l (24.0-30.0); PO2 VBG 36.9 mmHg (35.0-45.0); pH VBG 7.303 (7.300-7.400)
[2024-06-21 17:34] LABS: Device ROOM AIR; PCO2 VBG 29.7 mmHg (42.0-48.0)
--- NOTE | 2024-06-21 18:28 | P.HP_ITS ---
H&P: HPI History of Present Illness Date/Time: 06/21/24 18:28 Chief Complaint: Seizure Narrative: This is a 58-year-old female with a significant past medical history of alcohol abuse, seizures due to alcohol abuse and withdrawal, pancreatitis, GERD, hypertension, hyperlipidemia, anemia, former smoker, marijuana abuse who presented to the hospital with seizure activity. Patient states that she started having withdrawal symptoms this morning with her last alcoholic drink on Monday. She states that she drinks about a 5th vodka a week been trying to cut back however she has been unsuccessful with attempts to wean off alcohol due to alcoholic seizures. Workup in the hospital included a head CT which was negative for any acute intracranial process. Initial labs showed a white blood cell count of 12.1, RBC 4.16, Chloride 97, carbon dioxide less than 5, creatinine 1.2, EGFR 46, AST 155, ALT 65, alk-phos 140. A UA was obtained and shown 2+ urine protein, 4+ urine ketone, 2+ urine blood, trace leukocyte, 6-10 urine RBC. VBG shown a pH of 6.952, pCO2 24.0, PO2 72.9 on room air, bicarb 5.2. urine drug screen was positive for barbiturates and cannabinoids. EKG showed sinus tachycardia with short ND interval, with a rate of 103, QTC 452. Patient was given a dose of Zofran and Compazine, phenobarbital 260 mg IV push, Toradol, thiamin, 2 L of normal saline, 2 amps of bicarb, and started on a b icarb infusion while in the ED. after the 2 amps of bicarb were pushed another VBG was drawn and shown a pH of 7.30, pCO2 29.7, and HC03 of 14.4. She was also placed on CIWA protocol. Review of Systems Review of Systems: All systems reviewed & are unremarkable except as noted in HPI and below Constitutional: Constitutional: Reports as per HPI and Reports no additional constitutional complaints Eyes: Eyes: Reports as per HPI and Reports no additional eye complaints ENT: Reports system reviewed and no additional complaints, except as documented and Reports as per HPI Cardiovascular: Cardiovascular: Reports as per HPI and Reports no additional cardiovascular complaints Respiratory: Respiratory: Reports as per HPI and Reports no additional respiratory complaints Gastrointestinal: Gastrointestinal: Reports as per HPI and Reports no additional gastrointestinal complaints Genitourinary: Genitourinary: Reports no additional female genitourinary complaints and Reports as per HPI Musculoskeletal: Musculoskeletal: Reports no additional musculoskeletal complaints and Reports as per HPI Integumentary/Breasts: Skin/Breast: Reports system reviewed and no additional complaints, except as docu and Reports as per HPI Neurologic: Reports system reviewed and no additional complaints, except as documented and Reports as per HPI Psychiatric: Psychiatric: Reports no additional psychiatric complaints and Reports as per HPI [facility] Past Medical History Medical History Alcohol abuse Anemia Compression fracture of thoracic spine, non-traumatic (11/2021) Dyslipidemia Environmental allergies Essential (primary) hypertension GERD without esophagitis History of pancreatitis 04/2023, 04/2019 - due to alcohol abuse Osteoporosis Pancytopenia Pneumonia Seizure (11/2021) due to alcohol abuse Thoracic compression fracture (11/2021) Vitamin D deficiency Wears glasses Surgical History Surgical History History of cataract surgery History of repair of rotator cuff Left shoulder 2014 Right shoulder 2018 History of tubal ligation (1995) Family History Family History Father Family history of kidney disease Diabetes mellitus Hypertension Mother Family history of cardiovascular disease Diabetes mellitus Cerebrovascular accident HLD (hyperlipidemia) Hypertension Neuropathy Other Alcoholism Other Heart disease [place] cell cancer Social History Social History Social History: Surrogate medical decision maker: Sukhi Crawford, spouse. Code status: Full code. Smoking packs per day: 1 Smoking cigarettes per day: 20.0 Years smoked: 15 Smoking pack-years: 15.00 Smoking status: Former smoker Tobacco type: cigarettes Second hand tobacco smoke exposure: No Smoking end date: 08/28/13 Additional smoking assessment comments: Quit smoking 09/2003 Alcohol intake: current Drinks per week: 35 Alcohol use details: Patient reports that she currently drinks 5 alcoholic beverages a day. Substance use: current Substance use type: marijuana Other substance usage details: last drink 3 weeks ago Last use: 06/19 Do You Feel Safe in your Home?: Yes Lack of Transportation: No Lack of Food: Never True Current Housing: I Have Housing Concerned About Future Housing: No Difficulty Paying Gas/Electric Bills: No Difficulty Paying for Meds: No Currently Unemployed: No Education: Associate Degree Difficulty w/ Childcare or Family Care: No Living arrangements: with family Occupation/Education: unemployed Spiritual care concerns: No Meds Home Medications and Allergies Home Medications Medication Instructions Recorded Confirmed Type ascorbic acid (vitamin C) 500 mg 500 mg PO DAILY 02/22/21 06/21/24 History tablet,extended release denosumab 60 mg/mL subcutaneous 60 mg subcut [id number] #1 mL 04/10/23 06/21/24 Rx syringe (Prolia) calcium 100 mg capsule 100 mg PO DAILY 05/17/23 06/21/24 History ferrous sulfate 325 mg (65 mg 325 mg PO DAILY 05/17/23 06/21/24 History iron) tablet vitamin B complex 1 tablet PO DAILY 05/17/23 06/21/24 History cetirizine 10 mg tablet (Zyrtec) 10 mg PO PRN PRN Allergy Symptoms 06/27/23 06/21/24 History metoprolol succinate 25 mg 25 mg PO DAILY #90 tabs 03/05/24 06/21/24 Rx tablet,extended release 24 hr pantoprazole 20 mg tablet,delayed 20 mg PO QAM #90 tabs 03/05/24 06/21/24 Rx release sertraline 50 mg tablet (Zoloft) 50 mg PO DAILY #90 tabs 03/05/24 06/21/24 Rx cyclobenzaprine 10 mg tablet 10 mg PO BID PRN muscle spasm #30 04/17/24 06/21/24 Rx tabs atorvastatin 40 mg tablet 40 mg PO HS 06/21/24 06/21/24 History Allergies Allergy/AdvReac Type Severity Reaction Status Date / Time Penicillins Allergy Unknown Skin Verified 06/21/24 07:55 irritation prednisone Allergy Rash Verified 06/21/24 07:55 bacitracin AdvReac Mild Swelling Verified 06/21/24 07:55 [From Neosporin ([id number])] neomycin AdvReac Mild Swelling Verified 06/21/24 07:55 [From Neosporin ([id number])] polymyxin B AdvReac Mild Swelling Verified 06/21/24 07:55 [From Neosporin ([id number])] codeine AdvReac Unknown Headache Verified 06/21/24 07:55 Vital Signs Vital Signs - 24 hr 06/21/24 07:43 06/21/24 11:21 06/21/24 12:58 Temperature 97.6 F Pulse Rate 133 H 109 H Respiratory Rate 25 H 19 Blood Pressure 142/78 H 152/92 H Pulse Oximetry 98 100 Oxygen Delivery Room Air Room Air 06/21/24 15:02 06/21/24 15:53 06/21/24 16:00 Temperature 97.7 F Pulse Rate 112 H 117 H 110 H Respiratory Rate 20 16 24 H Blood Pressure 170/102 H 138/80 147/86 H Pulse Oximetry 100 100 100 Oxygen Delivery 06/21/24 16:15 06/21/24 16:45 06/21/24 17:00 Temperature Pulse Rate 105 H 114 H 104 H Respiratory Rate 22 H 21 H 16 Blood Pressure 143/79 H 142/86 H 149/92 H Pulse Oximetry 97 99 100 Oxygen Delivery 06/21/24 17:15 06/21/24 17:30 06/21/24 17:45 Temperature Pulse Rate 109 H 106 H 99 Respiratory Rate 19 18 16 Blood Pressure 152/95 H 154/98 H 154/91 H Pulse Oximetry 99 100 99 Oxygen Delivery 06/21/24 18:00 06/21/24 18:15 Temperature Pulse Rate 112 H 105 H Respiratory Rate 18 19 Blood Pressure 147/89 H 126/81 Pulse Oximetry 99 98 Oxygen Delivery Exam Narrative: General: In no acute distress, well nourished Head: atraumatic, no encephalopathy Eyes: EOMI, PERRLA, sclera clear ENT: moist mucous membranes, nasal passages clear, reports headache Neck: supple, no JVD, no adenopathy, trachea midline Cardiac: Normal S1 and S2. Tachycardic, No murmur, gallops or friction rubs, peripheral pulses intact. Respiratory: Lungs clear to auscultation, no adventitious lung sounds, currently on room air Gastrointestinal: soft, non-distended, non-tender, normoactive bowel sounds. : voiding without difficulty. Extremities: moves all extremities well, tremors noted to bilateral hands Skin: clean, dry, intact. No wounds or lesions. Neuro: Alert and oriented x4, cranial nerves intact, no neuro deficits. Psych: normal mood, normal affect, interactive, denies any visual or audio hallucinations H&P: Results Labs Labs: Short CBC 06/21/24 Range/Units 11:21 WBC 12.1 H (4.5-10.0) K/mm3 Hgb 13.6 (12.0-15.0) g/dL Hct 42.1 (37.0-47.0) % Plt Count 152 D (150-375) k/mm3 BMP 06/21/24 11:21 Sodium 140 Potassium 3.6 Chloride 97 L Carbon Dioxide < 5 L BUN 15 D Creatinine 1.20 H Glucose 136 H Calcium 8.9 Liver Function 06/21/24 Range/Units 11:21 Total Bilirubin 1.2 (0.2-1.3) mg/dL AST 155 H (14-36) U/L ALT 65 H (6-35) U/L Alkaline Phosphatase 140 H (38-126) U/L Albumin 5.6 H (3.5-5.1) g/dL Urine 06/21/24 Range/Units 15:59 Urine Color Yellow (Yellow) Urine Appearance Clear (Clear) Urine pH 5.5 (5.0-9.0) Ur Specific [place] 1.012 (1.001-1.035) Urine Protein 2+ H (Negative) mg/dL Urine Glucose (UA) Negative (Negative) mg/dL Imaging CT scan - head: Radiologist's impression: EXAMINATION: CT brain wo con DATE: 06/21/2024 14:37 INDICATION: Seizure. TECHNIQUE: Computed tomography (CT) of the head was performed without intravenous contrast. The mA was adjusted according to patient size. Iterative reconstruction technique was employed. The dose-length product was 605.33 mGy- cm. COMPARISON: Head CT 12/12/2021 FINDINGS: There is no intracranial hemorrhage, acute infarction, or abnormal intracranial mass lesion. The ventricles are normal in size. There are likely changes of ocular lens replacement surgeries. There is mild mucosal thickening in the paranasal sinuses. There are small bilateral mastoid effusions. IMPRESSION: 1. Normal brain. Reviewed, dictated and finalized at location A. Assessment and Plan Assessment and plan (1) Metabolic acidosis, increased anion gap: Code(s): E87.29 - Other acidosis Status: Acute Assessment and Plan: * likely related to alcohol withdrawal and alcohol related seizures * initial bicarb less than 5 * initial VBG revealed pH 6.952, pCO2 24.0, bicarb 5.2 * initial anion gap after manual calculation was 37.8 * patient was given 2 amps of bicarb and started on bicarb infusion * repeat VBG shown a corrected pH is 7.303, pCO2 29.7, HC03 14.4-- will continue bicarb infusion overnight * urine drug screen positive for barbiturates and cannabinoids * blood alcohol level 48 * care coordination consulted (2) Alcohol withdrawal seizure: Code(s): F10.939 - Alcohol use, unspecified with withdrawal, unspecified; R56.9 - Unspecified convulsions Status: Acute Assessment and Plan: * continue CIWA protocol * initial CIWA score was greater than 20 * patient was given a dose of phenobarbital 260 mg IV push while in the ED * continue neuro checks q4h * seizure precautions ordered * patient was given a dose of thiamin 100 mg IV push while in the ED * will continue thiamin but at higher dose of 300 mg daily * will start Librium 25 mg q.6 hour (3) Transaminitis: Code(s): R74.01 - Elevation of levels of liver transaminase levels Status: Acute Assessment and Plan: * AST 155, ALT 65, Alk phos 140 * Likely secondary to alcoholic cirrhosis * Hepatitis panel from 04/06/24 was negative * continue to trend (4) ABUNDIO (acute kidney injury): Code(s): N17.9 - Acute kidney failure, unspecified Status: Acute Assessment and Plan: * Creatinine 1.20 * Baseline creatinine 0.60-0.70 * patient received 2 L normal saline while in the ED * continue to trend (5) Leukocytosis: Code(s): D72.829 - Elevated white blood cell count, unspecified Status: Acute Assessment and Plan: * WBC 12.1 * likely inflammatory response from seizure activity (6) Anemia: Code(s): D64.9 - Anemia, unspecified Status: Acute Assessment and Plan: * history of iron deficiency anemia however hemoglobin is 13.6 could be hemoconcentrated due to dehydration * MCV 101.2 * ferrous sulfate continued * will check ferrous sulfate, folic acid, vitamin B12 and ferritin * continue to trend Quality VTE Prophylaxis VTE prophylaxis: pharmacologic ordered Hospitalist MIPS Advance Care Plan I have confirmed that the patient's Advanced Care Plan is present, code status is documented, or surrogate decision maker is listed in patient medical record.: Yes Medication Reconciliation I have utilized all available resources to obtain, update and review the patients current medications (includes all prescriptions, OTC, herbals, cannabis, and nutritional supplements).: Yes
--- NOTE | 2024-06-21 19:42 | PC.NURSE ---
Lab called to add on ordered labs.
[2024-06-21 19:59] LABS: Iron 224 ug/dL (37-170)
[2024-06-21 20:02] LABS: Hemoglobin A1C 5.4 % (<5.7)
[2024-06-21 20:11] LABS: Percent Iron Saturation 128 % (20-50)
[2024-06-21 20:31] LABS: Thyroid Stimulating Hormone 0.827 uIU/mL (0.465-4.680)
[2024-06-21 21:35] LABS: Folic Acid 18.5 ng/mL (2.76->20)
--- NOTE | 2024-06-21 22:47 | ADMGEN ---
This patient, Maria Fernanda Crawford, was admitted to IMU Room 231-01 at 2216. Patient/family oriented to hospital policies and general routines including ID bracelet, bed and alarms, visiting hours, pain management, procedures, bathroom and other care routines, personal items, smoking policy, room service/diet, and visiting hours. Information on how to activate the Rapid Response Team has been discussed. Patient/Family are encouraged to report perceived risks to care and to ask questions if they do not understand what they are told or what they should do.
--- NOTE | 2024-06-21 22:48 | PC.NURSE ---
Received report from ED at 9007.
[2024-06-22] VITALS (15 sets, daily range): BP systolic 108–128; BP diastolic 67–80; PULSE 71–111; RESP 16–18; TEMP 36.6–37.1; O2SAT 95–100
[2024-06-22] MEDS: chlordiazePOXIDE (*CRX) 25 MG CAPSULE PO ×4 (00:09→17:10)
[2024-06-22 00:13] LABS: Glucose Point of Care 151 mg/dl (65-105)
[2024-06-22 05:04] LABS: Alanine Aminotransferase 53 U/L (6-35); Albumin Level 4.3 g/dL (3.5-5.1); Alkaline Phosphatase 95 U/L (38-126); Anion Gap 12 mmol/L (4-12); Aspartate Amino Transferase 99 U/L (14-36); Bilirubin,Total 1.1 mg/dL (0.2-1.3); Blood Urea Nitrogen 18 mg/dL (7-17); Calcium 7.4 mg/dL (8.4-10.2); Carbon Dioxide 28 mmol/L (22-30); Chloride 94 mmol/L (98-107); Estimated CRCL calculation 48 ml/min; Estimated Glomerular Filt Rate 57; Glucose 128 mg/dL (65-110); Potassium 3.5 mmol/L (3.4-5.0); Sodium 134 mmol/L (137-145)
[2024-06-22 05:40] LABS: Glucose Point of Care 127 mg/dl (65-105)
[2024-06-22 06:05] LABS: Eosinophils Percent Auto 0.2 % (0-4.4); Hematocrit 33.5 % (37.0-47.0); Hemoglobin 11.6 g/dL (12.0-15.0); Immature Granulocyte Absolute 0.01 K/mm3 (0.00-0.031); Immature Granulocyte Percent A 0.2 % (0-0.5); Immature Platelet Fraction Pct 1.9 % (0.9-11.2); Lymphocytes Absolute Auto 0.53 K/mm3 (0.9-3.2); Lymphocytes Percent Auto 12.2 % (18.3-44.2); Mean Corpuscular HGB Conc 34.6 g/dl (32-36); Mean Corpuscular Hemoglobin 32.6 pg (26-34); Mean Corpuscular Volume 94.1 fl (80-100); Mean Platelet Volume 9.5 fl (7.4-10.4); Monocytes Absolute Auto 0.7 K/mm3 (0.1-0.6); Monocytes Percent Auto 16.5 % (2.6-8.5); Neutrophils Absolute Auto 3.1 K/mm3 (1.3-6.7); Neutrophils Percent Auto 70.9 % (45.5-73.1); Platelet Count Result 97 k/mm3 (150-375); Red Blood Count 3.56 M/mm3 (4.2-5.4); Red Cell Distribution Width 13.1 % (11.5-14.5); White Blood Count 4.4 K/mm3 (4.5-10.0)
[2024-06-22] MEDS: THIAMINE HCL 200 MG/2 ML VIAL 300 MG IVPB (10:13)
[2024-06-22] MEDS: SERTRALINE HCL 50 MG TABLET PO (10:15)
[2024-06-22] MEDS: MULTIVITAMINS THERAPEUTIC TAB (*BKC) 1 TABLET PO (10:15)
[2024-06-22] MEDS: PANTOPRAZOLE SOD SESQUIHYDRATE 20 MG TAB PO (10:15)
[2024-06-22] MEDS: ATORVASTATIN 40 MG TABLET PO (10:15)
[2024-06-22] MEDS: FERROUS SULFATE 325 MG TABLET DR PO (10:15)
[2024-06-22] MEDS: METOPROLOL SUCCINATE EXT REL 25 MG TABCR PO (10:16)
[2024-06-22] MEDS: SODIUM BICARBONATE 8.4% 100 MEQ in DEXTROSE 5% 1,000 ML 1,000 ML 50 MEQ IV CONT (12:09)
[2024-06-22 12:19] LABS: Glucose Point of Care 161 mg/dl (65-105)
--- NOTE | 2024-06-22 14:41 | P.PNIM_ITS ---
Progress Note: A&P Assessment and Plan (1) Metabolic acidosis, increased anion gap: Code(s): E87.29 - Other acidosis Status: Acute Assessment and Plan: * Resolved with IVF hydration. * Discontinue bicarb infusion. * likely related to alcohol abuse and alcohol related seizures. * initial bicarb less than 5. * initial VBG revealed pH 6.952, pCO2 24.0, bicarb 5.2 * initial anion gap after manual calculation was 37.8 * patient was given 2 amps of bicarb and started on bicarb infusion * repeat VBG shown a corrected pH is 7.303, pCO2 29.7, HC03 14.4-- will continue bicarb infusion overnight * urine drug screen positive for barbiturates and cannabinoids * blood alcohol level 48 * care coordination consulted (2) Alcohol withdrawal seizure: Code(s): F10.939 - Alcohol use, unspecified with withdrawal, unspecified; R56.9 - Unspecified convulsions Status: Acute Assessment and Plan: * continue CIWA protocol * initial CIWA score was greater than 20 * patient was given a dose of phenobarbital 260 mg IV push in the ED on presentation. * continue neuro checks q4h * seizure precautions. * patient was given a dose of thiamin 100 mg IV push while in the ED * will continue thiamin but at higher dose of 300 mg daily, MVI and folic acid. * Continue Librium 25 mg q.6 hour (3) Transaminitis: Code(s): R74.01 - Elevation of levels of liver transaminase levels Status: Acute Assessment and Plan: * AST 155, ALT 65, Alk phos 140 * Likely secondary to alcoholic cirrhosis. * Hepatitis panel from 04/06/24 was negative. * Trending down. * continue to trend (4) ABUNDIO (acute kidney injury): Code(s): N17.9 - Acute kidney failure, unspecified Status: Acute Assessment and Plan: * Creatinine 1.20 * Baseline creatinine 0.60-0.70 * patient received 2 L normal saline while in the ED * Cr 1.0 today. * D/c IVF and encourage with PO fluids. * continue to trend. (5) Leukocytosis: Code(s): D72.829 - Elevated white blood cell count, unspecified Status: Acute Assessment and Plan: * WBC 12.1 * likely inflammatory response from seizure activity. * Resolved and levels appear back to baseline. (6) Anemia: Code(s): D64.9 - Anemia, unspecified Status: Acute Assessment and Plan: * history of iron deficiency anemia however hemoglobin is 13.6 could be hemoconcentrated due to dehydration * MCV 101.2. * ferrous sulfate continued * ferrous sulfate wnl, folic acid wnl, vitamin B12 wnl and ferritin wnl. * continue to trend. Time Spent With Patient Time with patient: 25 - 35 minutes Subjective Date/time seen: 06/22/24 14:41 Interval history: Patient presented to the ER with seizure episodes at home, reportedly from alcohol withdrawal. No seizure episodes inpatient and patient is being monitored on seizure and CIWA precautions. Patient calm on bedrest and denies any distressful symptoms. Review of Systems Review of Systems: All systems reviewed & are unremarkable except as noted in HPI and below Constitutional: Constitutional: Reports as per HPI and Reports no additional constitutional complaints Eyes: Eyes: Reports as per HPI and Reports no additional eye complaints ENT: Reports system reviewed and no additional complaints, except as documented and Reports as per HPI Cardiovascular: Cardiovascular: Reports as per HPI and Reports no additional cardiovascular complaints Respiratory: Respiratory: Reports as per HPI and Reports no additional respiratory complaints Gastrointestinal: Gastrointestinal: Reports as per HPI and Reports no additional gastrointestinal complaints Genitourinary: Genitourinary: Reports no additional female genitourinary complaints and Reports as per HPI Musculoskeletal: Musculoskeletal: Reports no additional musculoskeletal complaints and Reports as per HPI Integumentary/Breasts: Skin/Breast: Reports system reviewed and no additional complaints, except as docu and Reports as per HPI Neurologic: Reports system reviewed and no additional complaints, except as documented and Reports as per HPI Psychiatric: Psychiatric: Reports no additional psychiatric complaints and Reports as per HPI Exam Narrative: General: In no acute distress, well nourished Head: atraumatic, no encephalopathy Eyes: EOMI, PERRLA, sclera clear ENT: moist mucous membranes, nasal passages clear, Neck: supple, no JVD, no adenopathy, trachea midline Cardiac: Normal S1 and S2, No murmurs, peripheral pulses intact. Respiratory: Lungs clear to auscultation, no adventitious lung sounds, Gastrointestinal: soft, non-distended, non-tender, normoactive bowel sounds. : voiding without difficulty. Extremities: moves all extremities well, tremors noted to bilateral hands Skin: clean, dry, intact. No wounds or lesions. Neuro: Alert and oriented x4, cranial nerves intact, no neuro deficits. Psych: normal mood, normal affect, interactive, denies any visual or audio hallucinations Objective Data Vital Signs Vital Signs: Vital Signs - 24 hr 06/21/24 15:02 06/21/24 15:53 06/21/24 16:00 Temperature 97.7 F Pulse Rate 112 H 117 H 110 H Pulse Rate [Monitor] Respiratory Rate 20 16 24 H Blood Pressure 170/102 H 138/80 147/86 H Pulse Oximetry 100 100 100 Oxygen Delivery 06/21/24 16:15 06/21/24 16:45 06/21/24 17:00 Temperature Pulse Rate 105 H 114 H 104 H Pulse Rate [Monitor] Respiratory Rate 22 H 21 H 16 Blood Pressure 143/79 H 142/86 H 149/92 H Pulse Oximetry 97 99 100 Oxygen Delivery 06/21/24 17:15 06/21/24 17:30 06/21/24 17:45 Temperature Pulse Rate 109 H 106 H 99 Pulse Rate [Monitor] Respiratory Rate 19 18 16 Blood Pressure 152/95 H 154/98 H 154/91 H Pulse Oximetry 99 100 99 Oxygen Delivery 06/21/24 18:00 06/21/24 18:15 06/21/24 18:45 Temperature Pulse Rate 112 H 105 H 107 H Pulse Rate [Monitor] Respiratory Rate 18 19 17 Blood Pressure 147/89 H 126/81 155/98 H Pulse Oximetry 99 98 100 Oxygen Delivery 06/21/24 19:00 06/21/24 21:45 06/21/24 23:17 Temperature 99.4 F Pulse Rate 102 H 98 100 Pulse Rate [Monitor] Respiratory Rate 15 16 16 Blood Pressure 149/94 H 137/85 153/87 H Pulse Oximetry 99 99 98 Oxygen Delivery 06/22/24 00:00 06/22/24 00:00 06/22/24 00:00 Temperature Pulse Rate 111 H Pulse Rate [Monitor] 110 H Respiratory Rate Blood Pressure Pulse Oximetry Oxygen Delivery Room Air 06/22/24 02:00 06/22/24 04:00 06/22/24 04:00 Temperature Pulse Rate 109 H 96 Pulse Rate [Monitor] 96 Respiratory Rate Blood Pressure Pulse Oximetry Oxygen Delivery 06/22/24 04:00 06/22/24 05:38 06/22/24 06:00 Temperature 98.1 F Pulse Rate 81 94 Pulse Rate [Monitor] Respiratory Rate 16 Blood Pressure 124/79 Pulse Oximetry 100 Oxygen Delivery Room Air 06/22/24 08:00 06/22/24 08:00 06/22/24 08:56 Temperature 98.3 F Pulse Rate 94 90 Pulse Rate [Monitor] Respiratory Rate 16 Blood Pressure 128/80 Pulse Oximetry 97 95 Oxygen Delivery Room Air 06/22/24 10:16 06/22/24 12:00 06/22/24 12:00 Temperature 98 F Pulse Rate 103 H 98 95 Pulse Rate [Monitor] Respiratory Rate 16 Blood Pressure 119/71 Pulse Oximetry 99 Oxygen Delivery Intake/Output Intake/Output: Intake & Output 06/19/24 06/20/24 06/21/24 06/22/24 23:59 23:59 23:59 23:59 Intake Total 1999 2150.8 Balance 1999 2150.8 Meds/Results Medications: Active Medications Generic Name Dose Route Start Last Admin Trade Name Freq PRN Reason Stop Dose Admin Acetaminophen 650 mg 06/21/24 18:27 Acetaminophen 325 Mg Tablet PO Q4H PRN Mild Pain (1-3) or Fever Atorvastatin Calcium 40 mg 06/22/24 09:00 06/22/24 10:15 Atorvastatin 40 Mg Tablet PO 40 mg DAILY PARISH Administration Chlordiazepoxide HCl 25 mg 06/21/24 15:05 06/21/24 15:39 Chlordiazepoxide (*Crx) 25 Mg Capsule PO 25 mg Q6H PRN Administration Withdrawal Chlordiazepoxide HCl 25 mg 06/22/24 00:00 06/22/24 12:10 Chlordiazepoxide (*Crx) 25 Mg Capsule PO 25 mg Q6HR PARISH Administration Enoxaparin Sodium 40 mg 06/22/24 09:00 06/22/24 10:16 Enoxaparin 40 Mg/0.4 Ml Syringe SUB-Q Not Given DAILY PARISH Ferrous Sulfate 325 mg 06/22/24 09:00 06/22/24 10:15 Ferrous Sulfate [address] PO 325 mg DAILY PARISH Administration Sodium Bicarbonate 100 meq/ 1,100 mls @ 50 mls/hr 06/21/24 14:10 06/22/24 12:09 Dextrose IV CONT 50 mls/hr .Q22H PARISH Administration Lorazepam 2 mg 06/21/24 15:05 06/21/24 15:38 Lorazepam Inj (*Crx) 2 Mg/Ml Vial IV PUSH 2 mg Q2H PRN Administration CIWA > 15 Metoprolol Succinate 25 mg 06/22/24 09:00 06/22/24 10:16 Metoprolol Succinate Ext Rel 25 Mg Tabcr PO 25 mg QAM PARISH Administration Multivitamins Therapeutic 1 tablet 06/22/24 09:00 06/22/24 10:15 Multivitamins Therapeutic Tab (*Bkc) PO 1 tablet QAM PARISH Administration Ondansetron HCl 4 mg 06/21/24 15:05 06/21/24 15:39 Ondansetron Inj 4 Mg/2 Ml Vial IV PUSH 4 mg Q6H PRN Administration Nausea And Vomiting Pantoprazole Sodium 20 mg 06/22/24 09:00 06/22/24 10:15 Pantoprazole Sod Sesquihydrate 20 Mg Tab PO 20 mg QAM PARISH Administration Sertraline HCl 50 mg 06/22/24 09:00 06/22/24 10:15 Sertraline Hcl 50 Mg Tablet PO 50 mg QAM PARISH Administration Thiamine HCl 300 mg 06/22/24 09:00 06/22/24 10:13 Thiamine Hcl 200 Mg/2 Ml Vial IVPB 300 mg QAM PARISH Administration Radiology Results: ITS Impressions Head CT 06/21/24 14:47 IMPRESSION: 1. Normal brain. Labs Labs: Laboratory Results - last 24 hr 06/21/24 06/21/24 06/21/24 11:20 11:21 11:24 WBC RBC Hgb Hct MCV MCH MCHC RDW Plt Count MPV Immature Gran % (Auto) Neut % (Auto) Lymph % (Auto) [place] % (Auto) Eos % (Auto) Baso % (Auto) Lymph # (Auto) [place] # (Auto) Eos # (Auto) Baso # (Auto) Abs Immat Gran (auto) Absolute Neuts (auto) Absolute Nucleated RBC Nucleated RBC % % Immature Plt Fraction VBG pH VBG pCO2 VBG pO2 VBG HCO3 O2 Delivery Device O2 Liters/Min FiO2 Sodium Potassium Chloride Carbon Dioxide Anion Gap BUN Creatinine Estim Creat Clear Calc Estimated GFR Glucose POC Capillary Glucose Hemoglobin A1c 5.4 Calcium Iron 224 H TIBC 175 L % Saturation 128 H Ferritin 207.00 Total Bilirubin AST ALT Alkaline Phosphatase Total Protein Albumin Vitamin B12 716.0 Folate 18.5 TSH 0.827 Urine Color Urine Appearance Urine pH Ur Specific Pooler Urine Protein Urine Glucose (UA) Urine Ketones Ur Blood (Man) Urine Nitrate Urine Bilirubin Urine Urobilinogen Leukocyte Esterase Rfl Urine RBC Urine WBC Ur Squamous Epith Cells Urine Bacteria Urine Casts Urine Opiates Screen Urine Methadone Screen Ur Barbiturates Screen Ur Phencyclidine Scrn Ur Amphetamine Screen U Benzodiazepines Scrn Urine Cocaine Screen U Cannabinoids Screen 06/21/24 06/21/24 06/22/24 15:59 17:31 00:10 WBC RBC Hgb Hct MCV MCH MCHC RDW Plt Count MPV Immature Gran % (Auto) Neut % (Auto) Lymph % (Auto) [place] % (Auto) Eos % (Auto) Baso % (Auto) Lymph # (Auto) [place] # (Auto) Eos # (Auto) Baso # (Auto) Abs Immat Gran (auto) Absolute Neuts (auto) Absolute Nucleated RBC Nucleated RBC % % Immature Plt Fraction VBG pH 6.952 L* 7.303 VBG pCO2 24.0 L* 29.7 L* VBG pO2 72.9 H 36.9 VBG HCO3 5.2 L 14.4 L O2 Delivery Device Room air Room air O2 Liters/Min Not Reportable Not Reportable FiO2 21 Sodium Potassium Chloride Carbon Dioxide Anion Gap BUN Creatinine Estim Creat Clear Calc Estimated GFR Glucose POC Capillary Glucose 151 H Hemoglobin A1c Calcium Iron TIBC % Saturation Ferritin Total Bilirubin AST ALT Alkaline Phosphatase Total Protein Albumin Vitamin B12 Folate TSH Urine Color Yellow Urine Appearance Clear Urine pH 5.5 Ur Specific [place] 1.012 Urine Protein 2+ H Urine Glucose (UA) Negative Urine Ketones 4+ H Ur Blood (Man) 2+ H Urine Nitrate Negative Urine Bilirubin Negative Urine Urobilinogen 0.2 Leukocyte Esterase Rfl Trace H Urine RBC 6-10 H Urine WBC 0-5 Ur Squamous Epith Cells Occasional Urine Bacteria Rare Urine Casts 0-2 Urine Opiates Screen Negative Urine Methadone Screen Negative Ur Barbiturates Screen Positive A Ur Phencyclidine Scrn Negative Ur Amphetamine Screen Negative U Benzodiazepines Scrn Negative Urine Cocaine Screen Negative U Cannabinoids Screen Positive A 06/22/24 06/22/24 06/22/24 04:34 05:27 05:52 WBC 4.4 L RBC 3.56 L Hgb 11.6 L Hct 33.5 L MCV 94.1 D MCH 32.6 MCHC 34.6 RDW 13.1 Plt Count 97 L MPV 9.5 Immature Gran % (Auto) 0.2 Neut % (Auto) 70.9 Lymph % (Auto) 12.2 L Saunders % (Auto) 16.5 H Eos % (Auto) 0.2 Baso % (Auto) 0.0 L Lymph # (Auto) 0.53 L [place] # (Auto) 0.7 H Eos # (Auto) 0.0 Baso # (Auto) 0.0 Abs Immat Gran (auto) 0.01 Absolute Neuts (auto) 3.1 Absolute Nucleated RBC 0.000 Nucleated RBC % 0.0 % Immature Plt Fraction 1.9 VBG pH VBG pCO2 VBG pO2 VBG HCO3 O2 Delivery Device O2 Liters/Min FiO2 Sodium 134 L Potassium 3.5 Chloride 94 L Carbon Dioxide 28 Anion Gap 12 BUN 18 H Creatinine 1.00 Estim Creat Clear Calc 48 Estimated GFR 57 L Glucose 128 H POC Capillary Glucose 127 H Hemoglobin A1c Calcium 7.4 L Iron TIBC % Saturation Ferritin Total Bilirubin 1.1 AST 99 H ALT 53 H Alkaline Phosphatase 95 Total Protein 7.0 Albumin 4.3 Vitamin B12 Folate TSH Urine Color Urine Appearance Urine pH Ur Specific Pooler Urine Protein Urine Glucose (UA) Urine Ketones Ur Blood (Man) Urine Nitrate Urine Bilirubin Urine Urobilinogen Leukocyte Esterase Rfl Urine RBC Urine WBC Ur Squamous Epith Cells Urine Bacteria Urine Casts Urine Opiates Screen Urine Methadone Screen Ur Barbiturates Screen Ur Phencyclidine Scrn Ur Amphetamine Screen U Benzodiazepines Scrn Urine Cocaine Screen U Cannabinoids Screen 06/22/24 12:17 WBC RBC Hgb Hct MCV MCH MCHC RDW Plt Count MPV Immature Gran % (Auto) Neut % (Auto) Lymph % (Auto) Saunders % (Auto) Eos % (Auto) Baso % (Auto) Lymph # (Auto) Saunders # (Auto) Eos # (Auto) Baso # (Auto) Abs Immat Gran (auto) Absolute Neuts (auto) Absolute Nucleated RBC Nucleated RBC % % Immature Plt Fraction VBG pH VBG pCO2 VBG pO2 VBG HCO3 O2 Delivery Device O2 Liters/Min FiO2 Sodium Potassium Chloride Carbon Dioxide Anion Gap BUN Creatinine Estim Creat Clear Calc Estimated GFR Glucose POC Capillary Glucose 161 H Hemoglobin A1c Calcium Iron TIBC % Saturation Ferritin Total Bilirubin AST ALT Alkaline Phosphatase Total Protein Albumin Vitamin B12 Folate TSH Urine Color Urine Appearance Urine pH Ur Specific Pooler Urine Protein Urine Glucose (UA) Urine Ketones Ur Blood (Man) Urine Nitrate Urine Bilirubin Urine Urobilinogen Leukocyte Esterase Rfl Urine RBC Urine WBC Ur Squamous Epith Cells Urine Bacteria Urine Casts Urine Opiates Screen Urine Methadone Screen Ur Barbiturates Screen Ur Phencyclidine Scrn Ur Amphetamine Screen U Benzodiazepines Scrn Urine Cocaine Screen U Cannabinoids Screen Quality VTE Prophylaxis VTE prophylaxis: pharmacologic ordered Hospitalist MIPS Advance Care Plan I have confirmed that the patient's Advanced Care Plan is present, code status is documented, or surrogate decision maker is listed in patient medical record.: Yes Medication Reconciliation I have utilized all available resources to obtain, update and review the pat ients current medications (includes all prescriptions, OTC, herbals, cannabis, and nutritional supplements).: Yes
--- NOTE | 2024-06-22 14:48 | PC.NURSE ---
Reviewed and acknowledge charting Alida Tang SN
[2024-06-22] MEDS: FOLIC ACID 0.4 MG TABLET PO (17:10)
[2024-06-22 17:56] LABS: Glucose Point of Care 154 mg/dl (65-105)
[2024-06-23] VITALS (13 sets, daily range): BP systolic 104–114; BP diastolic 67–84; PULSE 63–89; RESP 18–20; TEMP 36.4–36.8; O2SAT 96–100
[2024-06-23 00:30] LABS: Glucose Point of Care 139 mg/dl (65-105)
[2024-06-23] MEDS: chlordiazePOXIDE (*CRX) 25 MG CAPSULE PO ×3 (00:32→11:47)
[2024-06-23 05:29] LABS: Basophils Percent Auto 0.3 % (0.2-1.2); Eosinophils Absolute Auto 0.1 K/mm3 (0-0.3); Eosinophils Percent Auto 2.1 % (0-4.4); Hematocrit 38.6 % (37.0-47.0); Immature Granulocyte Absolute 0.01 K/mm3 (0.00-0.031); Immature Granulocyte Percent A 0.3 % (0-0.5); Immature Platelet Fraction Pct 3.6 % (0.9-11.2); Lymphocytes Absolute Auto 1.12 K/mm3 (0.9-3.2); Lymphocytes Percent Auto 29.4 % (18.3-44.2); Mean Corpuscular HGB Conc 33.7 g/dl (32-36); Mean Corpuscular Hemoglobin 32.7 pg (26-34); Mean Platelet Volume 9.9 fl (7.4-10.4); Monocytes Absolute Auto 0.4 K/mm3 (0.1-0.6); Monocytes Percent Auto 10.8 % (2.6-8.5); Neutrophils Absolute Auto 2.2 K/mm3 (1.3-6.7); Neutrophils Percent Auto 57.1 % (45.5-73.1); Platelet Count Result 86 k/mm3 (150-375); Red Blood Count 3.98 M/mm3 (4.2-5.4); Red Cell Distribution Width 12.8 % (11.5-14.5); White Blood Count 3.8 K/mm3 (4.5-10.0)
[2024-06-23 05:42] LABS: Alanine Aminotransferase 50 U/L (6-35); Albumin Level 4.5 g/dL (3.5-5.1); Alkaline Phosphatase 109 U/L (38-126); Anion Gap 8 mmol/L (4-12); Aspartate Amino Transferase 97 U/L (14-36); Bilirubin,Total 0.9 mg/dL (0.2-1.3); Blood Urea Nitrogen 13 mg/dL (7-17); Calcium 8.5 mg/dL (8.4-10.2); Carbon Dioxide 32 mmol/L (22-30); Chloride 94 mmol/L (98-107); Estimated CRCL calculation 59 ml/min; Estimated Glomerular Filt Rate > 60; Glucose 107 mg/dL (65-110); Sodium 134 mmol/L (137-145)
[2024-06-23 05:52] LABS: Platelet Estimate Decreased (Adequate)
[2024-06-23 05:53] LABS: Anisocytosis 1+; Schistocytes None Seen
[2024-06-23 06:14] LABS: Glucose Point of Care 124 mg/dl (65-105)
[2024-06-23] MEDS: FOLIC ACID 0.4 MG TABLET PO (09:36)
[2024-06-23] MEDS: SERTRALINE HCL 50 MG TABLET PO (09:36)
[2024-06-23] MEDS: ATORVASTATIN 40 MG TABLET PO (09:36)
[2024-06-23] MEDS: PANTOPRAZOLE SOD SESQUIHYDRATE 20 MG TAB PO (09:36)
[2024-06-23] MEDS: FERROUS SULFATE 325 MG TABLET DR PO (09:36)
[2024-06-23] MEDS: THIAMINE HCL 200 MG/2 ML VIAL 300 MG IVPB (09:37)
[2024-06-23] MEDS: MULTIVITAMINS THERAPEUTIC TAB (*BKC) 1 TABLET PO (09:37)
[2024-06-23 13:01] LABS: Glucose Point of Care 172 mg/dl (65-105)
--- NOTE | 2024-06-23 14:39 | PM.DS ---
DS: Admitting Diagnosis Discharge Date 06/23/24 Admitting Diagnosis Alcohol Withdrawal Seizures DS: Discharge Diagnosis Discharge Diagnosis (1) Hypokalemia: Code(s): E87.6 - Hypokalemia Status: Resolved Assessment and Plan: - Replaced prior to discharge. (2) Alcohol withdrawal seizure: Code(s): F10.939 - Alcohol use, unspecified with withdrawal, unspecified; R56.9 - Unspecified convulsions Status: Acute Plan Discharge home on self care. DS: Summary Hospital Course Reason for hospitalization: Alcohol Withdrawal seizures. Hospital Course: Patient with a past medical history of alcohol abuse, seizures due to alcohol abuse and withdrawals, pancreatitis, GERD, hypertension, hyperlipidemia, anemia, former smoker, marijuana abuse. She presented to the hospital with seizure activity at home from alcohol withdrawals. Her last alcoholic drink was 2 days prior to her admission. She reported drinking about a 5th vodka a week but has been trying to cut back unsuccessfully due to alcoholic seizures. Workup in the hospital included a head CT which was negative for any acute intracranial process. She was noted to be in metabolic acidosis as well from dehydration and alcohol abuse, and possibly from seizures, so she was admitted for stabilization with her treatment as noted above. Patient with no seizure activities inpatient and states she feels ready to go home and has been discussing with her on getting help with alcohol abuse. States her will assist her with getting treatment when she goes home. Patient stable for discharge with no acute distress noted or reported prior to discharge. Status at Discharge Functional status at discharge: independent ambulation Overall status at discharge: patient is progressing back to baseline Time Spent with Patient Time attestation: Total time spent providing and/or coordinating discharge services: Time spent: Greater than 30 minutes Exam Narrative: General: In no acute distress, well nourished Head: atraumatic, no encephalopathy Eyes: EOMI, PERRLA, sclera clear ENT: moist mucous membranes, nasal passages clear, Neck: supple, no JVD, no adenopathy, trachea midline Cardiac: Normal S1 and S2, No murmurs, peripheral pulses intact. Respiratory: Lungs clear to auscultation, no adventitious lung sounds, Gastrointestinal: soft, non-distended, non-tender, normoactive bowel sounds. : voiding without difficulty. Extremities: moves all extremities well, tremors noted to bilateral hands Skin: clean, dry, intact. No wounds or lesions. Neuro: Alert and oriented x4, cranial nerves intact, no neuro deficits. Psych: normal mood, normal affect, interactive, denies any visual or audio hallucinations DS: Data Data Completed and Pending Labs on day of discharge: Labs from last 24 hours 06/23/24 06/23/24 06/23/24 11:17 06:12 05:03 WBC 3.8 L RBC 3.98 L Hgb 13.0 Hct 38.6 MCV 97.0 MCH 32.7 MCHC 33.7 RDW 12.8 Plt Count 86 L MPV 9.9 Immature Gran % (Auto) 0.3 Neut % (Auto) 57.1 Lymph % (Auto) 29.4 [place] % (Auto) 10.8 H Eos % (Auto) 2.1 Baso % (Auto) 0.3 Lymph # (Auto) 1.12 [place] # (Auto) 0.4 Eos # (Auto) 0.1 Baso # (Auto) 0.0 Abs Immat Gran (auto) 0.01 Absolute Neuts (auto) 2.2 Absolute Nucleated RBC 0.000 Nucleated RBC % 0.0 Platelet Estimate Decreased % Immature Plt Fraction 3.6 Anisocytosis 1+ Schistocytes None seen Sodium 134 L Potassium 3.0 L Chloride 94 L Carbon Dioxide 32 H Anion Gap 8 BUN 13 D Creatinine 0.80 Estim Creat Clear Calc 59 Estimated GFR > 60 Glucose 107 POC Capillary Glucose 172 H 124 H Calcium 8.5 Total Bilirubin 0.9 AST 97 H ALT 50 H Alkaline Phosphatase 109 Total Protein 8.0 Albumin 4.5 06/22/24 06/22/24 23:45 17:50 WBC RBC Hgb Hct MCV MCH MCHC RDW Plt Count MPV Immature Gran % (Auto) Neut % (Auto) Lymph % (Auto) [place] % (Auto) Eos % (Auto) Baso % (Auto) Lymph # (Auto) [place] # (Auto) Eos # (Auto) Baso # (Auto) Abs Immat Gran (auto) Absolute Neuts (auto) Absolute Nucleated RBC Nucleated RBC % Platelet Estimate % Immature Plt Fraction Anisocytosis Schistocytes Sodium Potassium Chloride Carbon Dioxide Anion Gap BUN Creatinine Estim Creat Clear Calc Estimated GFR Glucose POC Capillary Glucose 139 H 154 H Calcium Total Bilirubin AST ALT Alkaline Phosphatase Total Protein Albumin Discharge Plan Discharge Attending physician on discharge: Sharad Tomlinson Consulting providers: Mina Fine Discharging Clinician: Debra Encinas Anticipated Discharge Date/Time: 06/23/24 15:01 Patient Disposition: Home, Self-Care Activity: as tolerated Diet: as tolerated Patient Instructions: Antibiotic Form, Abuse of Alcohol (GEN), Alcohol Withdrawal (GEN) Patient Language: [place] Stand Alone Forms: General Discharge Information Follow-up/Referrals: Elen Hsieh, [employer] [Primary Care Provider] - Discharge Medications: New chlordiazepoxide HCl 25 mg Capsule 25 mg PO TID Qty: 9 0RF Continued cetirizine [Zyrtec] 10 mg tablet 10 mg PO PRN PRN (Reason: Allergy Symptoms) ascorbic acid (vitamin C) 500 mg tablet extended release 500 mg PO DAILY vitamin B complex Tablet 1 tablet PO DAILY Patient Comments: patient says to hold at this time ferrous sulfate 325 mg (65 mg iron) Tablet 325 mg PO DAILY calcium 100 mg Capsule 100 mg PO DAILY atorvastatin 40 mg tablet 40 mg PO HS Prolia 60 mg/mL syringe 60 mg subcut [id number] Qty: 1 0RF Patient Comments: pt needs to schedule appointment. Does not want to take any longer. metoprolol succinate 25 mg tablet extended release 24 hr 25 mg PO DAILY Qty: 90 1RF pantoprazole 20 mg tablet,delayed release (DR/EC) 20 mg PO QAM Qty: 90 1RF sertraline [Zoloft] 50 mg tablet 50 mg PO DAILY Qty: 90 1RF cyclobenzaprine 10 mg tablet 10 mg PO BID PRN (Reason: muscle spasm) Qty: 30 0RF Date of admission: 06/22/24 15:07 Primary Care Provider: Elen Hsieh Admitting Provider: Sharad Tomlinson Attending physician on admission: Sharad Tomlinson Condition: Stable Quality If No VTE Prophylaxis Answer both mechanical and pharmacologic: Reason no mechanical VTE proph: low risk/not indicated Reason no pharmacologic proph: low risk/not indicated Hospitalist MIPS Heart Failure (Exclusion) Patient has history of Heart Transplant or Left Ventricular Assistive Device?: No IF YES, STOP HERE Heart Failure (Qualifier) Patient has current or prior documentation of LVEF less than or equal to 40%, or mod/servere depressed LVSF?: No IF NO, STOP HERE If Yes, Heart Failure (Qualifier) Patient was prescribed or already taking bisoprolol, carvedilol, or sustained release metoprolol succinate: Yes If Medications not prescribed/taking Reason patient not prescribed/taking MARISABEL or ARB: Patient reasons: pt declined or other pt reason (Pt has no CHF and does not need MARISABEL or ARB)
[2024-06-23] MEDS: POTASSIUM CHLORIDE 20 MEQ PACKET (FOR LIQUID) 40 MEQ PO (14:49)
--- NOTE | 2024-06-23 15:30 | PC.NURSE ---
pt will call to come get her, ivs are out
--- NOTE | 2024-06-23 15:49 | PC.NURSE ---
ivs removed intact, pt will call to pick her up, pt has belongings packed
== END 2024-06-23 15:45 | disposition home or self-care (01) | DRG 897 ==
LOC: ANHED 08:35 → ANHIMU 19:02
PROVIDERS: Nurse Practitioner Acute Care; Admitting Provider Internal Medicine; Emergency Provider Student in an Organized Health Care Education/Training Program; PCP Nurse Practitioner; Visit Provider Nurse Practitioner Adult Health
DX: F10.139 Alcohol abuse with withdrawal, unspecified (principal); G40.89 Other seizures; E87.29 Other acidosis; N17.9 Acute kidney failure, unspecified; E87.6 Hypokalemia; K21.9 Gastro-esophageal reflux disease without esophagitis; I10 Essential (primary) hypertension; E86.0 Dehydration; D50.9 Iron deficiency anemia, unspecified; E78.5 Hyperlipidemia, unspecified; F12.10 Cannabis abuse, uncomplicated; M81.0 Age-related osteoporosis without current pathological fracture; K70.30 Alcoholic cirrhosis of liver without ascites; D72.828 Other elevated white blood cell count; Z87.891 Personal history of nicotine dependence
CPT/HCPCS: 36415; 70450; 80053; 80307; 81001; 82077; 82607; 82728; 82746; 82803; 82948; 83036; 83540; 83550; 83735; 84443; 85025; 85055; 93005; 96361; 96374; 96375; 96376; 99285; A9270; G0378; J0780; J1885; J2060; J2405; J2560; J3411; J7030; J7070

== ENCOUNTER 2024-07-01 10:28 | Outpatient (CLI) | payer OTHER, SELFPAY ==
[2024-07-01 20:17] LABS: Alanine Aminotransferase 51 U/L (6-35); Albumin Level 4.1 g/dL (3.5-5.1); Alkaline Phosphatase 71 U/L (38-126); Anion Gap 7 mmol/L (4-12); Aspartate Amino Transferase 74 U/L (14-36); Bilirubin,Total 0.5 mg/dL (0.2-1.3); Blood Urea Nitrogen 14 mg/dL (7-17); Calcium 9.5 mg/dL (8.4-10.2); Carbon Dioxide 30 mmol/L (22-30); Chloride 100 mmol/L (98-107); Estimated Glomerular Filt Rate 57; Glucose 120 mg/dL (65-110); Potassium 4.1 mmol/L (3.4-5.0); Sodium 137 mmol/L (137-145)
== END 2024-07-01 10:29 | disposition home or self-care (01) ==
LOC: ANHGOSHLAB 10:30
PROVIDERS: PCP Family Medicine; Visit Provider Family Medicine
DX: E87.6 Hypokalemia (principal)
CPT/HCPCS: 36415; 80053

== ENCOUNTER 2024-08-01 12:30 | Outpatient (CLI) | payer OTHER, SELFPAY ==
[2024-08-01 19:50] LABS: Basophils Percent Auto 0.7 % (0.2-1.2); Eosinophils Absolute Auto 0.3 K/mm3 (0-0.3); Eosinophils Percent Auto 5.9 % (0-4.4); Hematocrit 35.7 % (37.0-47.0); Hemoglobin 11.3 g/dL (12.0-15.0); Immature Granulocyte Absolute 0.01 K/mm3 (0.00-0.031); Immature Granulocyte Percent A 0.2 % (0-0.5); Lymphocytes Absolute Auto 0.79 K/mm3 (0.9-3.2); Lymphocytes Percent Auto 18.7 % (18.3-44.2); Mean Corpuscular HGB Conc 31.7 g/dl (32-36); Mean Corpuscular Hemoglobin 32.2 pg (26-34); Mean Corpuscular Volume 101.7 fl (80-100); Mean Platelet Volume 10.8 fl (7.4-10.4); Monocytes Absolute Auto 0.6 K/mm3 (0.1-0.6); Monocytes Percent Auto 14.2 % (2.6-8.5); Neutrophils Absolute Auto 2.5 K/mm3 (1.3-6.7); Neutrophils Percent Auto 60.3 % (45.5-73.1); Platelet Count Result 185 k/mm3 (150-375); Red Blood Count 3.51 M/mm3 (4.2-5.4); Red Cell Distribution Width 12.9 % (11.5-14.5); White Blood Count 4.2 K/mm3 (4.5-10.0)
[2024-08-01 20:00] LABS: Alanine Aminotransferase 15 U/L (6-35); Albumin Level 4.3 g/dL (3.5-5.1); Alkaline Phosphatase 68 U/L (38-126); Anion Gap 3 mmol/L (4-12); Aspartate Amino Transferase 48 U/L (14-36); Bilirubin,Total 0.6 mg/dL (0.2-1.3); Blood Urea Nitrogen 19 mg/dL (7-17); Calcium 9.8 mg/dL (8.4-10.2); Carbon Dioxide 32 mmol/L (22-30); Chloride 102 mmol/L (98-107); Estimated Glomerular Filt Rate 51; Glucose 109 mg/dL (65-110); Potassium 4.1 mmol/L (3.4-5.0); Sodium 137 mmol/L (137-145)
[2024-08-01 20:58] LABS: Iron 56 ug/dL (37-170)
[2024-08-01 21:07] LABS: Percent Iron Saturation 16 % (20-50)
[2024-08-01 23:33] LABS: Vitamin D 25 Hydroxy 52.5 ng/mL
== END 2024-08-01 12:31 | disposition home or self-care (01) ==
LOC: ANHGOSHLAB 12:31
PROVIDERS: PCP Family Medicine; Visit Provider Family Medicine
DX: D64.9 Anemia, unspecified (principal); E03.9 Hypothyroidism, unspecified; E61.1 Iron deficiency; I10 Essential (primary) hypertension; E55.9 Vitamin D deficiency, unspecified
CPT/HCPCS: 36415; 80053; 82306; 82728; 83540; 83550; 84443; 85025

== ENCOUNTER 2025-01-02 08:27 | Outpatient (CLI) | payer OTHER, SELFPAY ==
--- OUTSIDE RECORDS SUMMARY | 2025-01-02 08:31 | XMS_ITS | Patient Health Record ---
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 Name Role Phone Aurora Kern MD Primary Care Provider Unavailable Russell Camacho Unavailable [phone] Daja Olivera Unavailable [phone] Allergies Allergen (clinical drug ingredient) Drug/Non Drug Allergy documented on EMR Reaction Allergy Type Onset Date Status bacitracin Bacitracin Unknown Drug Allergy Activ e codeine Codeine Unknown Drug Allergy Active neomycin Neomycin Unknown Drug Allergy Active Penicillin Unknown Drug Allergy Active polymyxin B Polymyxin B Unknown Drug Allergy Act christin prednisolone Prednisolone Unknown Drug Allergy A ctive Results Component Value Reference Range Notes DRUG MONITOR, MARIJUANA META B, QN, URINE ([id number]) Reviewed date:2024 09:58:45 AM Interpretation: Performing Lab:[facility], [facility] [id number] [id number] Viktor Villegas, Director - [id number] [facility] Notes/Report: FASTING: NO Marijuana Metabolite 688 <5 ng/mL Marijuana Comments See Linda ramirez Notes, LDT Notes Notes and Comments This drug testing is for medical treatment only. Analysis was performed as non-forensic testing and these results should be used only by healthcare providers to render diagnosis or treatment, or to monitor progress of medical conditions. Marijuana Notes: Marijuana Metabolite detected is consistent with exposure to Marijuana (THC) and/or hemp derived products. Some jurisdictions do not include hemp within the definition of Marijuana. LDT Notes: Confirmation tests were developed and their analytical performance characteristics have been determined by [employer]. It has not been cleared or approved by the FDA. This assay has been validated pursuant to the CLIA regulations and is used for clinical purposes. Healthcare Providers needing Interpretation assistance, please contact us at [phone] ( ) M-F, 8am to 10pm EST Reason For Referral No Information Medications Medication SIG (Take, Route, Frequency, Duration) Notes Start Date End Date Status buPROPion HCl ER (XL) 300 MG 1 tablet in the morning Orally Once a day for 30 days DougIban yanceykevin Cortes 12/02/2024 02:12:24 PM CDT > Active Sertraline HCl 100 MG 0.5 tablet Orally Once a day for 90 days Active Pantoprazole Sodium 20 MG Oral for 90 Days Active Atorvastatin Calcium 40 MG Oral for 90 Days Active Metoprolol Succinate ER 25 MG Oral for 90 Days Active Diclofenac Potassium 25 MG 1 tablet with food or milk as needed Orally Four times a day Active Social History Tobacco Use: Social History Observation Description Date Details (start date - stop date) Former Smoker NA - 10/09/2013 Sex Assigned At : Social History Observation Description Sex Assigned At Female Tobacco Control (Standard) Question Answer Notes Tobacco use: Former smoker When did you stop smoking? 10/09/2013 How long has it been since you last smoked? Liliama ter than 10 years AUDIT-C (Standard) Question Answer Notes Points 8 Did you have a drink contain ing alcohol in the past year? Yes How often did you have six o r more drinks on one occasion in the past year? 4 or more times a week (4 points) How many drinks did you have on a typical day when you were drinking in the past year? 5 or 6 drinks (2 points) How often did you have a dri nk containing alcohol in the past year? Daily or almost daily (4 points) Problems Problem Type SNOMED Code ICD Code Onset Dates Problem Status W/U Status Risk Notes Problem 50169248 Essential (primary) hypertension (I10) Active confirmed Problem 59860349 NING (generalized anxiety disorder) (F41.1) Active confirmed Problem 223802986 MCI (mild cognitive impairment) (G31.84) Active confirmed Problem 11523473 Alcohol dependence in early full remission (F10.21) Active confirmed Problem Pancytopenia (D61.818) 04/18/2018 Active confirmed Vital Signs Heart Rate 68 /min 11/04/2024 Height-cm 165.1 cm 12/02/2024 Blood pressure diastolic 70 mm Hg 12/02/2024 Weight-kg 69.4 kg 12/02/2024 Height 65 in 12/02/2024 Blood pressure systolic 107 mm Hg 12/02/2024 Weight 153 lbs 12/02/2024 BMI 25.46 kg/m2 12/02/2024 Encounters Encounter [facility] [place] [address] [place] [address] [place] [address] 07/18/2024 Russell Doug NING (generalized anx iety disorder) F41.1 and Alcohol dependence in early full remission F10.21 [facility] [address] [place] [address] [place] [address] 08/08/2024 Russell Doug NING (generalized anx iety disorder) F41.1 and Alcohol dependence in early full remission F10.21 [facility] [address] [facility] [address] [place] [address] 09/09/2024 Russell Doug NING (generalized anx iety disorder) F41.1 ; Pancytopenia D61.818 ; Alcohol dependence in early full remission F10.21 ; Essential (primary) hypertension I10 and MCI (mild cognitive impairment) G31.84 [facility] [address] [place] [address] [place] [address] 09/16/2024 Daja Joselin NING (generalized anx iety disorder) F41.1 and Alcohol dependence in early full remission F10.21 [facility] [address] [place] [address] [place] [address] 09/17/2024 Russell Doug [facility] [address] [place] [address] [place] [address] 10/01/2024 Daja Joselin NING (generalized anx iety disorder) F41.1 and Alcohol dependence in early full remission F10.21 [facility] [address] [place] [address] [place] [address] 10/01/2024 Russell Doug MCI (mild cognitive impairment) G31.84 [facility] [address] [place] [address] 10/07/2024 Russell Doug NING (generalized anx iety disorder) F41.1 ; Pancytopenia D61.818 ; Alcohol dependence in early full remission F10.21 and Essential (primary) hypertension I10 [place] [address] [place] [address] [place] [address] 10/15/2024 Daja Joselin NING (generalized anx iety disorder) F41.1 and Alcohol dependence in early full remission F10.21 [place] [address] [facility] [address] [place] [address] 11/04/2024 Russell Doug Encounter for screen ing for depression Z13.31 ; Encounter for screening for cardiovascular disorders Z13.6 ; NING (generalized anxiety disorder) F41.1 ; Pancytopenia D61.818 ; Alcohol dependence in early full remission F10.21 and Essential (primary) hypertension I10 [place] [address] [place] [address] [place] [address] 11/12/2024 Daja Joselin NING (generalized anx iety disorder) F41.1 and Alcohol dependence in early full remission F10.21 [facility] [address] [facility] [address] [place] [address] 12/02/2024 Russell Doug Encounter for screen ing for cardiovascular disorders Z13.6 ; Encounter for screening for depression Z13.31 ; NING (generalized anxiety disorder) F41.1 ; Pancytopenia D61.818 ; Alcohol dependence in early full remission F10.21 and Essential (primary) hypertension I10 [place] [address] [place] [address] [place] [address] 12/10/2024 Daja Joselin Encounter for screen ing for depression Z13.31 ; NING (generalized anxiety disorder) F41.1 and Alcohol dependence in early full remission F10.21 [place] [address] [place] [address] [place] [address] 07/18/[address] [facility], [place] [address] [address] [place] [address] 09/17/[address] [facility], [place] [address] [place] [address] [place] [address] 11/22/2024 [facility] [employer] [address] [place] [address] 11/23/2024 Russell Doug [facility] [employer] [facility] [address] [address] [place] [address] 12/20/2024 Russell Camacho Assessments Encounter Date Diagnosis (ICD Code) Assessment Notes Treatment Notes Treatment Clinical Notes Section Notes 07/18/2024 NING (generalized anxiety disorder) (ICD-10 - F41.1) Alcohol Use Disorder - Assessment: Patient has a history of alcoholism for the past 5 years, with multiple hospitalizations due to excessive drinking. Currently sober since June 09. No AA meetings attended. Longest period of sobriety in the past 5 years was 11 months. Started drinking at age 14, quit for 8 years during first marriage, resumed at age [age]. - Plan: - Encourage continued sobriety and attendance at AA meetings. - Monitor for any relapse or complications. Anxiety - Assessment: Patient is currently on Zoloft 50 mg, prescribed by Dr. Chinchilla. Experiencing excessive worry about finances, health, and interactions with family and friends. Anxiety increased after menopause. - Plan: - Continue Zoloft 50 mg for anxiety management. - Monitor response to medication and adjust dosage if necessary. History of Withdrawal Seizures - Assessment: Patient has had a total of 5 seizures, with 3 occurring this year. 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 Seizures typically occur within 24 hours of stopping drinking. - Plan: - Start lamotrigine 25 mg daily for 2 weeks, then increase to 50 mg daily for another 2 weeks, and eventually to 100 mg daily. - Monitor for any signs of rash or side effects, and discontinue medication if rash develops. - Explain kindling phenomenon and importance of medication adherence. Depression - Assessment: Patient had a severe depression episode in 1999 or 2000. Suicidal thoughts only when recovering from heavy drinking. - Plan: - Monitor for any signs of depression recurrence or worsening. - Consider referral to a psychiatrist if necessary. Childhood Issues and Unresolved Resentments - Assessment: Patient desires therapy to work through past issues and resentments. Prefers a female therapist. Reports strict upbringing, emotional neglect from father, and limited emotional connection with mother. - Plan: - Refer patient to a female counselor or therapist. - Encourage patient to attend therapy sessions regularly and work through past issues. Lab Results and Blood Work - Assessment: Patient had blood work done at the [facility] and by Dr. Chinchilla. Potassium levels checked, but not fasting. - Plan: - Obtain authorization to access lab results from the [facility] and Dr. Chinchilla. - Review lab results and monitor for any abnormalities or concerns. Follow-up - Plan: - Schedule a follow-up appointment in 3 weeks to assess progress and response to treatment. - Encourage patient to reach out if any concerns or issues arise before the next appointment. 07/18/2024 Alcohol dependence in early full remission (ICD-10 - F10.21) Alcohol Use Disorder - Assessment: Patient has a history of alcoholism for the past 5 years, with multiple hospitalizations due to excessive drinking. Currently sober since June 09. No AA meetings attended. Longest period of sobriety in the past 5 years was 11 months. Started drinking at age 14, quit for 8 years during first marriage, resumed at age [age]. - Plan: - Encourage continued sobriety and attendance at AA meetings. - Monitor for any relapse or complications. Anxiety - Assessment: Patient is currently on Zoloft 50 mg, prescribed by Dr. Chinchilla. Experiencing excessive worry about finances, health, and interactions with family and friends. Anxiety increased after menopause. - Plan: - Continue Zoloft 50 mg for anxiety management. - Monitor response to medication and adjust dosage if necessary. History of Withdrawal Seizures - Assessment: Patient has had a total of 5 seizures, with 3 occurring this year. 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 Seizures typically occur within 24 hours of stopping drinking. - Plan: - Start lamotrigine 25 mg daily for 2 weeks, then increase to 50 mg daily for another 2 weeks, and eventually to 100 mg daily. - Monitor for any signs of rash or side effects, and discontinue medication if rash develops. - Explain kindling phenomenon and importance of medication adherence. Depression - Assessment: Patient had a severe depression episode in 1999 or 2000. Suicidal thoughts only when recovering from heavy drinking. - Plan: - Monitor for any signs of depression recurrence or worsening. - Consider referral to a psychiatrist if necessary. Childhood Issues and Unresolved Resentments - Assessment: Patient desires therapy to work through past issues and resentments. Prefers a female therapist. Reports strict upbringing, emotional neglect from father, and limited emotional connection with mother. - Plan: - Refer patient to a female counselor or therapist. - Encourage patient to attend therapy sessions regularly and work through past issues. Lab Results and Blood Work - Assessment: Patient had blood work done at the hospital and by Dr. Chinchilla. Potassium levels checked, but not fasting. - Plan: - Obtain authorization to access lab results from the hospital and Dr. Chinchilla. - Review lab results and monitor for any abnormalities or concerns. Follow-up - Plan: - Schedule a follow-up appointment in 3 weeks to assess progress and response to treatment. - Encourage patient to reach out if any concerns or issues arise before the next appointment. 08/08/2024 NING (generalized anxiety disorder) (ICD-10 - F41.1) Alcohol Use Disorder (in remission) - Assessment: Patient reports no cravings and has been maintaining sobriety. Family was respectful during Thanksgiving regarding alcohol. - Plan: - Continue lamotrigine 25 mg twice daily, consider moving to evening if nausea persists. - Encourage patient to attend counseling sessions. - Coordinate with account officer to find a female therapist per patient's preference. Anxiety and Depression - Assessment: Patient reports improvement in mood and reduced worrying since Zoloft (Sertraline) increase. Patient notes worrying is not as consuming now. - Plan: - Continue Zoloft as prescribed by Dr. Chinchilla. - Monitor patient's progress in therapy sessions. Nausea - Assessment: Possibly related to lamotrigine or other medications. Patient experienced nausea for 3-4 days when starting lamotrigine and again when increasing dosage. - Plan: - Advise patient to take lamotrigine in the evening to minimize nausea. - If nausea persists, consider reducing lamotrigine to 25 mg once daily for a week and then reevaluate. Follow-up - Plan: - Schedule a follow-up appointment in one month to assess patient's progress and response to therapy. - Ensure patient is connected with a therapist before the next appointment. - student accounts manager to assist in finding a female therapist for the patient. 09/09/2024 NING (generalized anxiety disorder) (ICD-10 - F41.1) Anxiety - Assessment: Patient reports improvement in anxiety symptoms and no depression in the last month. Patient notes feeling less worried, though still experiences some distraction and occasional snippiness. - Plan: - Continue current medications: Zoloft 100 mg daily and lamotrigine 25 mg twice daily. - No changes in medication needed at this time, as patient reports symptoms are improving. Cognitive Concerns - Assessment: Patient reports forgetfulness and possible memory changes, with a family history of dementia. Patient mentions noticing these changes for the past couple of years, possibly more recently. - Plan: - Schedule baseline cognitive testing, including SLAM and MCI tests, in the next few weeks. - Testing will include paper-pencil and computer-based assessments. - If impairment is detected, discuss further steps; if not, repeat testing in six months to a year. Hypertension - Assessment: Blood pressure is well-controlled at 105/74. - Plan: - Continue metoprolol as prescribed. Anemia and Thrombocytopenia - Assessment: Patient reports getting blood work twice yearly with Dr. Chinchilla. Patient mentions having anemia since childhood. - Plan: - Continue current monitoring schedule. Follow-up - Plan: - Schedule a follow-up appointment in one month. - No new prescriptions today. Alcohol - Assessment: Patient mentions being sober from alcohol, which was discussed in the previous visit. 09/09/2024 Pancytopenia (ICD-10 - D61.818) Anxiety - Assessment: Patient reports improvement in anxiety symptoms and no depression in the last month. Patient notes feeling less worried, though still experiences some distraction and occasional snippiness. - Plan: - Continue current medications: Zoloft 100 mg daily and lamotrigine 25 mg twice daily. - No changes in medication needed at this time, as patient reports symptoms are improving. Cognitive Concerns - Assessment: Patient reports forgetfulness and possible memory changes, with a family history of dementia. Patient mentions noticing these changes for the past couple of years, possibly more recently. - Plan: - Schedule baseline cognitive testing, including SLAM and MCI tests, in the next few weeks. - Testing will include paper-pencil and computer-based assessments. - If impairment is detected, discuss further steps; if not, repeat testing in six months to a year. Hypertension - Assessment: Blood pressure is well-controlled at 105/74. - Plan: - Continue metoprolol as prescribed. Anemia and Thrombocytopenia - Assessment: Patient reports getting blood work twice yearly with Dr. Chinchilla. Patient mentions having anemia since childhood. - Plan: - Continue current monitoring schedule. Follow-up - Plan: - Schedule a follow-up appointment in one month. - No new prescriptions today. Alcohol - Assessment: Patient mentions being sober from alcohol, which was discussed in the previous visit. 09/16/2024 NING (generalized anxiety disorder) (ICD-10 - F41.1) Client is a 58 y/o, 3 times and twice female (current marriage 4 yrs. 13 years together), with 2 adult children who live nearby (her relationship with her son is good and the relationship with her daughter is strained). 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 Client is the youngest of 2 and grew up all over as her father was in the [employer]. Father was an alcoholic, strict and neglectful but there was no physical abuse. Father in 2010. client reports her relationship with her mother was decent and was sometimes supportive. Mother in 2020. Her relationship with her brother is great. Client went to 5 different schools when growing up. Client first saw Dr. Camacho in this office on 07/18/24. She is currently prescribed Sertraline and Lamotrigine. PHQ=3. Client reports she was treated for depression about 2001. She reports it did not go very well. She currently only reports mild issues with feeling down, fatigue, and self esteem issues. NING=5. Client reports anxiety first became noticeable about 15 or 16 y/o. This is when she first got . She currentlly reports mild issues with feeling on edge, worry and controlling the worry (upsetting others, being late, money), difficulty relaxing, and irritability. Alcohol abuse: Client was 13 when she first started drinking. She reports drinking almost every day in school. Drinking was a problem all through high school. She reports it slowed down a bit when she her first who only drank a little. 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 At this time she was drinking twice a week a couple of drinks. Around her drinking she was drinking almost every night. Sometimes just a couple of drinks and sometimes 5 or 6 drinks. She reports her drinking peaked during the last 1.5 yrs of her mother's life. Mother lived with client and client would wait until mother went to bed. After mother , client began drinking even more. 10/01/2024 NING (generalized anxiety disorder) (ICD-10 - F41.1) 10/01/2024 MCI (mild cognitive impairment) (ICD-10 - G31.84) Based on the cognitive assessment results for the 59-year-old individual, the findings suggest strong cognitive performance and no clear indications of Mild Cognitive Impairment (MCI). Here's a breakdown: Cognitive Test Results (Percentile Scores)Feature Match: 100 Excellent attention and processing speed.Paired Associates: 92 Strong memory for associative learning.Double Trouble: 100 Excellent response inhibition and cognitive flexibility.Numbe r Casino Floor Person: 102 Lfcx-[id number]-[id number] e working memory and numerical processing.Rotati on: 101 Strong visuospatial reasoning and mental rotation skills.Digit Span: 100 Strong verbal working memory.Functional & Subjective AssessmentsIQCODE : 3.016 Within normal range (values above 3.38 suggest cognitive decline).IADL: 8/8 Fully independent in daily activities, indicating no functional impairments.MCI Criteria (DSM-5) Not MetNo significant decline in cognitive domains based on percentile scores.No functional impairment (IADL: 8/8).No subjective cognitive decline impacting daily life (IQCODE within normal range).Conclusion The individual exhibits strong cognitive performance across multiple domains.No evidence of Mild Cognitive Impairment (MCI) based on DSM-5 criteria.Function al independence is intact, supporting normal cognitive aging rather than pathological decline. 10/07/2024 Pancytopenia (ICD-10 - D61.818) 10/15/2024 NING (generalized anxiety disorder) (ICD-10 - F41.1) 10/07/2024 NING (generalized anxiety disorder) (ICD-10 - F41.1) 11/04/2024 Encounter for screening for depression (ICD-10 - Z13.31) 11/12/2024 NING (generalized anxiety disorder) (ICD-10 - F41.1) 12/02/2024 Encounter for screening for cardiovascular disorders (ICD-10 - Z13.6) 12/10/2024 Encounter for screening for depression (ICD-10 - Z13.31) 12/10/2024 NING (generalized anxiety disorder) (ICD-10 - F41.1) 12/10/2024 Alcohol dependence in early full remission (ICD-10 - F10.21) 12/02/2024 Encounter for screening for depression (ICD-10 - Z13.31) 11/12/2024 Alcohol dependence in early full remission (ICD-10 - F10.21) 10/07/2024 Alcohol dependence in early full remission (ICD-10 - F10.21) 09/09/2024 Alcohol dependence in early full remission (ICD-10 - F10.21) Anxiety - Assessment: Patient reports improvement in anxiety symptoms and no depression in the last month. Patient notes feeling less worried, though still experiences some distraction and occasional snippiness. - Plan: - Continue current medications: Zoloft 100 mg daily and lamotrigine 25 mg twice daily. - No changes in medication needed at this time, as patient reports symptoms are improving. Cognitive Concerns - Assessment: Patient reports forgetfulness and possible memory changes, with a family history of dementia. Patient mentions noticing these changes for the past couple of years, possibly more recently. - Plan: - Schedule baseline cognitive testing, including SLAM and MCI tests, in the next few weeks. - Testing will include paper-pencil and computer-based assessments. - If impairment is detected, discuss further steps; if not, repeat testing in six months to a year. Hypertension - Assessment: Blood pressure is well-controlled at 105/74. - Plan: - Continue metoprolol as prescribed. Anemia and Thrombocytopenia - Assessment: Patient reports getting blood work twice yearly with Dr. Chinchilla. Patient mentions having anemia since childhood. - Plan: - Continue current monitoring schedule. Follow-up - Plan: - Schedule a follow-up appointment in one month. - No new prescriptions today. Alcohol - Assessment: Patient mentions being sober from alcohol, which was discussed in the previous visit. 11/04/2024 Encounter for screening for cardiovascular disorders (ICD-10 - Z13.6) 10/15/2024 Alcohol dependence in early full remission (ICD-10 - F10.21) 10/01/2024 Alcohol dependence in early full remission (ICD-10 - F10.21) 09/16/2024 Alcohol dependence in early full remission (ICD-10 - F10.21) Client is a 58 y/o, 3 times and twice female (current marriage 4 yrs. 13 years together), with 2 adult children who live nearby (her relationship with her son is good and the relationship with her daughter is strained). 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 Client is the youngest of 2 and grew up all over as her father was in the [employer]. Father was an alcoholic, strict and neglectful but there was no physical abuse. Father in 2010. client reports her relationship with her mother was decent and was sometimes supportive. Mother in 2020. Her relationship with her brother is great. Client went to 5 different schools when growing up. Client first saw Dr. Cmaacho in this office on 07/18/24. She is currently prescribed Sertraline and Lamotrigine. PHQ=3. Client reports she was treated for depression about 2001. She reports it did not go very well. She currently only reports mild issues with feeling down, fatigue, and self esteem issues. NING=5. Client reports anxiety first became noticeable about 15 or 16 y/o. This is when she first got . She currentlly reports mild issues with feeling on edge, worry and controlling the worry (upsetting others, being late, money), difficulty relaxing, and irritability. Alcohol abuse: Client was 13 when she first started drinking. She reports drinking almost every day in school. Drinking was a problem all through high school. She reports it slowed down a bit when she her first who only drank a little. She states it was a bigger problem after her second divorce and [employer] [facility]. At this time she was drinking twice a week a couple of drinks. Around her drinking she was drinking almost every night. Sometimes just a couple of drinks and sometimes 5 or 6 drinks. She reports her drinking peaked during the last 1.5 yrs of her mother's life. Mother lived with client and client would wait until mother went to bed. After mother , client began drinking even more. 08/08/2024 Alcohol dependence in early full remission (ICD-10 - F10.21) Alcohol Use Disorder (in remission) - Assessment: Patient reports no cravings and has been maintaining sobriety. Family was respectful during Thanksgiving regarding alcohol. - Plan: - Continue lamotrigine 25 mg twice daily, consider moving to evening if nausea persists. - Encourage patient to attend counseling sessions. - Coordinate with account officer to find a female therapist per patient's preference. Anxiety and Depression - Assessment: Patient reports improvement in mood and reduced worrying since Zoloft (Sertraline) increase. Patient notes worrying is not as consuming now. - Plan: - Continue Zoloft as prescribed by Dr. Chinchilla. - Monitor patient's progress in therapy sessions. Nausea - Assessment: Possibly related to lamotrigine or other medications. Patient experienced nausea for 3-4 days when starting lamotrigine and again when increasing dosage. - Plan: - Advise patient to take lamotrigine in the evening to minimize nausea. - If nausea persists, consider reducing lamotrigine to 25 mg once daily for a week and then reevaluate. Follow-up - Plan: - Schedule a follow-up appointment in one month to assess patient's progress and response to therapy. - Ensure patient is connected with a therapist before the next appointment. - student accounts manager to assist in finding a female therapist for the patient. 09/09/2024 Essential (primary) hypertension (ICD-10 - I10) Anxiety - Assessment: Patient reports improvement in anxiety symptoms and no depression in the last month. Patient notes feeling less worried, though still experiences some distraction and occasional snippiness. - Plan: - Continue current medications: Zoloft 100 mg daily and lamotrigine 25 mg twice daily. - No changes in medication needed at this time, as patient reports symptoms are improving. Cognitive Concerns - Assessment: Patient reports forgetfulness and possible memory changes, with a family history of dementia. Patient mentions noticing these changes for the past couple of years, possibly more recently. - Plan: - Schedule baseline cognitive testing, including SLAM and MCI tests, in the next few weeks. - Testing will include paper-pencil and computer-based assessments. - If impairment is detected, discuss further steps; if not, repeat testing in six months to a year. Hypertension - Assessment: Blood pressure is well-controlled at 105/74. - Plan: - Continue metoprolol as prescribed. Anemia and Thrombocytopenia - Assessment: Patient reports getting blood work twice yearly with Dr. Chinchilla. Patient mentions having anemia since childhood. - Plan: - Continue current monitoring schedule. Follow-up - Plan: - Schedule a follow-up appointment in one month. - No new prescriptions today. Alcohol - Assessment: Patient mentions being sober from alcohol, which was discussed in the previous visit. 10/07/2024 Essential (primary) hypertension (ICD-10 - I10) 11/04/2024 NING (generalized anxiety disorder) (ICD-10 - F41.1) 12/02/2024 NING (generalized anxiety disorder) (ICD-10 - F41.1) 11/04/2024 Pancytopenia (ICD-10 - D61.818) 12/02/2024 Pancytopenia (ICD-10 - D61.818) 09/09/2024 MCI (mild cognitive impairment) (ICD-10 - G31.84) Anxiety - Assessment: Patient reports improvement in anxiety symptoms and no depression in the last month. Patient notes feeling less worried, though still experiences some distraction and occasional snippiness. - Plan: - Continue current medications: Zoloft 100 mg daily and lamotrigine 25 mg twice daily. - No changes in medication needed at this time, as patient reports symptoms are improving. Cognitive Concerns - Assessment: Patient reports forgetfulness and possible memory changes, with a family history of dementia. Patient mentions noticing these changes for the past couple of years, possibly more recently. - Plan: - Schedule baseline cognitive testing, including SLAM and MCI tests, in the next few weeks. - Testing will include paper-pencil and computer-based assessments. - If impairment is detected, discuss further steps; if not, repeat testing in six months to a year. Hypertension - Assessment: Blood pressure is well-controlled at 105/74. - Plan: - Continue metoprolol as prescribed. Anemia and Thrombocytopenia - Assessment: Patient reports getting blood work twice yearly with Dr. Chinchilla. Patient mentions having anemia since childhood. - Plan: - Continue current monitoring schedule. Follow-up - Plan: - Schedule a follow-up appointment in one month. - No new prescriptions today. Alcohol - Assessment: Patient mentions being sober from alcohol, which was discussed in the previous visit. 12/02/2024 Alcohol dependence in early full remission (ICD-10 - F10.21) 11/04/2024 Alcohol dependence in early full remission (ICD-10 - F10.21) 12/02/2024 Essential (primary) hypertension (ICD-10 - I10) 11/04/2024 Essential (primary) hypertension (ICD-10 - I10) 07/18/2024 Other Learning About Depression Screening material was printed Alcohol Use Disorder - Assessment: Patient has a history of alcoholism for the past 5 years, with multiple hospitalizations due to excessive drinking. Currently sober since June 09. No AA meetings attended. Longest period of sobriety in the past 5 years was 11 months. Started drinking at age 14, quit for 8 years during first marriage, resumed at age [age]. - Plan: - Encourage continued sobriety and attendance at AA meetings. - Monitor for any relapse or complications. Anxiety - Assessment: Patient is currently on Zoloft 50 mg, prescribed by Dr. Chinchilla. Experiencing excessive worry about finances, health, and interactions with family and friends. Anxiety increased after menopause. - Plan: - Continue Zoloft 50 mg for anxiety management. - Monitor response to medication and adjust dosage if necessary. History of Withdrawal Seizures - Assessment: Patient has had a total of 5 seizures, with 3 occurring this year. 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 Seizures typically occur within 24 hours of stopping drinking. - Plan: - Start lamotrigine 25 mg daily for 2 weeks, then increase to 50 mg daily for another 2 weeks, and eventually to 100 mg daily. - Monitor for any signs of rash or side effects, and discontinue medication if rash develops. - Explain kindling phenomenon and importance of medication adherence. Depression - Assessment: Patient had a severe depression episode in 1999 or 2000. Suicidal thoughts only when recovering from heavy drinking. - Plan: - Monitor for any signs of depression recurrence or worsening. - Consider referral to a psychiatrist if necessary. Childhood Issues and Unresolved Resentments - Assessment: Patient desires therapy to work through past issues and resentments. Prefers a female therapist. Reports strict upbringing, emotional neglect from father, and limited emotional connection with mother. - Plan: - Refer patient to a female counselor or therapist. - Encourage patient to attend therapy sessions regularly and work through past issues. Lab Results and Blood Work - Assessment: Patient had blood work done at the [facility] and by Dr. Chinchilla. Potassium levels checked, but not fasting. - Plan: - Obtain authorization to access lab results from the [facility] and Dr. Chinchilla. - Review lab results and monitor for any abnormalities or concerns. Follow-up - Plan: - Schedule a follow-up appointment in 3 weeks to assess progress and response to treatment. - Encourage patient to reach out if any concerns or issues arise before the next appointment. 09/16/2024 Other Client was cooperative throughout the assessment. Client is a 58 y/o, 3 times and twice female (current marriage 4 yrs. 13 years together), with 2 adult children who live nearby (her relationship with her son is good and the relationship with her daughter is strained). 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 Client is the youngest of 2 and grew up all over as her father was in the [employer]. Father was an alcoholic, strict and neglectful but there was no physical abuse. Father in 2010. client reports her relationship with her mother was decent and was sometimes supportive. Mother in 2020. Her relationship with her brother is great. Client went to 5 different schools when growing up. Client first saw Dr. Camacho in this office on 07/18/24. She is currently prescribed Sertraline and Lamotrigine. PHQ=3. Client reports she was treated for depression about 2001. She reports it did not go very well. She currently only reports mild issues with feeling down, fatigue, and self esteem issues. NING=5. Client reports anxiety first became noticeable about 15 or 16 y/o. This is when she first got . She currentlly reports mild issues with feeling on edge, worry and controlling the worry (upsetting others, being late, money), difficulty relaxing, and irritability. Alcohol abuse: Client was 13 when she first started drinking. She reports drinking almost every day in school. Drinking was a problem all through high school. She reports it slowed down a bit when she her first who only drank a little. 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 At this time she was drinking twice a week a couple of drinks. Around her drinking she was drinking almost every night. Sometimes just a couple of drinks and sometimes 5 or 6 drinks. She reports her drinking peaked during the last 1.5 yrs of her mother's life. Mother lived with client and client would wait until mother went to bed. After mother , client began drinking even more. 10/01/2024 Other Client wanted to focus on her relationship with her daughter. Client's previous drinking history created problems for their relationship. Client no longer drinks and would like to repair the relationship with her daughter. Client also doesn;t have a lot of confidence in her abilities. Therapist actively listened to client and asked questions for clarification. Therapist then utilized a cognitive behavioral intervention to help client explore strategies to prepare for her discussion with her daughter and also to have more torsten in herself. PHQ=5 mild NING=6 mild 10/07/2024 Other ADHD Evaluation - Assessment: Patient underwent cognitive impairment and ADHD testing. Attention score is 100, response inhibition is good, and episodic memory is normal. Patient is at the cusp of meeting ADHD criteria with symptoms such as being fidgety, overactive, and having difficulty staying focused while driving. - Plan: - Start bupropion 150 mg daily for mild ADD symptoms and focus. - Reevaluate in one month. Depression and Anxiety - Assessment: Patient reports feeling stable on current medications (lamotrigine and sertraline). - Plan: - Monitor patient's response to bupropion. - Consider adjusting sertraline dosage if necessary. Cognitive Function - Assessment: No cognitive impairment detected in testing. - Plan: - Repeat cognitive testing in 6 months and monitor annually if stable. - Consider repeating in 3 months if there are crises or significant changes. Gastrointestinal Issues - Assessment: Patient reports occasional vomiting and possible interaction with heartburn medication. - Plan: - Decrease lamotrigine to one tablet for a week and then discontinue. - Monitor patient's response to bupropion. - Consider adjusting sertraline dosage if gastrointestinal issues persist. - Send a cancellation notice for lamotrigine to the pharmacy. Follow-up - Plan: - Schedule a follow-up appointment in one month to reevaluate the patient's response to bupropion and any changes in symptoms or concerns. - Encourage the patient to contact the clinic if any issues arise before the scheduled follow-up. 10/15/2024 Other Client reports she was at a [employer] and her daughter (who hasn't spoken to her in a year) was also there. Client reports they did not speak to each other but client was able to see her grandchildren. She is very ready to have a relationship with her daughter but daughter does not appear to be ready. Therapist actively listened to client and utilized a cognitive behavioral intervention to help client explore strategies to approach her daughter. PHQ=3 minima; NING=5 mild 11/04/2024 Other Attention Deficit Disorder - Assessment: Patient reports that her current medication (bupropion) doesn't seem as effective for attention and focus. She mentions being busy and not paying close attention to changes, but notes continued difficulty with focus and memory lapses, such as forgetting items when leaving the house. - Plan: - Increase bupropion to 300 mg daily - Patient to implement visual cues or checklists at home exit points to improve attention to necessary items - Follow up in 4 weeks to assess effectiveness of medication adjustment and behavioral strategies Depression - Assessment: Patient's depression is noted to be in remission on the current medication regimen, which includes sertraline (Zoloft). The patient has enough Zoloft at home and does not need a new prescription. - Plan: - Decrease sertraline (Zoloft) to 50 mg daily - Patient to split current 100 mg tablets in half using pill splitter - Monitor for any changes in mood with medication adjustment Medication Management - Assessment: Patient is currently on bupropion, sertraline, and lamotrigine. The clinician is adjusting medications to optimize treatment for attention issues while maintaining mood stability. The patient experiences word-finding difficulties, which are somewhat alleviated by lamotrigine. - Plan: - Continue lamotrigine at current dose - Adjust bupropion and sertraline as noted above - Patient to use current supply of medications with adjustments - Reassess in 4 weeks and consider issuing new 90-day prescriptions at that time 11/12/2024 Other Client reports she is going through a medication change and has been more tearful in the process. She focused primarily on her relationship with her daughter and also some of her own history growing up. Therapist actively listened to client and helped her to gain insight as to how her father's criticism shaped her lack of self-worth. THerapist also assisted client with exploring strategies to improve her self worth, by removing the layers of negativity that have piled up over the years. NING=10 moderate 12/02/2024 Other Maria Fernanda Mcginnis, a patient with a history of anxiety and depression, presents for follow-up with ongoing emotional and financial stressors, reporting a recent severe panic attack. Anxiety and Depression Assessment: Patient reports ongoing emotional stressors and financial stress. She experienced a severe panic attack, described as the worst panic attack I've ever had in my life, approximately one week ago. The patient is currently taking bupropion 300 mg and sertraline (dose not specified) for management of her symptoms. She has been attending therapy sessions, initially every 2 weeks, but recently had a 4-week gap due to therapist illness. The patient feels that the 4-week interval might be appropriate for her needs. Plan: - Continue bupropion 300 mg (dose maintained despite recent panic attack) - Continue sertraline (current dose not specified) - Encourage ongoing therapy sessions, potentially at 4-week intervals as patient found this helpful - Monitor for recurrence of panic attacks or worsening of anxiety symptoms - Follow up to assess medication efficacy and side effects Psychosocial Stressors Assessment: Patient reports a little bit of conflict in her personal life, along with financial stress. She is working on addressing these issues and reports that her therapist has been helpful in providing different perspectives on the situations. Plan: - Continue to address personal conflicts and financial stressors in therapy sessions - Encourage use of coping strategies and stress management techniques learned in therapy Disclaimer: This note has been transcribed using speech recognition software and serves as a reflection of the patient's visit. While efforts have been made to ensure accuracy, there may be errors, including transcription coordinator inaccuracies and misspellings of medication names. This document should not be considered a verbatim record, and any discrepancies should be verified with the provider. 12/10/2024 Other Client reports she has had some difficulty with her recent med change, being very tearful throughout the day. She states it is finally starting to get better. She focused on wanting to reduce therapy sessions. She has a scheduled appointment in 2 weeks. If she is still doing well, she will schedule the next 2 appointments a month apart and if she feels she is still doing well, sessions will be prn. PHQ=6 mild NING=6 mild 09/17/2024 Supposed to MCI protocol but ADHD protocol was done need to redo the test Plan Of Treatment Future Test Test Name Order Date MCI Testing 09/09/2024 SLUMS Testing 09/09/2024 Next Appt Details Provider Name:Daja Cortes Joselin , 01/03/2025 11:00:00 AM, [address], [facility] [address], [place], [address], Provider Name:Russell Camacho , 04/07/2025 11:00:00 AM, [address], [facility] [address], [place], [address], Insurance Providers Payer Name Payer Address Payer Phone Subscriber Number Group Number Insured Name Patient Relationship to Insured Coverage Start Date Coverage End Date [facility] [address] [place] [phone] [id number] Maria Fernanda Crawford Self - patient is the insured Medical (General) History Medical History History ICD Code alcohol abuse alcohol use disorder anemia depression Essential HTN GERD Osteoporosis Seizure Pneumonia Hx of pancreatitis Past Psychiatric History: Anxiety Disord er undefined abdominal aortic aneurysm: No undefined atrial fibrillation: No chronic fatigue syndrome: No essential tremor: No hyperlipidemia: Yes hypertension: Yes Parkinson's disease: No restless leg syndrome: No stroke: No subdural hematoma: No type 1 diabetes mellitus: No type 2 diabetes mellitus: No vitamin B12 deficiency: No vitamin D deficiency: No Surgical History Surgery Date(Month/Year) rotator cuff surgery on left and right tubal ligation Hospitalization History Reason Date(Month/Year) 3 hospitalizations this 2023
--- OUTSIDE RECORDS SUMMARY | 2025-01-02 08:31 | XMS_ITS | Clinical Summary ---
Author Organization [facility] Address [address] [place] [address] Care Team Providers Care Lace Tearing Supervisor Name Role Phone Aurora Kern MD Primary Care Provider Allergies Active Allergy Reactions Criticality Noted Date Comments Codeine Headache High 04/18/2018 Penicillins Rash High 04/18/2018 Prednisone (Bulk) Rash Low 03/21/2023 Medications atorvastatin (LIPITOR) 40 mg tablet 01/27/2021 Active sertraline (ZOLOFT) 25 mg tablet 12/16/2020 Active gabapentin (NEURONTIN) 100 mg capsule Take 100 mg by mouth 3 times daily. 01/15/2022 Active pantoprazole (PROTONIX) 20 mg Tablet, Delayed Release (E.C.) Take 20 mg by mouth daily in the morning. 01/26/2022 Active thiamine (VITAMIN B-1) 100 mg tablet Take by mouth daily. Active cyanocobalamin 1,000 mcg Tablet Take 1,000 mcg by mouth daily. Active cholecalciferol, Vitamin D3, (VITAMIN D3) 25 mcg (1,000 unit) Capsule Take by mouth daily. Active cholecalciferol 1,250 mcg (50,000 unit) Capsule Take by mouth. Active ascorbic acid, vitamin C, (VITAMIN C) 100 mg Tablet Take 100 mg by mouth daily. Active zinc gluconate 50 mg Tablet Take by mouth. Active calcium-vitamin D3 (CALTRATE 600+D) 600 mg-5 mcg (200 unit) Tablet Take by mouth. Active Active Problems Problem Noted Date Diagnosed Date Pancytopenia 04/18/2018 Family History Medical History Relation Name Comments Heart Disease Brother Healthy Father Heart Disease Mother Relation Name Status Comments Brother Alive Father Mother Alive Social History Tobacco Use Types Packs/Day Years Used Date Smoking Tobacco: Former Cigarettes Q uit: 04/18/2014 Smokeless Tobacco: Never Tobacco Cessation:Counseling Given: Not Answered Alcohol Use Standard Drinks/Week Comments No 0 (1 standard drink = 0.6 oz pur e alcohol) Comments No Sex and Gender Information Value Date Recorded Sex Assigned at Not on file Legal Sex Female 1:48 PM CDT Gender Identity Not on file Sexual Orientation Not on file Last Filed Vital Signs Vital Sign Reading Time Taken Comments Blood Pressure 109/72 03/21/2023 11:37 AM CDT Pulse 70 03/21/2023 11:37 AM CDT Temperature 36.6 C (97.8 F) 03/21/2023 11:37 AM CDT Respiratory Rate 10 03/21/2023 11:37 AM CDT Oxygen Saturation 100% 03/21/2023 11:37 AM CDT Inhaled Oxygen Concentration - - Weight 73 kg (161 lb) 03/21/2023 11:37 AM CDT Height 165.1 cm (5' 5 ) 05/03/2022 2:58 PM CDT Body Mass Index 26.79 05/03/2022 2:58 PM CDT Plan of Treatment Health Maintenance Due Date Last Done Comments DTAP/TDAP/TD VACCINES (1 - Tdap) 1982 HPV/Cotest (21-29) 1984 CERVICAL CANCER SCREENING 1993 HPV/Cotest (30-65) 1993 PAP SMEAR 1993 BREAST CANCER SCREENING 2003 COLORECTAL SCREENING 2008 Colorectal Cancer Screening 2008 FIT-DNA Q 3 years 2008 FIT/FOBT Q 1 year 2008 Flex Sig/CT Colonography Q 5 years 2008 ZOSTER VACCINE (1 of 2) 2013 INFLUENZA VACCINE (#1) 2024 RSV VACCINE (60+ or ) (1 - 1-dose 75+ series) 2038 [facility] Member Subscriber Plan / Payer ( fective 2023-Present) Name:CHARITY LOZANO Relation to Subscriber:Spouse Name:JANET LOZANO Mehdi Date of :1970 (Home) Address: [address] [place] [address] Payer ID:[id number] (NAIC) Type:O Address: [address] [place] [phone] [facility] Care Teams Lace Tearing Supervisor Relationship Specialty Start Date End Date Aurora Kern MD [address] [place] [address] PCP - General Family Practice 04/18/18
[2025-01-02 19:43] LABS: Basophils Percent Auto 0.6 % (0.2-1.2); Eosinophils Absolute Auto 0.1 K/mm3 (0-0.3); Eosinophils Percent Auto 2.6 % (0-4.4); Hematocrit 38.1 % (37.0-47.0); Hemoglobin 11.9 g/dL (12.0-15.0); Lymphocytes Absolute Auto 0.57 K/mm3 (0.9-3.2); Lymphocytes Percent Auto 11.3 % (18.3-44.2); Mean Corpuscular HGB Conc 31.2 g/dl (32-36); Mean Corpuscular Hemoglobin 30.5 pg (26-34); Mean Corpuscular Volume 97.7 fl (80-100); Mean Platelet Volume 10.5 fl (7.4-10.4); Monocytes Absolute Auto 0.6 K/mm3 (0.1-0.6); Monocytes Percent Auto 12.7 % (2.6-8.5); Neutrophils Absolute Auto 3.7 K/mm3 (1.3-6.7); Neutrophils Percent Auto 72.8 % (45.5-73.1); Platelet Count Result 186 k/mm3 (150-375); White Blood Count 5.1 K/mm3 (4.5-10.0)
[2025-01-02 20:07] LABS: Alanine Aminotransferase 34 U/L (6-35); Albumin Level 4.4 g/dL (3.5-5.1); Alkaline Phosphatase 79 U/L (38-126); Anion Gap 6 mmol/L (4-12); Aspartate Amino Transferase 47 U/L (14-36); Bilirubin,Total 0.4 mg/dL (0.2-1.3); Blood Urea Nitrogen 19 mg/dL (7-17); Calcium 9.3 mg/dL (8.4-10.2); Carbon Dioxide 28 mmol/L (22-30); Chloride 104 mmol/L (98-107); Cholesterol 222 mg/dL (0-200); Estimated Glomerular Filt Rate 44; Glucose 90 mg/dL (65-110); HDL Direct 105 mg/dL; Potassium 4.4 mmol/L (3.4-5.0); Sodium 138 mmol/L (137-145); Triglycerides 73 mg/dL (<150)
[2025-01-02 20:19] LABS: LDL Cholesterol Direct 80 mg/dL
[2025-01-02 20:50] LABS: Hemoglobin A1C 5.4 % (<5.7)
== END 2025-01-02 08:28 | disposition home or self-care (01) ==
LOC: ANHGOSHLAB 08:28
PROVIDERS: PCP Family Medicine; Visit Provider Family Medicine
DX: Z00.00 Encounter for general adult medical examination without abnormal findings (principal); N18.31 Chronic kidney disease, stage 3a; E78.5 Hyperlipidemia, unspecified; R73.9 Hyperglycemia, unspecified; E53.8 Deficiency of other specified B group vitamins
CPT/HCPCS: 36415; 80053; 80061; 82607; 83036; 85025

== ENCOUNTER 2025-06-16 10:14 | Outpatient (CLI) | payer OTHER, SELFPAY ==
--- NOTE | ~2025-06-16 | DEXA_ITS ---
Bone Density Report Name: CHARITY LOZANO Age: 59 Sex: Female Ethnicity: White Date of : 1965 Indication: osteopenia; monitoring treatment; parental hip fracture; height loss; prior fracture; seizure disorder; Referring Provider: Bushra Kern Study: Bone densitometry was performed. Exam Date: June 16, 2025 Accession number: [id number] Bone Density: Region BMD T-score Z-score Classification AP Spine(L1-L4) 0.926 -1.1 0.4 Osteopenia Femoral Neck (Left) 0.515 -3.0 -1.7 Osteoporosis Total Hip (Left) 0.677 -2.2 -1.1 Osteopenia Femoral Neck (Right) 0.570 -2.5 -1.2 Osteoporosis Total Hip (Right) 0.676 -2.2 -1.1 Osteopenia Total Hip Mean 0.677 -2.2 -1.1 Osteopenia World Health Organization criteria for BMD impression classify patients as: Normal (T-score at or above -1.0), Osteopenia (T-score between -1.0 and -2.5), or Osteoporosis (T-score at or below -2.5). 10-year Fracture Risk: FRAX not reported because: Some T-score for Spine Total or Hip Total or Femoral Neck at or below -2.5 Prior hip or vertebral fracture Treated for osteoporosis Previous Exams: -- Region Exam Age BMD T-score BMD Change BMD Change Date g/cm2 vs Baseline vs Previous -- AP Spine (L1-L4) 06/16/2025 59 0.926 -1.1 -4.4%* -4.4%* 04/26/2023 57 0.968 -0.7 Total Hip(Left) 06/16/2025 59 0.677 -2.2 -0.3% -0.3% 04/26/2023 57 0.679 -2.2 Total Hip(Right) 06/16/2025 59 0.676 -2.2 -0.9% -0.9% 04/26/2023 57 0.683 -2.1 -- *Denotes significance at 95% confidence level, LSC for AP Spine = 0.022 g/cm2, LSC for Total Hip = 0.027 g/cm2 Clinical Information Provided by Patient: Have had a previous hip or vertebral fracture Has had a low trauma fracture Parent has had a hip fracture Is being treated for osteoporosis Has used the following medications: Fosamax (i.e. alendronate), Reclast (i.e. zoledronate), Prolia (i.e. denosumab), Vitamin D, Calcium Has the following medical conditions: Any Seizure Disorders Patient maximum height was 65 Menopause Age: 48 Drinks caffeinated beverages Onset of menses at age 12 Number of children 2 Missed period for more than 6 months in a row Impression: The patient has established osteoporosis, based on the Left Femoral Neck T-score and the existence of a prior fracture. The patient has risk factors, including: parental hip fracture, previous fracture. The BMD for the AP Spine (L1-L4) decreased, changing by -4.4% since the last DXA exam. Discussion: SIGNIFICANT BONE LOSS OBSERVED. Adherence to therapy (including calcium and vitamin D intake) should be assessed. If compliance is not a factor, review management and exclusion of secondary causes of bone loss. It is important to ask patients whether they are taking their medications and to encourage continued and appropriate compliance with their osteoporosis therapies to reduce fracture risk. It is also important to review their risk factors and encourage appropriate calcium and vitamin D intakes, exercise, fall prevention and other lifestyle measures. Follow-Up: Consider a repeat BMD and Vertebral Fracture Assessment (VFA) exam in 2 years or sooner if medically necessary, to reassess this patient's status. Reported by: ALICE on 06/16/2025 10:42:00 AM. Reviewed, dictated and finalized at location A.
== END 2025-06-16 10:15 | disposition home or self-care (01) ==
LOC: MICIMG 10:15
PROVIDERS: PCP Family Medicine; Visit Provider Family Medicine
DX: Z78.0 Asymptomatic menopausal state (principal); M85.88 Other specified disorders of bone density and structure, other site; M81.0 Age-related osteoporosis without current pathological fracture; M85.852 Other specified disorders of bone density and structure, left thigh; M85.851 Other specified disorders of bone density and structure, right thigh
CPT/HCPCS: 77080

== ENCOUNTER 2025-06-20 07:00 | Outpatient (CLI) | payer OTHER, SELFPAY ==
--- NOTE | ~2025-06-20 | MR_ITS ---
EXAMINATION: MR cervical spine wo con DATE: 06/20/2025 07:28 INDICATION: Neck pain. TECHNIQUE: Magnetic resonance imaging (MRI) of the cervical spine was performed without intravenous contrast. COMPARISON: Cervical spine MRI 04/24/2024 FINDINGS: There is kyphosis of cervical spine. Vertebral body heights are normal. There is moderately decreased disc height at C4-C5, C5-C6, and C6-C7. The spinal cord signal intensity is normal. The following disc levels are specifically discussed: C2-C3: The disc does not extend beyond the endplate margin. There is no uncovertebral joint osteoarthritis. There is mild bilateral facet joint osteoarthritis. There is no neural foraminal stenosis. There is no central canal stenosis. C3-C4: The disc is bulging and has an annular fissure. There is mild right and moderate left uncovertebral joint osteoarthritis. There is moderate right and severe left facet joint osteoarthritis. There is mild left neural foraminal stenosis. There is mild central canal stenosis. C4-C5: The disc is bulging. There is severe bilateral uncovertebral joint osteoarthritis. There is mild right and severe left facet joint osteoarthritis. There is mild bilateral neural foraminal stenosis. There is mild central canal stenosis. C5-C6: The disc is bulging. There is severe bilateral uncovertebral joint osteoarthritis. There is mild bilateral facet joint osteoarthritis. There is moderate bilateral neural foraminal stenosis. There is mild central canal stenosis. C6-C7: The disc is bulging. There is moderate right and severe left uncovertebral joint osteoarthritis. There is moderate right and mild left facet joint osteoarthritis. There is mild bilateral neural foraminal stenosis. There is mild central canal stenosis. C7-T1: The disc does not extend beyond the endplate margin. There is no uncovertebral joint osteoarthritis. There is moderate bilateral facet joint osteoarthritis. There is mild left neural foraminal stenosis. There is no central canal stenosis. IMPRESSION: 1. Moderate cervical spondylosis, stable from 04/24/2024. Reviewed, dictated and finalized at location E.
== END 2025-06-20 07:01 | disposition home or self-care (01) ==
LOC: MICIMG 07:01
PROVIDERS: PCP Family Medicine; Visit Provider Nurse Practitioner Family
DX: M47.812 Spondylosis without myelopathy or radiculopathy, cervical region (principal)
CPT/HCPCS: 72141

== ENCOUNTER 2025-07-10 10:11 | Outpatient (CLI) | payer OTHER, SELFPAY ==
--- OUTSIDE RECORDS SUMMARY | 2025-07-10 11:02 | XMS_ITS | Clinical Summary ---
Author Organization [facility] Address [address] [place] [address] Care Team Providers Care Turbine Subassembler Name Role Phone Aurora Kern MD Primary [...] 11:37 AM CDT Height 165.1 cm (5' 5) 05/03/2022 2:58 PM CDT Body Mass Index [...] (1 of 2) 2013 INFLUENZA VACCINE (#1) 2025 RSV VACCINE (60+ or ) (1 - 1-dose 75+ series) 2038 Insurance [facility] Member Subscriber Plan / Payer ( fective 2023-Present) Name:CHARITY LOZANO Relation to Subscriber:Spouse Name:JANET LOZANO Mehdi Date of :1970 (Home) Address: [address] [place] [address] Payer ID:[id number] (NAIC) Type:O Address: [address] [place] [phone] [facility] Care Teams Turbine Subassembler Relationship Specialty Start Date End Date Aurora Kern MD [address] [place] [address] PCP - General Family Practice 04/18/18
[2025-07-10 13:02] LABS: Hematocrit 38.6 % (37.0-47.0); Hemoglobin 12.6 g/dL (12.0-15.0); Immature Granulocyte Percent A 0.4 % (0-0.5); Lymphocytes Absolute Auto 1.01 K/mm3 (0.9-3.2); Mean Corpuscular HGB Conc 32.6 g/dl (32-36); Mean Corpuscular Hemoglobin 32.1 pg (26-34); Mean Corpuscular Volume 98.5 fl (80-100); Nucleated Red Blood Cells Absolute Auto 0.000 K/mm3 (0.0-0.012); Nucleated Red Blood Cells Perc 0.0 % (0.0-0.2); Platelet Count Result 208 k/mm3 (150-375); Red Blood Count 3.92 M/mm3 (4.2-5.4); White Blood Count 4.8 K/mm3 (4.5-10.0)
[2025-07-10 13:05] LABS: Iron 90 ug/dL (37-170)
[2025-07-10 13:10] LABS: Alanine Aminotransferase 24 U/L (6-35); Albumin Level 4.8 g/dL (3.5-5.1); Alkaline Phosphatase 84 U/L (38-126); Anion Gap 6 mmol/L (4-12); Aspartate Amino Transferase 45 U/L (14-36); Bilirubin,Total 0.7 mg/dL (0.2-1.3); Blood Urea Nitrogen 18 mg/dL (7-17); Calcium 10.2 mg/dL (8.4-10.2); Carbon Dioxide 29 mmol/L (22-30); Chloride 102 mmol/L (98-107); Estimated Glomerular Filt Rate 48; Glucose 81 mg/dL (65-110); Potassium 5.0 mmol/L (3.4-5.0); Sodium 137 mmol/L (137-145); Total Protein 8.1 g/dL (6.3-8.2)
[2025-07-10 13:15] LABS: Percent Iron Saturation 28 % (20-50)
[2025-07-10 13:52] LABS: Ferritin 43.40 ng/mL (11.1-264)
== END 2025-07-10 10:12 | disposition home or self-care (01) ==
LOC: ANHGOSHLAB 10:11
PROVIDERS: PCP Family Medicine; Visit Provider Family Medicine
DX: D64.9 Anemia, unspecified (principal); I10 Essential (primary) hypertension; E55.9 Vitamin D deficiency, unspecified
CPT/HCPCS: 36415; 80053; 82306; 82728; 83540; 83550; 85025

== ENCOUNTER 2025-07-25 10:23 | Outpatient (CLI) | payer OTHER, SELFPAY ==
--- NOTE | ~2025-07-25 | MM_ITS ---
EXAMINATION: MM screening saman BI w angela HISTORY: Screening. TECHNIQUE: Craniocaudal and mediolateral oblique 3-D tomosynthesis images were obtained and synthetic 2-D images were generated. CAD analysis was submitted and interpreted. COMPARISON: 2023 and 2021. BREAST PARENCHYMAL COMPOSITION: Dense: The breast tissue is heterogeneously dense, which may obscure small masses. FINDINGS: No suspicious masses are seen. There are no suspicious calcifications. No unexplained architectural distortion is seen. There are no skin or nipple abnormalities identified. There is no adenopathy seen on the images submitted. IMPRESSION: No mammographic evidence to suggest malignancy is seen. The patient may return to screening mammography as per ACR guidelines. BI-RADS: 1 - Negative. Reviewed, dictated and finalized at location A. ERN KEEPER
== END 2025-07-25 10:24 | disposition home or self-care (01) ==
LOC: MICIMG 10:24
PROVIDERS: PCP Family Medicine; Visit Provider Family Medicine
DX: Z12.31 Encounter for screening mammogram for malignant neoplasm of breast (principal)
CPT/HCPCS: 77063; 77067